=== PATIENT | male | born 1960 | race Two or more races ===

== ENCOUNTER 2020-06-25 11:19 | Emergency (ER) | payer MEDICAID, SELFPAY ==
--- NOTE | 2020-06-25 | CT_ITS ---
EXAMINATION: CT CHEST WITHOUT CONTRAST CLINICAL INFORMATION: Cough for 2 weeks. COMPARISON: Chest x-ray 02/27/2020. correlation CT abdomen 01/31/2020. TECHNIQUE: Multidetector volumetric CT imaging of the chest was done. Axial MIP volume rendering provided. Sagittal and coronal reformatted images were obtained. This CT examination was performed using dose optimization techniques as appropriate, variously including the following: *Automated exposure control *Adjustment of mA and/or kV according to patient size (this includes techniques or standardized protocols for targeted exams where dose is matched to indication/reason for exam; i.e. extremities or head) *Use of iterative reconstruction technique DLP: 393 mGy-cm FINDINGS: LUNGS: Trachea and central airway are clear. Airspace opacities, including opacities with band-like configuration in the right middle lobe, right lower lobe, and more prominently in the left lower lobe. This could represent atelectasis or infiltrate. MEDIASTINUM: Visualized thyroid gland appears unremarkable. No adenopathy is seen in the mediastinum or dimitry. Normal caliber aorta. Normal heart size. No pericardial effusion. PLEURA: There is no pleural effusion. No pleural mass or thickening. AXILLA: No lymphadenopathy. UPPER ABDOMEN: Large lesion in the right lobe of the liver, better evaluated on the recent CT scan of 01/31/2020. Mild intrahepatic biliary duct dilatation. Abnormal pancreatic findings, better evaluated on the recent CT abdomen 01/31/2020. OSSEOUS STRUCTURES: No acute or suspicious osseous abnormality. Degenerative changes in the thoracic spine. IMPRESSION: 1. Opacities in the right middle lobe, bilateral lower lobes, left greater than right, could represent atelectasis or infiltrates. 2. Findings in the upper abdomen, has been better evaluated on the prior contrast-enhanced CT of 02/27/2020. Please refer to that CT report.
[2020-06-25 11:49] VITALS: BP 135/97; PULSE 95; RESP 18; TEMP 37.1; O2SAT 94; BMI 31.8
--- NOTE | 2020-06-25 12:00 | ED.SOB ---
HPI - SOB/Dyspnea General Chief Complaint: Dyspnea Stated Complaint: flu like symtoms Time Seen by Provider: 06/25/20 12:00 Source: patient Mode of arrival: ambulatory Limitations: no limitations History of Present Illness MD elicited complaint: shortness of breath Pertinent past history: asthma Onset (ago): week(s) (2) Context: other (worse at night when laying flat) Timing: intermittent Severity: moderate Exacerbating factors: lying flat Relieving factors: nothing Related Data Previous Rx's Medication Instructions Recorded doxycycline hyclate 100 mg PO BID 7 Days #14 cap 06/25/20 prednisone 40 mg PO DAILY #10 tab 06/25/20 Allergies Allergy/AdvReac Type Severity Reaction Status Date / Time barium sulfate Allergy Unknown rash Verified 07/07/16 00:00 ibuprofen [IBUPROFEN] Allergy Unknown HYPERACTIVITY, Unverified 06/06/20 14:39 GI upset Review of Systems Review of Systems: Constitutional : No Fever, No Chills ENT/Mouth : No sore throat, No Rhinorrhea, No Swallowing Difficulty Eyes: No Eye Pain, No Swelling, No Redness Cardiovascular : No Chest Pain, positive SOB, pos Orthopnea, no Edema Respiratory : No Cough, No Sputum, No Wheezing, positive dyspnea Gastrointestinal : No Nausea, No Vomiting, No Diarrhea, No abdominal Pain, No Hematochezia, No Melena Genitourinary : No Dysuria, No Urinary Frequency, No Hematuria Musculoskeletal : No joint pain, No Myalgias Skin : No Skin Lesions, No rash Neuro : No Weakness, No Numbness, No Dizziness, No Headache Psych : No Anxiety/Panic, No Depression Heme/Lymph: No Bruising, No Lymphadenopathy Endocrine : No Polyuria, No Polydipsia All other systems reviewed and are negative [facility] Past Medical History Medical History Asthma Bipolar disorder Lipoma Surgical History S/P excision of lipoma Family History Family History (Updated 06/25/20 @ 09:46 by RACHEL Paulson) Father Myocardial infarction Mother NIDDY (non-insulin dependent diabetes mellitus in young) CAD (coronary artery disease) HTN (hypertension), benign No family history of colorectal cancer Social History Social History Alcohol intake: never Smoking Status: Former smoker Tobacco Type: Cigarette Smoked in Last 30 Days: No Use of substances other than those prescribed or required for medical reasons: No Advance Directives: No Advance Directives Information Provided: Yes Physical Exam Vital Signs and I&O and Narrative: Vital Signs and I&O: Vital Signs Temp 98.7 F 06/25/20 11:49 Pulse 85 06/25/20 12:54 Resp 14 06/25/20 12:54 BP 141/88 H 06/25/20 12:54 Pulse Ox 93 06/25/20 12:54 Intake & Output 06/24/20 06/25/20 06/25/20 18:59 06:59 18:59 Weight 92.079 kg Body Mass Index 31.8 Appearance: Alert. Oriented X3. No acute distress. Eyes: Pupils equal, round and reactive to light. ENT: Pharynx normal. Neck: Normal inspection. Neck supple. CVS: Normal heart rate and rhythm. Pulses normal. Respiratory: No respiratory distress. Breath sounds normal. Abdomen: Soft and nontender. Skin: Skin warm and dry. Normal skin color. Normal skin turgor. Extremities: No lower extremity edema. No lower extremity edema. Neuro: Oriented X 3. No motor deficit. No sensory deficit. Course Course Course Narrative: ddimer below upper limits of normal - needs to leave, no hypoxia will start on steroids and medications for bronchitis anticipate DC home if he cannot wait for full results Reevaluation(s) Reevaluation #1: + CT chest for likely pneumonia, diffuse called at home and warmed about possible appearance of COVID. also notified him that persistent liver lesion still present - will follow up with PCP MDM - SOB/Dyspnea MDM Narrative Medical decision making narrative: patient with dyspnea for 2 weeks, just had negative COVID test at this time will obtain EKG, ddimer , possible CT chest for pneumonia, does not need neb at this time, dispo per results and findings Differential Diagnosis Differential diagnosis: Likely pneumonia, asthma with exacerbation and pulmonary embolism Lab Data Result diagrams: 06/25/20 13:06 06/25/20 13:06 Labs: Lab Results 06/25/20 06/25/20 06/25/20 Range/Units 13:06 13:06 13:06 WBC 6.4 (4.8-10.8) X10*3/uL RBC 4.54 L (4.60-5.80) X10*6/uL Hgb 12.6 L (14.0-18.0) g/dl Hct 39.3 L (42-52) % MCV 86.6 (80-98) fL MCH 27.8 (27.0-33.0) pg MCHC 32.1 (31.0-36.0) g/dl RDW 14.1 (11.0-16.0) % Plt Count 186 (160-400) X10*3/uL MPV 9.8 (9.4-12.4) fL Immature Gran % (Auto) 0.5 H (0.0-0.4) % Neut % (Auto) 48.0 (45-73) % Lymph % (Auto) 35.7 (20-40) % Floyd % (Auto) 11.1 H (2-11) % Eos % (Auto) 3.9 (0-4) % Baso % (Auto) 0.8 (0-2) % Neut # (Auto) 3.1 (2.0-8.3) X10*3/uL Lymph # (Auto) 2.3 (1.2-4.9) X10*3/uL Floyd # (Auto) 0.7 (0.1-1.2) X10*3/uL Eos # (Auto) 0.3 (0.0-0.4) X10*3/uL Baso # (Auto) 0.1 (0.0-0.2) X10*3/uL Abs Immat Gran (auto) 0.03 (0.00-0.03) X10*3/uL Absolute Nucleated RBC 0.000 (0.0-0.012) X10*3/uL Nucleated RBC % (auto) 0.0 (0.0-0.2) /100WBC D-Dimer 246 NG/ML Sodium 139 (135-145) mmol/L Potassium 4.0 (3.3-5.1) mmol/l Chloride 104 (96-108) mmol/L Carbon Dioxide 28 (22-29) mmol/L Anion Gap 11 L (12-20) BUN 16 (9-16) mg/dL Creatinine 0.84 (0.5-1.4) mg/dL Estim Creat Clear Calc 104.9 Estimated GFR > 60 Random Glucose 127 H (60-115) mg/dL Calcium 8.7 (8.4-10.2) mg/dL Magnesium 1.7 (1.6-2.6) mg/dL Total Bilirubin 0.3 (0.0-1.0) mg/dL Direct Bilirubin < 0.2 (0.0-0.5) mg/dL AST 22 (5-37) U/L ALT 21 (0-40) U/L Alkaline Phosphatase 59 (39-117) U/L Troponin I High Sens (<3.5-35.0) ng/L B-Natriuretic Peptide (<100) pg/mL Total Protein 7.1 (6.5-8.0) g/dL Albumin 3.9 (3.5-5.0) g/dL Lipase 23 (8-78) U/L 06/25/20 Range/Units 13:06 WBC (4.8-10.8) X10*3/uL RBC (4.60-5.80) X10*6/uL Hgb (14.0-18.0) g/dl Hct (42-52) % MCV (80-98) fL MCH (27.0-33.0) pg MCHC (31.0-36.0) g/dl RDW (11.0-16.0) % Plt Count (160-400) X10*3/uL MPV (9.4-12.4) fL Immature Gran % (Auto) (0.0-0.4) % Neut % (Auto) (45-73) % Lymph % (Auto) (20-40) % Floyd % (Auto) (2-11) % Eos % (Auto) (0-4) % Baso % (Auto) (0-2) % Neut # (Auto) (2.0-8.3) X10*3/uL Lymph # (Auto) (1.2-4.9) X10*3/uL Floyd # (Auto) (0.1-1.2) X10*3/uL Eos # (Auto) (0.0-0.4) X10*3/uL Baso # (Auto) (0.0-0.2) X10*3/uL Abs Immat Gran (auto) (0.00-0.03) X10*3/uL Absolute Nucleated RBC (0.0-0.012) X10*3/uL Nucleated RBC % (auto) (0.0-0.2) /100WBC D-Dimer NG/ML Sodium (135-145) mmol/L Potassium (3.3-5.1) mmol/l Chloride (96-108) mmol/L Carbon Dioxide (22-29) mmol/L Anion Gap (12-20) BUN (9-16) mg/dL Creatinine (0.5-1.4) mg/dL Estim Creat Clear Calc Estimated GFR Random Glucose (60-115) mg/dL Calcium (8.4-10.2) mg/dL Magnesium (1.6-2.6) mg/dL Total Bilirubin (0.0-1.0) mg/dL Direct Bilirubin (0.0-0.5) mg/dL AST (5-37) U/L ALT (0-40) U/L Alkaline Phosphatase (39-117) U/L Troponin I High Sens < 3.5 (<3.5-35.0) ng/L B-Natriuretic Peptide 17 (<100) pg/mL Total Protein (6.5-8.0) g/dL Albumin (3.5-5.0) g/dL Lipase (8-78) U/L ECG Data ECG interpretation date: 06/25/20 ECG interpretation time: 12:58 Interpretation: Rate: 86 Rhythm: normal sinus [place]: normal Normal P waves. Normal ELVIN. Normal QRS complex. ST T wave : normal qTC: normal prior studies: unchanged, no acute ischemia The study has been interpreted contemporaneously by me. . Discharge Plan Discharge Clinical Impression: Acute dyspnea, Bronchitis Patient Disposition: Home, Self-Care Instructions: Acute Bronchitis (ED), Dyspnea (ED) Additional Instructions: the final read from radiology is not back yet we will call you with anything concerning Prescriptions: New prednisone 20 mg tablet 40 mg PO DAILY Qty: 10 RF: 0 doxycycline hyclate 100 mg capsule 100 mg PO BID 7 Days Qty: 14 RF: 0 Referrals: Geovanni Armendariz MD [Primary Care Provider] - 2 days (if not better) Stand Alone Forms: Work/School Release Interventions: ED Discharge Assessment Last Done: 06/25/20 15:14 Discharge Date/Time: 06/25/20 15:16
--- NOTE | 2020-06-25 12:03 | ECG_ITS ---
Test Reason : DIFF BREATHING Blood Pressure : / mmHG Vent. Rate : 086 BPM Atrial Rate : 086 BPM P-R Int : 128 ms QRS Dur : 084 ms QT Int : 372 ms P-R-T Axes : 032 041 009 degrees QTc Int : 445 ms Normal sinus rhythm Normal ECG When compared with ECG of 19-JUL-2015 07:32, Premature ventricular complexes are no longer Present Referred By: Sigrid Veliz Electronically Signed By:TAISHA BOGGS
[2020-06-25 12:54] VITALS: BP 141/88; PULSE 85; RESP 14; O2SAT 93
[2020-06-25 13:15] LABS: MANUAL DIFF FLAG NO
[2020-06-25 13:16] LABS: Basophils Absolute Auto 0.1 X10*3/uL (0.0-0.2); Basophils Percent Auto 0.8 % (0-2); Eosinophils Absolute Auto 0.3 X10*3/uL (0.0-0.4); Eosinophils Percent Auto 3.9 % (0-4); Hematocrit 39.3 % (42-52); Hemoglobin 12.6 g/dl (14.0-18.0); Imm Gran Abs Auto 0.03 X10*3/uL (0.00-0.03); Imm Gran Pct Auto 0.5 % (0.0-0.4); Lymphocytes Absolute Auto 2.3 X10*3/uL (1.2-4.9); Lymphocytes Percent Auto 35.7 % (20-40); Mean Corpuscular HGB Conc 32.1 g/dl (31.0-36.0); Mean Corpuscular Hemoglobin 27.8 pg (27.0-33.0); Mean Corpuscular Volume 86.6 fL (80-98); Mean Platelet Volume 9.8 fL (9.4-12.4); Monocytes Absolute Auto 0.7 X10*3/uL (0.1-1.2); Monocytes Percent Auto 11.1 % (2-11); Neutrophils Absolute Auto 3.1 X10*3/uL (2.0-8.3); Platelet Count 186 X10*3/uL (160-400); Red Blood Count 4.54 X10*6/uL (4.60-5.80); Red Cell Distribution Width 14.1 % (11.0-16.0); White Blood Count 6.4 X10*3/uL (4.8-10.8)
[2020-06-25 13:27] LABS: D Dimer 246 NG/ML
[2020-06-25 13:40] LABS: Alanine Aminotransferase 21 U/L (0-40); Albumin Level 3.9 g/dL (3.5-5.0); Alkaline Phosphatase 59 U/L (39-117); Anion Gap 11 (12-20); Aspartate Amino Transferase 22 U/L (5-37); Bilirubin Direct < 0.2 mg/dL (0.0-0.5); Bilirubin Total 0.3 mg/dL (0.0-1.0); Blood Urea Nitrogen 16 mg/dL (9-16); Calcium 8.7 mg/dL (8.4-10.2); Carbon Dioxide 28 mmol/L (22-29); Chloride 104 mmol/L (96-108); Creatinine Clr Calc Pharmacy 104.9; Estimated Glomerular Filt Rate > 60; Glucose Random 127 mg/dL (60-115); Lipase 23 U/L (8-78); Magnesium 1.7 mg/dL (1.6-2.6); Sodium 139 mmol/L (135-145); Total Protein 7.1 g/dL (6.5-8.0)
[2020-06-25 13:46] LABS: B Type Natriuretic Peptide 17 pg/mL (<100); Troponin-I High Sensitivity < 3.5 ng/L (<3.5-35.0)
== END 2020-06-25 15:16 | disposition home or self-care (01) ==
PROVIDERS: Emergency Provider Emergency Medicine; PCP Family Medicine
DX: J42 Unspecified chronic bronchitis (principal); R06.00 Dyspnea, unspecified; Z87.891 Personal history of nicotine dependence
CPT/HCPCS: 36415; 71250; 80048; 80076; 83690; 83735; 83880; 84484; 85025; 85379; 93005; 93010; 99284

== ENCOUNTER → 2020-06-26 09:54 | Outpatient (BNVA) | payer MEDICAID, SELFPAY | PROVIDERS: PCP Family Medicine; Referring Provider Family Medicine; Visit Provider Nurse Practitioner | DX: K74.60 Unspecified cirrhosis of liver (principal); B18.2 Chronic viral hepatitis C; R79.89 Other specified abnormal findings of blood chemistry; K21.9 Gastro-esophageal reflux disease without esophagitis | CPT/HCPCS: 99213 ==

== ENCOUNTER 2020-06-27 13:57 | Outpatient (REF) | payer MEDICAID, SELFPAY | END 2020-06-27 13:58 | disposition home or self-care (01) | LOC: HO.LAB 13:57 | PROVIDERS: PCP Family Medicine; Visit Provider Internal Medicine | DX: Z20.828 Contact with and (suspected) exposure to other viral communicable diseases (principal) | CPT/HCPCS: 87635 ==

== ENCOUNTER 2020-08-06 12:34 | Day surgery (SDC) | payer MEDICAID, SELFPAY ==
[2020-08-06 12:46] VITALS: BP 152/104; PULSE 72; RESP 18; TEMP 36.4; O2SAT 96; BMI 30.7
[2020-08-06 12:53] VITALS: BP 150/97; PULSE 62; RESP 18
--- NOTE | 2020-08-06 14:25 | P.HPSUR_ITS ---
Pre-Procedural Eval Section B Chief Complaint: cirrhosis Relevant Family History (Specify if Yes): No Relevant Social History: Other (specify) (ex drug user and ex smoker) Present Medications: see Short Stay Collaborative assessment Medical History: Significant History (HEp c, cirrhosis, bipolar d/o ) History of Previous Operations: No relevant previous surgery Allergies: Allergies Allergy/AdvReac Type Severity Reaction Status Date / Time barium sulfate Allergy Unknown rash Verified 07/07/16 00:00 ibuprofen [IBUPROFEN] Allergy Unknown HYPERACTIVITY, Unverified 06/26/20 10:03 GI upset, rash Review of Systems Sugical H&P ROS: Negative: Constitution, Cardiovascular, Respiratory, Neurological, Psychiatric, Hem-Onc, Allergic/Immunologic, Gastrointestinal, Genitourinary, Musculoskeletal, Integumentary, Endocrine and Eyes/Ears/Nose/Throat Exam Surgical H&P Exam: Normal: HEENT, Normal: Heart, Normal: Lungs, Normal: Extremi ties, Normal: Abdomen, Normal: Skin and Normal: Neurological Plan Diagnosis/Plan: Unchanged Patient has been examined and remains a candidate for the planned procedure
--- NOTE | 2020-08-06 14:27 | PM.OP ---
Brief Operative Note Date of Service: 08/06/20 Pre-op diagnosis: cirrhosis, variceal screening Post-op diagnosis: same Procedure: see op note Surgeon: Kiana Ulloa MD Anesthesia: MAC Estimated blood loss (mL): 0 Condition: stable Disposition: PACU
--- NOTE | 2020-08-06 14:40 | P.CONAN_ITS ---
[facility] Past Medical History Medical History Asthma Bipolar disorder Lipoma Family History Family History Father Myocardial infarction Mother NIDDY (non-insulin dependent diabetes mellitus in young) CAD (coronary artery disease) HTN (hypertension), benign No family history of colorectal cancer Surgical History Surgical History S/P excision of lipoma Social History Social History (Updated 06/26/20 @ 10:12 by Diane Chairez RN) Alcohol intake: never Smoking Status: Former smoker Tobacco Type: Cigarette Cigarettes Per Day: 5 Years Smoked: 26 Use of substances other than those prescribed or required for medical reasons: No Substance Use Type: Crack/Cocaine, Former Substance User and Heroin Advance Directives: No Advance Directives Information Provided: No Meds Allergies Allergy/AdvReac Type Severity Reaction Status Date / Time barium sulfate Allergy Unknown rash Verified 07/07/16 00:00 ibuprofen [IBUPROFEN] Allergy Unknown HYPERACTIVITY, Unverified 06/26/20 10:03 GI upset, rash Home Medications Medication Instructions Recorded Confirmed Type buprenorphine 8 mg-naloxone 2 mg 1 film BUCCAL DAILY 06/26/20 06/26/20 History sublingual film omeprazole 20 mg capsule,delayed 20 mg PO DAILY 06/26/20 06/26/20 History release quetiapine 400 mg tablet 400 mg PO BEDTIME tab 06/26/20 06/26/20 History risperidone 2 mg tablet 2 mg PO BID 06/26/20 06/26/20 History sertraline 100 mg tablet 100 mg PO DAILY 06/26/20 06/26/20 History trazodone 100 mg tablet 100 mg PO BEDTIME 06/26/20 06/26/20 History Exam Exam Date and Time: August 06, 2020 1440 Height,Weight and Vital Signs: Height 5 ft 7 in Weight 88.904 kg Last Vital Signs Temp 97.5 F 08/06/20 12:46 Pulse 62 08/06/20 12:53 Resp 18 08/06/20 12:53 BP 150/97 H 08/06/20 12:53 Pulse Ox 96 08/06/20 12:46 Airway Mallampati Class: III TM Dist: >3cm Neck ROM: Full Partial: Upper Loose/Missing/Broken Teeth: Yes (Several missing) Heart: RRR Assessment and Plan Assessment Anesthesia Assessment: Anesthesia Plan Discussed Final Anesthetic Review NPO: Yes ASA Class: III Anesthetic Plan Anesthetic Plan: MAC: Disposition: Standard PACU
--- NOTE | 2020-08-06 14:47 | W.PM.OPN ---
Operative Note Operative Note Date of Service: 08/06/20 Narrative: Procedure Description: EGD FLEXIBLE TRANSORAL UPPER GASTROINTESTINAL ENDOSCOPY UPPER ENDOSCOPY Consent: Indications for the procedure and potential complications of bleeding, perforation, reaction to medications and missed diagnosis were discussed with the patient and informed consent was obtained. Instrument: Olympus GIF H 190 J mid size upper endoscope Monitoring: Vital signs and clinical assessment, continuous EKG monitoring, Pulse oximetry, Carbon Dioxide monitoring and blood pressure monitoring were done throughout the procedure. Procedure: The patient was placed in the left lateral decubitis position and pre-procedure medications were administered and a bite block was placed. The endoscope was inserted into the mouth and advanced under direct vision to the third part of duodenum. A careful inspection was made as the upper endoscope was withdrawn including a retroflexed examination of the proximal stomach; Findings and interventions are described below. Findings: Larynx:normal Esophagus: GE junction at 40 cm, diaphragm hiatus at 40 cm, suspected short segment of barretts, bx taken, more obvious with nbi. No varices seen Stomach: Patchy gastric erythema. Biopsies were obtained. Grade 2 flap valve on retroflexed examination of the cardia. 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
[2020-08-06 14:53] VITALS: BP 130/97; PULSE 56; RESP 16; TEMP 36.5; O2SAT 94
[2020-08-06 15:05] VITALS: BP 155/96; PULSE 62; RESP 16; TEMP 36.5; O2SAT 95
--- NOTE | 2020-08-07 09:40 | HO.POSTANES ---
Post Anesthesia Evaluation Post Anesthesia Evaluation Anesthesia: Monitored Mental Status: Awake Pain Control: Satisfactory Nausea/Vomiting: None Hydration: Adequate Anesthesia-Related Issues: No Anes. Related Issues
--- NOTE | 2020-08-07 09:41 | HO.POSTANES ---
Post Anesthesia Evaluation Post Anesthesia Evaluation Vital Signs: Patient was done on 08/06 under MAC. Computer was having issues so dischargte done on paper and being transferred now to computer. Anesthesia: Monitored Mental Status: Awake Pain Control: Satisfactory Nausea/Vomiting: None Hydration: Adequate Anesthesia-Related Issues: No Anes. Related Issues
== END 2020-08-06 15:30 | disposition home or self-care (01) ==
PROVIDERS: PCP Family Medicine; Visit Provider Internal Medicine Gastroenterology
PROC: 0DJ08ZZ Inspection of Upper Intestinal Tract, Via Natural or Artificial Opening Endoscopic (ICD-10-PCS; CPT 43235; principal; 2020-08-06 14:20)
DX: K74.60 Unspecified cirrhosis of liver (principal); K29.50 Unspecified chronic gastritis without bleeding; K44.9 Diaphragmatic hernia without obstruction or gangrene; J45.909 Unspecified asthma, uncomplicated; F17.210 Nicotine dependence, cigarettes, uncomplicated; Z88.8 Allergy status to other drugs, medicaments and biological substances
CPT/HCPCS: 43239; 88305; 88342

== ENCOUNTER 2020-08-15 12:31 | Emergency (ER) | payer MEDICAID, SELFPAY ==
[2020-08-15 12:38] VITALS: BP 138/89; PULSE 78; RESP 18; TEMP 36.9; O2SAT 98; BMI 25.9
--- NOTE | 2020-08-15 12:42 | ED.URI ---
HPI - URI/Sore Throat General Chief Complaint: Upper Respiratory Symptoms Stated Complaint: flu like symptoms Time Seen by Provider: 08/15/20 12:36 Source: patient Mode of arrival: ambulatory Limitations: no limitations History of Present Illness HPI Narrative: 59 y/o male with multiple co-morbidiites including asthma, hepatitis C cirrhosis, hx polysubstance abuse on suboxone maintainance therapy, bipolar disorder, depression/anxiety, & GERD presents with complaints of sinus pressure, cough and sore throat for the last 4 days. He states he had similar symptoms in June - was treated with antibiotics and nasal spray with improvement in 24 hours time. He has been taking over the counter cold/flu medications and taking his PRN albuterol inhaler. He reports mild SOB with exertion but denies chest pain, difficulty breathing, dizziness, fever, chills, N/V/ abd pain. No known exposure to COVID-19. Did not get his flu vaccine this year. MD elicited complaint: cough, sore throat, nasal congestion and sinus pain Pertinent past history: asthma Treatments prior to arrival: none Related Data Home Medications Medication Instructions Recorded Confirmed buprenorphine 8 mg-naloxone 2 mg 1 film BUCCAL DAILY 06/26/20 06/26/20 sublingual film omeprazole 20 mg capsule,delayed 20 mg PO DAILY 06/26/20 06/26/20 release quetiapine 400 mg tablet 400 mg PO BEDTIME tab 06/26/20 06/26/20 risperidone 2 mg tablet 2 mg PO BID 06/26/20 06/26/20 sertraline 100 mg tablet 100 mg PO DAILY 06/26/20 06/26/20 trazodone 100 mg tablet 100 mg PO BEDTIME 06/26/20 06/26/20 Previous Rx's Medication Instructions Recorded doxycycline hyclate 100 mg PO BID 7 Days #14 cap 06/25/20 prednisone 40 mg PO DAILY #10 tab 06/25/20 amoxicillin-pot clavulanate 1 tab PO BID #14 tab 08/15/20 [Augmentin] prednisone 40 mg PO DAILY #10 tab 08/15/20 triamcinolone acetonide [Nasacort] 2 spray INTRANASAL DAILY #16.9 ml 08/15/20 Allergies Allergy/AdvReac Type Severity Reaction Status Date / Time barium sulfate Allergy Unknown rash Verified 07/07/16 00:00 ibuprofen [IBUPROFEN] Allergy Unknown HYPERACTIVITY, Unverified 10/07/20 10:03 GI upset, rash Review of Systems Review of Systems: Constitutional: No Fever, No Chills ENT/Mouth: + sore throat, + Rhinorrhea, No Swallowing Difficulty Eyes: No Eye Pain, No Swelling, No Redness Cardiovascular: No Chest Pain, + SOB, No Orthopnea, No Edema Respiratory: + Cough (mild, dry), No Sputum, + Wheezing, No dyspnea Gastrointestinal: No Nausea, No Vomiting, No Diarrhea, No abdominal Pain Musculoskeletal: No joint pain, + Myalgias Skin: No Skin Lesions, No rash Neuro: No Weakness, No Dizziness, + Headache Heme/Lymph: No Bruising, No Lymphadenopathy PMFSH Past Medical History Attestation statement: The following information was validated with the patient. Medical History Asthma Bipolar disorder Lipoma Surgical History S/P excision of lipoma Family History Family History Father Myocardial infarction Mother NIDDY (non-insulin dependent diabetes mellitus in young) CAD (coronary artery disease) HTN (hypertension), benign No family history of colorectal cancer Social History Social History (Updated 06/26/20 @ 10:12 by Diane Chairez RN) Alcohol intake: never Smoking Status: Former smoker Tobacco Type: Cigarette Cigarettes Per Day: 5 Years Smoked: 26 Substance Use Type: Crack/Cocaine, Former Substance User and Heroin Advance Directives: No Advance Directives Information Provided: No Physical Exam Vital Signs: Vital Signs: Last Vital Signs Temp 98.4 F 08/15/20 12:38 Pulse 78 08/15/20 12:38 Resp 18 08/15/20 12:38 BP 138/89 08/15/20 12:38 Pulse Ox 98 08/15/20 12:38 Body Mass Index 25.9 Appearance: Alert. Oriented X3. No acute distress. ENT: Pharyngel erythema without tonsillar swelling or exudate. White nasal discharge with erythematous turbinates bilaterally. Neck: Normal inspection. Neck supple. CVS: Normal heart rate and rhythm. Pulses normal. Respiratory: No respiratory distress. Mild expiratory wheezes throughout lower right lung benjamin. No rhonchi. Abdomen: Soft and nontender. +BS x4 Skin: Skin warm and dry. Normal skin color. Normal skin turgor. No rashes. Neuro: Oriented X 3. Non-focal Course Course Course Narrative: 59 y/o male with multiple comorbidities presenting with sore throat, cough and sinus pressure. He is afebrile with SpO2 98% on arrival. He is non-toxic appearing. He has mild wheezing in right lung but denies SOB at this time. Will hold off on full lab workup. Will get COVID/Flu/RSV panel as well as CXR and rapid Strep given his symptoms. Reevaluation(s) Reevaluation #1: CXR only shows mild basilar atelectasis, no evidence of pneumonia. Strep test is negative. Reevaluation #2: Viral panel still pending, patient asking to be discharged and called with the results. Will treat empirically for possible sinusitis and give short course of prednisone for wheezing. Patient counseled and all questions were answered. MDM - URI/Sore Throat MDM Narrative Medical decision making narrative: COVID-19, pneumonia Differential Diagnosis Differential diagnosis: Likely upper respiratory infection, croup, otitis media, sinusitis, viral infection, bronchitis, influenza and pharyngitis Discharge Plan Discharge Clinical Impression: Upper respiratory infection Qualifiers: URI type: unspecified URI Qualified Code(s): J06.9 - Acute upper respiratory infection, unspecified Patient Disposition: Home, Self-Care Instructions: Upper Respiratory Infection (ED), Wheezing (ED) Additional Instructions: You were tested for COVID-19, Influenza and RSV today. I will call you this afternoon with the results. Your chest x-ray did not show any evidence of pneumonia. Your Strep throat test was negative. I am treating you for possible sinus infection with antibiotics as well as with prednisone for the wheezing in your lungs. Continue to take over the counter cold/flu medications as needed for your symptoms. Stay hydrated. Rest. If you develop shortness of breath, difficultly breathing, chest pain or any other symptom concerning to you, come back to the ER for further evaluation. Prescriptions: New prednisone 20 mg tablet 40 mg PO DAILY Qty: 10 RF: 0 amoxicillin-pot clavulanate [Augmentin] 875-125 mg tablet 1 tab PO BID Qty: 14 RF: 0 triamcinolone acetonide [Nasacort] 55 mcg aerosol,spray 2 spray intranasal DAILY Qty: 16.9 RF: 0 No Action prednisone 20 mg tablet 40 mg PO DAILY Qty: 10 RF: 0 doxycycline hyclate 100 mg capsule 100 mg PO BID 7 Days Qty: 14 RF: 0 sertraline 100 mg tablet 100 mg PO DAILY RF: 0 omeprazole 20 mg capsule,delayed release(DR/EC) 20 mg PO DAILY RF: 0 quetiapine 400 mg tablet 400 mg PO BEDTIME RF: 0 trazodone 100 mg tablet 100 mg PO BEDTIME RF: 0 risperidone 2 mg tablet 2 mg PO BID RF: 0 buprenorphine-naloxone [Suboxone] 8-2 mg film 1 film buccal DAILY RF: 0
--- NOTE | 2020-08-15 12:43 | XR_ITS ---
EXAMINATION: XR CHEST CLINICAL INFORMATION: Cough COMPARISON: 02/27/2020 TECHNIQUE: Frontal view of the chest was obtained. FINDINGS: Lungs are adequately expanded. Again noted are linear opacities of atelectasis in each lung base. No acute pulmonary findings. No evidence of consolidation, edema or pleural effusion. Cardiac silhouette is normal in size. The hilar contours are normal. The visualized bones, and upper abdomen, are unremarkable. XR/XR chest 1V IMPRESSION: * No evidence of pneumonia. * There are linear opacities of atelectasis in each lung base.
[2020-08-15 14:19] LABS: Influenza A PCR NEGATIVE (Negative); Influenza B PCR NEGATIVE (Negative); Resp Syncy Virus RNA Qual PCR NEGATIVE (Negative); SARS COV2 PCR INHOUSE NEGATIVE (Negative)
== END 2020-08-15 14:24 | disposition home or self-care (01) ==
PROVIDERS: Physician Assistant; Emergency Provider Emergency Medicine Emergency Medical Services; PCP Family Medicine
DX: J06.9 Acute upper respiratory infection, unspecified (principal); R05 Cough; J45.909 Unspecified asthma, uncomplicated; Z79.899 Other long term (current) drug therapy; F17.210 Nicotine dependence, cigarettes, uncomplicated; Z71.6 Tobacco abuse counseling; Z20.828 Contact with and (suspected) exposure to other viral communicable diseases
CPT/HCPCS: 0241U; 71045; 87071; 87880; 99283

== ENCOUNTER 2020-09-11 06:54 | Emergency (ER) | payer MEDICAID, SELFPAY ==
[2020-09-11 07:28] VITALS: BP 125/82; PULSE 73; RESP 22; TEMP 36.9; O2SAT 94; BMI 32.4
--- NOTE | 2020-09-11 07:43 | XR_ITS ---
EXAMINATION: XR CHEST CLINICAL INFORMATION: Dyspnea COMPARISON: Chest 08/15/2020 TECHNIQUE: Frontal view of the chest was obtained. FINDINGS: The lungs are well-expanded with bilateral lower lobe platelike atelectasis. The upper lungs are clear. The heart size and pulmonary vascularity is normal. There is mild spondylosis dorsal spine. No lytic process. XR/XR chest 1V IMPRESSION: Bibasilar platelike atelectasis. No acute process seen in chest.
--- NOTE | 2020-09-11 07:55 | ED_ITS ---
HPI - Asthma General Chief Complaint: Asthma Stated Complaint: Sob Time Seen by Provider: 09/11/20 07:43 Source: patient Mode of arrival: ambulatory Limitations: no limitations History of Present Illness MD complaint: wheezing Onset (ago): day(s) (3) Severity: moderate Context: recent URI Associated symptoms: productive cough Asthma History: childhood onset and adult onset Treatments Prior to Arrival: inhaled bronchodilator Related Data Current Asthma Therapy: inhaled bronchodilator Home Medications Medication Instructions Recorded Confirmed buprenorphine 8 mg-naloxone 2 mg 1 film BUCCAL DAILY 06/26/20 06/26/20 sublingual film omeprazole 20 mg capsule,delayed 20 mg PO DAILY 06/26/20 06/26/20 release quetiapine 400 mg tablet 400 mg PO BEDTIME tab 06/26/20 06/26/20 risperidone 2 mg tablet 2 mg PO BID 06/26/20 06/26/20 sertraline 100 mg tablet 100 mg PO DAILY 06/26/20 06/26/20 trazodone 100 mg tablet 100 mg PO BEDTIME 06/26/20 06/26/20 Previous Rx's Medication Instructions Recorded doxycycline hyclate 100 mg PO BID 7 Days #14 cap 06/25/20 prednisone 40 mg PO DAILY #10 tab 06/25/20 amoxicillin-pot clavulanate 1 tab PO BID #14 tab 08/15/20 [Augmentin] prednisone 40 mg PO DAILY #10 tab 08/15/20 triamcinolone acetonide [Nasacort] 2 spray INTRANASAL DAILY #16.9 ml 08/15/20 amoxicillin-pot clavulanate 1 tab PO BID #14 tab 09/11/20 [Augmentin] prednisone 40 mg PO DAILY 5 Days #10 tab 09/11/20 Allergies Allergy/AdvReac Type Severity Reaction Status Date / Time barium sulfate Allergy Unknown rash Verified 07/07/16 00:00 ibuprofen [IBUPROFEN] Allergy Unknown HYPERACTIVITY, Unverified 06/26/20 10:03 GI upset, rash Review of Systems Review of Systems: Constitutional : No Fever, No Chills ENT/Mouth : No Hoarseness, No sore throat, No Rhinorrhea Eyes: No Redness, No Discharge, No Vision Changes Cardiovascular : No Chest Pain, positive SOB, positive Dyspnea on Exertion, No Edema Respiratory : positive Cough, No Sputum, positive Wheezing, Gastrointestinal : No Nausea, No Vomiting, No Diarrhea, No abdominal Pain Genitourinary : No Dysuria, No Hematuria Musculoskeletal : No joint pain, No Myalgias Skin : No rash Neuro : No Weakness, No Numbness, No Headache Psych : No anxiety, depression Heme/Lymph: No Bruising, No Bleeding Endocrine : No Polyuria, No Polydipsia All other systems reviewed and are negative [facility] Past Medical History Attestation statement: The following information was validated with the patient. Medical History Asthma Bipolar disorder Lipoma Surgical History S/P excision of lipoma Family History Family History Father Myocardial infarction Mother NIDDY (non-insulin dependent diabetes mellitus in young) CAD (coronary artery disease) HTN (hypertension), benign No family history of colorectal cancer Social History Social History Alcohol intake: never Smoking Status: Former smoker Tobacco Type: Cigarette Cigarettes Per Day: 5 Years Smoked: 26 Substance Use Type: Crack/Cocaine, Former Substance User and Heroin Advance Directives: No Advance Directives Information Provided: Yes Physical Exam Vital Signs: Vital Signs: Last Vital Signs Temp 98.4 F 09/11/20 10:00 Pulse 74 09/11/20 10:00 Resp 16 09/11/20 10:00 BP 130/72 09/11/20 10:00 Pulse Ox 96 09/11/20 10:00 Body Mass Index 32.4 Appearance: Alert. Oriented X3. No acute distress. Eyes: Pupils equal, round and reactive to light. ENT: Pharynx normal. Neck: Normal inspection. Neck supple. CVS: Normal heart rate and rhythm. Pulses normal. Respiratory: No respiratory distress. end exp wheezes noted Abdomen: Soft and non-tender. Skin: Skin warm and dry. Normal skin color. Normal skin turgor. Extremities: No lower extremity edema. No calf ttp Neuro: Oriented X 3. No motor deficit. No sensory deficit. Course Course Course Narrative: no hypoxia, stable for DC, feels better MDM - Asthma MDM Narrative Medical decision making narrative: 59 yo male with hx of asthma here with 3 days of URI / productive cough and wheezing, using nebs at home, at this time will need labs, CXR, COVID swab, INH as well as IV steroids, dispo per results and findings. Lab Data Result diagrams: 09/11/20 08:46 09/11/20 09:40 Labs: Lab Results 09/11/20 09/11/20 09/11/20 Range/Units 08:46 08:46 08:46 WBC 7.5 (4.8-10.8) X10*3/uL RBC 4.36 L (4.60-5.80) X10*6/uL Hgb 12.4 L (14.0-18.0) g/dl Hct 37.4 L (42-52) % MCV 85.8 (80-98) fL MCH 28.4 (27.0-33.0) pg MCHC 33.2 (31.0-36.0) g/dl RDW 13.3 (11.0-16.0) % Plt Count 235 D (160-400) X10*3/uL MPV 10.2 (9.4-12.4) fL Immature Gran % (Auto) 0.4 (0.0-0.4) % Neut % (Auto) 50.9 (45-73) % Lymph % (Auto) 32.1 (20-40) % [place] % (Auto) 11.3 H (2-11) % Eos % (Auto) 4.8 H (0-4) % Baso % (Auto) 0.5 (0-2) % Lymph # (Auto) 2.4 (1.2-4.9) X10*3/uL [place] # (Auto) 0.9 (0.1-1.2) X10*3/uL Eos # (Auto) 0.4 (0.0-0.4) X10*3/uL Baso # (Auto) 0.0 (0.0-0.2) X10*3/uL Abs Immat Gran (auto) 0.03 (0.00-0.03) X10*3/uL Absolute Neuts (auto) 3.8 (2.0-8.3) X10*3/uL Absolute Nucleated RBC 0.000 (0.0-0.012) X10*3/uL Nucleated RBC % (auto) 0.0 (0.0-0.2) /100WBC Hold Blue Top SEE NOTE Sodium Cancelled Potassium Cancelled Chloride Cancelled Carbon Dioxide Cancelled Anion Gap Cancelled BUN Cancelled Creatinine Cancelled Estim Creat Clear Calc Cancelled Estimated GFR Cancelled Random Glucose Cancelled Calcium Cancelled Total Bilirubin Cancelled Direct Bilirubin Cancelled AST Cancelled ALT Cancelled Alkaline Phosphatase Cancelled Total Protein Cancelled Albumin Cancelled Coronavirus (PCR) (Negative) Influenza Type A (PCR) (Negative) Influenza Type B (PCR) (Negative) RSV RNA Qual (PCR) (Negative) 09/11/20 09/11/20 Range/Units 08:46 09:40 WBC (4.8-10.8) X10*3/uL RBC (4.60-5.80) X10*6/uL Hgb (14.0-18.0) g/dl Hct (42-52) % MCV (80-98) fL MCH (27.0-33.0) pg MCHC (31.0-36.0) g/dl RDW (11.0-16.0) % Plt Count (160-400) X10*3/uL MPV (9.4-12.4) fL Immature Gran % (Auto) (0.0-0.4) % Neut % (Auto) (45-73) % Lymph % (Auto) (20-40) % [place] % (Auto) (2-11) % Eos % (Auto) (0-4) % Baso % (Auto) (0-2) % Lymph # (Auto) (1.2-4.9) X10*3/uL [place] # (Auto) (0.1-1.2) X10*3/uL Eos # (Auto) (0.0-0.4) X10*3/uL Baso # (Auto) (0.0-0.2) X10*3/uL Abs Immat Gran (auto) (0.00-0.03) X10*3/uL Absolute Neuts (auto) (2.0-8.3) X10*3/uL Absolute Nucleated RBC (0.0-0.012) X10*3/uL Nucleated RBC % (auto) (0.0-0.2) /100WBC Hold Blue Top Sodium 137 Potassium 4.0 Chloride 104 Carbon Dioxide 25 Anion Gap 12 BUN 11 Creatinine 0.76 Estim Creat Clear Calc 117.1 Estimated GFR > 60 Random Glucose 158 H Calcium 8.7 Total Bilirubin 0.2 Direct Bilirubin < 0.2 AST 44 H D ALT 42 H Alkaline Phosphatase 62 Total Protein 6.8 Albumin 3.8 Coronavirus (PCR) NEGATIVE (Negative) Influenza Type A (PCR) NEGATIVE (Negative) Influenza Type B (PCR) NEGATIVE (Negative) RSV RNA Qual (PCR) NEGATIVE (Negative) Discharge Plan Discharge Clinical Impression: Asthma Qualifiers: Asthma severity: moderate Asthma persistence: persistent Asthma complication type: with acute exacerbation Qualified Code(s): J45.41 - Moderate persistent asthma with (acute) exacerbation Sinusitis Qualifiers: Sinusitis location: maxillary Chronicity: acute Recurrence: non-recurrent Qualified Code(s): J01.00 - Acute maxillary sinusitis, unspecified Patient Disposition: Home, Self-Care Instructions: Asthma (ED), Sinusitis (ED) Additional Instructions: return to ED for any worsening symptoms or concerns Prescriptions: New prednisone 20 mg tablet 40 mg PO DAILY 5 Days Qty: 10 RF: 0 amoxicillin-pot clavulanate [Augmentin] 875-125 mg tablet 1 tab PO BID Qty: 14 RF: 0 No Action prednisone 20 mg tablet 40 mg PO DAILY Qty: 10 RF: 0 doxycycline hyclate 100 mg capsule 100 mg PO BID 7 Days Qty: 14 RF: 0 prednisone 20 mg tablet 40 mg PO DAILY Qty: 10 RF: 0 amoxicillin-pot clavulanate [Augmentin] 875-125 mg tablet 1 tab PO BID Qty: 14 RF: 0 triamcinolone acetonide [Nasacort] 55 mcg aerosol,spray 2 spray intranasal DAILY Qty: 16.9 RF: 0 sertraline 100 mg tablet 100 mg PO DAILY RF: 0 omeprazole 20 mg capsule,delayed release(DR/EC) 20 mg PO DAILY RF: 0 quetiapine 400 mg tablet 400 mg PO BEDTIME RF: 0 trazodone 100 mg tablet 100 mg PO BEDTIME RF: 0 risperidone 2 mg tablet 2 mg PO BID RF: 0 buprenorphine-naloxone [Suboxone] 8-2 mg film 1 film buccal DAILY RF: 0 Referrals: Marcello / RUBENS,MD Geovanni [Primary Care Provider] - 2 days (if not better) Stand Alone Forms: Work/School Release
[2020-09-11] MEDS: Albuterol Sulfate 90 MCG 8 GM INHALER 4 PUFF INHALE (08:01)
[2020-09-11 08:31] VITALS: BP 124/66; PULSE 76; RESP 19; O2SAT 93
--- NOTE | 2020-09-11 08:47 | PC.NURSE ---
difficult iv start and lab draw due to venous scar tissue, iv established and labs sent
[2020-09-11] MEDS: methylPREDNISolone Sod Succ/PF 125 MG/2 ML VIAL 60 MG IVPUSH (08:51)
[2020-09-11 08:54] LABS: MANUAL DIFF FLAG NO
[2020-09-11 08:56] LABS: Basophils Percent Auto 0.5 % (0-2); Eosinophils Absolute Auto 0.4 X10*3/uL (0.0-0.4); Eosinophils Percent Auto 4.8 % (0-4); Hematocrit 37.4 % (42-52); Hemoglobin 12.4 g/dl (14.0-18.0); Imm Gran Abs Auto 0.03 X10*3/uL (0.00-0.03); Imm Gran Pct Auto 0.4 % (0.0-0.4); Lymphocytes Absolute Auto 2.4 X10*3/uL (1.2-4.9); Lymphocytes Percent Auto 32.1 % (20-40); Mean Corpuscular HGB Conc 33.2 g/dl (31.0-36.0); Mean Corpuscular Hemoglobin 28.4 pg (27.0-33.0); Mean Corpuscular Volume 85.8 fL (80-98); Mean Platelet Volume 10.2 fL (9.4-12.4); Monocytes Absolute Auto 0.9 X10*3/uL (0.1-1.2); Monocytes Percent Auto 11.3 % (2-11); Neutrophils Absolute Auto 3.8 X10*3/uL (2.0-8.3); Neutrophils Percent Auto 50.9 % (45-73); Platelet Count 235 X10*3/uL (160-400); Red Blood Count 4.36 X10*6/uL (4.60-5.80); Red Cell Distribution Width 13.3 % (11.0-16.0); White Blood Count 7.5 X10*3/uL (4.8-10.8)
[2020-09-11 09:32] LABS: Influenza A PCR NEGATIVE (Negative); Influenza B PCR NEGATIVE (Negative); Resp Syncy Virus RNA Qual PCR NEGATIVE (Negative); SARS COV2 PCR INHOUSE NEGATIVE (Negative)
[2020-09-11 10:00] VITALS: BP 130/72; PULSE 74; RESP 16; TEMP 36.9; O2SAT 96
[2020-09-11 10:12] LABS: Alanine Aminotransferase 42 U/L (0-40); Albumin Level 3.8 g/dL (3.5-5.0); Alkaline Phosphatase 62 U/L (39-117); Aspartate Amino Transferase 44 U/L (5-37); Bilirubin Direct < 0.2 mg/dL (0.0-0.5); Bilirubin Total 0.2 mg/dL (0.0-1.0); Blood Urea Nitrogen 11 mg/dL (9-16); Calcium 8.7 mg/dL (8.4-10.2); Creatinine Clr Calc Pharmacy 117.1; Estimated Glomerular Filt Rate > 60; Glucose Random 158 mg/dL (60-115); Total Protein 6.8 g/dL (6.5-8.0)
[2020-09-11 10:44] LABS: Anion Gap 12 (12-20); Carbon Dioxide 25 mmol/L (22-29); Chloride 104 mmol/L (96-108); Sodium 137 mmol/L (135-145)
== END 2020-09-11 11:03 | disposition home or self-care (01) ==
PROVIDERS: Emergency Provider Emergency Medicine; PCP Family Medicine
DX: J45.41 Moderate persistent asthma with (acute) exacerbation (principal); J01.00 Acute maxillary sinusitis, unspecified; Z20.828 Contact with and (suspected) exposure to other viral communicable diseases; F17.210 Nicotine dependence, cigarettes, uncomplicated; Z79.899 Other long term (current) drug therapy
CPT/HCPCS: 0241U; 36415; 71045; 80048; 80076; 85025; 99284; J2930

== ENCOUNTER 2020-09-16 12:32 | Emergency (ER) | payer MEDICAID, SELFPAY ==
[2020-09-16 14:21] VITALS: BP 136/89; PULSE 74; RESP 18; TEMP 36.8; O2SAT 93; BMI 32.8
--- NOTE | 2020-09-16 15:01 | PC.NURSE ---
patient a&ox3, speaking in full sentences, breathing equil and non labored, pt o2 sat 93% on room air, pt wishes to leave without being seen and will return later if needed
== END 2020-09-16 17:02 | disposition left against medical advice (07) ==
PROVIDERS: Emergency Provider Emergency Medicine Emergency Medical Services; PCP Family Medicine
DX: R05 Cough (principal); R06.02 Shortness of breath; J02.9 Acute pharyngitis, unspecified
CPT/HCPCS: 99282

== ENCOUNTER 2020-10-05 15:28 | Emergency (ER) | payer MEDICAID, SELFPAY ==
[2020-10-05 15:33] VITALS: PULSE 74; RESP 22; TEMP 36.4; O2SAT 92; BMI 35.0
--- NOTE | 2020-10-05 15:39 | ECG_ITS ---
Test Reason : SHORTNESS OF BREATH Blood Pressure : / mmHG Vent. Rate : 075 BPM Atrial Rate : 075 BPM P-R Int : 136 ms QRS Dur : 084 ms QT Int : 392 ms P-R-T Axes : 040 044 013 degrees QTc Int : 437 ms Normal sinus rhythm Normal ECG When compared with ECG of 25-JUN-2020 12:52, No significant change was found Referred By: Arsalan Darby Electronically Signed By:SANTA CARLOS MD
--- NOTE | 2020-10-05 15:39 | XR_ITS ---
EXAMINATION: XR CHEST CLINICAL INFORMATION: Shortness of breath COMPARISON: Previous chest x-ray most recent 09/11/2020 TECHNIQUE: Frontal view of the chest was obtained. FINDINGS: The cardiac and mediastinal contours are stable. There is subsegmental atelectasis seen at the lung bases. This is similar to previous exams. The lungs are otherwise clear. There is no pleural effusion or pneumothorax. There are degenerative changes of the spine. XR/XR chest 1V IMPRESSION: Bibasilar subsegmental atelectasis similar to previous exams.
[2020-10-05] MEDS: Albuterol Sulfate 90 MCG 8 GM INHALER 4 PUFF INHALE (15:47)
[2020-10-05 15:51] VITALS: O2SAT 95
--- NOTE | 2020-10-05 15:58 | ED_ITS ---
HPI - Asthma General Chief Complaint: Upper Respiratory Symptoms Stated Complaint: sob Time Seen by Provider: 10/05/20 15:34 Source: patient Mode of arrival: ambulatory Limitations: no limitations History of Present Illness HPI Narrative: This is a 59-year-old male male with multiple co-morbidiites including asthma, hepatitis C cirrhosis, hx polysubstance abuse on suboxone maintainance therapy, bipolar disorder, depression/anxiety, & GERD presents ambulatory via triage with complaint of cough and shortness of breath as he has had for past 3 months states he will get occasional asthma flares and has been to this emergency room several times for asthma exacerbation and feels similar. This time states he has productive cough with greenish sputum. He denies fever. States he has tested negative several times in the past for COVID-19. MD complaint: asthma attack , shortness of breath and wheezing Onset (ago): day(s) Context: recent URI Asthma History: adult onset Related Data Current Asthma Therapy: inhaled bronchodilator Home Medications Medication Instructions Recorded Confirmed buprenorphine 8 mg-naloxone 2 mg 1 film BUCCAL DAILY 06/26/20 06/26/20 sublingual film omeprazole 20 mg capsule,delayed 20 mg PO DAILY 06/26/20 06/26/20 release quetiapine 400 mg tablet 400 mg PO BEDTIME tab 06/26/20 06/26/20 risperidone 2 mg tablet 2 mg PO BID 06/26/20 06/26/20 sertraline 100 mg tablet 100 mg PO DAILY 06/26/20 06/26/20 trazodone 100 mg tablet 100 mg PO BEDTIME 06/26/20 06/26/20 Previous Rx's Medication Instructions Recorded doxycycline hyclate 100 mg PO BID 7 Days #14 cap 06/25/20 prednisone 40 mg PO DAILY #10 tab 06/25/20 amoxicillin-pot clavulanate 1 tab PO BID #14 tab 08/15/20 [Augmentin] prednisone 40 mg PO DAILY #10 tab 08/15/20 triamcinolone acetonide [Nasacort] 2 spray INTRANASAL DAILY #16.9 ml 08/15/20 amoxicillin-pot clavulanate 1 tab PO BID #14 tab 09/11/20 [Augmentin] prednisone 40 mg PO DAILY 5 Days #10 tab 09/11/20 Allergies Allergy/AdvReac Type Severity Reaction Status Date / Time barium sulfate Allergy Unknown rash Verified 07/07/16 00:00 ibuprofen [IBUPROFEN] Allergy Unknown HYPERACTIVITY, Unverified 06/26/20 10:03 GI upset, rash Review of Systems Review of Systems: Constitutional: No Weight loss, No Fever, No Chills, No Night Sweats, No Fatigue, No Malaise ENT/Mouth: No Hearing loss, No Ear Pain, No Nasal Congestion, No Sinus Pain, No Hoarseness, No sore throat, No Rhinorrhea, No Swallowing Difficulty Eyes: No Eye Pain, No Swelling, No Redness, No Foreign Body, No Di scharge, No Vision Changes Cardiovascular: + Chest wall Pain c cough + SOB, No Dyspnea on Exertion, No Orthopnea, No Edema, No Palpitations Respiratory: + Cough, + Sputum, No Wheezing, No Smoke Exposure, No Dyspnea Gastrointestinal: No Nausea, No Vomiting, No Diarrhea, No Constipation, No abdominal Pain, No Hematochezia, No Melena Genitourinary: no irregular bleeding, No Dysuria, No Urinary Frequency, No Hematuria, No Urinary Incontinence, No Urgency, No Flank Pain Musculoskeletal: No joint pain, No Myalgias, No Joint Swelling Skin: No Skin Lesions, No rash Neuro: No Weakness, No Numbness, No Paresthesias, No Loss of Consciousness, No Dizziness, No Headache Psych: No Social Issues Heme/Lymph: No Bruising, No Bleeding,No Lymphadenopathy Endocrine: No Polyuria, No Polydipsia, No Temperature Intolerance Yes all other systems are reviewed and are negative [facility] Past Medical History Medical History Asthma Bipolar disorder Depression Hepatitis-C Lipoma Surgical History S/P excision of lipoma Family History Family History Father Myocardial infarction Mother NIDDY (non-insulin dependent diabetes mellitus in young) CAD (coronary artery disease) HTN (hypertension), benign No family history of colorectal cancer Social History Social History Alcohol intake: never Smoking Status: Former smoker Tobacco Type: Cigarette Cigarettes Per Day: 5 Years Smoked: 26 Substance Use Type: Crack/Cocaine, Former Substance User and Heroin Substance Use Type Other:: past heroin user Advance Directives: No Advance Directives Information Provided: No Physical Exam Vital Signs: Vital Signs: Last Vital Signs Temp 97.5 F 10/05/20 16:00 Pulse 77 10/05/20 16:00 Resp 18 10/05/20 16:00 BP 146/76 H 10/05/20 16:00 Pulse Ox 92 10/05/20 16:11 Body Mass Index 35.0 Reviewed Const: Other: Obese fits of dry bronchial cough during exam Orientation/consciousness: patient oriented x3 HENMT: Head: Yes normal to inspection Ears: hearing grossly normal bilaterally Eyes: General: appearance normal, both eyes and all related structures Visual Chacon: normal visual chacon by confrontation Neck: Neck: Yes normal visual inspection, No positive Brudzinski's sign, No positive Kernig's sign and No tender Thyroid: Thyroid normal Chest: Chest palpation & inspection: normal inspection of the chest Resp: Effort & Inspection: normal respiratory effort Auscultation: wheezes expiratory wheezes and upper bilaterally Cardio: Jugular venous distension: no JVD Rate: regular rate Rhythm: regular rhythm Heart sounds: S1 normal heart sound present and S2 normal heart sound present GI: Inspection: Yes normal to inspection Palpation (GI): Soft to palpation Percussion: Yes normal to percussion Auscultation: normal bowel sounds : General: Yes no CVA tenderness Back/Spine/Pelvis: Back: no CVA tenderness Skin: General skin exam: no rashes or lesions noted Neuro: General: patient oriented x3 Extrem: General: Yes normal to inspection Course Course Course Narrative: In review 59-year-old male with above history including history of asthma presenting with cough and shortness of breath ongoing for past 3 months with his history of asthma he gets frequent asthma flares has been here for several time for this actually once each month over the last 4 months. Upon arrival does have a dry bronchial cough with forced extra wheezing in the upper lobes and pulse ox is 92% on room air. He is not tachycardic does report some mild shortness of breath when he ambulates. Given the comorbidities labs including COVID certification labs, chest x-ray EKG ordered will treat with nebs, steroids and magnesium IV. Differential diagnosis include but not limited to asthma exacerbation, URI, COVID-19, pulmonary embolism less likely, ACS less likely. Reevaluation(s) Reevaluation #1: 1700 D-dimer negative Troponin negative EKG nondiagnostic Chest x-ray without acute findings He was given oral prednisone, albuterol neb unable to do a draft secondary to the COVID-19 and given IV magnesium. At this point he is waiting for his flu, RSV, COVID swab and re-evaluation with exertional pulse ox test and disposition. Case signed out to night team pending disposition. MDM - Asthma Lab Data Result diagrams: 10/05/20 15:54 10/05/20 15:54 Labs: Lab Results 10/05/20 10/05/20 10/05/20 Range/Units 15:54 15:54 15:54 WBC 6.2 (4.8-10.8) X10*3/uL RBC 4.52 L (4.60-5.80) X10*6/uL Hgb 12.8 L (14.0-18.0) g/dl Hct 39.4 L (42-52) % MCV 87.2 (80-98) fL MCH 28.3 (27.0-33.0) pg MCHC 32.5 (31.0-36.0) g/dl RDW 13.2 (11.0-16.0) % Plt Count 252 (160-400) X10*3/uL MPV 9.7 (9.4-12.4) fL Immature Gran % (Auto) 0.5 H (0.0-0.4) % Neut % (Auto) 37.7 L (45-73) % Lymph % (Auto) 43.8 H (20-40) % [place] % (Auto) 11.9 H (2-11) % Eos % (Auto) 5.8 H (0-4) % Baso % (Auto) 0.3 (0-2) % Lymph # (Auto) 2.7 (1.2-4.9) X10*3/uL [place] # (Auto) 0.7 (0.1-1.2) X10*3/uL Eos # (Auto) 0.4 (0.0-0.4) X10*3/uL Baso # (Auto) 0.0 (0.0-0.2) X10*3/uL Abs Immat Gran (auto) 0.03 (0.00-0.03) X10*3/uL Absolute Neuts (auto) 2.3 (2.0-8.3) X10*3/uL Absolute Nucleated RBC 0.000 (0.0-0.012) X10*3/uL Nucleated RBC % (auto) 0.0 (0.0-0.2) /100WBC PT 12.1 (10.8-13.0) SEC INR 1.0 (0.9-1.1) APTT 32.3 (24.1-38.0) SEC D-Dimer 210 NG/ML Sodium 140 (135-145) mmol/L Potassium 4.1 (3.3-5.1) mmol/l Chloride 104 (96-108) mmol/L Carbon Dioxide 26 (22-29) mmol/L Anion Gap 14 (12-20) BUN 14 (9-16) mg/dL Creatinine 0.80 (0.5-1.4) mg/dL Estim Creat Clear Calc 115.7 Estimated GFR > 60 Random Glucose 120 H (60-115) mg/dL Lactic Acid (0.5-2.0) mmol/L Calcium 8.9 (8.4-10.2) mg/dL Ferritin 97 (20-250) ng/mL Total Bilirubin < 0.2 (0.0-1.0) mg/dL AST 56 H (5-37) U/L ALT 50 H (0-40) U/L Alkaline Phosphatase 64 (39-117) U/L Lactate Dehydrogenase 233 (118-273) U/L Troponin I High Sens (<3.5-35.0) ng/L C-Reactive Protein 0.22 (< or = 0.50) mg/dL Total Protein 7.1 (6.5-8.0) g/dL Albumin 3.9 (3.5-5.0) g/dL Procalcitonin ng/mL 10/05/20 10/05/20 10/05/20 Range/Units 15:54 15:54 15:54 WBC (4.8-10.8) X10*3/uL RBC (4.60-5.80) X10*6/uL Hgb (14.0-18.0) g/dl Hct (42-52) % MCV (80-98) fL MCH (27.0-33.0) pg MCHC (31.0-36.0) g/dl RDW (11.0-16.0) % Plt Count (160-400) X10*3/uL MPV (9.4-12.4) fL Immature Gran % (Auto) (0.0-0.4) % Neut % (Auto) (45-73) % Lymph % (Auto) (20-40) % [place] % (Auto) (2-11) % Eos % (Auto) (0-4) % Baso % (Auto) (0-2) % Lymph # (Auto) (1.2-4.9) X10*3/uL [place] # (Auto) (0.1-1.2) X10*3/uL Eos # (Auto) (0.0-0.4) X10*3/uL Baso # (Auto) (0.0-0.2) X10*3/uL Abs Immat Gran (auto) (0.00-0.03) X10*3/uL Absolute Neuts (auto) (2.0-8.3) X10*3/uL Absolute Nucleated RBC (0.0-0.012) X10*3/uL Nucleated RBC % (auto) (0.0-0.2) /100WBC PT (10.8-13.0) SEC INR (0.9-1.1) APTT (24.1-38.0) SEC D-Dimer NG/ML Sodium (135-145) mmol/L Potassium (3.3-5.1) mmol/l Chloride (96-108) mmol/L Carbon Dioxide (22-29) mmol/L Anion Gap (12-20) BUN (9-16) mg/dL Creatinine (0.5-1.4) mg/dL Estim Creat Clear Calc Estimated GFR Random Glucose (60-115) mg/dL Lactic Acid 1.8 (0.5-2.0) mmol/L Calcium (8.4-10.2) mg/dL Ferritin (20-250) ng/mL Total Bilirubin (0.0-1.0) mg/dL AST (5-37) U/L ALT (0-40) U/L Alkaline Phosphatase (39-117) U/L Lactate Dehydrogenase (118-273) U/L Troponin I High Sens < 3.5 (<3.5-35.0) ng/L C-Reactive Protein (< or = 0.50) mg/dL Total Protein (6.5-8.0) g/dL Albumin (3.5-5.0) g/dL Procalcitonin 0.07 ng/mL Discharge Plan Discharge Clinical Impression: Asthma Prescriptions: No Action prednisone 20 mg tablet 40 mg PO DAILY Qty: 10 RF: 0 doxycycline hyclate 100 mg capsule 100 mg PO BID 7 Days Qty: 14 RF: 0 prednisone 20 mg tablet 40 mg PO DAILY Qty: 10 RF: 0 amoxicillin-pot clavulanate [Augmentin] 875-125 mg tablet 1 tab PO BID Qty: 14 RF: 0 triamcinolone acetonide [Nasacort] 55 mcg aerosol,spray 2 spray intranasal DAILY Qty: 16.9 RF: 0 prednisone 20 mg tablet 40 mg PO DAILY 5 Days Qty: 10 RF: 0 amoxicillin-pot clavulanate [Augmentin] 875-125 mg tablet 1 tab PO BID Qty: 14 RF: 0 sertraline 100 mg tablet 100 mg PO DAILY RF: 0 omeprazole 20 mg capsule,delayed release(DR/EC) 20 mg PO DAILY RF: 0 quetiapine 400 mg tablet 400 mg PO BEDTIME RF: 0 trazodone 100 mg tablet 100 mg PO BEDTIME RF: 0 risperidone 2 mg tablet 2 mg PO BID RF: 0 buprenorphine-naloxone [Suboxone] 8-2 mg film 1 film buccal DAILY RF: 0
[2020-10-05 16:00] VITALS: BP 146/76; PULSE 77; RESP 18; TEMP 36.4; O2SAT 95
[2020-10-05 16:02] LABS: MANUAL DIFF FLAG NO
[2020-10-05] MEDS: predniSONE 20 MG TABLET 60 MG PO (16:02)
[2020-10-05] MEDS: Magnesium Sulfate/H2O 2 GM/50 ML PIGGYBACK IV (16:03)
[2020-10-05] MEDS: 0.9 % Sodium Chloride 500 ML IV (16:04)
[2020-10-05 16:09] LABS: Basophils Percent Auto 0.3 % (0-2); Eosinophils Absolute Auto 0.4 X10*3/uL (0.0-0.4); Eosinophils Percent Auto 5.8 % (0-4); Hematocrit 39.4 % (42-52); Hemoglobin 12.8 g/dl (14.0-18.0); Imm Gran Abs Auto 0.03 X10*3/uL (0.00-0.03); Imm Gran Pct Auto 0.5 % (0.0-0.4); Lymphocytes Absolute Auto 2.7 X10*3/uL (1.2-4.9); Lymphocytes Percent Auto 43.8 % (20-40); Mean Corpuscular HGB Conc 32.5 g/dl (31.0-36.0); Mean Corpuscular Hemoglobin 28.3 pg (27.0-33.0); Mean Corpuscular Volume 87.2 fL (80-98); Mean Platelet Volume 9.7 fL (9.4-12.4); Monocytes Absolute Auto 0.7 X10*3/uL (0.1-1.2); Monocytes Percent Auto 11.9 % (2-11); Neutrophils Absolute Auto 2.3 X10*3/uL (2.0-8.3); Neutrophils Percent Auto 37.7 % (45-73); Platelet Count 252 X10*3/uL (160-400); Red Blood Count 4.52 X10*6/uL (4.60-5.80); Red Cell Distribution Width 13.2 % (11.0-16.0); White Blood Count 6.2 X10*3/uL (4.8-10.8)
[2020-10-05 16:11] VITALS: O2SAT 92
--- NOTE | 2020-10-05 16:12 | PC.NURSE ---
pt alert and oriented, skin pwd, respirations even and unlabored, ls wheezing through out all benjamin, pt states last three months feeling sob and congested had multiple negative covid test in the past
[2020-10-05 16:22] LABS: Lactic Acid 1.8 mmol/L (0.5-2.0)
[2020-10-05 16:26] LABS: Prothrombin Time 12.1 SEC (10.8-13.0)
[2020-10-05 16:29] LABS: D Dimer 210 NG/ML; Partial Thromboplastin Time 32.3 SEC (24.1-38.0)
[2020-10-05 16:33] LABS: Troponin-I High Sensitivity < 3.5 ng/L (<3.5-35.0)
[2020-10-05 16:34] LABS: Alanine Aminotransferase 50 U/L (0-40); Albumin Level 3.9 g/dL (3.5-5.0); Alkaline Phosphatase 64 U/L (39-117); Anion Gap 14 (12-20); Aspartate Amino Transferase 56 U/L (5-37); Bilirubin Total < 0.2 mg/dL (0.0-1.0); Blood Urea Nitrogen 14 mg/dL (9-16); C Reactive Protein 0.22 mg/dL (< or = 0.50); Calcium 8.9 mg/dL (8.4-10.2); Carbon Dioxide 26 mmol/L (22-29); Chloride 104 mmol/L (96-108); Creatinine Clr Calc Pharmacy 115.7; Estimated Glomerular Filt Rate > 60; Glucose Random 120 mg/dL (60-115); Lactate Dehydrogenase 233 U/L (118-273); Potassium 4.1 mmol/l (3.3-5.1); Sodium 140 mmol/L (135-145); Total Protein 7.1 g/dL (6.5-8.0)
[2020-10-05 16:46] LABS: Procalcitonin 0.07 ng/mL
[2020-10-05 16:51] LABS: Ferritin 97 ng/mL (20-250)
--- NOTE | 2020-10-05 17:04 | PC.NURSE ---
pt reports feeling better after the medications, still some wheezing through out all lung benjamin
[2020-10-05 17:15] VITALS: RESP 20; O2SAT 95
[2020-10-05 17:23] LABS: Influenza A PCR NEGATIVE (Negative); Influenza B PCR NEGATIVE (Negative); Resp Syncy Virus RNA Qual PCR NEGATIVE (Negative); SARS COV2 PCR INHOUSE NEGATIVE (Negative)
--- NOTE | 2020-10-05 17:33 | PC.NURSE ---
ambulation trial per yousuf senior executive compensation analyst, pt sating at 95-96% on room air
== END 2020-10-05 18:48 | disposition home or self-care (01) ==
PROVIDERS: Nurse Practitioner Primary Care; Emergency Provider Emergency Medicine; PCP Family Medicine
DX: J45.909 Unspecified asthma, uncomplicated (principal); R05 Cough; R06.02 Shortness of breath; Z20.822 Contact with and (suspected) exposure to COVID-19; Z79.899 Other long term (current) drug therapy; Z87.891 Personal history of nicotine dependence
CPT/HCPCS: 0241U; 36415; 71045; 80053; 82728; 83605; 83615; 84145; 84484; 85025; 85379; 85610; 85730; 86140; 87040; 93005; 94640; 96361; 96365; 99284; J3475

== ENCOUNTER → 2020-10-17 15:05 | Outpatient (BNVA) | payer MEDICAID, SELFPAY | PROVIDERS: PCP Family Medicine; Visit Provider Nurse Practitioner ==

== ENCOUNTER 2020-11-08 12:44 | Outpatient (REF) | payer MEDICAID, SELFPAY ==
--- NOTE | ~2020-11-08 | XR_ITS ---
EXAMINATION: XR CHEST CLINICAL INFORMATION: COPD. Covid exposure. COMPARISON: None TECHNIQUE: 2 views of the chest were obtained. FINDINGS: The cardiac and mediastinal contours are stable. The lung volumes are low. There is bibasilar subsegmental atelectasis or small infiltrates there is no pleural effusion or pneumothorax. There are degenerative changes of the spine. XR/XR chest 2V IMPRESSION: Low lung volumes and bibasilar atelectasis or small infiltrates.
== END 2020-11-08 12:45 | disposition home or self-care (01) ==
LOC: HO.XRAY 12:44
PROVIDERS: Visit Provider Nurse Practitioner Family
DX: J44.1 Chronic obstructive pulmonary disease with (acute) exacerbation (principal)
CPT/HCPCS: 71046

== ENCOUNTER 2020-12-12 13:40 | Outpatient (REF) | payer MEDICAID, SELFPAY ==
[2020-12-12 15:27] LABS: MANUAL DIFF FLAG NO
[2020-12-12 15:30] LABS: Basophils Absolute Auto 0.1 X10*3/uL (0.0-0.2); Basophils Percent Auto 1.2 % (0-2); Eosinophils Absolute Auto 0.5 X10*3/uL (0.0-0.4); Eosinophils Percent Auto 7.7 % (0-4); Hematocrit 41.7 % (42-52); Hemoglobin 13.3 g/dl (14.0-18.0); Imm Gran Abs Auto 0.04 X10*3/uL (0.00-0.03); Imm Gran Pct Auto 0.6 % (0.0-0.4); Lymphocytes Absolute Auto 2.3 X10*3/uL (1.2-4.9); Lymphocytes Percent Auto 34.9 % (20-40); Mean Corpuscular HGB Conc 31.9 g/dl (31.0-36.0); Mean Corpuscular Hemoglobin 27.8 pg (27.0-33.0); Mean Corpuscular Volume 87.2 fL (80-98); Mean Platelet Volume 10.2 fL (9.4-12.4); Monocytes Absolute Auto 0.8 X10*3/uL (0.1-1.2); Monocytes Percent Auto 12.1 % (2-11); Neutrophils Absolute Auto 2.9 X10*3/uL (2.0-8.3); Neutrophils Percent Auto 43.5 % (45-73); Platelet Count 199 X10*3/uL (160-400); Red Blood Count 4.78 X10*6/uL (4.60-5.80); Red Cell Distribution Width 13.2 % (11.0-16.0); White Blood Count 6.7 X10*3/uL (4.8-10.8)
[2020-12-12 16:29] LABS: Erythrocyte Sedimentation Rate 14 MM/HR (0-15)
[2020-12-13 04:49] LABS: SARS COV2 IgG Negative (Negative)
[2020-12-14 00:12] LABS: Immunoglobulin G Subclass 1 944 mg/dL (382-929); Immunoglobulin G Subclass 2 324 mg/dL (241-700); Immunoglobulin G Subclass 3 39 mg/dL (22-178); Immunoglobulin G Subclass 4 14.2 mg/dL (4-86); Immunoglobulin G Total 1393 mg/dL (600-1640)
[2020-12-15 04:42] LABS: IgA 196 mg/dL (47-310); IgG 1543 mg/dL (600-1640); IgM 263 mg/dL (50-300)
== END 2020-12-12 13:41 | disposition home or self-care (01) ==
LOC: HO.LAB 13:40
PROVIDERS: PCP Family Medicine; Visit Provider Hospitalist
DX: J45.51 Severe persistent asthma with (acute) exacerbation (principal); J44.9 Chronic obstructive pulmonary disease, unspecified; J40 Bronchitis, not specified as acute or chronic; B19.20 Unspecified viral hepatitis C without hepatic coma; F14.10 Cocaine abuse, uncomplicated; F11.10 Opioid abuse, uncomplicated; Z88.6 Allergy status to analgesic agent; Z20.822 Contact with and (suspected) exposure to COVID-19; Z91.041 Radiographic dye allergy status; Z79.899 Other long term (current) drug therapy
CPT/HCPCS: 36415; 82784; 82785; 85025; 85652; 86003; 86769; 87070; 87077; 87186; 87205; 99202

== ENCOUNTER 2020-12-19 08:06 | Outpatient (REF) | payer MEDICAID, SELFPAY ==
--- NOTE | ~2020-12-19 | US_ITS ---
EXAMINATION: US COMPLETE ABDOMEN WITH LIVER ELASTOGRAPHY CLINICAL INFORMATION: Chronic bilateral hepatitis C COMPARISON: None. TECHNIQUE: Real-time imaging of the abdominal viscera. Noninvasive ultrasound liver fibrosis assessment is performed using Miladys ElastPQ point quantification shear wave elastography (pSWE) with a C5-2 MHz transducer. Multiple elastography samples are obtained. FINDINGS: PANCREAS: The pancreatic duct is dilated measuring 0.5 cm. The pancreas otherwise is homogeneous in echotexture without enlargement. There is hypoechoic area adjacent to the pancreatic head question lymph node. It measures 2.6 x 1.7 x 1.6 cm. ABDOMINAL AORTA: The proximal, middle, and distal aortic segments are normal in caliber. INFERIOR VENA CAVA: Visualized portions are normal. LIVER: The liver demonstrates normal size, contour and heterogeneous echogenicity. There is a focal area of fatty sparing near the CBD measuring 4.5 x 4.7 x 4.3 cm. Mild intrahepatic biliary duct dilatation. The right lobe measures 19.0 cm in length. The left lobe measures 14.4 cm in length. Portal flow is hepatopedal. Shear wave liver elastography median stiffness is 1.84 m/s (reference: normal median stiffness is 1.3 m/s or less). IQR/median stiffness to assess sampling precision is 0.19 (reference: good quality data set is IQR/median stiffness of 0.15 or less). GALLBLADDER: Normal. The gallbladder is physiologically distended without evidence of stones, sludge, polyps, wall thickening or pericholecystic fluid. COMMON BILE DUCT: CBD is mildly prominent measuring 1.0 cm in diameter. RIGHT KIDNEY: Normal. No hydronephrosis. No renal calculi or focal parenchymal lesions. The kidney measures 11.5 cm in maximum dimension. LEFT KIDNEY: Normal. No hydronephrosis. No renal calculi or focal parenchymal lesions. The kidney measures 11.1 cm in maximum dimension. SPLEEN: Normal. The spleen measures 7.9 cm in maximum dimension. FREE FLUID: None. US/US abdomen comp w elastography IMPRESSION: 1. Diffuse heterogenous liver with area of focal fatty sparing right hepatic lobe measuring 4.7 cm. No additional lesions seen. Mild intrahepatic ductal dilatation. 2. Mild pancreatic ductal dilatation measuring 0.5 cm. Unknown etiology. There is a small lymph node suspected in the head of the pancreas. 3. Liver elastography: Median stiffness of 1.8 m/s. Findings are suggestive of cACLD. REFERENCE: Society of Radiologists in Ultrasound Liver Stiffness Thresholds (2020): LIVER STIFFNESS THRESHOLDS: *Liver Stiffness equal or less than 1.3 m/s: High probability of being normal. *Liver Stiffness less than 1.7 m/s: In the absence of other known clinical signs, rules out compensated advanced chronic liver disease. *Liver Stiffness 1.7-2.1 m/s: Suggestive of compensated advanced chronic liver disease but need further test for confirmation. *Liver Stiffness over 2.1 m/s: Rules in compensated advanced chronic liver disease. *Liver Stiffness over 2.4 m/s: Suggestive of clinically significant portal hypertension. QUALITY OF DATA SET: *IQR/Median value equal or less than 0.15 implies a quality data set. *IQR/Median value over 0.15 implies a poor quality data set. SIGNIFICANT CHANGE FROM PRIOR EXAM: Significant change if liver stiffness measurement is 10% or greater from prior exam. OTHER CONSIDERATIONS: The stage of liver fibrosis may be overestimated in the setting of acute hepatitis, liver inflammation, elevated liver function tests, hepatic vascular congestion, obstructive cholestasis, non-fasting state, and infiltrative diseases such as amyloidosis and lymphoma. In some patients with NAFLD, the liver stiffness thresholds for compensated advanced chronic liver disease may be lower. In causes other than viral hepatitis and NAFLD, liver stiffness thresholds are not well established.
== END 2020-12-19 08:07 | disposition home or self-care (01) ==
LOC: HO.US 08:06
PROVIDERS: Visit Provider Family Medicine
DX: B18.2 Chronic viral hepatitis C (principal)
CPT/HCPCS: 76705; 76981

== ENCOUNTER 2020-12-23 10:45 | Outpatient (REF) | payer MEDICAID, SELFPAY | END 2020-12-23 10:46 | disposition home or self-care (01) | LOC: HO.LAB 10:45 | PROVIDERS: Visit Provider Hospitalist | DX: Z91.09 Other allergy status, other than to drugs and biological substances (principal) | CPT/HCPCS: 36415; 86003 ==

== ENCOUNTER → 2021-01-02 13:02 | Outpatient (BNVA) | payer MEDICAID, SELFPAY | PROVIDERS: PCP Nurse Practitioner Family; Visit Provider Hospitalist | DX: J40 Bronchitis, not specified as acute or chronic (principal); J44.9 Chronic obstructive pulmonary disease, unspecified; J45.51 Severe persistent asthma with (acute) exacerbation; K21.9 Gastro-esophageal reflux disease without esophagitis | CPT/HCPCS: 99212 ==

== ENCOUNTER 2021-01-15 10:24 | Day surgery (SDC) | payer MEDICAID, SELFPAY ==
[2021-01-15] VITALS (9 sets, daily range): BP systolic 108–131; BP diastolic 68–91; PULSE 67–76; RESP 16–18; TEMP 36.1–36.4; O2SAT 91–100; BMI 34.4
--- NOTE | 2021-01-15 11:42 | HO.ANESPROP2 ---
HPI - Anesthesia Eval Consult details Narrative: 60 yo male patient here for fiberoptic bronchoscopy PMFSH Active Problems Active Problems: All Active Problems (Updated 01/05/21 @ 21:05 by Gilbert Wynn MD) Bronchitis (Acute) Asthma-COPD overlap syndrome (Acute) Elevated LFTs (Acute) Insomnia (Acute) Depression with anxiety (Acute) Allergic rhinitis (Acute) Asthma (Acute) GERD (gastroesophageal reflux disease) (Acute) Polysubstance abuse (Acute) Chronic hepatitis C (Acute) Bipolar disorder (Acute) Hepatic hemangioma (Acute) Encounter for monitoring Suboxone maintenance therapy (Acute) Cirrhosis (Acute) Multiple lipomas (Acute) Past Medical History Medical History (Updated 01/15/21 @ 12:00 by Becky Chavez) Asthma Asthma-COPD overlap syndrome Bipolar disorder Bronchitis Cough Depression Hepatitis-C Lipoma Shortness of breath Family History Family History Father Myocardial infarction Mother NIDDY (non-insulin dependent diabetes mellitus in young) CAD (coronary artery disease) HTN (hypertension), benign No family history of colorectal cancer Family history of problems with anesthesia: No Surgical History Surgical History S/P excision of lipoma History of Problems with Anesthesia: No Social History Social History (Updated 10/17/20 @ 15:07 by PATY Benavides) Household Members: Spouse Alcohol intake: current Alcohol intake frequency: does not drink Smoking Status: Former smoker Tobacco Type: Cigarette Cigarettes Per Day: 5 Years Smoked: 26 Use of substances other than those prescribed or required for medical reasons: No Substance Use Type: Crack/Cocaine, Former Substance User and Heroin Advance Directives: No Advance Directives Information Provided: Yes Meds Allergies Allergy/AdvReac Type Severity Reaction Status Date / Time barium sulfate Allergy Severe rash Verified 01/15/21 10:57 ibuprofen [IBUPROFEN] Allergy Severe HYPERACTIVITY, Verified 01/15/21 10:57 GI upset, rash prednisone Allergy Swelling Verified 01/15/21 10:57 Home Medications Medication Instructions Recorded Confirmed Last Taken Type buprenorphine 8 mg-naloxone 2 mg 1 film BUCCAL DAILY 06/26/20 01/03/21 Unknown History sublingual film quetiapine 400 mg tablet 400 mg PO BEDTIME tab 06/26/20 01/03/21 Unknown History risperidone 2 mg tablet 2 mg PO BID 06/26/20 01/03/21 01/15/21 06:30 History sertraline 100 mg tablet 100 mg PO DAILY 06/26/20 01/03/21 01/15/21 06:30 History trazodone 100 mg tablet 100 mg PO BEDTIME 06/26/20 01/03/21 Unknown History Exam Exam Date and Time: January 15, 2021 1142 Height,Weight and Vital Signs: Height 5 ft 7 in Weight 99.79 kg Last Vital Signs Temp 97.6 F 01/15/21 10:58 Pulse 74 01/15/21 10:58 Resp 18 01/15/21 10:58 BP 128/80 01/15/21 10:58 Pulse Ox 94 01/15/21 10:58 Airway Mallampati Class: II TM Dist: >3cm Neck ROM: Full Partial: Upper Heart: RRR Lungs: Expiratory wheezes bilaterally Assessment and Plan Assessment Anesthesia Assessment: Anesthesia Plan Discussed and Chart Reviewed Final Anesthetic Review NPO: Yes ASA Class: III Final Preanesthetic Review: No Changes in Pt Med Stat, Meds/Allgs Chart Reviewed, Consent Obtained/Reviewed and Anes Risks/Benef Reviewed Patient Risk: Intermediate Procedure Risk: Low Assessment/Block/Sedation in SS: Assess/Block/Sedation-SS Anesthetic Plan Anesthetic Plan: GA Disposition: Standard PACU
--- NOTE | 2021-01-15 11:57 | MHC.SHP ---
Pre-Procedural Eval Section B Chief Complaint: bronchitis Allergies: Allergies Allergy/AdvReac Type Severity Reaction Status Date / Time barium sulfate Allergy Severe rash Verified 01/15/21 10:57 ibuprofen [IBUPROFEN] Allergy Severe HYPERACTIVITY, Verified 01/15/21 10:57 GI upset, rash prednisone Allergy Swelling Verified 01/15/21 10:57 Plan I have reviewed the history and physical and performed a pertinent physical examination on my patient. No changes have occurred unless specified.
[2021-01-15] MEDS: Lactated Ringers 1,000 ML 50 ML IV (12:00)
[2021-01-15] MEDS: Albuterol Sulfate (0.083%) 2.5 MG/3 ML VIAL.NEB INHALE (12:04)
--- NOTE | 2021-01-15 13:09 | PM.OP ---
Brief Operative Note Date of Service: 01/15/21 Pre-op diagnosis: bronchitis Post-op diagnosis: other (TBM, bronchitis) Procedure: Bronchoscopy with brushings, washings and therapeutic suctiong Surgeon: Gilbert Wynn MD Anesthesia: GLMA Estimated blood loss (mL): 0 Condition: stable Disposition: same day
--- NOTE | 2021-01-16 13:40 | OP_ITS ---
SURGEON: Gilbert Wynn MD PREOPERATIVE DIAGNOSIS: POSTOPERATIVE DIAGNOSIS: PROCEDURE PERFORMED: Bronchoscopy with washings and brushings and therapeutic suctioning. ESTIMATED BLOOD LOSS: COMPLICATIONS: ANESTHESIA: LMA. ASSISTANTS: None. SPECIMENS: PREOPERATIVE DIAGNOSES: Bronchitis and cough. POSTOPERATIVE DIAGNOSES: Bronchitis and tracheobronchomalacia. DESCRIPTION OF PROCEDURE: After the patient was adequately sedated, the flexible digital bronchoscope was inserted over the LMA to the level of the vocal cords. The vocal cords did move symmetrically to the midline without any lesions or masses. After instilling additional lidocaine, the bronchoscope was navigated to the level of the trachea. There appeared to be some splaying of the trachea suggesting some degree of tracheomalacia. The patient was under sedation, so he could not follow commands such as forced exhalation and cough, there appeared to be some degree of malacia even without dynamic changes extrinsic compression. additional lidocaine. After that, the bronchoscope was navigated to the entire tracheobronchial tree that was examined to the subsegmental level. No evidence of any endobronchial lesions or masses. The patient did have evidence of chronic inflammatory changes throughout with also some bronchomalacia, very dynamic. In addition to that, there appeared to be a variant airway in the left upper lobe area takeoff, would have to correlate with his CAT scan. Did not appear to be abnormal, but it was very dynamic in nature causing complete collapse during the exhalation component. The patient did have moderate degree of purulent secretions throughout the airways. The bronchoscope was navigated to the left lower lobe, where micro brush was introduced and sent for microbiology. Next, using saline, bronchial washings were collected and therapeutic suctioning airways provided. The patient tolerated the procedure well. Vital signs were stable throughout the procedure. No endobronchial lesions or masses noted. No foreign bodies. The bronchoscope was then removed. The total endoscopic time approximately 10 minutes. The patient tolerated the procedure well. Vital signs were stable. INTERPRETATION: 1. Micro brush from the left lower lobe. 2. Bilateral lung washings. 3. Therapeutic suctioning. MD WOJCIECH Mitchell/ARSENIO / [id number]
== END 2021-01-15 14:30 | disposition home or self-care (01) ==
PROVIDERS: PCP Family Medicine; Visit Provider Hospitalist
PROC: 0BJ08ZZ Inspection of Tracheobronchial Tree, Via Natural or Artificial Opening Endoscopic (ICD-10-PCS; CPT 31622; principal; 2021-01-15 12:00)
DX: J40 Bronchitis, not specified as acute or chronic (principal); J39.8 Other specified diseases of upper respiratory tract; J98.09 Other diseases of bronchus, not elsewhere classified; R09.3 Abnormal sputum; J44.9 Chronic obstructive pulmonary disease, unspecified; J45.51 Severe persistent asthma with (acute) exacerbation; B19.20 Unspecified viral hepatitis C without hepatic coma; K21.9 Gastro-esophageal reflux disease without esophagitis; Z87.891 Personal history of nicotine dependence; Z79.899 Other long term (current) drug therapy
CPT/HCPCS: 31623; 31645; 87071; 87102; 87116; 87205; 88112; 88305; 94640; J0171; J3010

== ENCOUNTER 2021-01-24 06:21 | Outpatient (REF) | payer MEDICAID, SELFPAY ==
[2021-01-24 07:04] LABS: MANUAL DIFF FLAG NO
[2021-01-24 07:11] LABS: Basophils Percent Auto 0.5 % (0-2); Eosinophils Absolute Auto 0.3 X10*3/uL (0.0-0.4); Eosinophils Percent Auto 5.1 % (0-4); Hematocrit 39.9 % (42-52); Hemoglobin 12.5 g/dl (14.0-18.0); Imm Gran Abs Auto 0.02 X10*3/uL (0.00-0.03); Imm Gran Pct Auto 0.3 % (0.0-0.4); Lymphocytes Absolute Auto 2.9 X10*3/uL (1.2-4.9); Lymphocytes Percent Auto 47.9 % (20-40); Mean Corpuscular HGB Conc 31.3 g/dl (31.0-36.0); Mean Corpuscular Hemoglobin 27.8 pg (27.0-33.0); Mean Corpuscular Volume 88.7 fL (80-98); Mean Platelet Volume 9.5 fL (9.4-12.4); Monocytes Absolute Auto 0.7 X10*3/uL (0.1-1.2); Monocytes Percent Auto 11.9 % (2-11); Neutrophils Absolute Auto 2.1 X10*3/uL (2.0-8.3); Neutrophils Percent Auto 34.3 % (45-73); Platelet Count 217 X10*3/uL (160-400); Red Cell Distribution Width 13.8 % (11.0-16.0); White Blood Count 6.1 X10*3/uL (4.8-10.8)
[2021-01-24 07:32] LABS: Alanine Aminotransferase 29 U/L (0-40); Albumin Level 3.8 g/dL (3.5-5.0); Aspartate Amino Transferase 29 U/L (5-37); Bilirubin Total 0.4 mg/dL (0.0-1.0); Estimated Glomerular Filt Rate > 60
[2021-01-24 07:48] LABS: HIV AB/AG Nonreactive (Nonreactive); HIV Num 1 0.13 S/CO (0.00-0.99)
[2021-01-24 07:50] LABS: Syphilis Screen Nonreactive (Nonreactive)
[2021-01-24 07:54] LABS: HBS Num1 42.91 mIU/mL (0-7.99); HBsAGNum1 0.31 S/CO (0.00-0.99); Hepatitis B Surface Antigen Negative (Negative); ~Hepatitis B Surface Antibody REACTIVE (Nonreactive)
[2021-01-24 09:54] LABS: CT PCR NOT DETECTED (Not Detect.); NG PCR NOT DETECTED (Not Detect.)
[2021-01-25 15:12] LABS: HCV RNA PCR Qn 11300000 IU/mL (NOT DETECTED); HCV RNA PCR Qn 7.05 Log IU/mL (NOT DETECTED)
[2021-01-26 21:46] LABS: TS Negative Control Passed; TS Panel A 0; TS Panel B 0; TS Positive Control Passed; TSpotTB Negative (SeeBelow)
[2021-01-28 16:12] LABS: Hepatitis B Viral DNA Qn - cp <1.00 NOT DETECTED Log IU/mL (NOT DETECTED); Hepatitis B Viral DNA Qn-IU/mL <10 NOT DETECTED IU/mL (NOT DETECTED)
[2021-01-31 17:11] LABS: HCV Genotype LiPA 1a
[2021-02-05 17:47] LABS: FIB-ALT 27 U/L (9-46); FIB-Alpha-2-Macroglobulin 335 mg/dL (106-279); FIB-Apolipoprotein A1 165 mg/dL (94-176); FIB-GGT 140 U/L (3-85); FIB-Haptoglobin 145 mg/dL (43-212); FIB-Total Bilirubin 0.2 mg/dL (0.2-1.2); Liver Fibrosis Score 0.42; Liver Fibrosis Stage F1-F2; Nec Inflam Act Grade A0; Nec Inflam Act Score 0.15
== END 2021-01-24 06:22 | disposition home or self-care (01) ==
LOC: HO.LAB 06:21
PROVIDERS: Visit Provider Internal Medicine Infectious Disease
DX: B19.20 Unspecified viral hepatitis C without hepatic coma (principal)
CPT/HCPCS: 81596; 82040; 82247; 82565; 84450; 84460; 85025; 86481; 86706; 86780; 87340; 87389; 87491; 87517; 87522; 87591; 87902

== ENCOUNTER 2021-02-12 08:09 | Outpatient (REF) | payer MEDICAID, SELFPAY | END 2021-02-12 08:10 | disposition home or self-care (01) | LOC: HO.US 08:09 | PROVIDERS: Visit Provider Family Medicine | DX: Z13.89 Encounter for screening for other disorder (principal) ==

== ENCOUNTER → 2021-03-10 14:34 | Outpatient (BNVA) | payer MEDICAID, SELFPAY | PROVIDERS: PCP Nurse Practitioner Family; Referring Provider Nurse Practitioner Family; Visit Provider Nurse Practitioner ==

== ENCOUNTER → 2021-03-11 08:58 | Outpatient (BNVA) | payer MEDICAID, SELFPAY | PROVIDERS: PCP Nurse Practitioner Family; Referring Provider Nurse Practitioner Family; Visit Provider Surgery | DX: D17.9 Benign lipomatous neoplasm, unspecified (principal) | CPT/HCPCS: 99202 ==

== ENCOUNTER 2021-03-13 06:58 | Outpatient (REF) | payer MEDICAID, SELFPAY ==
--- NOTE | ~2021-03-13 | XR_ITS ---
EXAMINATION: XR CHEST CLINICAL INFORMATION: COPD COMPARISON: Previous chest x-ray most recent October 2020 TECHNIQUE: 2 views of the chest were obtained. FINDINGS: The cardiac and mediastinal contours are stable. There is subsegmental atelectasis at the lung bases. The lungs are otherwise clear. There is no pleural effusion or pneumothorax. There are degenerative changes of the spine. XR/XR chest 2V IMPRESSION: Subsegmental atelectasis at the lung bases.
== END 2021-03-13 06:59 | disposition home or self-care (01) ==
LOC: HO.XRAY 06:58
PROVIDERS: PCP Nurse Practitioner Family; Visit Provider Nurse Practitioner Family
DX: J44.9 Chronic obstructive pulmonary disease, unspecified (principal); J40 Bronchitis, not specified as acute or chronic; K21.9 Gastro-esophageal reflux disease without esophagitis; J44.1 Chronic obstructive pulmonary disease with (acute) exacerbation
CPT/HCPCS: 71046; 96372; 99212; J2930

== ENCOUNTER → 2021-03-21 13:17 | Outpatient (BNVA) | payer MEDICAID, SELFPAY | PROVIDERS: PCP Nurse Practitioner Family; Visit Provider Hospitalist | DX: J40 Bronchitis, not specified as acute or chronic (principal); J44.9 Chronic obstructive pulmonary disease, unspecified; R94.2 Abnormal results of pulmonary function studies; A49.01 Methicillin susceptible Staphylococcus aureus infection, unspecified site | CPT/HCPCS: 99212 ==

== ENCOUNTER 2021-04-14 06:52 | Outpatient (REF) | payer MEDICAID, SELFPAY ==
[2021-04-14 07:36] LABS: MANUAL DIFF FLAG NO
[2021-04-14 07:40] LABS: Basophils Absolute Auto 0.1 X10*3/uL (0.0-0.2); Basophils Percent Auto 0.7 % (0-2); Eosinophils Absolute Auto 0.3 X10*3/uL (0.0-0.4); Eosinophils Percent Auto 3.2 % (0-4); Hematocrit 42.1 % (42-52); Hemoglobin 13.3 g/dl (14.0-18.0); Imm Gran Abs Auto 0.09 X10*3/uL (0.00-0.03); Imm Gran Pct Auto 1.1 % (0.0-0.4); Lymphocytes Percent Auto 47.3 % (20-40); Mean Corpuscular HGB Conc 31.6 g/dl (31.0-36.0); Mean Corpuscular Hemoglobin 27.8 pg (27.0-33.0); Mean Corpuscular Volume 87.9 fL (80-98); Mean Platelet Volume 9.5 fL (9.4-12.4); Monocytes Absolute Auto 0.7 X10*3/uL (0.1-1.2); Monocytes Percent Auto 8.5 % (2-11); Neutrophils Absolute Auto 3.4 X10*3/uL (2.0-8.3); Neutrophils Percent Auto 39.2 % (45-73); Platelet Count 225 X10*3/uL (160-400); Red Blood Count 4.79 X10*6/uL (4.60-5.80); Red Cell Distribution Width 13.2 % (11.0-16.0); White Blood Count 8.5 X10*3/uL (4.8-10.8)
[2021-04-14 08:03] LABS: Prothrombin Time 11.9 SEC (9.9-13.0)
[2021-04-14 08:06] LABS: Partial Thromboplastin Time 32.8 SEC (24.1-38.0)
[2021-04-14 08:11] LABS: Alanine Aminotransferase 10 U/L (0-40); Aspartate Amino Transferase 12 U/L (5-37); Bilirubin Total < 0.2 mg/dL (0.0-1.0); Estimated Glomerular Filt Rate > 60
[2021-04-17 11:26] LABS: HCV Log PCR 1.68 Log IU/mL (NOT DETECTED); HepC Viral Load 48 IU/mL (NOT DETECTED)
== END 2021-04-14 06:53 | disposition home or self-care (01) ==
LOC: HO.LAB 06:52
PROVIDERS: PCP Nurse Practitioner Family; Visit Provider Internal Medicine Infectious Disease
DX: B19.20 Unspecified viral hepatitis C without hepatic coma (principal)
CPT/HCPCS: 36415; 82040; 82247; 82565; 84450; 84460; 85025; 85610; 85730; 87522

== ENCOUNTER 2021-04-23 14:23 | Outpatient (REF) | payer MEDICAID, SELFPAY ==
[2021-04-23 15:23] LABS: MANUAL DIFF FLAG NO
[2021-04-23 15:38] LABS: Basophils Absolute Auto 0.1 X10*3/uL (0.0-0.2); Basophils Percent Auto 0.7 % (0-2); Eosinophils Absolute Auto 0.2 X10*3/uL (0.0-0.4); Eosinophils Percent Auto 3.4 % (0-4); Hematocrit 38.1 % (42-52); Hemoglobin 12.1 g/dl (14.0-18.0); Imm Gran Abs Auto 0.04 X10*3/uL (0.00-0.03); Imm Gran Pct Auto 0.6 % (0.0-0.4); Lymphocytes Absolute Auto 2.9 X10*3/uL (1.2-4.9); Lymphocytes Percent Auto 40.2 % (20-40); Mean Corpuscular HGB Conc 31.8 g/dl (31.0-36.0); Mean Corpuscular Hemoglobin 27.8 pg (27.0-33.0); Mean Corpuscular Volume 87.6 fL (80-98); Mean Platelet Volume 10.4 fL (9.4-12.4); Monocytes Percent Auto 14.2 % (2-11); Neutrophils Absolute Auto 2.9 X10*3/uL (2.0-8.3); Neutrophils Percent Auto 40.9 % (45-73); Platelet Count 165 X10*3/uL (160-400); Red Blood Count 4.35 X10*6/uL (4.60-5.80); Red Cell Distribution Width 12.9 % (11.0-16.0); White Blood Count 7.1 X10*3/uL (4.8-10.8)
[2021-04-23 15:41] LABS: Prothrombin Time 11.7 SEC (9.9-13.0)
[2021-04-23 15:48] LABS: Alanine Aminotransferase 13 U/L (0-40); Albumin Level 3.8 g/dL (3.5-5.0); Alkaline Phosphatase 48 U/L (39-117); Aspartate Amino Transferase 17 U/L (5-37); Bilirubin Total 0.2 mg/dL (0.0-1.0); Blood Urea Nitrogen 10 mg/dL (9-16); Estimated Glomerular Filt Rate > 60
== END 2021-04-23 14:24 | disposition home or self-care (01) ==
LOC: HO.LAB 14:23
PROVIDERS: PCP Nurse Practitioner Family; Visit Provider Internal Medicine Infectious Disease
DX: B19.20 Unspecified viral hepatitis C without hepatic coma (principal)
CPT/HCPCS: 36415; 82040; 82247; 82565; 84075; 84450; 84460; 84520; 85025; 85610

== ENCOUNTER 2021-05-14 06:44 | Day surgery (SDC) | payer MEDICAID, SELFPAY ==
[2021-05-07 12:07] VITALS: BMI 35.6
--- NOTE | 2021-05-13 10:25 | HO.ANESPROP2 ---
Documented by User: Marcelina Omer NP 05/13/21 10:35 HPI - Anesthesia Eval Consult details Narrative: 60yo M for Excision of 8 Abdominal Wall Lipomas s/p bronchoscopy with GA 12/2020 Per 03/2021 pulmo visit - pt doing well after long course of abx and prednisone T/C with pt 05/13/21 - breathing is much better . No SOB/Cough. No longer on prednisone h/o polysub abuse, no longer on suboxone - stated last used drugs 3 weeks ago and then stated 3 months PMFSH Active Problems Active Problems: All Active Problems (Updated 03/24/21 @ 22:29 by Gilbert Wynn MD) Elevated LFTs (Acute) Insomnia (Acute) Depression with anxiety (Acute) Allergic rhinitis (Acute) Asthma (Acute) GERD (gastroesophageal reflux disease) (Acute) Polysubstance abuse (Acute) Chronic hepatitis C (Acute) Bipolar disorder (Acute) Hepatic hemangioma (Acute) Encounter for monitoring Suboxone maintenance therapy (Acute) Cirrhosis (Acute) Multiple lipomas (Acute) Abnormal PFTs (pulmonary function tests) (Acute) Staph aureus infection (Acute) COPD exacerbation (Acute) Shortness of breath (Acute) Cough (Acute) Bronchitis (Acute) Asthma-COPD overlap syndrome (Acute) Past Medical History Medical History (Updated 03/24/21 @ 22:29 by Gilbert Wynn MD) Asthma Asthma-COPD overlap syndrome Bipolar disorder Bronchitis COPD exacerbation Cough Depression Hepatitis-C Lipoma Shortness of breath Staph aureus infection Family History Family History Father Myocardial infarction Mother NIDDY (non-insulin dependent diabetes mellitus in young) CAD (coronary artery disease) HTN (hypertension), benign No family history of colorectal cancer Family history of problems with anesthesia: No Surgical History Surgical History (Updated 05/07/21 @ 12:11 by Precious Murray RN) History of bronchoscopy History of esophagogastroduodenoscopy (EGD) S/P excision of lipoma History of Problems with Anesthesia: No Social History Social History (Updated 05/07/21 @ 12:06 by Precious Murray RN) Household Members: Spouse Patient Tobacco Use Status: Former Tobacco user Quit Date: 2015 Tobacco use type: Cigarette Years Smoked: 26 Substance Use Type: Crack/Cocaine, Former Substance User and Heroin Are you DNR?: No Advance Directives: No Advance Directives Information Provided: No Advance Directives on File: No Meds Allergies Allergy/AdvReac Type Severity Reaction Status Date / Time barium sulfate Allergy Severe rash Verified 03/24/21 22:25 ibuprofen [IBUPROFEN] Allergy Severe HYPERACTIVITY, Verified 05/07/21 11:41 GI upset, rash Home Medications Medication Instructions Recorded Confirmed Last Taken Type quetiapine 400 mg tablet 400 mg PO BEDTIME tab 06/26/20 05/07/21 Unknown History risperidone 2 mg tablet 2 mg PO BID 06/26/20 05/07/21 01/15/21 06:30 History sertraline 100 mg tablet 100 mg PO DAILY 06/26/20 05/07/21 01/15/21 06:30 History trazodone 100 mg tablet 100 mg PO BEDTIME 06/26/20 05/07/21 Unknown History sofosbuvir 400 mg-velpatasvir 100 1 tab PO DAILY 05/07/21 05/07/21 Unknown History mg tablet Exam Exam Date and Time: May 13, 2021 1025 Height,Weight and Vital Signs: Height 5 ft 7 in Weight 103.419 kg Pertinent Lab Results Pertinent Lab Results: Laboratory Tests 10/05/20 04/23/21 04/23/21 15:54 14:35 14:35 WBC 7.1 Hgb 12.1 L Hct 38.1 L Plt Count 165 D Sodium 140 Potassium 4.1 Chloride 104 BUN 10 Creatinine 0.91 Narrative Narrative: EKG 09/2020 Vent. Rate : 075 BPM ? ? Atrial Rate : 075 BPM ?? P-R Int : 136 ms? QRS Dur : 084 ms ? ? QT Int : 392 ms ? ? ? P-R-T Axes : 040 044 013 degrees ?? QTc Int : 437 ms ? Normal sinus rhythm Normal ECG When compared with ECG of 25-JUN-2020 12:52, No significant change was found Assessment and Plan Assessment Anesthesia Assessment: Chart Reviewed Final Anesthetic Review Family History of Problems with Anesthesia: No History of Problems with Anesthesia: No Documented by User: Frantz Garcia MD 05/14/21 08:44 HPI - Anesthesia Eval Consult details Narrative: 60yo M for Excision of 8 Abdominal Wall Lipomas s/p bronchoscopy with GA 12/2020 Per 03/2021 pulmo visit - pt doing well after long course of abx and prednisone T/C with pt 05/13/21 - breathing is much better . No SOB/Cough. No longer on prednisone h/o polysub abuse, no longer on suboxone - stated last used drugs 3 weeks ago and then stated 3 months Today, 05/14, pt said he last used heroin last nite. [facility] Past Medical History Medical History (Updated 03/24/21 @ 22:29 by Gilbert Wynn MD) Asthma Asthma-COPD overlap syndrome Bipolar disorder Bronchitis COPD exacerbation Cough Depression Hepatitis-C Lipoma Shortness of breath Staph aureus infection Family History Family History Father Myocardial infarction Mother NIDDY (non-insulin dependent diabetes mellitus in young) CAD (coronary artery disease) HTN (hypertension), benign No family history of colorectal cancer Surgical History Surgical History (Updated 05/07/21 @ 12:11 by Precious Murray RN) History of bronchoscopy History of esophagogastroduodenoscopy (EGD) S/P excision of lipoma Social History Social History (Updated 05/07/21 @ 12:06 by Precious Murray RN) Household Members: Spouse Patient Tobacco Use Status: Former Tobacco user Quit Date: 2015 Tobacco use type: Cigarette Years Smoked: 26 Substance Use Type: Crack/Cocaine, Former Substance User and Heroin Are you DNR?: No Advance Directives: No Advance Directives Information Provided: No Advance Directives on File: No Meds Allergies Allergy/AdvReac Type Severity Reaction Status Date / Time barium sulfate Allergy Severe rash Verified 03/24/21 22:25 ibuprofen [IBUPROFEN] Allergy Severe HYPERACTIVITY, Verified 05/07/21 11:41 GI upset, rash Home Medications Medication Instructions Recorded Confirmed Last Taken Type quetiapine 400 mg tablet 400 mg PO BEDTIME tab 06/26/20 05/07/21 Unknown History risperidone 2 mg tablet 2 mg PO BID 06/26/20 05/07/21 01/15/21 06:30 History sertraline 100 mg tablet 100 mg PO DAILY 06/26/20 05/07/21 01/15/21 06:30 History trazodone 100 mg tablet 100 mg PO BEDTIME 06/26/20 05/07/21 Unknown History sofosbuvir 400 mg-velpatasvir 100 1 tab PO DAILY 05/07/21 05/07/21 Unknown History mg tablet Exam Airway Mallampati Class: I TM Dist: >3cm Neck ROM: Full Loose/Missing/Broken Teeth: Yes Heart: ok Lungs: ok Other: All labs checked, including LFTs. OK Assessment and Plan Assessment Anesthesia Assessment: Anesthesia Plan Discussed and Chart Reviewed Final Anesthetic Review NPO: Yes ASA Class: III Final Preanesthetic Review: No Changes in Pt Med Stat, Meds/Allgs Chart Reviewed, Consent Obtained/Reviewed and Anes Risks/Benef Reviewed Patient Risk: Intermediate Procedure Risk: Low Anesthetic Plan Anesthetic Plan: GA and Agree w/ Assess. and Plan Disposition: Standard PACU
[2021-05-14] VITALS (7 sets, daily range): BP systolic 136–145; BP diastolic 82–92; PULSE 62–69; RESP 18; TEMP 36.1; O2SAT 89–99
[2021-05-14] MEDS: Lactated Ringers 1,000 ML 100 ML IVCONT (07:39)
--- NOTE | 2021-05-14 08:32 | MHC.SHP ---
Pre-Procedural Eval Section A Date of Service: 05/14/21 The patient is an INPATIENT: No Changes since office visit: Yes Patient answered all questions; No Cold of Flu in the past 2 weeks, No New Medical Problems and No Changes in Medication The History & Physical has been completed within 30 days and I have reviewed it.: Yes Section B Chief Complaint: benign lipomatous neoplasm Allergies: Allergies Allergy/AdvReac Type Severity Reaction Status Date / Time barium sulfate Allergy Severe rash Verified 03/24/21 22:25 ibuprofen [IBUPROFEN] Allergy Severe HYPERACTIVITY, Verified 05/07/21 11:41 GI upset, rash Plan Diagnosis/Plan: Unchanged I have reviewed the history and physical and performed a pertinent physical examination on my patient. No changes have occurred unless specified.
--- NOTE | 2021-05-14 09:32 | P.OP_ITS ---
Operative Note Operative Note Date of Service: 05/14/21 Narrative: Preoperative diagnosis:Multiple abdominal wall lipomas Postoperative diagnosis:same Procedure:Excision of multiple abdominal wall lipomas (8) Surgeon: Vincent Ocasio MD Corrugated Box Machine Operator: Brittney Carrillo PA-C Anesthesia:Local plus MAC Indications for procedure:60 year old male patient with complaints of multiple abdominal wall lipomas which are causing pain therefore the patient requests excision. Operative findings:Multiple (8) lipomas of the anterior bilateral abdominal wall each 1.5 cm in diameter Specimen:Multiple (8) abdominal wall lipomas Estimated blood loss:5 mls Complications:none Procedure details: Patient was brought to the OR and placed in a supine position. After administering light sedation the patient's abdomen was prepped with ChloraPrep and draped in a sterile fashion. Local anesthesia consisting of 1% lidocaine mixed with 0.25% Sensorcaine with epinephrine was then infiltrated over each of the premarked lipomas (8) located in the anterior abdominal wall bilaterally. Beginning from superior to inferior incision was made with a 15 blade and carried down through subcutaneous tissue. Blunt dissection was used to dissect the lipoma using a hemostat. Dissection was continued down around the posterior for surface of the lipoma using Metzenbaum scissors. Pressure was held to maintain hemostasis. Attention was then directed to the remaining 7 lipomas located throughout the abdominal wall which were also incised with scalpel and bluntly dissected using hemostat. All the specimens were sent together labeled as multiple lipomas abdominal wall. After assuring adequate hemostasis at each of the incisions the skin was closed using interrupted 4-0 Polysorb suture in a subcuticular fashion. Steri-Strips 2 x 2 gauze and Tegaderm were then applied to each incision. The patient tolerated the procedure well. Sponge, instrument, and needle counts reported as correct. The patient was transferred to PACU in stable condition.
[2021-05-14] MEDS: Acetaminophen 325 MG TABLET 650 MG PO (09:58)
[2021-05-14] MEDS: oxyCODONE HCl Immed Release 5 MG TABLET 10 MG PO (09:59)
[2021-05-14] MEDS: Ketorolac Tromethamine 15 MG/ML VIAL IVPUSH (09:59)
== END 2021-05-14 10:45 | disposition home or self-care (01) ==
PROVIDERS: PCP Nurse Practitioner Family; Visit Provider Surgery
PROC: (CPT 22902; principal; 2021-05-14 08:40)
DX: D17.5 Benign lipomatous neoplasm of intra-abdominal organs (principal); J44.9 Chronic obstructive pulmonary disease, unspecified; B19.20 Unspecified viral hepatitis C without hepatic coma; Z79.899 Other long term (current) drug therapy; F11.90 Opioid use, unspecified, uncomplicated; Z86.19 Personal history of other infectious and parasitic diseases; Z88.8 Allergy status to other drugs, medicaments and biological substances; Z87.891 Personal history of nicotine dependence
CPT/HCPCS: 22902 ×8; 88304; J0690; J1885; J2250; J3010

== ENCOUNTER → 2021-05-15 10:03 | Outpatient (BNVA) | payer MEDICAID, SELFPAY | PROVIDERS: PCP Nurse Practitioner Family; Visit Provider Hospitalist | DX: J40 Bronchitis, not specified as acute or chronic (principal); R94.2 Abnormal results of pulmonary function studies; J44.9 Chronic obstructive pulmonary disease, unspecified; A49.01 Methicillin susceptible Staphylococcus aureus infection, unspecified site; Z87.891 Personal history of nicotine dependence; Z79.899 Other long term (current) drug therapy | CPT/HCPCS: 99212 ==

== ENCOUNTER → 2021-05-23 08:52 | Outpatient (BNVA) | payer MEDICAID, SELFPAY | PROVIDERS: PCP Nurse Practitioner Family; Visit Provider Surgery | DX: Z48.817 Encounter for surgical aftercare following surgery on the skin and subcutaneous tissue (principal); Z87.2 Personal history of diseases of the skin and subcutaneous tissue | CPT/HCPCS: 99212 ==

== ENCOUNTER → 2021-06-13 09:49 | Outpatient (REF) | payer MEDICAID, SELFPAY ==
--- NOTE | 2021-06-13 | ECG_ITS ---
Test Reason : med check Blood Pressure : / mmHG Vent. Rate : 092 BPM Atrial Rate : 092 BPM P-R Int : 102 ms QRS Dur : 086 ms QT Int : 394 ms P-R-T Axes : 052 053 018 degrees QTc Int : 487 ms Sinus rhythm with short UT with occasional Premature ventricular complexes Prolonged QT Abnormal ECG When compared with ECG of 05-OCT-2020 16:14, Premature ventricular complexes are now Present Referred By: Treva Emerson Electronically Signed By:TAISHA BOGGS
== END ==
LOC: HO.CARD 09:49
PROVIDERS: PCP Nurse Practitioner Family; Visit Provider Family Medicine
DX: I45.81 Long QT syndrome (principal)
CPT/HCPCS: 93005

== ENCOUNTER → 2021-06-16 13:36 | Outpatient (BNVA) | payer MEDICAID, SELFPAY | PROVIDERS: PCP Nurse Practitioner Family; Referring Provider Nurse Practitioner Family; Visit Provider Nurse Practitioner ==

== ENCOUNTER → 2021-07-11 12:48 | Outpatient (BNVA) | payer MEDICAID, SELFPAY | PROVIDERS: PCP Nurse Practitioner Family; Visit Provider Physician Assistant Medical | DX: Z87.891 Personal history of nicotine dependence (principal) ==

== ENCOUNTER 2021-07-11 13:18 | Outpatient (REF) | payer MEDICAID, SELFPAY ==
--- NOTE | ~2021-07-11 | CT_ITS ---
EXAMINATION: CT CHEST SCREENING CLINICAL INFORMATION: Smoking history. 30 to PACS. History. Patient quit smoking 6 years ago. COMPARISON: Previous chest x-rays most recent February [address] June 2020 TECHNIQUE: Multidetector volumetric CT imaging of the chest is performed without contrast using low dose technique. Additional 2D coronal and sagittal reformatted images and axial 3D maximum intensity projection (MIP) images are generated on the CT workstation. This CT examination was performed using dose optimization techniques as appropriate, variously including the following: *Automated exposure control *Adjustment of mA and/or kV according to patient size (this includes techniques or standardized protocols for targeted exams where dose is matched to indication/reason for exam; i.e. extremities or head) *Use of iterative reconstruction technique DLP: 69 mGy-cm FINDINGS: LUNGS: There is subsegmental atelectasis at the lung bases. The lungs are otherwise clear. No endobronchial or endotracheal lesion is seen. MEDIASTINUM: The mediastinum is normal. PLEURA: There is no pleural effusion. No pleural mass or thickening. AXILLA: No lymphadenopathy. UPPER ABDOMEN: There is a 5 x 5.6 cm low-attenuation lesion in the posterior segment of the right lobe of the liver axial image 54 series 3. This is similar to previous exams and was found to represent benign hemangioma when compared with previous abdominal MRI June 2017. There is mild diverticulosis of the colon. OSSEOUS STRUCTURES: There are mild degenerative changes of the spine. CT/CT lung screening IMPRESSION: Bibasilar subsegmental atelectasis. No pulmonary nodule seen. ASSESSMENT: Lung-RADS category 2: Benign RECOMMENDATION: Annual low-dose chest CT follow-up recommended.
== END 2021-07-11 13:19 | disposition home or self-care (01) ==
LOC: HO.CT 13:18
PROVIDERS: Visit Provider Surgery
DX: Z12.2 Encounter for screening for malignant neoplasm of respiratory organs (principal); Z87.891 Personal history of nicotine dependence
CPT/HCPCS: 71271; G0296

== ENCOUNTER 2021-09-04 06:33 | Day surgery (SDC) | payer MEDICAID, SELFPAY ==
[2021-08-28 15:15] VITALS: BMI 35.6
--- NOTE | 2021-09-03 10:25 | HO.ANESPROP2 ---
Documented by User: Marcelina Omer NP 09/03/21 10:31 HPI - Anesthesia Eval Consult details Narrative: 60yo M for?Colonoscopy s/p lipoma excision 04/2021 with MAC (propofol/ketamine) [facility] Active Problems Active Problems: All Active Problems (Updated 08/28/21 @ 15:07 by Miya Ascencio, [id number]) Elevated LFTs (Acute) Insomnia (Acute) Depression with anxiety (Acute) Allergic rhinitis (Acute) Asthma (Acute) GERD (gastroesophageal reflux disease) (Acute) Polysubstance abuse (Acute) Bipolar disorder (Acute) Hepatic hemangioma (Acute) Encounter for monitoring Suboxone maintenance therapy (Acute) Cirrhosis (Acute) COPD exacerbation (Acute) Abnormal PFTs (pulmonary function tests) (Acute) Angiolipoma (Acute) Loud snoring (Acute) Chronic hepatitis C (Acute) Asthma-COPD overlap syndrome (Acute) Shortness of breath (Acute) Cough (Acute) Bronchitis (Acute) Personal history of nicotine dependence (Acute) Staph aureus infection (Acute) Past Medical History Medical History (Updated 08/28/21 @ 15:07 by Miya Ascencio RN) Asthma Asthma-COPD overlap syndrome Bipolar disorder Bronchitis Chronic hepatitis C Cough COVID-19 vaccine series completed Depression Multiple lipomas Personal history of nicotine dependence Shortness of breath Staph aureus infection Family History Family History Father Myocardial infarction Mother NIDDY (non-insulin dependent diabetes mellitus in young) CAD (coronary artery disease) HTN (hypertension), benign No family history of colorectal cancer Family history of problems with anesthesia: No Surgical History Surgical History (Updated 06/26/21 @ 09:46 by Ela Irizarry PA-C) History of bronchoscopy History of esophagogastroduodenoscopy (EGD) S/P excision of lipoma History of Problems with Anesthesia: No Social History Social History (Updated 07/11/21 @ 13:20 by Ela Irizarry PA-C) Household Members: Spouse Patient Tobacco Use Status: Former Tobacco user Quit Date: 2014 Tobacco use type: Cigarette Years Smoked: 26 Substance Use Type: Crack/Cocaine, Former Substance User and Heroin Substance Use Type Other:: taking methadone Have you been hit, kicked, punched, or otherwise hurt by someone within the past year? If so, by whom?: No Are you DNR?: No Advance Directives: No (states is girlfriend but no official HCP) Advance Directives Information Provided: Yes (informational brochure mailed) Advance Directives on File: No Recently lost weight without trying: No Eating poorly because of decreased appetite: No Nutrition Risks: No Nutritional Risk Meds Allergies Allergy/AdvReac Type Severity Reaction Status Date / Time barium sulfate Allergy Severe rash Verified 06/16/21 13:38 ibuprofen [IBUPROFEN] Allergy Severe HYPERACTIVITY, Verified 06/16/21 13:38 GI upset, rash Home Medications Medication Instructions Recorded Confirmed Last Taken Type quetiapine 400 mg tablet 400 mg PO BEDTIME tab 06/26/20 08/28/21 Unknown History risperidone 2 mg tablet 2 mg PO BID 06/26/20 08/28/21 01/15/21 06:30 History sertraline 100 mg tablet 100 mg PO DAILY 06/26/20 08/28/21 01/15/21 06:30 History trazodone 100 mg tablet 100 mg PO BEDTIME 06/26/20 08/28/21 Unknown History sofosbuvir 400 mg-velpatasvir 100 1 tab PO DAILY 05/07/21 08/28/21 Unknown History mg tablet methadone 5 mg/5 mL oral solution 35 mg PO QAM 08/28/21 08/28/21 09/04/21 History Exam Exam Date and Time: September 03, 2021 1025 Height,Weight and Vital Signs: Height 5 ft 7 in Weight 103.419 kg Narrative Narrative: EKG 05/2021 Vent. Rate : 092 BPM ? ? Atrial Rate : 092 BPM ?? P-R Int : 102 ms? QRS Dur : 086 ms ? ? QT Int : 394 ms ? ? ? P-R-T Axes : 052 053 018 degrees ?? QTc Int : 487 ms ? Sinus rhythm with short NC with occasional Premature ventricular complexes Prolonged QT Abnormal ECG When compared with ECG of 05-OCT-2020 16:14, Premature ventricular complexes are now Present Assessment and Plan Assessment Anesthesia Assessment: Chart Reviewed Final Anesthetic Review Family History of Problems with Anesthesia: No History of Problems with Anesthesia: No Documented by User: Richard Hussein 09/04/21 07:41 [facility] Past Medical History Medical History (Updated 08/28/21 @ 15:07 by Miya Ascencio RN) Asthma Asthma-COPD overlap syndrome Bipolar disorder Bronchitis Chronic hepatitis C Cough COVID-19 vaccine series completed Depression Multiple lipomas Personal history of nicotine dependence Shortness of breath Staph aureus infection Family History Family History Father Myocardial infarction Mother NIDDY (non-insulin dependent diabetes mellitus in young) CAD (coronary artery disease) HTN (hypertension), benign No family history of colorectal cancer Surgical History Surgical History (Updated 06/26/21 @ 09:46 by Ela Irizarry PA-C) History of bronchoscopy History of esophagogastroduodenoscopy (EGD) S/P excision of lipoma Social History Social History (Updated 07/11/21 @ 13:20 by Ela Irizarry PA-C) Household Members: Spouse Patient Tobacco Use Status: Former Tobacco user Quit Date: 2014 Tobacco use type: Cigarette Years Smoked: 26 Substance Use Type: Crack/Cocaine, Former Substance User and Heroin Substance Use Type Other:: taking methadone Have you been hit, kicked, punched, or otherwise hurt by someone within the past year? If so, by whom?: No Are you DNR?: No Advance Directives: No (states is girlfriend but no official HCP) Advance Directives Information Provided: Yes (informational brochure mailed) Advance Directives on File: No Recently lost weight without trying: No Eating poorly because of decreased appetite: No Nutrition Risks: No Nutritional Risk Meds Allergies Allergy/AdvReac Type Severity Reaction Status Date / Time barium sulfate Allergy Severe rash Verified 06/16/21 13:38 ibuprofen [IBUPROFEN] Allergy Severe HYPERACTIVITY, Verified 06/16/21 13:38 GI upset, rash Home Medications Medication Instructions Recorded Confirmed Last Taken Type quetiapine 400 mg tablet 400 mg PO BEDTIME tab 06/26/20 08/28/21 Unknown History risperidone 2 mg tablet 2 mg PO BID 06/26/20 08/28/21 01/15/21 06:30 History sertraline 100 mg tablet 100 mg PO DAILY 06/26/20 08/28/21 01/15/21 06:30 History trazodone 100 mg tablet 100 mg PO BEDTIME 06/26/20 08/28/21 Unknown History sofosbuvir 400 mg-velpatasvir 100 1 tab PO DAILY 05/07/21 08/28/21 Unknown History mg tablet methadone 5 mg/5 mL oral solution 35 mg PO QAM 08/28/21 08/28/21 09/04/21 History Exam Airway Mallampati Class: II Neck ROM: Full Partial: Upper Loose/Missing/Broken Teeth: Yes Assessment and Plan Final Anesthetic Review NPO: Yes ASA Class: III Patient Risk: Intermediate Procedure Risk: Intermediate Anesthetic Plan Anesthetic Plan: MAC: Disposition: Standard PACU
[2021-09-04 07:01] VITALS: BP 153/83; PULSE 75; RESP 18; TEMP 36.4; O2SAT 93
[2021-09-04] MEDS: Albuterol Sulfate (0.083%) 2.5 MG/3 ML VIAL.NEB INHALE (07:18)
[2021-09-04 07:19] VITALS: PULSE 80; RESP 18; O2SAT 95
[2021-09-04] MEDS: Lactated Ringers 1,000 ML 100 ML IVCONT (07:21)
--- NOTE | 2021-09-04 08:34 | MHC.SHP ---
Pre-Procedural Eval Section A Date of Service: 09/04/21 Section B Chief Complaint: Screening,Gerd Relevant Family History (Specify if Yes): No Relevant Social History: Tobacco Use Present Medications: see Short Stay Collaborative assessment Medical History: Significant History (Asthma Asthma-COPD overlap syndrome Bipolar disorder Bronchitis Chronic hepatitis C Cough COVID-19 vaccine series completed Depression Multiple lipomas Personal history of nicotine dependence Shortness of breath Staph aureus infection) History of Previous Operations: Relevant previous surgery/procedure and date(s) (EGD) Allergies: Allergies Allergy/AdvReac Type Severity Reaction Status Date / Time barium sulfate Allergy Severe rash Verified 06/16/21 13:38 ibuprofen [IBUPROFEN] Allergy Severe HYPERACTIVITY, Verified 06/16/21 13:38 GI upset, rash Review of Systems Sugical H&P ROS: Negative: Constitution, Cardiovascular, Respiratory, Neurological, Psychiatric, Hem-Onc, Allergic/Immunologic, Gastrointestinal, Genitourinary, Musculoskeletal, Integumentary, Endocrine and Eyes/Ears/Nose/Throat Exam Surgical H&P Exam: Normal: HEENT, Normal: Heart, Normal: Lungs, Normal: Extremities, Normal: Abdomen, Normal: Skin and Normal: Neurological Plan Diagnosis/Plan: Unchanged I have reviewed the history and physical and performed a pertinent physical examination on my patient. No changes have occurred unless specified.
--- NOTE | 2021-09-04 08:35 | P.BOP_ITS ---
Brief Operative Note Date of Service: 09/04/21 Pre-op diagnosis: screening Post-op diagnosis: same Procedure: see op note Surgeon: Kiana Ulloa MD Anesthesia: MAC Was an [employer] used for this Procedure?: No Estimated blood loss (mL): 0 Condition: stable Disposition: PACU
--- NOTE | 2021-09-04 08:35 | W.PM.OPN ---
Operative Note Operative Note Date of Service: 09/04/21 Narrative: Operative Information Procedure Description: Colonoscopy COLONOSCOPY Instrument: Olympus variable stiffness pediatric scope 190L Colonoscopy Monitoring: Vital signs and clinical assessment, continuous EKG monitoring, Pulse oximetry, Carbon Dioxide monitoring and blood pressure monitoring were done throughout the procedure. Colon withdrawal time was [] minutes. Procedure: The patient was placed in the left lateral decubitis position and pre-procedure medications were administered. After a digital rectal examination of the ano-rectum, the video colonoscope was inserted into the rectum and advanced through the colon to the cecum/TI. The colonoscope was slowly withdrawn in a retrograde panoramic fashion and the colon mucosa was carefully examined including a retroflexed view of the rectum. Findings and interventions are described below. Procedure Difficulty:moderate due to poor prep and looping Findings: Terminal Ileum-not intubated Cecum:normal Ascending Colon: normal Transverse Colon -normal Descending Colon:normal Sigmoid Colon: moderate severe diverticulosis Rectum: Retroflexion with medium sized internal hemorrhoids, grade I Anorectum - normal Colon preparation: [place] Bowel Preparation Scale Right colon; 2 Transverse colon: 1 Left colon; 1 (0 = Unprepared colon segment with mucosa not seen due to solid stool that cannot be cleared. 1 = Portion of mucosa of the colon segment seen, but other areas of the colon segment not well seen due to staining, residual stool and/or opaque liquid. 2 = Minor amount of residual staining, small fragments of stool and/or opaque liquid, but mucosa of colon segment seen well. 3 = Entire mucosa of colon segment seen well with no residual staining, small fragments of stool or opaque liquid) Impression and Post Procedure Diagnosis: internal hemorrhoids diverticular disease Plan: High fiber diet leaflet Avoid straining at stool, epsom salts and sitz bath, anusol supps or cream Repeat Colonoscopy in 6-12 months or earlier if clinically indicated, next time use adult scope and consider 2 d prep with clears Above findings were reviewed with the patient and relevant handouts were provided if indicated.
[2021-09-04 09:38] VITALS: BP 135/71; PULSE 87; RESP 16; TEMP 37.6; O2SAT 95
[2021-09-04 09:53] VITALS: BP 149/80; PULSE 79; RESP 16; TEMP 36.3; O2SAT 93
== END 2021-09-04 10:15 | disposition home or self-care (01) ==
PROVIDERS: PCP Nurse Practitioner Family; Visit Provider Internal Medicine Gastroenterology
PROC: 0DJD8ZZ Inspection of Lower Intestinal Tract, Via Natural or Artificial Opening Endoscopic (ICD-10-PCS; CPT 45378; principal; 2021-09-04 08:50)
DX: Z12.11 Encounter for screening for malignant neoplasm of colon (principal); K21.9 Gastro-esophageal reflux disease without esophagitis; K57.30 Diverticulosis of large intestine without perforation or abscess without bleeding; K64.0 First degree hemorrhoids; F11.20 Opioid dependence, uncomplicated; B18.2 Chronic viral hepatitis C; K74.60 Unspecified cirrhosis of liver; J44.1 Chronic obstructive pulmonary disease with (acute) exacerbation; F32.9 Major depressive disorder, single episode, unspecified; Z79.899 Other long term (current) drug therapy; Z88.8 Allergy status to other drugs, medicaments and biological substances; Z87.891 Personal history of nicotine dependence
CPT/HCPCS: 45378

== ENCOUNTER → 2021-10-02 13:59 | Outpatient (BNVA) | payer MEDICAID, SELFPAY | PROVIDERS: PCP Nurse Practitioner Family; Visit Provider Hospitalist | DX: R94.2 Abnormal results of pulmonary function studies (principal); J40 Bronchitis, not specified as acute or chronic; J44.9 Chronic obstructive pulmonary disease, unspecified; A49.01 Methicillin susceptible Staphylococcus aureus infection, unspecified site | CPT/HCPCS: 99212 ==

== ENCOUNTER → 2021-12-11 08:46 | Outpatient (BNVA) | payer MEDICAID, SELFPAY | PROVIDERS: PCP Nurse Practitioner Family; Visit Provider Hospitalist | DX: J44.1 Chronic obstructive pulmonary disease with (acute) exacerbation (principal); J40 Bronchitis, not specified as acute or chronic; A49.01 Methicillin susceptible Staphylococcus aureus infection, unspecified site | CPT/HCPCS: 99212 ==

== ENCOUNTER 2022-02-24 09:50 | Outpatient (REF) | payer MEDICAID, SELFPAY ==
[2022-02-24 11:04] LABS: MANUAL DIFF FLAG NO
[2022-02-24 11:46] LABS: Basophils Absolute Auto 0.1 X10*3/uL (0.0-0.2); Basophils Percent Auto 0.8 % (0-2); Eosinophils Absolute Auto 0.5 X10*3/uL (0.0-0.4); Eosinophils Percent Auto 6.1 % (0-4); Hematocrit 38.2 % (42.0-52.0); Hemoglobin 12.2 g/dl (14.0-18.0); Imm Gran Abs Auto 0.03 X10*3/uL (0.00-0.03); Imm Gran Pct Auto 0.4 % (0.0-0.4); Lymphocytes Absolute Auto 3.6 X10*3/uL (1.2-4.9); Lymphocytes Percent Auto 45.9 % (20-40); Mean Corpuscular HGB Conc 31.9 g/dl (31.0-36.0); Mean Corpuscular Hemoglobin 27.2 pg (27.0-33.0); Mean Corpuscular Volume 85.3 fL (80.0-98.0); Mean Platelet Volume 10.3 fL (9.4-12.4); Monocytes Absolute Auto 0.8 X10*3/uL (0.1-1.2); Monocytes Percent Auto 10.4 % (2-11); Neutrophils Absolute Auto 2.9 x10*3/uL (2.0-8.3); Neutrophils Percent Auto 36.4 % (45-73); Platelet Count 218 X10*3/uL (160-400); Red Blood Count 4.48 X10*6/uL (4.60-5.80); Red Cell Distribution Width 14.3 % (11.0-16.0); White Blood Count 7.9 X10*3/uL (4.8-10.8)
[2022-02-24 12:33] LABS: Erythrocyte Sedimentation Rate 21 MM/HR (0-15)
== END 2022-02-24 09:51 | disposition home or self-care (01) ==
LOC: HO.LAB 09:50
PROVIDERS: PCP Nurse Practitioner Family; Visit Provider Hospitalist
DX: J40 Bronchitis, not specified as acute or chronic (principal); J45.51 Severe persistent asthma with (acute) exacerbation; A49.01 Methicillin susceptible Staphylococcus aureus infection, unspecified site
CPT/HCPCS: 36415; 82785; 85025; 85652; 86003; 87070; 87205; 94640; 99212

== ENCOUNTER 2022-03-11 13:26 | Outpatient (REF) | payer MEDICAID, SELFPAY ==
[2022-03-11 13:54] LABS: MANUAL DIFF FLAG NO
[2022-03-11 14:16] LABS: Basophils Percent Auto 0.2 % (0-2); Hematocrit 40.1 % (42.0-52.0); Hemoglobin 12.7 g/dl (14.0-18.0); Imm Gran Abs Auto 0.12 X10*3/uL (0.00-0.03); Imm Gran Pct Auto 0.7 % (0.0-0.4); Lymphocytes Absolute Auto 1.4 X10*3/uL (1.2-4.9); Lymphocytes Percent Auto 7.8 % (20-40); Mean Corpuscular HGB Conc 31.7 g/dl (31.0-36.0); Mean Corpuscular Volume 85.1 fL (80.0-98.0); Mean Platelet Volume 9.6 fL (9.4-12.4); Monocytes Absolute Auto 0.5 X10*3/uL (0.1-1.2); Monocytes Percent Auto 2.6 % (2-11); Neutrophils Absolute Auto 16.3 x10*3/uL (2.0-8.3); Neutrophils Percent Auto 88.7 % (45-73); Platelet Count 218 X10*3/uL (160-400); Red Blood Count 4.71 X10*6/uL (4.60-5.80); Red Cell Distribution Width 14.8 % (11.0-16.0); White Blood Count 18.4 X10*3/uL (4.8-10.8)
[2022-03-11 14:24] LABS: INTERNATIONAL NORM RATIO 1.1 (0.9-1.1); Prothrombin Time 12.1 SEC (9.9-13.0)
[2022-03-11 14:43] LABS: Alanine Aminotransferase 13 U/L (0-40); Albumin Level 4.3 g/dL (3.5-5.0); Aspartate Amino Transferase 12 U/L (5-37); Bilirubin Total 0.4 mg/dL (0.0-1.0); Estimated Glomerular Filt Rate > 60
[2022-03-11 15:33] LABS: Syphilis Screen Nonreactive (Nonreactive)
[2022-03-11 16:08] LABS: CT PCR NOT DETECTED (Not Detect.); NG PCR NOT DETECTED (Not Detect.)
[2022-03-12 05:29] LABS: HBsAGNum1 0.53 S/CO (0.00-0.99); HIV AB/AG Nonreactive (Nonreactive); Hepatitis B Surface Antigen Negative (Negative)
[2022-03-14 13:07] LABS: HCV RNA PCR Qn <1.18 NOT DETECTED Log IU/mL (NOT DETECTED); HCV RNA PCR Qn <15 NOT DETECTED IU/mL (NOT DETECTED)
[2022-03-16 23:16] LABS: FIB-ALT 11 U/L (9-46); FIB-Alpha-2-Macroglobulin 273 mg/dL (106-279); FIB-Apolipoprotein A1 184 mg/dL (94-176); FIB-GGT 35 U/L (3-85); FIB-Haptoglobin 203 mg/dL (43-212); FIB-Total Bilirubin 0.4 mg/dL (0.2-1.2); Liver Fibrosis Score 0.23; Liver Fibrosis Stage F0-F1; Nec Inflam Act Grade A0; Nec Inflam Act Score 0.03
== END 2022-03-11 13:27 | disposition home or self-care (01) ==
LOC: HO.LAB 13:26
PROVIDERS: Visit Provider Internal Medicine Infectious Disease
DX: Z11.4 Encounter for screening for human immunodeficiency virus [HIV] (principal); Z11.3 Encounter for screening for infections with a predominantly sexual mode of transmission; B18.2 Chronic viral hepatitis C
CPT/HCPCS: 81596; 82040; 82247; 82565; 84450; 84460; 85025; 85610; 86780; 87340; 87389; 87491; 87522; 87591; 87902

== ENCOUNTER → 2022-03-12 19:36 | Outpatient (REF) | payer MEDICAID, SELFPAY | LOC: HO.SL 19:36 | PROVIDERS: Visit Provider Nurse Practitioner Family | DX: R06.83 Snoring (principal); R06.81 Apnea, not elsewhere classified | CPT/HCPCS: 95810 ==

== ENCOUNTER → 2022-03-20 09:46 | Outpatient (BNVA) | payer MEDICAID, SELFPAY | PROVIDERS: PCP Nurse Practitioner Family; Visit Provider Hospitalist | DX: J45.51 Severe persistent asthma with (acute) exacerbation (principal); J44.9 Chronic obstructive pulmonary disease, unspecified; A49.01 Methicillin susceptible Staphylococcus aureus infection, unspecified site; Z79.52 Long term (current) use of systemic steroids; Z79.899 Other long term (current) drug therapy | CPT/HCPCS: 99212 ==

== ENCOUNTER → 2022-06-05 08:22 | Outpatient (REF) | payer MEDICAID, SELFPAY ==
--- NOTE | 2022-06-05 08:28 | ECG_ITS ---
Test Reason : methadone, qt check Blood Pressure : / mmHG Vent. Rate : 063 BPM Atrial Rate : 063 BPM P-R Int : 134 ms QRS Dur : 090 ms QT Int : 428 ms P-R-T Axes : 042 066 041 degrees QTc Int : 437 ms Normal sinus rhythm Normal ECG When compared with ECG of 13-JUN-2021 09:59, Premature ventricular complexes are no longer Present ME interval has increased QT has shortened Referred By: Kanika Oshea Electronically Signed By:TAISHA BOGGS
== END ==
LOC: HO.CARD 08:22
PROVIDERS: PCP Nurse Practitioner Family; Visit Provider Family Medicine
DX: R94.31 Abnormal electrocardiogram [ECG] [EKG] (principal); Z79.891 Long term (current) use of opiate analgesic
CPT/HCPCS: 93005

== ENCOUNTER → 2022-06-26 09:01 | Outpatient (BNVA) | payer MEDICAID, SELFPAY | PROVIDERS: PCP Nurse Practitioner Family; Visit Provider Hospitalist | DX: J45.51 Severe persistent asthma with (acute) exacerbation (principal); J44.9 Chronic obstructive pulmonary disease, unspecified; A49.01 Methicillin susceptible Staphylococcus aureus infection, unspecified site | CPT/HCPCS: 99212 ==

== ENCOUNTER 2022-07-01 13:17 | Outpatient (REF) | payer MEDICAID, SELFPAY ==
[2022-07-01 13:45] LABS: MANUAL DIFF FLAG NO
[2022-07-01 14:51] LABS: Basophils Absolute Auto 0.1 X10*3/uL (0.0-0.2); Basophils Percent Auto 0.5 % (0-2); Eosinophils Absolute Auto 0.1 X10*3/uL (0.0-0.4); Eosinophils Percent Auto 0.7 % (0-4); Hematocrit 38.3 % (42.0-52.0); Hemoglobin 12.2 g/dl (14.0-18.0); Imm Gran Abs Auto 0.15 X10*3/uL (0.00-0.03); Imm Gran Pct Auto 1.4 % (0.0-0.4); Lymphocytes Absolute Auto 2.5 X10*3/uL (1.2-4.9); Lymphocytes Percent Auto 22.3 % (20-40); Mean Corpuscular HGB Conc 31.9 g/dl (31.0-36.0); Mean Corpuscular Hemoglobin 27.3 pg (27.0-33.0); Mean Corpuscular Volume 85.7 fL (80.0-98.0); Mean Platelet Volume 9.7 fL (9.4-12.4); Monocytes Absolute Auto 0.7 X10*3/uL (0.1-1.2); Monocytes Percent Auto 6.6 % (2-11); Neutrophils Absolute Auto 7.5 x10*3/uL (2.0-8.3); Neutrophils Percent Auto 68.5 % (45-73); Platelet Count 214 X10*3/uL (160-400); Red Blood Count 4.47 X10*6/uL (4.60-5.80); Red Cell Distribution Width 15.5 % (11.0-16.0)
[2022-07-01 14:56] LABS: Prothrombin Time 11.8 SEC (10.0-13.1)
[2022-07-01 15:25] LABS: Alanine Aminotransferase 12 U/L (0-40); Albumin Level 4.3 g/dL (3.5-5.0); Alkaline Phosphatase 55 U/L (39-117); Aspartate Amino Transferase 16 U/L (5-37); Bilirubin Total 0.2 mg/dL (0.0-1.0); Estimated Glomerular Filt Rate > 60
[2022-07-01 15:37] LABS: Syphilis Screen Nonreactive (Nonreactive)
[2022-07-01 18:39] LABS: CT PCR NOT DETECTED (Not Detect.); NG PCR NOT DETECTED (Not Detect.)
[2022-07-02 11:00] LABS: HBsAGNum1 0.23 S/CO (0.00-0.99); HIV AB/AG Nonreactive (Nonreactive); HIV Num 1 0.12 S/CO (0.00-0.99); Hepatitis B Surface Antigen Negative (Negative)
[2022-07-03 18:26] LABS: HCV RNA PCR Qn <1.18 NOT DETECTED Log IU/mL (NOT DETECTED); HCV RNA PCR Qn <15 NOT DETECTED IU/mL (NOT DETECTED)
[2022-07-07 00:51] LABS: FIB-ALT 11 U/L (9-46); FIB-Alpha-2-Macroglobulin 284 mg/dL (106-279); FIB-Apolipoprotein A1 187 mg/dL (94-176); FIB-GGT 42 U/L (3-85); FIB-Haptoglobin 228 mg/dL (43-212); FIB-Total Bilirubin 0.3 mg/dL (0.2-1.2); Liver Fibrosis Stage F0; Nec Inflam Act Grade A0; Nec Inflam Act Score 0.03
[2022-07-08 05:22] LABS: Lipoprotein A 47 nmol/L (<75)
== END 2022-07-01 13:18 | disposition home or self-care (01) ==
LOC: HO.LAB 13:17
PROVIDERS: PCP Nurse Practitioner Family; Visit Provider Internal Medicine Infectious Disease
DX: Z11.3 Encounter for screening for infections with a predominantly sexual mode of transmission (principal); Z11.4 Encounter for screening for human immunodeficiency virus [HIV]; R17 Unspecified jaundice; B19.20 Unspecified viral hepatitis C without hepatic coma
CPT/HCPCS: 81596; 82040; 82247; 82565; 83695; 84075; 84450; 84460; 85025; 85610; 86780; 87340; 87389; 87491; 87522; 87591; 87902

== ENCOUNTER 2022-07-14 08:06 | Outpatient (REF) | payer MEDICAID, SELFPAY ==
--- NOTE | ~2022-07-14 | US_ITS ---
EXAMINATION: US ABDOMEN COMPLETE CLINICAL INFORMATION: Chronic hepatitis. HCV screening. COMPARISON: Previous exam most recent ultrasound December [address] January 2020 and MRI of the abdomen June 2017 TECHNIQUE: Real-time imaging of the abdominal viscera. FINDINGS: PANCREAS: The main pancreatic duct is dilated measuring 0.4 cm. This is similar to previous exams. The pancreas is otherwise unremarkable. ABDOMINAL AORTA: The proximal, mid, and distal segments are normal in caliber. INFERIOR VENA CAVA: Visualized portions are normal. LIVER: Liver echotexture is increased and heterogeneous. The liver is slightly enlarged, right lobe measuring 19 cm in length. There is a 3.9 x 3.7 x 4.5 cm hypoechoic lesion in the right lobe of the liver. This is similar to previous exams and found to represent a hemangioma on prior CT and MRI. No other focal liver lesion. There is mild left-sided intrahepatic biliary duct dilatation. This is similar to previous ultrasound December 2020. GALLBLADDER: Normal. The gallbladder is physiologically distended without evidence of stones, sludge, polyps, wall thickening or pericholecystic fluid. COMMON BILE DUCT: Dilated dilated measuring 1.1 cm in diameter similar to most recent ultrasound December 2020. RIGHT KIDNEY: Normal. No hydronephrosis. No renal calculi or focal parenchymal lesions. The kidney measures 12.7 cm in maximum dimension. LEFT KIDNEY: Normal. No hydronephrosis. No renal calculi or focal parenchymal lesions. The kidney measures 12.0 cm in maximum dimension. SPLEEN: Normal. The spleen measures 8.2 cm in maximum dimension. FREE FLUID: None. US/US abdomen complete IMPRESSION: Slightly enlarged echogenic liver. Stable 3.9 x 3.7 x 4.5 cm hypoechoic lesion in the right lobe of the liver found represent a hemangioma on prior imaging. Mild left-sided intrahepatic and common bile duct dilatation similar to December 2020 exam. Mild dilatation of the main pancreatic duct in the head of the pancreas similar to previous exams.
== END 2022-07-14 08:07 | disposition home or self-care (01) ==
LOC: HO.US 08:06
PROVIDERS: Visit Provider Internal Medicine Infectious Disease
DX: B18.2 Chronic viral hepatitis C (principal)
CPT/HCPCS: 76700

== ENCOUNTER 2022-09-07 09:27 | Outpatient (REF) | payer MEDICAID, SELFPAY ==
--- NOTE | 2022-09-07 09:34 | ECG_ITS ---
Test Reason : QTC CHECK Blood Pressure : / mmHG Vent. Rate : 078 BPM Atrial Rate : 078 BPM P-R Int : 102 ms QRS Dur : 088 ms QT Int : 398 ms P-R-T Axes : 045 068 045 degrees QTc Int : 453 ms Sinus rhythm with sinus arrhythmia with short DC Otherwise normal ECG When compared with ECG of 05-JUN-2022 08:24, No significant change was found Referred By: Makayla Gilbert Electronically Signed By:Juan Alberto Rosado
[2022-09-07 09:55] LABS: MANUAL DIFF FLAG NO
[2022-09-07 10:29] LABS: Basophils Absolute Auto 0.1 X10*3/uL (0.0-0.2); Basophils Percent Auto 0.6 % (0-2); Eosinophils Absolute Auto 0.1 X10*3/uL (0.0-0.4); Hematocrit 41.7 % (42.0-52.0); Hemoglobin 13.1 g/dl (14.0-18.0); Imm Gran Abs Auto 0.11 X10*3/uL (0.00-0.03); Lymphocytes Absolute Auto 2.6 X10*3/uL (1.2-4.9); Lymphocytes Percent Auto 23.3 % (20-40); Mean Corpuscular HGB Conc 31.4 g/dl (31.0-36.0); Mean Corpuscular Hemoglobin 26.7 pg (27.0-33.0); Mean Corpuscular Volume 85.1 fL (80.0-98.0); Mean Platelet Volume 9.8 fL (9.4-12.4); Monocytes Absolute Auto 0.7 X10*3/uL (0.1-1.2); Monocytes Percent Auto 6.5 % (2-11); Neutrophils Absolute Auto 7.5 x10*3/uL (2.0-8.3); Neutrophils Percent Auto 67.6 % (45-73); Platelet Count 266 X10*3/uL (160-400); Red Cell Distribution Width 14.6 % (11.0-16.0); White Blood Count 11.1 X10*3/uL (4.8-10.8)
[2022-09-07 10:37] LABS: Estimated Average Glucose 134 mg/dL; Hemoglobin A1c % 6.3 %
[2022-09-07 11:18] LABS: Alanine Aminotransferase 15 U/L (0-40); Albumin Level 4.1 g/dL (3.5-5.0); Alkaline Phosphatase 62 U/L (39-117); Anion Gap 13 (12-20); Aspartate Amino Transferase 14 U/L (5-37); Bilirubin Total 0.3 mg/dL (0.0-1.0); Blood Urea Nitrogen 16 mg/dL (9-16); Calcium 9.4 mg/dL (8.4-10.2); Carbon Dioxide 28 mmol/L (22-29); Chloride 101 mmol/L (96-108); Cholesterol 148 mg/dL; Estimated Glomerular Filt Rate > 60; Glucose Random 98 mg/dL (60-115); HDL Cholesterol 50 mg/dL; LDL Cholesterol Calculated 80 mg/dl; Sodium 138 mmol/L (135-145); Thyroid Stimulating Hormone 1.24 uIU/mL (0.32-4.0); Total Protein 7.3 g/dL (6.5-8.0); Triglycerides 94 mg/dL
[2022-09-09 16:38] LABS: Prolactin 11.8 ng/mL (2.0-18.0)
== END 2022-09-07 09:28 | disposition home or self-care (01) ==
LOC: HO.LAB 09:27
PROVIDERS: PCP Nurse Practitioner Primary Care; Visit Provider Psychiatry & Neurology Psychiatry
DX: F33.0 Major depressive disorder, recurrent, mild (principal); F11.21 Opioid dependence, in remission
CPT/HCPCS: 36415; 80053; 80061; 83036; 84146; 84443; 85025; 93005

== ENCOUNTER → 2022-10-08 09:44 | Outpatient (BNVA) | payer MEDICAID, SELFPAY | PROVIDERS: PCP Nurse Practitioner Primary Care; Visit Provider Surgery | DX: K43.9 Ventral hernia without obstruction or gangrene (principal); R10.13 Epigastric pain | CPT/HCPCS: 99212 ==

== ENCOUNTER 2022-10-16 08:10 | Outpatient (REF) | payer MEDICAID, SELFPAY ==
--- NOTE | ~2022-10-16 | CT_ITS ---
EXAMINATION: CT CHEST SCREENING CLINICAL INFORMATION: Nicotine dependence. COMPARISON: None. TECHNIQUE: Multidetector volumetric CT imaging of the chest is performed without contrast using low dose technique. Additional 2D coronal and sagittal reformatted images and axial 3D maximum intensity projection (MIP) images are generated on the CT workstation. This CT examination was performed using dose optimization techniques as appropriate, variously including the following: *Automated exposure control *Adjustment of mA and/or kV according to patient size (this includes techniques or standardized protocols for targeted exams where dose is matched to indication/reason for exam; i.e. extremities or head) *Use of iterative reconstruction technique DLP: 70 mGy-cm FINDINGS: LUNGS: The lungs are well-expanded and clear of acute pneumonic process. There is focal atelectatic changes in the lingula, bilateral lower lobes and lingula. There is mild thickening of left minor fissure. No pulmonary nodule, mass or consolidation seen. No ground glass density seen either. MEDIASTINUM: The thyroid lobes are symmetrical and normal. Central trachea and the bronchi are widely patent. Heart size and the great vessels are normal caliber. No pericardial effusion seen. No abnormal size mediastinal or hilar lymph nodes. CORONARY ARTERY CALCIFICATION: None visualized on this study. PLEURA: There is no pleural effusion, thickening or calcification. AXILLA: No lymphadenopathy. UPPER ABDOMEN: Visualized liver, spleen, pancreas and bilateral adrenal glands are unremarkable. OSSEOUS STRUCTURES: No aggressive lytic or sclerotic process seen. There is mild ventral spondylosis mid to lower dorsal spine. CT/CT lung screening IMPRESSION: Focal atelectatic changes in the lingula bilateral lower lobes and lingula. No prior nodule seen. ASSESSMENT: Lung-RADS category 1: Negative. RECOMMENDATION: Low-dose annual CT chest.
== END 2022-10-16 08:11 | disposition home or self-care (01) ==
LOC: HO.CT 08:10
PROVIDERS: PCP Nurse Practitioner Primary Care; Visit Provider Physician Assistant Medical
DX: Z87.891 Personal history of nicotine dependence (principal)
CPT/HCPCS: 71271

== ENCOUNTER 2022-10-22 09:09 | Outpatient (REF) | payer MEDICAID, SELFPAY ==
--- NOTE | ~2022-10-22 | CT_ITS ---
EXAMINATION: CT ABDOMEN AND PELVIS WITHOUT CONTRAST CLINICAL INFORMATION: Ventral hernia COMPARISON: CT abdomen 01/31/2020 TECHNIQUE: Multidetector volumetric imaging was performed from the superior aspect of the liver through the pubic symphysis. Sagittal and coronal reformatted images were obtained on the technologist's workstation. This CT examination was performed using dose optimization techniques as appropriate, variously including the following: *Automated exposure control *Adjustment of mA and/or kV according to patient size (this includes techniques or standardized protocols for targeted exams where dose is matched to indication/reason for exam; i.e. extremities or head) *Use of iterative reconstruction technique DLP: 632 mGy-cm FINDINGS: LUNG BASES: The visualized lung bases are unremarkable. LIVER, GALLBLADDER, AND BILIARY TREE: Lobulated low density mass in the medial aspect of segment 6 of the liver has decreased in size. Prior MRI showed this to be consistent with a hemangioma. No other discrete liver mass is seen on noncontrast imaging. No biliary ductal dilatation. The gallbladder is contracted. PANCREAS: No discrete pancreatic mass. No ductal dilatation. SPLEEN: Nonenlarged. No mass. ADRENAL GLANDS: Unremarkable. KIDNEYS AND URETERS: The kidneys are normal in size, shape, and attenuation. No hydronephrosis, hydroureter, or calculi seen. No perinephric stranding. BLADDER: Decompressed GASTROINTESTINAL TRACT: Small bowel is normal in caliber. There is diverticulosis of the colon. No evidence of diverticulitis. ABDOMINAL WALL: No ventral hernia demonstrated. LYMPH NODES: No adenopathy. VASCULAR: No aortic aneurysm. Retroaortic left renal vein. PELVIC VISCERA: The prostate and seminal vesicles are unremarkable. OSSEOUS STRUCTURES: Degenerative changes in the spine. CT/CT abdomen pelvis wo IV con IMPRESSION: No ventral hernia demonstrated. Fleischner guidelines were followed.
== END 2022-10-22 09:10 | disposition home or self-care (01) ==
LOC: HO.CT 09:09
PROVIDERS: Visit Provider Surgery
DX: K43.9 Ventral hernia without obstruction or gangrene (principal)
CPT/HCPCS: 74176

== ENCOUNTER → 2023-02-23 08:57 | Outpatient (BNVA) | payer MEDICAID, SELFPAY | PROVIDERS: PCP Nurse Practitioner Primary Care; Visit Provider Hospitalist | DX: J45.51 Severe persistent asthma with (acute) exacerbation (principal); J44.9 Chronic obstructive pulmonary disease, unspecified; A49.01 Methicillin susceptible Staphylococcus aureus infection, unspecified site | CPT/HCPCS: 99212 ==

== ENCOUNTER → 2023-03-16 14:37 | Outpatient (BNVA) | payer MEDICAID, SELFPAY | PROVIDERS: PCP Nurse Practitioner Primary Care; Visit Provider Hospitalist | DX: J45.50 Severe persistent asthma, uncomplicated (principal); J44.9 Chronic obstructive pulmonary disease, unspecified; G47.34 Idiopathic sleep related nonobstructive alveolar hypoventilation; G47.33 Obstructive sleep apnea (adult) (pediatric) | CPT/HCPCS: 99212 ==

== ENCOUNTER → 2023-04-01 20:30 | Outpatient (REF) | payer MEDICAID, SELFPAY | LOC: HO.SL 20:30 | PROVIDERS: PCP Nurse Practitioner Primary Care; Visit Provider Hospitalist | DX: G47.33 Obstructive sleep apnea (adult) (pediatric) (principal); G47.34 Idiopathic sleep related nonobstructive alveolar hypoventilation | CPT/HCPCS: 95810 ==

== ENCOUNTER → 2023-04-01 21:54 | Outpatient (BNV) | payer MEDICAID, SELFPAY | PROVIDERS: PCP Nurse Practitioner Primary Care; Visit Provider Psychiatry & Neurology Neurology | DX: G47.33 Obstructive sleep apnea (adult) (pediatric) (principal); G47.31 Primary central sleep apnea; J44.9 Chronic obstructive pulmonary disease, unspecified; G47.34 Idiopathic sleep related nonobstructive alveolar hypoventilation | CPT/HCPCS: 95810 ==

== ENCOUNTER → 2023-04-07 11:33 | Outpatient (BNVA) | payer MEDICAID, SELFPAY | PROVIDERS: PCP Nurse Practitioner Primary Care; Visit Provider Hospitalist ==

== ENCOUNTER → 2023-04-07 11:41 | Outpatient (AMB) | payer MEDICAID, SELFPAY ==
--- NOTE | 2023-04-07 11:34 | MHC.OFFVIS ---
Intake Vital Signs 04/07/23 11:34 Height 5 ft 7 in Intake Visit Reasons: Obstructive sleep apnea Intake Note: pt on phone to discuss sleep study results Allergies barium sulfate Allergy (Severe, Verified 04/07/23 11:35) rash ibuprofen [IBUPROFEN] Allergy (Severe, Verified 04/07/23 11:35) HYPERACTIVITY, GI upset, rash HPI HPI Comments History of Present Illness Details The patient is a 62-year-old gentleman with a known history her titers C and also history of asthma. Unfortunately, back in June he started having worsening cough and shortness of breath. Also getting significant episodes of bronchitis. He had multiple evaluations in the ER. Noted to have significant wheezing and rhonchi at the time. He was treated with prednisone unfortunately, had an allergic reaction most likely to inactive ingredient causing his him to swell. Therefore he has avoided it. In the meantime he has had partial response to nebulized therapy that he uses on a regular basis. Although, only gets in brief relief after the nebulizer treatments. He has also been noticing coughing significant phlegm which is been grayish in color. We did review his CT scans that he has had back in June and also his chest x-rays demonstrating significant bronchitis looking airways and also atelectasis primarily to the right middle lobe. No evidence of any airway obstruction. In the office we were able to perform a treatment with even albuterol and hypertonic saline and he was able to expectorated sputum sample that was sent to the laboratory. Initially appears to be concerning for infectious lower respiratory infection and Pseudomonas and or other enteric bacteria are in the differential. 02/23/2023 the patient is here for a pulmonary follow-up visit. The patient is doing well from a respiratory status. He has been off prednisone which is reassuring. He has been using his respiratory therapy as prescribed. He still has some wheezing on examination but significantly less. He will likely have wheezing all the time. The patient is having issues with that hernia. He may need a hernia repair. I explained to him that with his history of Staph aureus he should get antimicrobial nasal ointment prior to surgery to avoid the risk of contamination. The patient also has been having issues with hypoxia at nighttime. He was supposed to have an overnight oximetry but he has not has it as of yet. Will go ahead and reorder the overnight oximetry at this time. 03/16/2023 the patient is here for a pulmonary follow-up visit. The patient is doing well otherwise. His wheezing seems to be much better he is using his inhalers as prescribed and his chest congestion is significantly improved. He is really happy that he is feeling better overall from a respiratory status. Although he still having issues with the oxygen. He did undergo an overnight oximetry when he spent almost 3 hours below 88%. His lowest saturations with down the low 70s. Therefore we did start him on oxygen. Although it is very loud and because the room to be warm and he just can not tolerated. He likely has some degree of sleep apnea. He does have an elevated [place] score of 11 or 24. The patient does have cardiovascular risk factors. And now with nocturnal hypoxia. Will request an in-lab study to further assess his obstructive sleep apnea to see if he can be placed on PAP therapy instead of oxygen because he cannot tolerate the oxygen at this time. 04/07/2023 The patient has a tele health visit. Having significant daytime drowsiness. Has an elevated EPWORTH score of 13/24. He did have nocturnal oxygen briefly, but returned it becuase it was too loud. He did undergo an in lab sleep study and noted to have moderate sleep apnea with significant hypoxia. Otherwise, from his asthma standpoint, he is doing well as long as he takes his medicines as prescribe. We will go ahead and order an urgent APAP. Once he is established on the APAP when can request and overnight oximetry. [facility] Medical History (Updated 03/16/23 @ 23:04 by Gilbert Wynn MD) Asthma Asthma-COPD overlap syndrome Bipolar disorder Bronchitis Bronchitis Chronic hepatitis C Cough COVID-19 vaccine series completed Depression Multiple lipomas Nocturnal hypoxia SOPHIA (obstructive sleep apnea) Personal history of nicotine dependence Shortness of breath Staph aureus infection Surgical History History of bronchoscopy History of esophagogastroduodenoscopy (EGD) S/P excision of lipoma Family History Father Myocardial infarction Mother NIDDY (non-insulin dependent diabetes mellitus in young) CAD (coronary artery disease) HTN (hypertension), benign No family history of colorectal cancer Social History Household Members: Spouse Patient Tobacco Use Status: Former Tobacco user Quit Date: 2014 Tobacco use type: Cigarette Years Smoked: 26 Substance Use Type: Crack/Cocaine, Former Substance User and Heroin Review of Systems Const Reports daytime sleepiness, Denies night sweats and Reports snoring ENT Denies change in voice, Denies lip swelling, Denies mouth pain, Reports nasal congestion, Reports nasal discharge and Denies tongue swelling Card Denies chest pain and Reports dyspnea on exertion Resp Denies change in phlegm color, Denies chest congestion, Reports cough, Reports dyspnea on exertion, Reports snoring and Denies wheezing GI Denies abdominal pain Musc Denies no additional complaints Neuro Denies Neuro-related abnormal movements Psych Denies no additional complaints Mingo/Lymph Denies easy bleeding and Denies lymphadenopathy Aller/Immun Denies lip swelling, Denies tongue swelling and Denies wheezing Physical Exam Const General: alert Orientation/consciousness: patient oriented x3 Resp Effort & Inspection: able to speak in complete sentences Neuro General: patient oriented x3 Assessment & Plan Assessment & Plan (1) Asthma: Code(s): J45.909 - Unspecified asthma, uncomplicated Qualifiers: Asthma severity: severe Asthma persistence: persistent Asthma complication type: uncomplicated Qualified Code(s): J45.50 - Severe persistent asthma, uncomplicated (2) Asthma-COPD overlap syndrome: Code(s): J44.9 - Chronic obstructive pulmonary disease, unspecified (3) Staph aureus infection: Comment: resolved Code(s): A49.01 - Methicillin susceptible Staphylococcus aureus infection, unspecified site (4) Nocturnal hypoxia: Code(s): G47.34 - Idiopathic sleep related nonobstructive alveolar hypoventilation (5) SOPHIA (obstructive sleep apnea): Code(s): G47.33 - Obstructive sleep apnea (adult) (pediatric) Plan start APAP as soon as possible will need an overnight oximetry in the near future antihistamine therapy as needed continue singular at night CPT with nebs and acapella valve continue hypertonic saline to use after the albuterol Mucinex as needed Continue Symbicort SEMAJ as needed LDCT 06/2023 F/U 4 months Telehealth Telehealth Location of provider rendering services: practice address Location of patient: address on file Patient Identification confirmed using: Name, : Yes Telehealth method: voice only Patient verbally consented to treatment: Yes Patient verbally consented to billing insurance company: Yes Patient informed of any privacy concerns related to visit: Yes Coding Level of Care Code Tele Est Pt Level 4 (64917) Diagnoses Asthma J45.50 Asthma severity: severe Asthma persistence: persistent Asthma complication type: uncomplicated Asthma-COPD overlap syndrome J44.9 Staph aureus infection A49.01 Nocturnal hypoxia G47.34 SOPHIA (obstructive sleep apnea) G47.33 Time Spent (min) 15
== END | disposition home or self-care (01) ==
LOC: HO.HPS 11:33
PROVIDERS: PCP Nurse Practitioner Primary Care; Visit Provider Hospitalist
DX: G47.33 Obstructive sleep apnea (adult) (pediatric) (principal); G47.34 Idiopathic sleep related nonobstructive alveolar hypoventilation; J45.50 Severe persistent asthma, uncomplicated; A49.01 Methicillin susceptible Staphylococcus aureus infection, unspecified site
CPT/HCPCS: 99214

== ENCOUNTER 2023-05-19 09:02 | Outpatient (AMB) | payer MEDICAID, SELFPAY ==
[2023-05-19 09:21] VITALS: PULSE 71; O2SAT 91; BMI 36.6
--- NOTE | 2023-05-19 09:21 | MHC.OFFVIS ---
Intake Vital Signs 05/19/23 09:21 Height 5 ft 7 in Weight 233 lb 11.04 oz BMI 36.6 Pulse 71 Pulse Source Pulse Oximeter Pulse Oximetry (%) 91 L Oxygen Delivery Method Room Air Intake Visit Reasons: Sleep Study Results Tender Labor Required: No Allergies barium sulfate Allergy (Severe, Verified 05/19/23 09:22) rash ibuprofen [IBUPROFEN] Allergy (Severe, Verified 05/19/23 09:22) HYPERACTIVITY, GI upset, rash HPI HPI Comments History of Present Illness Details The patient is a 62-year-old gentleman with a known history her titers C and also history of asthma. Unfortunately, back in June he started having worsening cough and shortness of breath. Also getting significant episodes of bronchitis. He had multiple evaluations in the ER. Noted to have significant wheezing and rhonchi at the time. He was treated with prednisone unfortunately, had an allergic reaction most likely to inactive ingredient causing his him to swell. Therefore he has avoided it. In the meantime he has had partial response to nebulized therapy that he uses on a regular basis. Although, only gets in brief relief after the nebulizer treatments. He has also been noticing coughing significant phlegm which is been grayish in color. We did review his CT scans that he has had back in June and also his chest x-rays demonstrating significant bronchitis looking airways and also atelectasis primarily to the right middle lobe. No evidence of any airway obstruction. In the office we were able to perform a treatment with even albuterol and hypertonic saline and he was able to expectorated sputum sample that was sent to the laboratory. Initially appears to be concerning for infectious lower respiratory infection and Pseudomonas and or other enteric bacteria are in the differential. 02/23/2023 the patient is here for a pulmonary follow-up visit. The patient is doing well from a respiratory status. He has been off prednisone which is reassuring. He has been using his respiratory therapy as prescribed. He still has some wheezing on examination but significantly less. He will likely have wheezing all the time. The patient is having issues with that hernia. He may need a hernia repair. I explained to him that with his history of Staph aureus he should get antimicrobial nasal ointment prior to surgery to avoid the risk of contamination. The patient also has been having issues with hypoxia at nighttime. He was supposed to have an overnight oximetry but he has not has it as of yet. Will go ahead and reorder the overnight oximetry at this time. 03/16/2023 the patient is here for a pulmonary follow-up visit. The patient is doing well otherwise. His wheezing seems to be much better he is using his inhalers as prescribed and his chest congestion is significantly improved. He is really happy that he is feeling better overall from a respiratory status. Although he still having issues with the oxygen. He did undergo an overnight oximetry when he spent almost 3 hours below 88%. His lowest saturations with down the low 70s. Therefore we did start him on oxygen. Although it is very loud and because the room to be warm and he just can not tolerated. He likely has some degree of sleep apnea. He does have an elevated [place] score of 11 or 24. The patient does have cardiovascular risk factors. And now with nocturnal hypoxia. Will request an in-lab study to further assess his obstructive sleep apnea to see if he can be placed on PAP therapy instead of oxygen because he cannot tolerate the oxygen at this time. 04/07/2023 The patient has a tele health visit. Having significant daytime drowsiness. Has an elevated EPWORTH score of 13/24. He did have nocturnal oxygen briefly, but returned it becuase it was too loud. He did undergo an in lab sleep study and noted to have moderate sleep apnea with significant hypoxia. Otherwise, from his asthma standpoint, he is doing well as long as he takes his medicines as prescribe. We will go ahead and order an urgent APAP. Once he is established on the APAP when can request and overnight oximetry. 05/19/2023 the patient is here for a pulmonary follow-up visit. The patient has not gotten a CPAP just yet. She continues to have significant daytime drowsiness. With an [place] score of 13/24. He takes naps on a regular basis. He is trying to exercise more though and he is trying to lose weight which is improving his overall health status. He can wait to start using CPAP. The patient did have significant hypoxia however. Will have to do an overnight oximetry once he is situated with CPAP in to see if she needs supplemental oxygen with it or another in-lab sleep titration study. The patient has been using all his respiratory therapy. His breathing has been much better. It is not limiting his exercise capacity which is reassuring. The patient will return in 3-4 months with his CPAP machine in order for us to download it and adjusted accordingly. [facility] Medical History (Updated 03/16/23 @ 23:04 by Gilbert Wynn MD) Asthma Asthma-COPD overlap syndrome Bipolar disorder Bronchitis Bronchitis Chronic hepatitis C Cough COVID-19 vaccine series completed Depression Multiple lipomas Nocturnal hypoxia SOPHIA (obstructive sleep apnea) Personal history of nicotine dependence Shortness of breath Staph aureus infection Surgical History History of bronchoscopy History of esophagogastroduodenoscopy (EGD) S/P excision of lipoma Family History Father Myocardial infarction Mother NIDDY (non-insulin dependent diabetes mellitus in young) CAD (coronary artery disease) HTN (hypertension), benign No family history of colorectal cancer Social History Household Members: Spouse Patient Tobacco Use Status: Former Tobacco user Quit Date: 2014 Tobacco use type: Cigarette Years Smoked: 26 Substance Use Type: Crack/Cocaine, Former Substance User and Heroin Review of Systems Const Reports daytime sleepiness, Denies night sweats and Reports snoring ENT Denies change in voice, Denies lip swelling, Denies mouth pain, Reports nasal congestion, Reports nasal discharge and Denies tongue swelling Card Denies chest pain and Reports dyspnea on exertion Resp Denies change in phlegm color, Denies chest congestion, Reports cough, Reports dyspnea on exertion, Reports snoring and Denies wheezing GI Denies abdominal pain Musc Denies no additional complaints Neuro Denies Neuro-related abnormal movements Psych Denies no additional complaints Mingo/Lymph Denies easy bleeding and Denies lymphadenopathy Aller/Immun Denies lip swelling, Denies tongue swelling and Denies wheezing Physical Exam Vital Signs: Last Vital Signs Pulse 71 05/19/23 09:21 Pulse Ox 91 L 05/19/23 09:21 Oxygen Delivery Method Room Air 05/19/23 09:21 BMI result Body Mass Index 36.6 Const General: alert Neck Neck: Yes normal visual inspection, Yes full ROM and Yes no lymphadenopathy Chest Chest palpation & inspection: normal inspection of the chest Resp Auscultation: no crackles, no rales, no rhonchi and diminished lung sounds Cardio Rate: regular rate Rhythm: regular rhythm Heart sounds: S1 normal heart sound present and S2 normal heart sound present GI Palpation (GI): Soft to palpation and nontender Auscultation: normal bowel sounds Skin General skin exam: rashes and/or lesions noted Assessment & Plan Assessment & Plan (1) Asthma: Code(s): J45.909 - Unspecified asthma, uncomplicated Qualifiers: Asthma complication type: uncomplicated Asthma persistence: persistent Asthma severity: severe Qualified Code(s): J45.50 - Severe persistent asthma, uncomplicated (2) Asthma-COPD overlap syndrome: Code(s): J44.9 - Chronic obstructive pulmonary disease, unspecified (3) Staph aureus infection: Comment: resolved Code(s): A49.01 - Methicillin susceptible Staphylococcus aureus infection, unspecified site (4) Nocturnal hypoxia: Code(s): G47.34 - Idiopathic sleep related nonobstructive alveolar hypoventilation (5) SOPHIA (obstructive sleep apnea): Code(s): G47.33 - Obstructive sleep apnea (adult) (pediatric) Plan start APAP as soon as possible will need an overnight oximetry in the near future antihistamine therapy as needed continue singular at night CPT with nebs and acapella valve continue hypertonic saline to use after the albuterol Continue Symbicort SEMAJ as needed start Gabapentin, will taper off the Trazodone LDCT 06/2023 F/U 4 months Medications: New gabapentin 300 mg PO BEDTIME 30 caps 6RF Coding Level of Care Code Est Pt Level 4 (00227) Diagnoses Asthma J45.50 Asthma complication type: uncomplicated Asthma persistence: persistent Asthma severity: severe Asthma-COPD overlap syndrome J44.9 Staph aureus infection A49.01 Nocturnal hypoxia G47.34 SOPHIA (obstructive sleep apnea) G47.33 Time Spent (min) 17
== END 2023-05-19 09:45 | disposition home or self-care (01) ==
PROVIDERS: PCP Nurse Practitioner Primary Care; Visit Provider Hospitalist
DX: J45.50 Severe persistent asthma, uncomplicated (principal); J44.9 Chronic obstructive pulmonary disease, unspecified; A49.01 Methicillin susceptible Staphylococcus aureus infection, unspecified site; G47.34 Idiopathic sleep related nonobstructive alveolar hypoventilation; G47.33 Obstructive sleep apnea (adult) (pediatric)
CPT/HCPCS: 99214

== ENCOUNTER → 2023-05-19 09:02 | Outpatient (BNVA) | payer MEDICAID, SELFPAY | PROVIDERS: PCP Nurse Practitioner Primary Care; Visit Provider Hospitalist | DX: J45.50 Severe persistent asthma, uncomplicated (principal); J44.9 Chronic obstructive pulmonary disease, unspecified; G47.34 Idiopathic sleep related nonobstructive alveolar hypoventilation; G47.33 Obstructive sleep apnea (adult) (pediatric); Z86.19 Personal history of other infectious and parasitic diseases | CPT/HCPCS: 99212 ==

== ENCOUNTER 2023-07-16 14:24 | Outpatient (AMB) | payer MEDICAID, SELFPAY ==
[2023-07-16 14:33] VITALS: BP 120/62; PULSE 81; O2SAT 88; BMI 37.0
--- NOTE | 2023-07-16 14:33 | MHC.OFFVIS ---
Intake Vital Signs 07/16/23 14:33 Height 5 ft 7 in Weight 236 lb BMI 37.0 BP 120/62 Blood Pressure Location Lt brachial Position Sitting Pulse 81 Pulse Source Pulse Oximeter Pulse Oximetry (%) 88 L Oxygen Delivery Method Room Air Intake Visit Reasons: Asthma Intake Note: pt is here for follow up and states he is doing well with c-pap, sleeps about 6 hours with no interruption. pt is asking for refills on Prednisone, gabapentin, azithromycin, and nasal spray. Ge[employer] Laboratory Chief Required: No Allergies barium sulfate Allergy (Severe, Verified 07/16/23 14:38) rash ibuprofen [IBUPROFEN] Allergy (Severe, Verified 07/16/23 14:38) HYPERACTIVITY, GI upset, rash HPI HPI Comments History of Present Illness Details The patient is a 62-year-old gentleman with a known history her titers C and also history of asthma. Unfortunately, back in June he started having worsening cough and shortness of breath. Also getting significant episodes of bronchitis. He had multiple evaluations in the ER. Noted to have significant wheezing and rhonchi at the time. He was treated with prednisone unfortunately, had an allergic reaction most likely to inactive ingredient causing his him to swell. Therefore he has avoided it. In the meantime he has had partial response to nebulized therapy that he uses on a regular basis. Although, only gets in brief relief after the nebulizer treatments. He has also been noticing coughing significant phlegm which is been grayish in color. We did review his CT scans that he has had back in June and also his chest x-rays demonstrating significant bronchitis looking airways and also atelectasis primarily to the right middle lobe. No evidence of any airway obstruction. In the office we were able to perform a treatment with even albuterol and hypertonic saline and he was able to expectorated sputum sample that was sent to the laboratory. Initially appears to be concerning for infectious lower respiratory infection and Pseudomonas and or other enteric bacteria are in the differential. 02/23/2023 the patient is here for a pulmonary follow-up visit. The patient is doing well from a respiratory status. He has been off prednisone which is reassuring. He has been using his respiratory therapy as prescribed. He still has some wheezing on examination but significantly less. He will likely have wheezing all the time. The patient is having issues with that hernia. He may need a hernia repair. I explained to him that with his history of Staph aureus he should get antimicrobial nasal ointment prior to surgery to avoid the risk of contamination. The patient also has been having issues with hypoxia at nighttime. He was supposed to have an overnight oximetry but he has not has it as of yet. Will go ahead and reorder the overnight oximetry at this time. 03/16/2023 the patient is here for a pulmonary follow-up visit. The patient is doing well otherwise. His wheezing seems to be much better he is using his inhalers as prescribed and his chest congestion is significantly improved. He is really happy that he is feeling better overall from a respiratory status. Although he still having issues with the oxygen. He did undergo an overnight oximetry when he spent almost 3 hours below 88%. His lowest saturations with down the low 70s. Therefore we did start him on oxygen. Although it is very loud and because the room to be warm and he just can not tolerated. He likely has some degree of sleep apnea. He does have an elevated Anthony score of 11 or 24. The patient does have cardiovascular risk factors. And now with nocturnal hypoxia. Will request an in-lab study to further assess his obstructive sleep apnea to see if he can be placed on PAP therapy instead of oxygen because he cannot tolerate the oxygen at this time. 04/07/2023 The patient has a tele health visit. Having significant daytime drowsiness. Has an elevated EPWORTH score of 13/24. He did have nocturnal oxygen briefly, but returned it becuase it was too loud. He did undergo an in lab sleep study and noted to have moderate sleep apnea with significant hypoxia. Otherwise, from his asthma standpoint, he is doing well as long as he takes his medicines as prescribe. We will go ahead and order an urgent APAP. Once he is established on the APAP when can request and overnight oximetry. 05/19/2023 the patient is here for a pulmonary follow-up visit. The patient has not gotten a CPAP just yet. She continues to have significant daytime drowsiness. With an Anthony score of 13/24. He takes naps on a regular basis. He is trying to exercise more though and he is trying to lose weight which is improving his overall health status. He can wait to start using CPAP. The patient did have significant hypoxia however. Will have to do an overnight oximetry once he is situated with CPAP in to see if she needs supplemental oxygen with it or another in-lab sleep titration study. The patient has been using all his respiratory therapy. His breathing has been much better. It is not limiting his exercise capacity which is reassuring. The patient will return in 3-4 months with his CPAP machine in order for us to download it and adjusted accordingly. 07/16/2023 the patient is here for a pulmonary follow-up visit. Overall the patient has been doing very well. He did finally get his CPAP. The CPAP therapy has been affecting beneficial. He does use it more than 4 hours a night. He is trying to get used to it a little bit more. The patient has been waking up more rested and has have more energy. He is already exercising and is on trying to lose weight which is reassuring. Respiratory status is stable. He continues uses medication as prescribed. He has not had any need for prednisone since we last spoke. His chest congestion also has been stable. Will continue with current respiratory therapy. Will request a download from his CPAP to make sure that is working appropriately for him and then we will follow-up in the springtime. If the patient has any difficulties or issues prior to that he will call the office for an earlier assessment. [facility] Medical History (Updated 03/16/23 @ 23:04 by Gilbert Wynn MD) Nocturnal hypoxia SOPHIA (obstructive sleep apnea) Bronchitis COVID-19 vaccine series completed Personal history of nicotine dependence Staph aureus infection Shortness of breath Cough Bronchitis Asthma-COPD overlap syndrome Depression Bipolar disorder Asthma Multiple lipomas Chronic hepatitis C Surgical History History of esophagogastroduodenoscopy (EGD) History of bronchoscopy S/P excision of lipoma Family History Father Myocardial infarction Mother NIDDY (non-insulin dependent diabetes mellitus in young) CAD (coronary artery disease) HTN (hypertension), benign No family history of colorectal cancer Social History Household Members: Spouse Patient Tobacco Use Status: Former Tobacco user Quit Date: 2014 Tobacco use type: Cigarette Years Smoked: 26 Substance Use Type: Crack/Cocaine, Former Substance User and Heroin Review of Systems Const Reports daytime sleepiness, Denies night sweats and Denies snoring ENT Denies change in voice, Denies lip swelling, Denies mouth pain, Reports nasal congestion, Reports nasal discharge and Denies tongue swelling Card Denies chest pain and Reports dyspnea on exertion Resp Denies change in phlegm color, Denies chest congestion, Reports cough, Reports dyspnea on exertion, Denies snoring and Denies wheezing GI Denies abdominal pain Musc Denies no additional complaints Neuro Denies Neuro-related abnormal movements Psych Denies no additional complaints Mingo/Lymph Denies easy bleeding and Denies lymphadenopathy Aller/Immun Denies lip swelling, Denies tongue swelling and Denies wheezing Physical Exam Vital Signs: Last Vital Signs Pulse 81 07/16/23 14:33 BP 120/62 07/16/23 14:33 Pulse Ox 88 L 07/16/23 14:33 Oxygen Delivery Method Room Air 07/16/23 14:33 BMI result Body Mass Index 37.0 Const General: alert Neck Neck: Yes normal visual inspection, Yes full ROM and Yes no lymphadenopathy Chest Chest palpation & inspection: normal inspection of the chest Resp Auscultation: no crackles, no rales, no rhonchi and diminished lung sounds Cardio Rate: regular rate Rhythm: regular rhythm Heart sounds: S1 normal heart sound present and S2 normal heart sound present GI Palpation (GI): Soft to palpation and nontender Auscultation: normal bowel sounds Skin General skin exam: rashes and/or lesions noted Assessment & Plan Assessment & Plan (1) Asthma: Code(s): J45.909 - Unspecified asthma, uncomplicated Qualifiers: Asthma complication type: uncomplicated Asthma persistence: persistent Asthma severity: severe Qualified Code(s): J45.50 - Severe persistent asthma, uncomplicated (2) Asthma-COPD overlap syndrome: Code(s): J44.9 - Chronic obstructive pulmonary disease, unspecified (3) Staph aureus infection: Comment: resolved Code(s): A49.01 - Methicillin susceptible Staphylococcus aureus infection, unspecified site (4) Nocturnal hypoxia: Code(s): G47.34 - Idiopathic sleep related nonobstructive alveolar hypoventilation (5) SOHPIA (obstructive sleep apnea): Code(s): G47.33 - Obstructive sleep apnea (adult) (pediatric) Plan APAP nasal mask antihistamine therapy as needed continue singular at night CPT with nebs and acapella valve continue hypertonic saline to use after the albuterol Continue Symbicort SEMAJ as needed continue Gabapentin, continue Trazodone as needed for sleep LDCT 06/2023 F/U 6-8 months Coding Level of Care Code Est Pt Level 4 (66345) Diagnoses Severe persistent asthma without complication J45.50 Asthma complication type: uncomplicated Asthma persistence: persistent Asthma severity: severe Asthma-COPD overlap syndrome J44.9 Staph aureus infection A49.01 Nocturnal hypoxia G47.34 SOPHIA (obstructive sleep apnea) G47.33 Time Spent (min) 16
== END 2023-07-16 15:02 | disposition home or self-care (01) ==
PROVIDERS: PCP Nurse Practitioner Primary Care; Visit Provider Hospitalist
DX: J45.50 Severe persistent asthma, uncomplicated (principal); J44.9 Chronic obstructive pulmonary disease, unspecified; A49.01 Methicillin susceptible Staphylococcus aureus infection, unspecified site; G47.34 Idiopathic sleep related nonobstructive alveolar hypoventilation; G47.33 Obstructive sleep apnea (adult) (pediatric)
CPT/HCPCS: 99214

== ENCOUNTER → 2023-07-16 14:24 | Outpatient (BNVA) | payer MEDICAID, SELFPAY | PROVIDERS: PCP Nurse Practitioner Primary Care; Visit Provider Hospitalist | DX: J45.50 Severe persistent asthma, uncomplicated (principal); J44.9 Chronic obstructive pulmonary disease, unspecified; A49.01 Methicillin susceptible Staphylococcus aureus infection, unspecified site; G47.34 Idiopathic sleep related nonobstructive alveolar hypoventilation; G47.33 Obstructive sleep apnea (adult) (pediatric) | CPT/HCPCS: 99212 ==

== ENCOUNTER 2023-07-26 15:08 | Outpatient (REF) | payer MEDICAID, SELFPAY ==
--- NOTE | ~2023-07-26 | XR_ITS ---
EXAMINATION: XR CHEST CLINICAL INFORMATION: Bilateral leg edema. Increase shortness of breath. COMPARISON: Previous chest x-ray most recent February [address] September 2026 TECHNIQUE: 2 views of the chest were obtained. FINDINGS: The cardiac silhouette does not appear enlarged. Hilar and mediastinal contours are unremarkable. There is bibasilar subsegmental atelectasis. The lungs are otherwise clear. No pleural effusion or pneumothorax. Bony structures are unremarkable. XR/XR chest 2V IMPRESSION: Bibasilar subsegmental atelectasis.
== END 2023-07-26 15:09 | disposition home or self-care (01) ==
LOC: HO.HHCX 15:08
PROVIDERS: Visit Provider Emergency Medicine
DX: R60.0 Localized edema (principal); R06.02 Shortness of breath
CPT/HCPCS: 71046

== ENCOUNTER 2023-07-27 11:33 | Outpatient (REF) | payer MEDICAID, SELFPAY ==
[2023-07-27 11:53] LABS: MANUAL DIFF FLAG NO
[2023-07-27 12:12] LABS: Basophils Absolute Auto 0.1 X10*3/uL (0.0-0.2); Basophils Percent Auto 0.7 % (0-2); Eosinophils Absolute Auto 0.3 X10*3/uL (0.0-0.4); Eosinophils Percent Auto 3.7 % (0-4); Hematocrit 37.4 % (42.0-52.0); Hemoglobin 11.9 g/dl (14.0-18.0); Imm Gran Abs Auto 0.03 X10*3/uL (0.00-0.03); Imm Gran Pct Auto 0.4 % (0.0-0.4); Lymphocytes Absolute Auto 3.2 X10*3/uL (1.2-4.9); Lymphocytes Percent Auto 43.3 % (20-40); Mean Corpuscular HGB Conc 31.8 g/dl (31.0-36.0); Mean Corpuscular Hemoglobin 27.1 pg (27.0-33.0); Mean Corpuscular Volume 85.2 fL (80.0-98.0); Mean Platelet Volume 10.1 fL (9.4-12.4); Monocytes Absolute Auto 0.8 X10*3/uL (0.1-1.2); Neutrophils Percent Auto 40.9 % (45-73); Platelet Count 223 X10*3/uL (160-400); Red Blood Count 4.39 X10*6/uL (4.60-5.80); Red Cell Distribution Width 14.9 % (11.0-16.0); White Blood Count 7.4 X10*3/uL (4.8-10.8)
[2023-07-27 12:36] LABS: Appearance Urine Clear; Color Urine Yellow; Glucose Urine UA Negative (Negative); Leukocyte Esterase Urine Negative (Negative); Nitrite Urine Negative (Negative); PH 6.5 (5.0-9.0); Specific Gravity - Urine 1.015 (1.005-1.025); Urine Blood Negative (Negative); Urine Ketones Negative (Negative); Urine Protein Negative (Neg-Trace)
[2023-07-27 12:38] LABS: B Type Natriuretic Peptide 85 pg/mL (<100)
[2023-07-27 12:42] LABS: Bacteria Urine None Seen (None Seen); Hyaline Casts Urine 0-2 /LPF (0-2); RBC Urine 0-2 /HPF (0-2); Squamous Epithelial Cell Urine 0-2 /HPF (0-2); WBC Urine 0-5 /HPF (0-5)
[2023-07-27 13:05] LABS: Amylase 31 U/L (28-100)
[2023-07-27 13:10] LABS: Alanine Aminotransferase 10 U/L (0-40); Albumin Level 3.9 g/dL (3.5-5.0); Alkaline Phosphatase 52 U/L (39-117); Anion Gap 10 (12-20); Aspartate Amino Transferase 13 U/L (5-37); Bilirubin Total 0.2 mg/dL (0.0-1.0); Blood Urea Nitrogen 11 mg/dL (9-16); Carbon Dioxide 31 mmol/L (22-29); Chloride 105 mmol/L (96-108); Estimated Glomerular Filt Rate > 60; Glucose Random 130 mg/dL (60-115); Lipase 8 U/L (8-78); Potassium 3.5 mmol/L (3.3-5.1); Sodium 142 mmol/L (135-145); Total Protein 7.3 g/dL (6.5-8.0)
[2023-07-27 13:28] LABS: TSH reflex Free T4 1.25 uIU/mL (0.32-4.0)
== END 2023-07-27 11:34 | disposition home or self-care (01) ==
LOC: HO.LAB 11:33
PROVIDERS: PCP Nurse Practitioner Primary Care; Visit Provider Emergency Medicine
DX: R60.0 Localized edema (principal)
CPT/HCPCS: 36415; 80053; 81001; 82150; 83690; 83880; 84443; 85025

== ENCOUNTER 2023-07-27 12:02 | Emergency (ER) | payer MEDICAID, SELFPAY ==
[2023-07-27 12:39] VITALS: BP 140/71; PULSE 67; RESP 16; TEMP 35.9; O2SAT 95; BMI 37.6
--- NOTE | 2023-07-27 12:47 | ECG_ITS ---
Test Reason : SOB Blood Pressure : / mmHG Vent. Rate : 062 BPM Atrial Rate : 062 BPM P-R Int : 150 ms QRS Dur : 086 ms QT Int : 424 ms P-R-T Axes : 034 029 015 degrees QTc Int : 430 ms Normal sinus rhythm Normal ECG No significant changes seen Referred By: Saima Reddy Electronically Signed By:AKHIL PEREZ MD
--- NOTE | 2023-07-27 12:47 | ED_ITS ---
HPI - General Adult General Chief complaint: General Medical Stated complaint: Bilateral leg swelling/SOB Source: patient Mode of arrival: ambulatory Limitations: no limitations History of Present Illness HPI narrative: Patient is a 62 year old assigned male at with a history of asthma and polysubstance abuse presenting to the emergency department today with increased swelling in bilateral lower extremities and shortness of breath. Patient states that over the last few days he feels as though his lower legs are swelling more and he is having a harder time breathing. Patient denies any dizziness, lightheadedness, abdominal pain, nausea, vomiting, fever, chills, blurry vision, double vision, loss of vision, chest pain, back pain, night sweats, pain with urination, increased urinary frequency, increased urinary urgency, blood in his urine or stool, syncope or a near syncopal episode, recent trauma or falls, bowel incontinence, bladder incontinence, bowel retention, bladder retention, or any other complaints at this time. Onset (ago): day(s) Relieving factors: none Exacerbating factors: none Associated symptoms: shortness of breath Treatments prior to arrival: none Related Data Home Medications Medication Instructions Recorded Confirmed quetiapine 400 mg tablet 400 mg PO BEDTIME 06/26/20 10/08/22 risperidone 2 mg tablet 2 mg PO BID 06/26/20 10/08/22 sertraline 100 mg tablet 100 mg PO DAILY 06/26/20 10/08/22 trazodone 100 mg tablet 100 mg PO BEDTIME 06/26/20 10/08/22 nebulizers 02/23/23 methadone 5 mg/5 mL oral solution 65 mg PO QAM 07/16/23 Previous Rx's Medication Instructions Recorded triamcinolone acetonide 55 mcg 2 spray intranasal DAILY #16.9 mL 08/15/20 nasal spray aerosol (Nasacort) sodium chloride 3 % for 4 ml inhalation BID 30 days #240 mL 05/15/21 nebulization omeprazole 20 mg capsule,delayed 20 mg PO BID 30 days #60 caps 06/16/21 release albuterol sulfate 2.5 mg/3 mL 2.5 mg (3 mL) inhalation Q4H PRN 10/02/21 (0.083 %) solution for nebulization shortness of breath or wheezing 30 days #360 mL albuterol sulfate 90 mcg/actuation 2 puff inhalation QID PRN asthma 10/02/21 aerosol inhaler (Ventolin HFA) #18 grams cetirizine 10 mg tablet 10 mg PO QAM #30 tabs 11/30/22 montelukast 10 mg tablet 10 mg PO BEDTIME #30 tabs 11/30/22 budesonide-formoterol HFA 160 2 puff PO BID #10.2 grams 04/28/23 mcg-4.5 mcg/actuation aerosol inhaler (Symbicort) gabapentin 300 mg capsule 300 mg PO BEDTIME #30 caps 07/20/23 azithromycin 250 mg tablet 250 mg PO 3XW #12 tabs 07/21/23 prednisone 10 mg tablet 10 mg PO DAILY 30 days #30 tabs 07/21/23 mupirocin 2 % topical ointment 1 appl topical BID 5 days #15 grams 07/22/23 Allergies Allergy/AdvReac Type Severity Reaction Status Date / Time barium sulfate Allergy Severe rash Verified 07/16/23 14:38 ibuprofen [IBUPROFEN] Allergy Severe HYPERACTIVITY, Verified 07/16/23 14:38 GI upset, rash Review of Systems Constitutional: Constitutional: Reports no additional constitutional complaints, Denies chills, Denies fever(s) and Denies night sweats Eyes: Eyes: Reports no additional eye complaints, Denies blurry vision, Denies change in vision, Denies diplopia, Denies eye discharge, Denies loss of vision and Denies eye pain ENT: Denies dizziness Cardiovascular: Cardiovascular: Reports no additional cardiovascular complaints, Denies chest pain, Denies lightheadedness, Denies Loss of Consciousness and Reports dyspnea Comments: lower leg swelling Respiratory: Respiratory: Reports no additional respiratory complaints and Reports dyspnea Gastrointestinal: Gastrointestinal: Reports no additional gastrointestinal complaints, Denies abdominal pain, Denies melena, Denies hematochezia, Denies change in bowel habits and Denies change in stool character Genitourinary: Genitourinary: Reports no additional male genitourinary complaints, Denies hematuria, Denies oliguria, Denies difficulty urinating, Denies dysuria, Denies urinary frequency, Denies urinary hesitancy, Denies urinary incontinence and Denies urinary urgency Musculoskeletal: Musculoskeletal: Reports no additional musculoskeletal complaints, Denies numbness and Denies tingling Neurologic: Denies dizziness, Denies loss of vision, Denies numbness and Denies tingling Psychiatric: Psychiatric: Reports no additional psychiatric complaints Endocrine: Endocrine: Reports no additional endocrine complaints Hematologic/Lymphatic: Hematologic/Lymphatic: Reports no additional hematologic/lymphatic complaints Allergic/Immunologic: Allergic/Immunologic: Reports no additional allergic/immunologic complaints [facility] Past Medical History Attestation statement: The following information was validated with the patient. Source: old records reviewed and nursing notes reviewed Medical History Epigastric abdominal pain Ventral hernia Loud snoring Abnormal PFTs (pulmonary function tests) COPD exacerbation Encounter for monitoring Suboxone maintenance therapy Elevated LFTs Nocturnal hypoxia SOPHIA (obstructive sleep apnea) Bronchitis COVID-19 vaccine series completed Personal history of nicotine dependence Staph aureus infection Shortness of breath Cough Bronchitis Asthma-COPD overlap syndrome Depression Bipolar disorder Asthma Multiple lipomas Chronic hepatitis C Surgical History History of esophagogastroduodenoscopy (EGD) History of bronchoscopy S/P excision of lipoma Family History Family History Father Myocardial infarction Mother NIDDY (non-insulin dependent diabetes mellitus in young) CAD (coronary artery disease) HTN (hypertension), benign No family history of colorectal cancer Social History Social History Household Members: Spouse Patient Tobacco Use Status: Former Tobacco user Quit Date: 2014 Tobacco use type: Cigarette Years Smoked: 26 Substance Use Type: Crack/Cocaine, Former Substance User and Heroin Advance Directives: No Advance Directives Information Provided: Yes Physical Exam ED Vital Signs: BMI result Body Mass Index 37.6 Const General: cooperative, no acute distress, alert and awake Nutritional Appearance: well nourished Orientation/consciousness: patient oriented x3 Limitations: no limitations HENMT Head: Yes normal to inspection and Yes atraumatic Ears: hearing grossly normal bilaterally and external ears normal General nose exam: Normal external nose present, no nasal discharge noted and no epistaxis Face and sinus: Yes normal facial exam, No abrasion and No laceration Mouth: Normal oral and palatal mucosa present, no drooling and no muffled voice Eyes General: appearance normal, both eyes and all related structures Periorbital: periorbital findings normal Eyelids: Yes eyelids normal Conjunctivae: conjunctivae normal Pupils: Equal, round and reactive pupils present EOM: EOMs intact bilaterally Neck Neck: Yes normal visual inspection, Yes full ROM and Yes no lymphadenopathy Chest Chest palpation & inspection: normal inspection of the chest Resp Effort & Inspection: normal respiratory effort and able to speak in complete sentences GI Inspection: Yes normal to inspection Neuro General: patient oriented x3 and moves all extremities Cranial nerves: Yes Equal, round and reactive pupils present Cognition (Neuro): normal cognition Motor exam (neuro): 5/5 motor strength present throughout Sensory Exam: Normal double simultaneous stimulation for sensation Coordination: [id number] test normal Extrem General: Yes normal to inspection, Yes full ROM and Yes capillary refill normal Psych Appearance: grossly normal Mental Status: mental status grossly normal Affect: normal affect Attitude: cooperative Thought process: Normal thought process present Thought content: Normal thought content present Insight: Good insight present (Psych) Course Course Course Narrative: RME performed by Saima Reddy PA-C. Patient is a 62 year old assigned male at presenting to the emergency department with increased bilateral lower leg swelling and shortness of breath. Labs and swabs ordered. Patient placed back in the waiting room pending room availability and results. Medical Decision Making Medical Decision Making [facility] Narrative: Patient is a 62 year old assigned male at with a history of asthma and polysubstance abuse presenting to the emergency department today with increased lower leg swelling and shortness of breath. Patient's limited physical exam performed in triage was unremarkable. Patient's blood work was unremarkable. Patient's urine showed no acute process. Patient's EKG was unremarkable. Patient's chest x-ray from 07/26/2023 showed no acute process. Patient left the department without completing treatment. Patient left the department before myself or any of the other emergency department clinicians reviewed physical exam findings, test results, need or lack there of for further testing, treatment options, or any treatment plan. Differential Diagnosis Differential Diagnoses: The differential diagnosis associated with the presentation includes COPD exacerbation CHF Shortness of breath Admission/Observation Consideration of admission/observation: Escalation of care including admission/observation considered Patient would have been admitted to the hospital had his work up had any findings where hospital admission was appropriate and his clinical presentation warranted hospital admission. Lab Data [facility] Lab Attestation statement: I reviewed the patient's lab results. My interpretation of these studies and their corresponding values is that they are grossly normal. Labs: Lab Results 07/27/23 Range/Units 13:19 PT 12.1 (11.1-13.3) SEC INR 1.0 (0.9-1.1) APTT 29.7 (26.0-36.4) SEC Magnesium 1.9 (1.6-2.6) mg/dL Troponin I High Sens < 2.7 (<3.5-35.0) ng/L B-Natriuretic Peptide 89 (<100) pg/mL Influenza Type A (PCR) NEGATIVE (Negative) Influenza Type B (PCR) NEGATIVE (Negative) RSV RNA Qual (PCR) NEGATIVE (Negative) SARS-CoV-2 RNA (RT-PCR) NEGATIVE (Negative) Independent Interpretation I performed an independent interpretation of an: EKG and Plain X-Ray Interpretation: My interpretation is in agreement with the radiologist's impression of this imaging study. - EXAMINATION: XR CHEST CLINICAL INFORMATION: Bilateral leg edema. Increase shortness of breath. COMPARISON: Previous chest x-ray most recent February [address] September 2026 TECHNIQUE: 2 views of the chest were obtained. FINDINGS: The cardiac silhouette does not appear enlarged. Hilar and mediastinal contours are unremarkable. There is bibasilar subsegmental atelectasis. The lungs are otherwise clear. No pleural effusion or pneumothorax. Bony structures are unremarkable. XR/XR chest 2V IMPRESSION: Bibasilar subsegmental atelectasis. Dictated By: Gwen Sin MD Signed By: Electronically signed by Gwen Sin MD 07/26/23 1551 Vent. Rate: 062 BPM Atrial Rate: 062 BPM P-R Int: 150 ms QRS Dur: 086 ms QT Int: 424 ms P-R-T Axes: 034 029 015 degrees QTc Int: 430 ms Normal sinus rhythm Normal ECG No significant changes seen Electronically Signed By:AKHIL PEREZ MD Dictated By: Emanuel Perez MD Signed By: Electronically signed by Emanuel Perez MD DD/ [id number] Radiology Impression Discussion of test interpretation with radiology: I have reviewed the radiologist's reading. Discharge Plan Discharge Clinical Impression: Breath shortness, Edema of extremity Patient Disposition: Left W/O Completing Treatment Prescriptions: No Action montelukast 10 mg tablet 10 mg PO BEDTIME Qty: 30 11RF cetirizine 10 mg tablet 10 mg PO QAM Qty: 30 11RF budesonide-formoterol [Symbicort] 160-4.5 mcg/actuation HFA aerosol inhaler 2 puff PO BID Qty: 10.2 11RF gabapentin 300 mg capsule 300 mg PO BEDTIME Qty: 30 6RF azithromycin 250 mg tablet 250 mg PO 3XW Qty: 12 6RF prednisone 10 mg tablet 10 mg PO DAILY 30 Days Qty: 30 0RF mupirocin 2 % ointment 1 appl topical BID 5 Days Qty: 15 1RF triamcinolone acetonide [Nasacort] 55 mcg aerosol,spray 2 spray intranasal DAILY Qty: 16.9 0RF Rx Instructions: administer into each nostril methadone 5 mg/5 mL solution 65 mg PO QAM sodium chloride 3 % solution for nebulization 4 ml inhalation BID 30 Days Qty: 240 11RF omeprazole 20 mg capsule,delayed release(DR/EC) 20 mg PO BID 30 Days Qty: 60 3RF sertraline 100 mg tablet 100 mg PO DAILY quetiapine 400 mg tablet 400 mg PO BEDTIME trazodone 100 mg tablet 100 mg PO BEDTIME risperidone 2 mg tablet 2 mg PO BID Patient Comments: Half tablet in morning, One tablet at bedtime albuterol sulfate [Ventolin HFA] 90 mcg/actuation HFA aerosol inhaler 2 puff inhalation QID PRN (Reason: asthma) Qty: 18 11RF albuterol sulfate 2.5 mg /3 mL (0.083 %) solution for nebulization 2.5 mg inhalation Q4H PRN (Reason: shortness of breath or wheezing) 30 Days Qty: 360 11RF (DME) nebulizers Misc See Rx Instructions .ROUTE Rx Instructions: As directed Discharge Date/Time: 07/27/23 19:23
[2023-07-27 13:40] LABS: Prothrombin Time 12.1 SEC (11.1-13.3)
[2023-07-27 13:43] LABS: Partial Thromboplastin Time 29.7 SEC (26.0-36.4)
[2023-07-27 13:46] LABS: Magnesium 1.9 mg/dL (1.6-2.6)
[2023-07-27 13:51] LABS: B Type Natriuretic Peptide 89 pg/mL (<100); Troponin-I High Sensitivity < 2.7 ng/L (<3.5-35.0)
[2023-07-27 14:13] LABS: Influenza A PCR NEGATIVE (Negative); Influenza B PCR NEGATIVE (Negative); Resp Syncy Virus RNA Qual PCR NEGATIVE (Negative); SARS COV2 PCR INHOUSE NEGATIVE (Negative)
== END 2023-07-27 19:23 | disposition left against medical advice (07) ==
PROVIDERS: Physician Assistant Medical; Emergency Provider Emergency Medicine; PCP Nurse Practitioner Primary Care
DX: R06.02 Shortness of breath (principal); R60.0 Localized edema; Z20.822 Contact with and (suspected) exposure to COVID-19; Z20.828 Contact with and (suspected) exposure to other viral communicable diseases; B18.2 Chronic viral hepatitis C; F11.20 Opioid dependence, uncomplicated; Z87.891 Personal history of nicotine dependence; Z79.899 Other long term (current) drug therapy
CPT/HCPCS: 0241U; 36415; 83735; 83880; 84484; 85610; 85730; 93005; 99283

== ENCOUNTER 2023-08-30 09:18 | Outpatient (AMB) | payer MEDICAID, SELFPAY ==
--- NOTE | 2023-08-30 09:23 | A.OFFVIS_ITS ---
Intake Vital Signs 08/30/23 09:25 Height 5 ft 7 in Weight 239 lb 3.225 oz BMI 37.5 Pulse 80 Pulse Source Pulse Oximeter Pulse Oximetry (%) 93 Oxygen Delivery Method Room Air Intake Visit Reasons: Asthma follow-up Film Loader Required: No Allergies barium sulfate Allergy (Severe, Verified 08/30/23 09:26) rash ibuprofen [IBUPROFEN] Allergy (Severe, Verified 08/30/23 09:26) HYPERACTIVITY, GI upset, rash HPI HPI Comments History of Present Illness Details The patient is a 62-year-old gentleman with a known history her titers C and also history of asthma. Unfortunately, back in June he started having worsening cough and shortness of breath. Also getting significant episodes of bronchitis. He had multiple evaluations in the ER. Noted to have significant wheezing and rhonchi at the time. He was treated with prednisone unfortunately, had an allergic reaction most likely to inactive ingredient causing his him to swell. Therefore he has avoided it. In the meantime he has had partial response to nebulized therapy that he uses on a regular basis. Although, only gets in brief relief after the nebulizer treatments. He has also been noticing coughing significant phlegm which is been grayish in color. We did review his CT scans that he has had back in June and also his chest x-rays demonstrating significant bronchitis looking airways and also atelectasis primarily to the right middle lobe. No evidence of any airway obstruction. In the office we were able to perform a treatment with even albuterol and hypertonic saline and he was able to expectorated sputum sample that was sent to the laboratory. Initially appears to be concerning for infectious lower respiratory infection and Pseudomonas and or other enteric bacteria are in the differential. 02/23/2023 the patient is here for a pulmo nary follow-up visit. The patient is doing well from a respiratory status. He has been off prednisone which is reassuring. He has been using his respiratory therapy as prescribed. He still has some wheezing on examination but significantly less. He will likely have wheezing all the time. The patient is having issues with that hernia. He may need a hernia repair. I explained to him that with his history of Staph aureus he should get antimicrobial nasal ointment prior to surgery to avoid the risk of contamination. The patient also has been having issues with hypoxia at nighttime. He was supposed to have an overnight oximetry but he has not has it as of yet. Will go ahead and reorder the overnight oximetry at this time. 03/16/2023 the patient is here for a pulm onary follow-up visit. The patient is doing well otherwise. His wheezing seems to be much better he is using his inhalers as prescribed and his chest congestion is significantly improved. He is really happy that he is feeling better overall from a respiratory status. Although he still having issues with the oxygen. He did undergo an overnight oximetry when he spent almost 3 hours below 88%. His lowest saturations with down the low 70s. Therefore we did start him on oxygen. Although it is very loud and because the room to be warm and he just can not tolerated. He likely has some degree of sleep apnea. He does have an elevated Ramona score of 11 or 24. The patient does have cardiovascular risk factors. And now with nocturnal hypoxia. Will request an in-lab study to further assess his obstructive sleep apnea to see if he can be placed on PAP therapy instead of oxygen because he cannot tolerate the oxygen at this time. 04/07/2023 The patient has a tele health visit. Having significant daytime drowsiness. Has an elevated EPWORTH score of 13/24. He did have nocturnal oxygen briefly, but returned it becuase it was too loud. He did undergo an in lab sleep study and noted to have moderate sleep apnea with significant hypoxia. Otherwise, from his asthma standpoint, he is doing well as long as he takes his medicines as prescribe. We will go ahead and order an urgent APAP. Once he is established on the APAP when can request and overnight oximetry. 05/19/2023 the patient is here for a pulm onary follow-up visit. The patient has not gotten a CPAP just yet. She continues to have significant daytime drowsiness. With an Ramona score of 13/24. He takes naps on a regular basis. He is trying to exercise more though and he is trying to lose weight which is improving his overall health status. He can wait to start using CPAP. The patient did have significant hypoxia however. Will have to do an overnight oximetry once he is situated with CPAP in to see if she needs supplemental oxygen with it or another in-lab sleep titration study. The patient has been using all his respiratory therapy. His breathing has been much better. It is not limiting his exercise capacity which is reassuring. The patient will return in 3-4 months with his CPAP machine in order for us to download it and adjusted accordingly. 07/16/2023 the patient is here for a pul [place] follow-up visit. Overall the patient has been doing very well. He did finally get his CPAP. The CPAP therapy has been affecting beneficial. He does use it more than 4 hours a night. He is trying to get used to it a little bit more. The patient has been waking up more rested and has have more energy. He is already exercising and is on trying to lose weight which is reassuring. Respiratory status is stable. He continues uses medication as prescribed. He has not had any need for prednisone since we last spoke. His chest congestion also has been stable. Will continue with current respiratory therapy. Will request a download from his CPAP to make sure that is working appropriately for him and then we will follow-up in the springtime. If the patient has any difficulties or issues prior to that he will call the office for an earlier assessment. 08/30/2023 the patient is here for a pul elvin follow-up visit. He is doing better overall. He has been tolerating the CPAP. He has been trying to use more than 4 hours a night. He did have to have his pressures adjusted through the [facility]. He is doing better with the lower pressures. The patient still complains of daytime drowsiness. Will request a download from his CPAP to make sure that is adequate pressure settings. In addition will go ahead and start him on a small dose of Provigil for persistent daytime drowsiness even after adequate CPAP therapy. He continues with her respiratory therapy. The asthma symptoms have been under control. No evidence of any chronic bronchitis which is very reassuring. Will follow-up in 3-4 months. [facility] Medical History Epigastric abdominal pain Ventral hernia Loud snoring Abnormal PFTs (pulmonary function tests) COPD exacerbation Encounter for monitoring Suboxone maintenance therapy Elevated LFTs Nocturnal hypoxia SOPHIA (obstructive sleep apnea) Bronchitis COVID-19 vaccine series completed Personal history of nicotine dependence Staph aureus infection Shortness of breath Cough Bronchitis Asthma-COPD overlap syndrome Depression Bipolar disorder Asthma Multiple lipomas Chronic hepatitis C Surgical History History of esophagogastroduodenoscopy (EGD) History of bronchoscopy S/P excision of lipoma Family History Father Myocardial infarction Mother NIDDY (non-insulin dependent diabetes mellitus in young) CAD (coronary artery disease) HTN (hypertension), benign No family history of colorectal cancer Social History Household Members: Spouse Patient Tobacco Use Status: Former Tobacco user Quit Date: 2014 Tobacco use type: Cigarette Years Smoked: 26 Substance Use Type: Crack/Cocaine, Former Substance User and Heroin Review of Systems Const Reports daytime sleepiness, Denies night sweats and Denies snoring ENT Denies change in voice, Denies lip swelling, Denies mouth pain, Reports nasal congestion, Reports nasal discharge and Denies tongue swelling Card Denies chest pain and Reports dyspnea on exertion Resp Denies change in phlegm color, Denies chest congestion, Reports cough, Reports dyspnea on exertion, Denies snoring and Denies wheezing GI Denies abdominal pain Musc Denies no additional complaints Neuro Denies Neuro-related abnormal movements Psych Denies no additional complaints Mingo/Lymph Denies easy bleeding and Denies lymphadenopathy Aller/Immun Denies lip swelling, Denies tongue swelling and Denies wheezing Physical Exam Vital Signs: Last Vital Signs Pulse 80 08/30/23 09:25 Pulse Ox 93 08/30/23 09:25 Oxygen Delivery Method Room Air 08/30/23 09:25 BMI result Body Mass Index 37.5 Const General: alert Neck Neck: Yes normal visual inspection, Yes full ROM and Yes no lymphadenopathy Chest Chest palpation & inspection: normal inspection of the chest Resp Auscultation: no crackles, no rales, no rhonchi and diminished lung sounds Cardio Rate: regular rate Rhythm: regular rhythm Heart sounds: S1 normal heart sound present and S2 normal heart sound present GI Palpation (GI): Soft to palpation and nontender Auscultation: normal bowel sounds Skin General skin exam: rashes and/or lesions noted Assessment & Plan Assessment & Plan (1) Asthma: Code(s): J45.909 - Unspecified asthma, uncomplicated Qualifiers: Asthma complication type: uncomplicated Asthma persistence: persistent Asthma severity: severe Qualified Code(s): J45.50 - Severe persistent asthma, uncomplicated (2) Asthma-COPD overlap syndrome: Code(s): J44.9 - Chronic obstructive pulmonary disease, unspecified (3) Staph aureus infection: Comment: resolved Code(s): A49.01 - Methicillin susceptible Staphylococcus aureus infection, unspecified site (4) Nocturnal hypoxia: Code(s): G47.34 - Idiopathic sleep related nonobstructive alveolar hypoventilation (5) SOPHIA (obstructive sleep apnea): Code(s): G47.33 - Obstructive sleep apnea (adult) (pediatric) Plan APAP nasal mask, needs chin strap antihistamine therapy as needed continue singular at night CPT with nebs and acapella valve continue hypertonic saline to use after the albuterol Continue Symbicort SEMAJ as needed continue Gabapentin, stopped Trazodone Trial Provigil 100mg F/U 3-4 months Medications: New modafinil (Provigil) 100 mg PO QAM 30 days 30 tabs 3RF Coding Level of Care Code Est Pt Level 4 (13441) Diagnoses Severe persistent asthma without complication J45.50 Asthma complication type: uncomplicated Asthma persistence: persistent Asthma severity: severe Asthma-COPD overlap syndrome J44.9 Staph aureus infection A49.01 Nocturnal hypoxia G47.34 SOPHIA (obstructive sleep apnea) G47.33 Time Spent (min) 17
[2023-08-30 09:25] VITALS: PULSE 80; O2SAT 93; BMI 37.5
== END 2023-08-30 09:38 | disposition home or self-care (01) ==
PROVIDERS: PCP Nurse Practitioner Primary Care; Visit Provider Hospitalist
DX: J45.50 Severe persistent asthma, uncomplicated (principal); J44.9 Chronic obstructive pulmonary disease, unspecified; A49.01 Methicillin susceptible Staphylococcus aureus infection, unspecified site; G47.34 Idiopathic sleep related nonobstructive alveolar hypoventilation; G47.33 Obstructive sleep apnea (adult) (pediatric)
CPT/HCPCS: 99214

== ENCOUNTER → 2023-08-30 09:18 | Outpatient (BNVA) | payer MEDICAID, SELFPAY | PROVIDERS: PCP Nurse Practitioner Primary Care; Visit Provider Hospitalist | DX: J45.50 Severe persistent asthma, uncomplicated (principal); J44.9 Chronic obstructive pulmonary disease, unspecified; G47.33 Obstructive sleep apnea (adult) (pediatric); G47.34 Idiopathic sleep related nonobstructive alveolar hypoventilation; A49.01 Methicillin susceptible Staphylococcus aureus infection, unspecified site | CPT/HCPCS: 99212 ==

== ENCOUNTER 2023-12-06 09:21 | Outpatient (AMB) | payer MEDICAID, SELFPAY ==
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
[2023-12-06 09:30] VITALS: BP 126/70; PULSE 73; O2SAT 86; BMI 36.3
== END 2023-12-06 10:04 | disposition home or self-care (01) ==
PROVIDERS: PCP Nurse Practitioner Primary Care; Visit Provider Hospitalist
DX: J45.50 Severe persistent asthma, uncomplicated (principal); A49.01 Methicillin susceptible Staphylococcus aureus infection, unspecified site; G47.34 Idiopathic sleep related nonobstructive alveolar hypoventilation; G47.33 Obstructive sleep apnea (adult) (pediatric); R07.89 Other chest pain; M54.2 Cervicalgia; R09.02 Hypoxemia
CPT/HCPCS: 99214

== ENCOUNTER → 2023-12-06 09:21 | Outpatient (BNVA) | payer MEDICAID, SELFPAY | PROVIDERS: PCP Nurse Practitioner Primary Care; Visit Provider Hospitalist ==

== ENCOUNTER 2023-12-06 09:56 | Emergency (ER) | payer OTHER, MEDICAID, SELFPAY ==
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
--- NOTE | ~2023-12-06 | XR_ITS ---
EXAMINATION: XR CHEST CLINICAL INFORMATION: Chest pain COMPARISON: Chest radiograph 07/26/[address] chest 10/16/2022 TECHNIQUE: Frontal view of the chest was obtained. FINDINGS: The heart and pulmonary vessels appear normal. There is no evidence of CHF. Again noted is chronic bibasilar atelectasis/scarring. No acute consolidations, lung masses or pleural effusions are seen. XR/XR chest 1V IMPRESSION: No acute intrathoracic disease. Chronic bibasilar atelectasis/scarring.
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
[2023-12-06 10:14] VITALS: BP 125/71; PULSE 77; RESP 18; TEMP 36; O2SAT 92; BMI 36.3
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
--- NOTE | 2023-12-06 13:35 | ECG_ITS ---
Test Reason : CHEST PAIN Blood Pressure : / mmHG Vent. Rate : 070 BPM Atrial Rate : 070 BPM P-R Int : 138 ms QRS Dur : 084 ms QT Int : 426 ms P-R-T Axes : 040 038 017 degrees QTc Int : 460 ms Normal sinus rhythm Normal ECG When compared with ECG of 27-JUL-2023 13:08, No significant change was found Referred By: Maria Del Carmen Crews Electronically Signed By:CARLOS ROCA
[2023-12-06 13:40] LABS: MANUAL DIFF FLAG NO
[2023-12-06 13:48] LABS: Basophils Absolute Auto 0.1 X10*3/uL (0.0-0.2); Basophils Percent Auto 0.7 % (0-2); Eosinophils Absolute Auto 0.1 X10*3/uL (0.0-0.4); Hematocrit 42.1 % (42.0-52.0); Hemoglobin 13.1 g/dl (14.0-18.0); Imm Gran Abs Auto 0.05 X10*3/uL (0.00-0.03); Imm Gran Pct Auto 0.5 % (0.0-0.4); Lymphocytes Absolute Auto 1.9 X10*3/uL (1.2-4.9); Lymphocytes Percent Auto 20.5 % (20-40); Mean Corpuscular HGB Conc 31.1 g/dl (31.0-36.0); Mean Corpuscular Volume 86.6 fL (80.0-98.0); Mean Platelet Volume 9.7 fL (9.4-12.4); Monocytes Absolute Auto 0.5 X10*3/uL (0.1-1.2); Monocytes Percent Auto 5.3 % (2-11); Neutrophils Absolute Auto 6.6 x10*3/uL (2.0-8.3); Platelet Count 243 X10*3/uL (160-400); Red Blood Count 4.86 X10*6/uL (4.60-5.80); Red Cell Distribution Width 14.5 % (11.0-16.0); White Blood Count 9.2 X10*3/uL (4.8-10.8)
[2023-12-06 13:51] LABS: Prothrombin Time 12.2 SEC (11.1-13.3)
[2023-12-06 14:08] LABS: Alanine Aminotransferase 13 U/L (0-40); Alkaline Phosphatase 49 U/L (39-117); Anion Gap 14 (12-20); Aspartate Amino Transferase 23 U/L (5-37); Bilirubin Total 0.2 mg/dL (0.0-1.0); Blood Urea Nitrogen 12 mg/dL (9-16); Calcium 9.5 mg/dL (8.4-10.2); Carbon Dioxide 28 mmol/L (22-29); Chloride 102 mmol/L (96-108); Estimated Glomerular Filt Rate > 60; Glucose Random 118 mg/dL (60-115); Potassium 4.7 mmol/L (3.3-5.1); Sodium 139 mmol/L (135-145); Total Protein 8.1 g/dL (6.5-8.0)
[2023-12-06] MEDS: Acetaminophen 325 MG TABLET 975 MG PO (14:25)
[2023-12-06] MEDS: iohexoL 350 MG/ML 100 ML INFUS..BTL IV (14:44)
[2023-12-06 15:47] VITALS: BP 119/79; PULSE 74; RESP 16; TEMP 36.9; O2SAT 97
[2023-12-06 15:55] LABS: Troponin-I High Sensitivity < 2.7 ng/L (<3.5-35.0)
[2023-12-06 16:35] VITALS: BP 119/79; PULSE 74; RESP 16; TEMP 36.9; O2SAT 97
== END 2023-12-06 16:36 | disposition home or self-care (01) ==
PROVIDERS: Physician Assistant; Emergency Provider Emergency Medicine; PCP Nurse Practitioner Primary Care
DX: S06.0X1A Concussion with loss of consciousness of 30 minutes or less, initial encounter (principal); S13.4XXA Sprain of ligaments of cervical spine, initial encounter; R07.89 Other chest pain; M54.50 Low back pain, unspecified; I10 Essential (primary) hypertension; J45.50 Severe persistent asthma, uncomplicated; J44.9 Chronic obstructive pulmonary disease, unspecified; G47.34 Idiopathic sleep related nonobstructive alveolar hypoventilation; R09.02 Hypoxemia; G47.33 Obstructive sleep apnea (adult) (pediatric); Z99.89 Dependence on other enabling machines and devices; V89.2XXA Person injured in unspecified motor-vehicle accident, traffic, initial encounter; Y93.9 Activity, unspecified; Y92.410 Unspecified street and highway as the place of occurrence of the external cause; Y99.9 Unspecified external cause status
CPT/HCPCS: 36415; 70450; 71045; 71260; 72125; 74177; 80053; 83735; 84484; 85025; 85610; 93005; 99212; 99284; Q9967

== ENCOUNTER → 2023-12-06 13:35 | Outpatient (BNV) | payer MEDICAID, SELFPAY | PROVIDERS: Emergency Provider Emergency Medicine; PCP Nurse Practitioner Primary Care; Visit Provider Internal Medicine | DX: R07.9 Chest pain, unspecified (principal) | CPT/HCPCS: 93010 ==

== ENCOUNTER 2024-03-03 14:13 | Outpatient (AMB) | payer MEDICAID, SELFPAY ==
[2024-03-03 14:21] VITALS: PULSE 78; O2SAT 92; BMI 36.3
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
== END 2024-03-03 14:39 | disposition home or self-care (01) ==
PROVIDERS: PCP Nurse Practitioner Primary Care; Referring Provider Nurse Practitioner Primary Care; Visit Provider Hospitalist
DX: J45.50 Severe persistent asthma, uncomplicated (principal); J44.9 Chronic obstructive pulmonary disease, unspecified; A49.01 Methicillin susceptible Staphylococcus aureus infection, unspecified site; G47.34 Idiopathic sleep related nonobstructive alveolar hypoventilation; G47.33 Obstructive sleep apnea (adult) (pediatric)
CPT/HCPCS: 99214

== ENCOUNTER → 2024-03-03 14:13 | Outpatient (BNVA) | payer OTHER, MEDICAID, SELFPAY | PROVIDERS: PCP Nurse Practitioner Primary Care; Visit Provider Hospitalist | DX: J45.50 Severe persistent asthma, uncomplicated (principal); J44.9 Chronic obstructive pulmonary disease, unspecified; G47.34 Idiopathic sleep related nonobstructive alveolar hypoventilation; G47.33 Obstructive sleep apnea (adult) (pediatric); Z79.899 Other long term (current) drug therapy; Z86.19 Personal history of other infectious and parasitic diseases | CPT/HCPCS: 99212 ==

== ENCOUNTER 2024-03-10 13:59 | Outpatient (REF) | payer MEDICAID, SELFPAY ==
--- NOTE | ~2024-03-10 | CT_ITS ---
EXAMINATION: CT LUNG SCREENING CLINICAL INFORMATION: Personal history of nicotine dependence. The patient has a 60 pack-year history of smoking, having quit 8 years ago. COMPARISON: CT chest 12/06/2023. MRI abdomen 07/01/2017. TECHNIQUE: Multidetector volumetric CT imaging of the chest is performed on a Siemens SOMATOM Definition scanner without contrast using low dose technique. Additional 2D coronal and sagittal reformatted images and axial 3D maximum intensity projection (MIP) images are generated on the CT workstation. This CT examination was performed using dose optimization techniques as appropriate, variously including the following: *Automated exposure control *Adjustment of mA and/or kV according to patient size (this includes techniques or standardized protocols for targeted exams where dose is matched to indication/reason for exam; i.e. extremities or head) *Use of iterative reconstruction technique TOTAL EXAM DLP: 63 mGy-cm. CTDIvol: 2.04 mGy. FINDINGS: PULMONARY NODULES: No suspicious pulmonary nodules. A single tiny 2 mm left lower lobe subpleural nodule (5:252). LUNGS: Lungs bilaterally symmetrically expanded. Multifocal areas of atelectasis are seen in both lower lobes, best appreciated on sagittal imaging, similar to prior. No effusion or pneumothorax. Central airways patent. MEDIASTINUM: No mediastinal, hilar or axillary adenopathy or free fluid collection. CORONARY ARTERY CALCIFICATION: None visualized on this study. THYROID GLAND: Unremarkable to the extent seen. CARDIOVASCULAR STRUCTURES: Aortic and heart size normal. No pericardial effusion. CHEST WALL/AXILLA: Unremarkable. UPPER ABDOMEN: A 3.2 cm hypodensity is seen partially imaged in the right lobe of the liver, has been shown on prior imaging studies to represent a hemangioma. Included portions of the solid organs in the upper abdomen otherwise unremarkable on noncontrast imaging. OSSEOUS STRUCTURES: No suspicious focal findings. CT/CT lung screening IMPRESSION: 1. No evidence of pulmonary malignancy. 2. Incidental note made of hepatic hemangioma and other findings described above. 3. Lung-RADS Category S Negative. There are no clinically significant, or potentially clinically significant, findings not related to the lungs requiring urgent additional evaluation. ASSESSMENT: 1. Lung-RADS Category 2: Benign appearance or behavior of nodules. N/A RECOMMENDATION: Continued routine annual low-dose CT lung screening in 1 year is recommended. An order for CT CHEST LOW DOSE CANCER SCREENING ([id number]) can be placed.
== END 2024-03-10 14:00 | disposition home or self-care (01) ==
LOC: HO.CT 13:59
PROVIDERS: PCP Nurse Practitioner Primary Care; Visit Provider Nurse Practitioner Family
DX: Z12.2 Encounter for screening for malignant neoplasm of respiratory organs (principal); Z87.891 Personal history of nicotine dependence
CPT/HCPCS: 71271

== ENCOUNTER 2024-03-16 15:00 | Outpatient (REF) | payer MEDICAID, SELFPAY ==
--- NOTE | ~2024-03-16 | US_ITS ---
EXAMINATION: US VENOUS ULTRASOUND WITH DOPPLER LOWER EXTREMITY, RIGHT CLINICAL INFORMATION: Right lower extremity pain COMPARISON: None available. TECHNIQUE: Ultrasound of the deep veins is performed from the hip to the calf with compression sonography and color and pulse Doppler assessment. Spectral analysis with color-flow imaging is performed. FINDINGS: There is normal venous compression and respiratory variation and augmented flow. The visualized common femoral vein, superficial femoral vein, profunda femoral vein, popliteal vein, and the trifurcation region shows no evidence of deep venous thrombosis. There is no significant popliteal fossa cyst. Contralateral left common femoral vein appears normal If the patient's symptoms persist, followup ultrasound in 5 days 7 days might be of value to exclude proximal propagation from a non-visualized calf vein. US/US venous duplex LE RT IMPRESSION: No DVT demonstrated in the right lower extremity.
== END 2024-03-16 15:01 | disposition home or self-care (01) ==
LOC: HO.US 15:00
PROVIDERS: PCP Nurse Practitioner Primary Care; Visit Provider Internal Medicine
DX: M79.661 Pain in right lower leg (principal); R60.0 Localized edema
CPT/HCPCS: 93971

== ENCOUNTER 2024-05-02 13:00 | Outpatient (AMB) | payer MEDICAID, SELFPAY ==
--- NOTE | 2024-05-02 13:09 | A.OFFVIS_ITS ---
Vital Signs 3 05/02/24 13:11 Height 5 ft 7 in Weight 101 lb BMI 15.8 BP 120/80 Blood Pressure Location Lt brachial Position Sitting Pulse 62 Intake Visit Reasons: possible cysts/lipomas on torso/arm Intake Note: Patient is seen in office for evaluation of a possible cyst of the torso. 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: No Accompanied by: Self / Same As Patient Allergies barium sulfate Allergy (Severe, Verified 05/02/24 13:11) rash ibuprofen [IBUPROFEN] Allergy (Severe, Verified 05/02/24 13:11) HYPERACTIVITY, GI upset, rash Medication List - Last Reconciled 05/02/24 by Vincent Ocasio MD acetaminophen (Tylenol) 325 mg PO Q4H PRN albuterol sulfate 2.5 mg (3 mL) inhalation Q4H PRN 30 days albuterol sulfate 90 mcg/actuation (Ventolin HFA) 2 puffs inhalation QID PRN azithromycin 250 mg PO 3XW budesonide-formoterol 160-4.5 mcg/actuation (Symbicort) 2 puffs PO BID cetirizine 10 mg PO QAM CPAP (CPAP Machine/Device) As directed cyclobenzaprine 10 mg PO BEDTIME PRN gabapentin 300 mg PO BEDTIME methadone 65 mg PO QAM modafinil (Provigil) 100 mg PO QAM 30 days montelukast 10 mg PO BEDTIME mupirocin 2% 1 appl topical BID 5 days nebulizers As directed omeprazole 20 mg PO BID 30 days prednisone 10 mg PO DAILY quetiapine 400 mg PO BEDTIME risperidone 2 mg PO BID sertraline 100 mg PO DAILY sodium chloride 3% 4 mL inhalation BID 30 days trazodone 100 mg PO BEDTIME triamcinolone acetonide (Nasacort) 2 sprays intranasal DAILY HPI Comments Details: 63-year-old male patient returning to the office for reevaluation of a lump in the upper abdomen. He reports the lump increases in size with standing and lifting but then reduces when in the supine position. He reports discomfort associated with this lump. He also notes a lump in the midline when getting out of bed which is quite large. He is concerned about a hernia developing in this location. He denies nausea, vomiting, fever or chills. He has a prior history of lipomas throughout the abdominal wall. He was previously evaluated for the same finding 1 year ago. [facility] Medical History Epigastric abdominal pain Ventral hernia Loud snoring Abnormal PFTs (pulmonary function tests) COPD exacerbation Encounter for monitoring Suboxone maintenance therapy Elevated LFTs Nocturnal hypoxia SOPHIA (obstructive sleep apnea) Bronchitis COVID-19 vaccine series completed Personal history of nicotine dependence Staph aureus infection Shortness of breath Cough Bronchitis Asthma-COPD overlap syndrome Depression Bipolar disorder Asthma Multiple lipomas Chronic hepatitis C Surgical History History of esophagogastroduodenoscopy (EGD) History of bronchoscopy S/P excision of lipoma Family History Father Myocardial infarction Mother NIDDY (non-insulin dependent diabetes mellitus in young) CAD (coronary artery disease) HTN (hypertension), benign No family history of colorectal cancer Social History Household Members: Spouse Patient Tobacco Use Status: Former Tobacco user Tobacco use type: Cigarette Years Smoked: 26 Substance Use Type: Crack/Cocaine, Former Substance User and Heroin Review of Systems Const All systems reviewed & are unremarkable except as noted in HPI and below Physical Exam Vital Signs: Last Vital Signs Pulse 62 05/02/24 13:11 BP 120/80 05/02/24 13:11 BMI result Body Mass Index 15.8 Const General: no acute distress and well developed Nutritional Appearance: well nourished Orientation/consciousness: patient oriented x3 Limitations: no limitations Resp Effort & Inspection: normal respiratory effort, no audible wheezes, no cough and no respiratory distress GI Other: Soft, large pannus, multiple small incisions in the anterior abdominal wall consistent with prior lipoma excisions. Several small palpable lipomas throughout the upper abdominal wall bilaterally. No changes noted with Valsalva maneuvers. Patient was placed in a supine position made to perform a sit-up. A large diastasis recti was identified with no definite hernia appreciated. Abdomen image: 2 1. Area of swelling when doing sit-up the mid abdomen consistent with diastasis recti. No hernia noted within this location. Skin Other: Warm, dry, no rash Neuro General: patient oriented x3 Extrem General: Yes no clubbing, cyanosis or edema Assessment & Plan Assessment & Plan (1) Diastasis recti: Code(s): M62.08 - Separation of muscle (nontraumatic), other site Category: Medical Plan 63-year-old male patient returning for re-evaluation of his abdominal wall. Again noted is a diastasis recti with no abdominal wall hernias. No surgical intervention is recommended for this and no hernias are identified. He should follow up as needed. Coding Level of Care Code Est Pt Level 3 (94495) Diagnoses Diastasis recti M62.08
[2024-05-02 13:11] VITALS: BP 120/80; PULSE 62; BMI 15.8
== END 2024-05-02 13:22 | disposition home or self-care (01) ==
PROVIDERS: PCP Nurse Practitioner Primary Care; Referring Provider Nurse Practitioner Primary Care; Visit Provider Surgery
DX: M62.08 Separation of muscle (nontraumatic), other site (principal)
CPT/HCPCS: 99213

== ENCOUNTER → 2024-05-02 13:00 | Outpatient (BNVA) | payer MEDICAID, SELFPAY | PROVIDERS: PCP Nurse Practitioner Primary Care; Visit Provider Surgery | DX: M62.08 Separation of muscle (nontraumatic), other site (principal) | CPT/HCPCS: 99212 ==

== ENCOUNTER 2024-05-07 13:51 | Emergency (ER) | payer MEDICAID, SELFPAY ==
--- NOTE | ~2024-05-07 | CT_ITS ---
EXAMINATION: CT ANGIOGRAM OF THE CHEST WITH AND WITHOUT CONTRAST (CT PULMONARY ANGIOGRAM FOR PE) CLINICAL INFORMATION: Shortness of breath. Hypoxia. COMPARISON: CT scan of the chest dated 03/10/2024, 12/06/2023 and older exams. TECHNIQUE: Prior to contrast administration, noncontrast localization images were obtained. Subsequently, multidetector volumetric imaging was performed from the thoracic inlet to below the diaphragms following the administration of 65 mL Omnipaque 350 intravenous contrast. No contrast reaction reported Sagittal, coronal, and MIP oblique sagittal reformatted images were obtained on the CT workstation, uploaded to PACS, and reviewed. This CT examination was performed using dose optimization techniques as appropriate, variously including the following: *Automated exposure control *Adjustment of mA and/or kV according to patient size (this includes techniques or standardized protocols for targeted exams where dose is matched to indication/reason for exam; i.e. extremities or head) *Use of iterative reconstruction technique Total exam dose-length product 350 mGy-cm FINDINGS: QUALITY OF STUDY/CONTRAST BOLUS: Satisfactory. PULMONARY ARTERIES: There are several small segmental and subsegmental pulmonary emboli seen in the right lower lobe. Nonocclusive thrombi are also seen in the distal right upper lobe pulmonary artery and proximal segmental branches. No significant left-sided pulmonary emboli seen. THORACIC AORTA: No aneurysm or dissection. LUNG: There is volume loss and multifocal patchy opacities in both lower lobes and right middle lobe, presumably representing atelectasis. Clinical correlation requested to exclude superimposed infection. PLEURA: No pleural effusion or pneumothorax. MEDIASTINUM: Normal heart size. No pericardial effusion. No hilar or mediastinal lymphadenopathy. No evidence of septal bowing or right heart strain. CORONARY ARTERY CALCIFICATION: None visualized on this study. CHEST WALL/AXILLA: No axillary or internal mammary lymphadenopathy. OSSEOUS STRUCTURES: No acute or suspicious osseous abnormality. UPPER ABDOMEN: Unremarkable. Slight reflux of contrast into the intrahepatic IVC noted, likely related to force of contrast injection. No reflux of contrast into the hepatic veins to suggest elevated right heart pressures. CT/CT angio chest PE protocol IMPRESSION: * Several small segmental and subsegmental pulmonary emboli are seen in the right lower lobe. Nonocclusive thrombi are also seen in the distal right upper lobe pulmonary artery and proximal segmental branches. * Volume loss and multifocal patchy opacities in both lower lobes and right middle lobe, presumably representing atelectasis. Clinical correlation requested to exclude superimposed infection. VTE: positive. This critical result was discussed with CARMELA Warren 05/07/2024, 5:36 PM and it was ascertained that the content and urgency of this report was understood at the time of direct communication.
--- NOTE | 2024-05-07 13:56 | ED_ITS ---
HPI - URI/Sore Throat General Stated Complaint: ? sinus infection Related Data Home Medications ?Medication ?Instructions ?Recorded ?Confirmed quetiapine 400 mg tablet 400 mg PO BEDTIME 06/26/20 05/02/24 risperidone 2 mg tablet 2 mg PO BID 06/26/20 05/02/24 sertraline 100 mg tablet 100 mg PO DAILY 06/26/20 05/02/24 trazodone 100 mg tablet 100 mg PO BEDTIME 06/26/20 05/02/24 nebulizers 02/23/23 05/02/24 methadone 5 mg/5 mL oral solution 65 mg PO QAM 07/16/23 05/02/24 CPAP (CPAP Machine/Device) 08/30/23 05/02/24 Previous Rx's ?Medication ?Instructions ?Recorded triamcinolone acetonide 55 mcg 2 spray intranasal DAILY #16.9 mL 08/15/20 nasal spray aerosol (Nasacort) sodium chloride 3 % for 4 ml inhalation BID 30 days #240 mL 05/15/21 nebulization omeprazole 20 mg capsule,delayed 20 mg PO BID 30 days #60 caps 06/16/21 release albuterol sulfate 2.5 mg/3 mL 2.5 mg (3 mL) inhalation Q4H PRN 10/02/21 (0.083 %) solution for nebulization shortness of breath or wheezing 30 days #360 mL albuterol sulfate 90 mcg/actuation 2 puff inhalation QID PRN asthma 10/02/21 aerosol inhaler (Ventolin HFA) #18 grams budesonide-formoterol HFA 160 2 puff PO BID #10.2 grams 04/28/23 mcg-4.5 mcg/actuation aerosol inhaler (Symbicort) mupirocin 2 % topical ointment 1 appl topical BID 5 days #15 grams 07/22/23 cetirizine 10 mg tablet 10 mg PO QAM #30 tabs 11/22/23 acetaminophen 325 mg capsule 325 mg PO Q4H PRN pain #30 caps 12/06/23 (Tylenol) cyclobenzaprine 10 mg tablet 10 mg PO BEDTIME PRN muscle spasm 12/06/23 #7 tabs gabapentin 300 mg capsule 300 mg PO BEDTIME #30 caps 01/13/24 modafinil 100 mg tablet (Provigil) 100 mg PO QAM 30 days #30 tabs 01/13/24 montelukast 10 mg tablet 10 mg PO BEDTIME #90 tabs 01/13/24 azithromycin 250 mg tablet 250 mg PO 3XW #12 tabs 01/25/24 prednisone 10 mg tablet 10 mg PO DAILY #30 tabs 04/05/24 Allergies Allergy/AdvReac Type Severity Reaction Status Date / Time barium sulfate Allergy Severe rash Verified 05/07/24 14:04 ibuprofen [IBUPROFEN] Allergy Severe HYPERACTIVITY, Verified 05/07/24 14:04 GI upset, rash PMFSH Past Medical History Medical History Epigastric abdominal pain Ventral hernia Loud snoring Abnormal PFTs (pulmonary function tests) COPD exacerbation Encounter for monitoring Suboxone maintenance therapy Elevated LFTs Nocturnal hypoxia SOPHIA (obstructive sleep apnea) Bronchitis COVID-19 vaccine series completed Personal history of nicotine dependence Staph aureus infection Shortness of breath Cough Bronchitis Asthma-COPD overlap syndrome Depression Bipolar disorder Asthma Multiple lipomas Chronic hepatitis C Surgical History History of esophagogastroduodenoscopy (EGD) History of bronchoscopy S/P excision of lipoma Family History Family History Father Myocardial infarction Mother NIDDY (non-insulin dependent diabetes mellitus in young) CAD (coronary artery disease) HTN (hypertension), benign No family history of colorectal cancer Social History Social History Household Members: Spouse Patient Tobacco Use Status: Former Tobacco user Tobacco use type: Cigarette Years Smoked: 26 Substance Use Type: Crack/Cocaine, Former Substance User and Heroin Discharge Plan Discharge Prescriptions: No Action budesonide-formoterol [Symbicort] 160-4.5 mcg/actuation HFA aerosol inhaler 2 puff PO BID Qty: 10.2 11RF mupirocin 2 % ointment 1 appl topical BID 5 Days Qty: 15 1RF cetirizine 10 mg tablet 10 mg PO QAM Qty: 30 11RF montelukast 10 mg tablet 10 mg PO BEDTIME Qty: 90 3RF modafinil [Provigil] 100 mg tablet 100 mg PO QAM 30 Days Qty: 30 3RF gabapentin 300 mg capsule 300 mg PO BEDTIME Qty: 30 6RF azithromycin 250 mg tablet 250 mg PO 3XW Qty: 12 6RF prednisone 10 mg tablet 10 mg PO DAILY Qty: 30 3RF triamcinolone acetonide [Nasacort] 55 mcg aerosol,spray 2 spray intranasal DAILY Qty: 16.9 0RF Rx Instructions: administer into each nostril methadone 5 mg/5 mL solution 65 mg PO QAM cyclobenzaprine 10 mg tablet 10 mg PO BEDTIME PRN (Reason: muscle spasm) Qty: 7 0RF acetaminophen [Tylenol] 325 mg capsule 325 mg PO Q4H PRN (Reason: pain) Qty: 30 0RF sodium chloride 3 % solution for nebulization 4 ml inhalation BID 30 Days Qty: 240 11RF omeprazole 20 mg capsule,delayed release(DR/EC) 20 mg PO BID 30 Days Qty: 60 3RF sertraline 100 mg tablet 100 mg PO DAILY quetiapine 400 mg tablet 400 mg PO BEDTIME trazodone 100 mg tablet 100 mg PO BEDTIME risperidone 2 mg tablet 2 mg PO BID Patient Comments: Half tablet in morning, One tablet at bedtime albuterol sulfate [Ventolin HFA] 90 mcg/actuation HFA aerosol inhaler 2 puff inhalation QID PRN (Reason: asthma) Qty: 18 11RF albuterol sulfate 2.5 mg /3 mL (0.083 %) solution for nebulization 2.5 mg inhalation Q4H PRN (Reason: shortness of breath or wheezing) 30 Days Q ty: 360 11RF (DME) nebulizers Misc See Rx Instructions .Route Rx Instructions: As directed (DME) CPAP Machine/Device Device See Rx Instructions .Route Rx Instructions: As directed Print Language: Greenlandic
[2024-05-07 14:03] VITALS: BP 107/70; PULSE 65; RESP 16; TEMP 35.8; O2SAT 87; BMI 35.2
--- NOTE | 2024-05-07 14:09 | ED_ITS ---
HPI - URI/Sore Throat General Chief Complaint: Upper Respiratory Symptoms Stated Complaint: ? sinus infection Time Seen by Provider: 05/07/24 14:06 Related Data Home Medications ?Medication ?Instructions ?Recorded ?Confirmed quetiapine 400 mg tablet 400 mg PO BEDTIME 06/26/20 05/02/24 risperidone 2 mg tablet 2 mg PO BID 06/26/20 05/02/24 sertraline 100 mg tablet 100 mg PO DAILY 06/26/20 05/02/24 trazodone 100 mg tablet 100 mg PO BEDTIME 06/26/20 05/02/24 nebulizers 02/23/23 05/02/24 methadone 5 mg/5 mL oral solution 65 mg PO QAM 07/16/23 05/02/24 CPAP (CPAP Machine/Device) 08/30/23 05/02/24 Previous Rx's ?Medication ?Instructions ?Recorded triamcinolone acetonide 55 mcg 2 spray intranasal DAILY #16.9 mL 08/15/20 nasal spray aerosol (Nasacort) sodium chloride 3 % for 4 ml inhalation BID 30 days #240 mL 05/15/21 nebulization omeprazole 20 mg capsule,delayed 20 mg PO BID 30 days #60 caps 06/16/21 release albuterol sulfate 2.5 mg/3 mL 2.5 mg (3 mL) inhalation Q4H PRN 10/02/21 (0.083 %) solution for nebulization shortness of breath or wheezing 30 days #360 mL albuterol sulfate 90 mcg/actuation 2 puff inhalation QID PRN asthma 10/02/21 aerosol inhaler (Ventolin HFA) #18 grams budesonide-formoterol HFA 160 2 puff PO BID #10.2 grams 04/28/23 mcg-4.5 mcg/actuation aerosol inhaler (Symbicort) mupirocin 2 % topical ointment 1 appl topical BID 5 days #15 grams 07/22/23 cetirizine 10 mg tablet 10 mg PO QAM #30 tabs 11/22/23 acetaminophen 325 mg capsule 325 mg PO Q4H PRN pain #30 caps 12/06/23 (Tylenol) cyclobenzaprine 10 mg tablet 10 mg PO BEDTIME PRN muscle spasm 12/06/23 #7 tabs gabapentin 300 mg capsule 300 mg PO BEDTIME #30 caps 01/13/24 modafinil 100 mg tablet (Provigil) 100 mg PO QAM 30 days #30 tabs 01/13/24 montelukast 10 mg tablet 10 mg PO BEDTIME #90 tabs 01/13/24 azithromycin 250 mg tablet 250 mg PO 3XW #12 tabs 01/25/24 prednisone 10 mg tablet 10 mg PO DAILY #30 tabs 04/05/24 Allergies Allergy/AdvReac Type Severity Reaction Status Date / Time barium sulfate Allergy Severe rash Verified 05/07/24 14:04 ibuprofen [IBUPROFEN] Allergy Severe HYPERACTIVITY, Verified 05/07/24 14:04 GI upset, rash PMFSH Past Medical History Medical History Epigastric abdominal pain Ventral hernia Loud snoring Abnormal PFTs (pulmonary function tests) COPD exacerbation Encounter for monitoring Suboxone maintenance therapy Elevated LFTs Nocturnal hypoxia SOPHIA (obstructive sleep apnea) Bronchitis COVID-19 vaccine series completed Personal history of nicotine dependence Staph aureus infection Shortness of breath Cough Bronchitis Asthma-COPD overlap syndrome Depression Bipolar disorder Asthma Multiple lipomas Chronic hepatitis C Surgical History History of esophagogastroduodenoscopy (EGD) History of bronchoscopy S/P excision of lipoma Family History Family History Father Myocardial infarction Mother NIDDY (non-insulin dependent diabetes mellitus in young) CAD (coronary artery disease) HTN (hypertension), benign No family history of colorectal cancer Social History Social History Household Members: Spouse Patient Tobacco Use Status: Former Tobacco user Tobacco use type: Cigarette Years Smoked: 26 Substance Use Type: Crack/Cocaine, Former Substance User and Heroin Advance Directives: No Advance Directives Information Provided: Yes Physical Exam 2 Vital Signs: Vital Signs: Last Vital Signs Temp 96.4 F L 05/07/24 14:03 Pulse 65 05/07/24 14:03 Resp 16 05/07/24 14:03 BP 107/70 05/07/24 14:03 Pulse Ox 87 L 05/07/24 14:03 O2 Del Method Room Air 08/18/24 14:03 BMI result Body Mass Index 35.2 Course Course Course Narrative: This is a Rapid Medical Exam performed in triage by Abby Carey PA-C. Full HPI, ROS and PE to be performed by primary ED provider. 63-year-old male with a past medical history SOPHIA, asthma/COPD, GERD, cirrhosis, hepatitis-C, presenting to the ED c/o rhinorrhea, congestion, sinus pain, sore throat x3 wks. Denies chest pain, shortness of breath, travel, sick contacts PE: Talking complete sentences, lungs CTA, appreciable congestion/rhinorrhea, right TM blocked by cerumen. Hypoxia noted Plan: EKG, labs, CXR, viral testing, rapid strep Medical Decision Making Lab Data 05/07/24 14:32 05/07/24 14:32 Labs: Lab Results 05/07/24 05/07/24 Range/Units 14:32 14:33 WBC 8.1 (4.8-10.8) X10*3/uL RBC 4.49 L (4.60-5.80) X10*6/uL Hgb 12.1 L (14.0-18.0) g/dl Hct 37.8 L (42.0-52.0) % MCV 84.2 (80.0-98.0) fL MCH 26.9 L (27.0-33.0) pg MCHC 32.0 (31.0-36.0) g/dl RDW 15.2 (11.0-16.0) % Plt Count 224 (160-400) X10*3/uL MPV 9.5 (9.4-12.4) fL Immature Gran % (Auto) 0.4 (0.0-0.4) % Neut % (Auto) 45.9 (45-73) % Lymph % (Auto) 38.3 (20-40) % [place] % (Auto) 9.5 (2-11) % Eos % (Auto) 5.0 H (0-4) % Baso % (Auto) 0.9 (0-2) % Lymph # (Auto) 3.1 (1.2-4.9) X10*3/uL [place] # (Auto) 0.8 (0.1-1.2) X10*3/uL Eos # (Auto) 0.4 (0.0-0.4) X10*3/uL Baso # (Auto) 0.1 (0.0-0.2) X10*3/uL Abs Immat Gran (auto) 0.03 (0.00-0.03) X10*3/uL Absolute Neuts (auto) 3.7 (2.0-8.3) x10*3/uL Absolute Nucleated RBC 0.000 (0.0-0.012) X10*3/uL Nucleated RBC % (auto) 0.0 (0.0-0.2) /100WBC PT 12.8 (11.1-13.3) SEC INR 1.1 (0.9-1.1) Troponin I High Sens < 2.7 (<3.5-35.0) ng/L B-Natriuretic Peptide 71 (<100) pg/mL S. pyogenes GrpA BIRDIE Negative (Negative) Discharge Plan Discharge Clinical Impression: Upper respiratory infection, Bronchitis, Hypoxia Patient Disposition: Still a Patient Prescriptions: No Action budesonide-formoterol [Symbicort] 160-4.5 mcg/actuation HFA aerosol inhaler 2 puff PO BID Qty: 10.2 11RF mupirocin 2 % ointment 1 appl topical BID 5 Days Qty: 15 1RF cetirizine 10 mg tablet 10 mg PO QAM Qty: 30 11RF montelukast 10 mg tablet 10 mg PO BEDTIME Qty: 90 3RF modafinil [Provigil] 100 mg tablet 100 mg PO QAM 30 Days Qty: 30 3RF gabapentin 300 mg capsule 300 mg PO BEDTIME Qty: 30 6RF azithromycin 250 mg tablet 250 mg PO 3XW Qty: 12 6RF prednisone 10 mg tablet 10 mg PO DAILY Qty: 30 3RF triamcinolone acetonide [Nasacort] 55 mcg aerosol,spray 2 spray intranasal DAILY Qty: 16.9 0RF Rx Instructions: administer into each nostril methadone 5 mg/5 mL solution 65 mg PO QAM cyclobenzaprine 10 mg tablet 10 mg PO BEDTIME PRN (Reason: muscle spasm) Qty: 7 0RF acetaminophen [Tylenol] 325 mg capsule 325 mg PO Q4H PRN (Reason: pain) Qty: 30 0RF sodium chloride 3 % solution for nebulization 4 ml inhalation BID 30 Days Qty: 240 11RF omeprazole 20 mg capsule,delayed release(DR/EC) 20 mg PO BID 30 Days Qty: 60 3RF sertraline 100 mg tablet 100 mg PO DAILY quetiapine 400 mg tablet 400 mg PO BEDTIME trazodone 100 mg tablet 100 mg PO BEDTIME risperidone 2 mg tablet 2 mg PO BID Patient Comments: Half tablet in morning, One tablet at bedtime albuterol sulfate [Ventolin HFA] 90 mcg/actuation HFA aerosol inhaler 2 puff inhalation QID PRN (Reason: asthma) Qty: 18 11RF albuterol sulfate 2.5 mg /3 mL (0.083 %) solution for nebulization 2.5 mg inhalation Q4H PRN (Reason: shortness of breath or wheezing) 30 Days Qty: 360 11RF (DME) nebulizers Misc See Rx Instructions .Route Rx Instructions: As directed (DME) CPAP Machine/Device Device See Rx Instructions .Route Rx Instructions: As directed Print Language: Latvian
--- NOTE | 2024-05-07 14:09 | ECG_ITS ---
Test Reason : HYPOXIA Blood Pressure : / mmHG Vent. Rate : 057 BPM Atrial Rate : 057 BPM P-R Int : 144 ms QRS Dur : 088 ms QT Int : 442 ms P-R-T Axes : 044 024 005 degrees QTc Int : 430 ms Sinus bradycardia Otherwise normal ECG When compared with ECG of 06-DEC-2023 14:00, Heart rate has decreased Referred By: Abby Carey Electronically Signed By:TAISHA BOGGS
--- NOTE | 2024-05-07 14:37 | PC.NURSE ---
patient arrives through external triage complaining of nasal congestion and sore throat for the last few days, patient noted to have oxygen saturation of 87% on room air in triage, placed on 2L improved saturations to 94%. patient not complaining of shortness of breath or chest pain, denies any medical history states he does have asthma but denies any difficulty breathing. respiratory at bedside, per respiratory lung sounds are clear, patient did not want breathing treatment at this time. 20g PIV placed in left hand blood work drawn and sent to lab, patient swabbed, specimen also sent. patient currently speaking in clear and complete sentences. no complaints of chest pain or shortness of breath. only complaint is nasal congestion. denies fevers, states his girlfriend is being seen in [facility] for the same sx
[2024-05-07 14:38] LABS: MANUAL DIFF FLAG NO
[2024-05-07 14:40] LABS: Basophils Absolute Auto 0.1 X10*3/uL (0.0-0.2); Basophils Percent Auto 0.9 % (0-2); Eosinophils Absolute Auto 0.4 X10*3/uL (0.0-0.4); Hematocrit 37.8 % (42.0-52.0); Hemoglobin 12.1 g/dl (14.0-18.0); Imm Gran Abs Auto 0.03 X10*3/uL (0.00-0.03); Imm Gran Pct Auto 0.4 % (0.0-0.4); Lymphocytes Absolute Auto 3.1 X10*3/uL (1.2-4.9); Lymphocytes Percent Auto 38.3 % (20-40); Mean Corpuscular Hemoglobin 26.9 pg (27.0-33.0); Mean Corpuscular Volume 84.2 fL (80.0-98.0); Mean Platelet Volume 9.5 fL (9.4-12.4); Monocytes Absolute Auto 0.8 X10*3/uL (0.1-1.2); Monocytes Percent Auto 9.5 % (2-11); Neutrophils Absolute Auto 3.7 x10*3/uL (2.0-8.3); Neutrophils Percent Auto 45.9 % (45-73); Platelet Count 224 X10*3/uL (160-400); Red Blood Count 4.49 X10*6/uL (4.60-5.80); Red Cell Distribution Width 15.2 % (11.0-16.0); White Blood Count 8.1 X10*3/uL (4.8-10.8)
[2024-05-07 14:45] LABS: INTERNATIONAL NORM RATIO 1.1 (0.9-1.1); Prothrombin Time 12.8 SEC (11.1-13.3)
[2024-05-07 14:48] LABS: IDNOW Serial# 08D9AD1C; Strep A Nucleic Acid Negative (Negative)
--- NOTE | 2024-05-07 14:49 | ED_ITS ---
HPI - URI/Sore Throat General Chief Complaint: Upper Respiratory Symptoms Stated Complaint: ? sinus infection Time Seen by Provider: 05/07/24 14:06 Source: patient Mode of arrival: ambulatory Limitations: no limitations History of Present Illness ED Provider: Mars JAY Narrative: 63 year old male history of asthma, HTN, insomnia, sophia on cpap, hepC, bipolar, asthma, copd presents w/ shortness of breath, cogestion, sore throat, chills, dry cough, sinus congestion X 3 weeks worsening. Denies sick contacts. Denies cp, sob, nausea, vomiting, abd pain, headache, vision changes, dizziness, weakness. Related Data Home Medications ?Medication ?Instructions ?Recorded ?Confirmed quetiapine 400 mg tablet 400 mg PO BEDTIME 06/26/20 05/02/24 risperidone 2 mg tablet 2 mg PO BID 06/26/20 05/02/24 sertraline 100 mg tablet 100 mg PO DAILY 06/26/20 05/02/24 trazodone 100 mg tablet 100 mg PO BEDTIME 06/26/20 05/02/24 nebulizers 02/23/23 05/02/24 methadone 5 mg/5 mL oral solution 65 mg PO QAM 07/16/23 05/02/24 CPAP (CPAP Machine/Device) 08/30/23 05/02/24 Previous Rx's ?Medication ?Instructions ?Recorded triamcinolone acetonide 55 mcg 2 spray intranasal DAILY #16.9 mL 08/15/20 nasal spray aerosol (Nasacort) sodium chloride 3 % for 4 ml inhalation BID 30 days #240 mL 05/15/21 nebulization omeprazole 20 mg capsule,delayed 20 mg PO BID 30 days #60 caps 06/16/21 release albuterol sulfate 2.5 mg/3 mL 2.5 mg (3 mL) inhalation Q4H PRN 10/02/21 (0.083 %) solution for nebulization shortness of breath or wheezing 30 days #360 mL albuterol sulfate 90 mcg/actuation 2 puff inhalation QID PRN asthma 10/02/21 aerosol inhaler (Ventolin HFA) #18 grams budesonide-formoterol HFA 160 2 puff PO BID #10.2 grams 04/28/23 mcg-4.5 mcg/actuation aerosol inhaler (Symbicort) mupirocin 2 % topical ointment 1 appl topical BID 5 days #15 grams 07/22/23 cetirizine 10 mg tablet 10 mg PO QAM #30 tabs 11/22/23 acetaminophen 325 mg capsule 325 mg PO Q4H PRN pain #30 caps 12/06/23 (Tylenol) cyclobenzaprine 10 mg tablet 10 mg PO BEDTIME PRN muscle spasm 12/06/23 #7 tabs gabapentin 300 mg capsule 300 mg PO BEDTIME #30 caps 01/13/24 modafinil 100 mg tablet (Provigil) 100 mg PO QAM 30 days #30 tabs 01/13/24 montelukast 10 mg tablet 10 mg PO BEDTIME #90 tabs 01/13/24 azithromycin 250 mg tablet 250 mg PO 3XW #12 tabs 01/25/24 prednisone 10 mg tablet 10 mg PO DAILY #30 tabs 04/05/24 apixaban 5 mg (74 tabs) tablets in 5 mg PO BID #74 ea 05/07/24 a dose pack ([email or web address] DVT-PE Treat 30D Start) Allergies Allergy/AdvReac Type Severity Reaction Status Date / Time barium sulfate Allergy Severe rash Verified 05/07/24 14:04 ibuprofen [IBUPROFEN] Allergy Severe HYPERACTIVITY, Verified 05/07/24 14:04 GI upset, rash Review of Systems 2 Review of Systems: Yes all other systems are reviewed and are negative PMFSH Past Medical History Attestation statement: The following information was validated with the patient. Source: old records reviewed and nursing notes reviewed Medical History Epigastric abdominal pain Ventral hernia Loud snoring Abnormal PFTs (pulmonary function tests) COPD exacerbation Encounter for monitoring Suboxone maintenance therapy Elevated LFTs Nocturnal hypoxia SOPHIA (obstructive sleep apnea) Bronchitis COVID-19 vaccine series completed Personal history of nicotine dependence Staph aureus infection Shortness of breath Cough Bronchitis Asthma-COPD overlap syndrome Depression Bipolar disorder Asthma Multiple lipomas Chronic hepatitis C Surgical History History of esophagogastroduodenoscopy (EGD) History of bronchoscopy S/P excision of lipoma Family History Family History Father Myocardial infarction Mother NIDDY (non-insulin dependent diabetes mellitus in young) CAD (coronary artery disease) HTN (hypertension), benign No family history of colorectal cancer Social History Social History Household Members: Spouse Patient Tobacco Use Status: Former Tobacco user Tobacco use type: Cigarette Years Smoked: 26 Smoked in Last 30 Days: No Use of substances other than those prescribed or required for medical reasons: No Substance Use Type: Crack/Cocaine, Former Substance User and Heroin Advance Directives: No Advance Directives Information Provided: Yes Physical Exam 2 Vital Signs: Vital Signs: Last Vital Signs Temp 97.8 F 05/07/24 17:58 Pulse 63 05/07/24 17:58 Resp 18 05/07/24 17:58 BP 118/79 05/07/24 17:58 Pulse Ox 89 L 05/07/24 19:01 O2 Del Method Room Air 05/07/24 19:00 O2 Flow Rate 2 05/07/24 17:58 BMI result Body Mass Index 35.2 hypothermia, hypotension, hypoxia Appearance: Alert.? Oriented X3.? No acute distress.? Head: Normocephalic, atraumatic, no step-offs or deformities Eyes: Pupils equal, round and reactive to light.? Neck: Normal inspection.? Neck supple.? CVS: Normal heart rate and rhythm.? Pulses normal.? Respiratory: No respiratory distress.? Breath sounds diminished b/l with diffuse wheezing .? Abdomen: Soft and nontender.? Skin: Skin warm and dry.? Normal skin color.? Normal skin turgor.? Extremities: No lower extremity edema.? No calf ttp. 5/5 strength to bilateral upper and lower extremities Back: No midline tenderness, no C-spine tenderness, full range of motion, no CVA tenderness bilaterally Neuro: Oriented X 3.? No motor deficit.? No sensory deficit. CN 2-12 intact Course Course Course Narrative: May 07, 2024 4:00 p.m. receive sign-out with the patient resting comfortably at this time. CTA pending 5:40 p.m. received call from reading radiologist. Multiple right-sided segmental pulmonary emboli noted. No evidence of heart strain. CT results were reviewed with the patient. Patient is agreeable to remain in the hospital for further evaluation and management. 5:45 p.m. message to Michelle Wynn, from the hospitalist team. 6:[address] Baig from the hospitalist team and I have had an extensive conversation with the patient regarding his condition as he is now refusing to stay in the hospital. We have had extensive discussion with the patient regarding his condition that it could potentially worsen, making his shortness of breath and other symptoms much worse, and could rule out in . Patient who appears to be of sound mind acknowledges and understands this and states that he would like to sign out against medical advice. Patient states that his girlfriend is ?an addict? and needs to be with her overnight. Currently has been checking in with her on the telephone. He does not have any family or friends that are able to assist. Patient is followed by Dr. Wynn from Pulmonary. I have placed a referral to his office for the patient to be seen tomorrow morning. In addition, the patient confirms that he will follow-up by telephone call 1st thing tomorrow morning to Dr. Wynn office. Patient also confirms that if he is advised to return to the emergency department or to be seen in the office, he is able to do so. In addition, Dr. Baig will be on service tomorrow and will admit the patient if he returns to the emergency department. The patient is agreeable to a dose of Lovenox at 1 milligram/kilogram now, as a safer dosing regimen to hold the patient through tomorrow. If the patient returns, he may receive additional Lovenox or be started on Eliquis. I have also discussed with the patient that I have provided and Eliquis prescription as well as a prescription card if needed as a backup in an effort if any unforeseen circumstances occur with the patient is not able to return to the emergency department. In addition I have discussed with the patient about concerns for bleeding while on this medication. Patient wonders to again expresses understanding of all discharge instructions and acknowledges the risks associated with signing out against medical advice. AMA form signed. Prior to discharge I would like the patient to ambulate on room air for baseline saturation. Patient was able to ambulate on room air with an oxygen saturation of 89%. He was not tachycardic or tachypneic. Discussed with Dr. Rodriguez who agrees with plan. No further questions at this time. Reevaluation(s) Reevaluation #1: CBC unremarkable. Chemistry pending. CTA, EKG, UA pending Time: 14:55 Reevaluation #2: Dimer + --> CTA pending EKG non ischemic, trop negative. UA pending Sign out to Delvin Simons Time: 15:56 Medications Administered Discontinued Medications Generic Name Dose Route Start Last Admin Trade Name Anujq PRN Reason Stop Dose Admin Enoxaparin Sodium 100 mg 05/07/24 18:22 05/07/24 18:59 Enoxaparin Sodium 100 Mg/Ml Syringe 1 mg/kg (100 mg) 05/07/24 18:23 100 mg SUBCUT Administration ONCE ONE Ceftriaxone Sodium 1 gm/ 50 mls @ 100 mls/hr 05/07/24 14:47 05/07/24 15:44 Sodium Chloride IV 05/07/24 15:16 Infused ONCE ONE Infusion Azithromycin 500 mg/ Sodium 250 mls @ 125 mls/hr 05/07/24 14:47 05/07/24 17:43 Chloride IV 05/07/24 16:46 Infused ONCE ONE Infusion Sodium Chloride 3,060 mls @ 3,060 mls/hr 05/07/24 14:51 05/07/24 17:43 Ns 30 ml/kg infuse over 1 hr (3060 ml) 05/07/24 15:50 Infused IV Infusion .Q1H STA Iohexol 100 ml 05/07/24 16:14 05/07/24 16:14 Iohexol 350 Mg/Ml 100 Ml Infus..Btl IV 05/07/24 16:15 65 ml ONCE ONE Administration Methylprednisolone Sodium Succinate 125 mg 05/07/24 14:47 05/07/24 15:35 Methylprednisolone Sod Succ 125 Mg/2 Ml Vial IVPUSH 05/07/24 14:48 125 mg ONCE ONE Administration Medical Decision Making Medical Decision Making MDM Narrative: 63 year old male presents w/ URI sx X 3 weeks worsening PE - Breath sounds diminished b/l with diffuse wheezing .? Hx and pe concerning for bronchitis vs pna vs chronic lung disease. Less likely acs, pe, ards. Will rule out metabolic derangments Plan- labs, imaging, viral test Differential Diagnosis Differential Diagnoses: The differential diagnosis associated with the presentation includes Hx and pe concerning for bronchitis vs pna vs chronic lung disease. Less likely acs, pe, ards. Will rule out metabolic derangments Admission/Observation Consideration of admission/observation: Escalation of care including admission/observation considered possible Lab Data MDM Lab Attestation statement: I reviewed the patient's lab results. 05/07/24 14:32 05/07/24 14:32 Labs: Lab Results 05/07/24 05/07/24 05/07/24 Range/Units 14:32 14:33 14:47 WBC 8.1 (4.8-10.8) X10*3/uL RBC 4.49 L (4.60-5.80) X10*6/uL Hgb 12.1 L (14.0-18.0) g/dl Hct 37.8 L (42.0-52.0) % MCV 84.2 (80.0-98.0) fL MCH 26.9 L (27.0-33.0) pg MCHC 32.0 (31.0-36.0) g/dl RDW 15.2 (11.0-16.0) % Plt Count 224 (160-400) X10*3/uL MPV 9.5 (9.4-12.4) fL Immature Gran % (Auto) 0.4 (0.0-0.4) % Neut % (Auto) 45.9 (45-73) % Lymph % (Auto) 38.3 (20-40) % [place] % (Auto) 9.5 (2-11) % Eos % (Auto) 5.0 H (0-4) % Baso % (Auto) 0.9 (0-2) % Lymph # (Auto) 3.1 (1.2-4.9) X10*3/uL [place] # (Auto) 0.8 (0.1-1.2) X10*3/uL Eos # (Auto) 0.4 (0.0-0.4) X10*3/uL Baso # (Auto) 0.1 (0.0-0.2) X10*3/uL Abs Immat Gran (auto) 0.03 (0.00-0.03) X10*3/uL Absolute Neuts (auto) 3.7 (2.0-8.3) x10*3/uL Absolute Nucleated RBC 0.000 (0.0-0.012) X10*3/uL Nucleated RBC % (auto) 0.0 (0.0-0.2) /100WBC PT 12.8 (11.1-13.3) SEC INR 1.1 (0.9-1.1) D-Dimer High Sensitivty 503 NG/ML Sodium 140 (135-145) mmol/L Potassium 3.6 D (3.3-5.1) mmol/L Chloride 105 (96-108) mmol/L Carbon Dioxide 23 (22-29) mmol/L Anion Gap 16 (12-20) BUN 15 (9-16) mg/dL Creatinine 0.85 (0.5-1.4) mg/dL Estim Creat Clear Calc 103.8 Estimated GFR > 60 Random Glucose 144 H (60-115) mg/dL Lactic Acid 0.8 (0.5-2.0) mmol/L Calcium 9.2 (8.4-10.2) mg/dL Magnesium 2.0 (1.6-2.6) mg/dL Total Bilirubin 0.2 (0.0-1.0) mg/dL Direct Bilirubin < 0.2 (0.0-0.5) mg/dL AST 13 (5-37) U/L ALT 8 (0-40) U/L Alkaline Phosphatase 47 (39-117) U/L Troponin I High Sens < 2.7 (<3.5-35.0) ng/L B-Natriuretic Peptide 71 (<100) pg/mL Total Protein 7.1 (6.5-8.0) g/dL Albumin 3.8 (3.5-5.0) g/dL Urine Color Urine Appearance Urine pH (5.0-9.0) Ur Specific [place] (1.005-1.025) Urine Protein (Neg-Trace) mg/dL Urine Glucose (UA) (Negative) mg/dL Urine Ketones (Negative) mg/dL Urine Blood (Negative) Urine Nitrite (Negative) Ur Leukocyte Esterase (Negative) Influenza Type A (PCR) NEGATIVE (Negative) Influenza Type B (PCR) NEGATIVE (Negative) RSV RNA Qual (PCR) NEGATIVE (Negative) SARS-CoV-2 RNA (RT-PCR) NEGATIVE (Negative) S. pyogenes GrpA BIRDIE Negative (Negative) 05/07/24 Range/Units 16:52 WBC (4.8-10.8) X10*3/uL RBC (4.60-5.80) X10*6/uL Hgb (14.0-18.0) g/dl Hct (42.0-52.0) % MCV (80.0-98.0) fL MCH (27.0-33.0) pg MCHC (31.0-36.0) g/dl RDW (11.0-16.0) % Plt Count (160-400) X10*3/uL MPV (9.4-12.4) fL Immature Gran % (Auto) (0.0-0.4) % Neut % (Auto) (45-73) % Lymph % (Auto) (20-40) % [place] % (Auto) (2-11) % Eos % (Auto) (0-4) % Baso % (Auto) (0-2) % Lymph # (Auto) (1.2-4.9) X10*3/uL [place] # (Auto) (0.1-1.2) X10*3/uL Eos # (Auto) (0.0-0.4) X10*3/uL Baso # (Auto) (0.0-0.2) X10*3/uL Abs Immat Gran (auto) (0.00-0.03) X10*3/uL Absolute Neuts (auto) (2.0-8.3) x10*3/uL Absolute Nucleated RBC (0.0-0.012) X10*3/uL Nucleated RBC % (auto) (0.0-0.2) /100WBC PT (11.1-13.3) SEC INR (0.9-1.1) D-Dimer High Sensitivty NG/ML Sodium (135-145) mmol/L Potassium (3.3-5.1) mmol/L Chloride (96-108) mmol/L Carbon Dioxide (22-29) mmol/L Anion Gap (12-20) BUN (9-16) mg/dL Creatinine (0.5-1.4) mg/dL Estim Creat Clear Calc Estimated GFR Random Glucose (60-115) mg/dL Lactic Acid (0.5-2.0) mmol/L Calcium (8.4-10.2) mg/dL Magnesium (1.6-2.6) mg/dL Total Bilirubin (0.0-1.0) mg/dL Direct Bilirubin (0.0-0.5) mg/dL AST (5-37) U/L ALT (0-40) U/L Alkaline Phosphatase (39-117) U/L Troponin I High Sens (<3.5-35.0) ng/L B-Natriuretic Peptide (<100) pg/mL Total Protein (6.5-8.0) g/dL Albumin (3.5-5.0) g/dL Urine Color Yellow Urine Appearance Clear Urine pH 5.5 (5.0-9.0) Ur Specific [place] 1.020 (1.005-1.025) Urine Protein Negative (Neg-Trace) mg/dL Urine Glucose (UA) Negative (Negative) mg/dL Urine Ketones Negative (Negative) mg/dL Urine Blood Negative (Negative) Urine Nitrite Negative (Negative) Ur Leukocyte Esterase Negative (Negative) Influenza Type A (PCR) (Negative) Influenza Type B (PCR) (Negative) RSV RNA Qual (PCR) (Negative) SARS-CoV-2 RNA (RT-PCR) (Negative) S. pyogenes GrpA BIRDIE (Negative) Independent Interpretation I performed an independent interpretation of an: EKG (Vent. Rate : 057 BPM Atrial Rate : 057 BPM P-R Int : 144 ms QRS Dur : 088 ms QT Int : 442 ms P-R-T Axes : 044 024 005 degrees QTc Int : 430 ms Sinus bradycardia Otherwise normal ECG When compared with ECG of 06-DEC-2023 14:00, No significant change was found ) and CT Scan Radiology Impression Discussion of test interpretation with radiology: I have reviewed the radiologist's reading. Radiologist Impression: [address] [address] [address] Scan Report Signed Patient: Josue Pritchard MR#: [id number] : 1960 Acct:[id number] Age/Sex: 63 / M ADM Date: 05/07/24 Loc: .ED Attending Dr: Ordering Physician: Maria Del Carmen Crews Date of Service: 05/07/24 Procedure(s): CT angio chest PE protocol Accession Number(s): [id number] cc: Maria Del Carmen Crews; MARIA ESTHER DE LEON NP~ EXAMINATION: CT ANGIOGRAM OF THE CHEST WITH AND WITHOUT CONTRAST (CT PULMONARY ANGIOGRAM FOR PE) CLINICAL INFORMATION: Shortness of breath. Hypoxia. COMPARISON: CT scan of the chest dated 03/10/2024, 12/06/2023 and older exams. TECHNIQUE: Prior to contrast administration, noncontrast localization images were obtained. Subsequently, multidetector volumetric imaging was performed from the thoracic inlet to below the diaphragms following the administration of 65 mL Omnipaque 350 intravenous contrast. No contrast reaction reported Sagittal, coronal, and MIP oblique sagittal reformatted images were obtained on the CT workstation, uploaded to PACS, and reviewed. This CT examination was performed using dose optimization techniques as appropriate, variously including the following: *Automated exposure control *Adjustment of mA and/or kV according to patient size (this includes techniques or standardized protocols for targeted exams where dose is matched to indication/reason for exam; i.e. extremities or head) *Use of iterative reconstruction technique Total exam dose-length product 350 mGy-cm FINDINGS: QUALITY OF STUDY/CONTRAST BOLUS: Satisfactory. PULMONARY ARTERIES: There are several small segmental and subsegmental pulmonary emboli seen in the right lower lobe. Nonocclusive thrombi are also seen in the distal right upper lobe pulmonary artery and proximal segmental branches. No significant left-sided pulmonary emboli seen. THORACIC AORTA: No aneurysm or dissection. LUNG: There is volume loss and multifocal patchy opacities in both lower lobes and right middle lobe, presumably representing atelectasis. Clinical correlation requested to exclude superimposed infection. PLEURA: No pleural effusion or pneumothorax. MEDIASTINUM: Normal heart size. No pericardial effusion. No hilar or mediastinal lymphadenopathy. No evidence of septal bowing or right heart strain. CORONARY ARTERY CALCIFICATION: None visualized on this study. CHEST WALL/AXILLA: No axillary or internal mammary lymphadenopathy. OSSEOUS STRUCTURES: No acute or suspicious osseous abnormality. UPPER ABDOMEN: Unremarkable. Slight reflux of contrast into the intrahepatic IVC noted, likely related to force of contrast injection. No reflux of contrast into the hepatic veins to suggest elevated right heart pressures. CT/CT angio chest PE protocol IMPRESSION: * Several small segmental and subsegmental pulmonary emboli are seen in the right lower lobe. Nonocclusive thrombi are also seen in the distal right upper lobe pulmonary artery and proximal segmental branches. * Volume loss and multifocal patchy opacities in both lower lobes and right middle lobe, presumably representing atelectasis. Clinical correlation requested to exclude superimposed infection. VTE: positive. This critical result was discussed with CARMELA Warren 05/07/2024, 5:36 PM and it was ascertained that the content and urgency of this report was understood at the time of direct communication. Dictated By: Malka Crane MD Signed By: <Electronically signed by Malka Crane MD in OV> 05/07/24 8948 DD/ 1625 TD/TT: Robot Technician: LOC External Record Review External record reviewed: Inpatient record, Office record, Outpatient record, Prior outpatient labs, Prior outpatient radiology, Primary care record and Outside ED record Critical Care Time Critical Care Time Critical Care Time: Yes Total Critical Care Time: 35 Attestation: I attest to this time spent taking care of the patient, obtaining history, physical, reviewing labs, imaging, speaking to my attending, speaking to specialist. Discharge Plan Discharge Clinical Impression: Upper respiratory infection, Bronchitis, Hypoxia, Sinusitis, Pulmonary embolism Patient Disposition: Left Against Medical Advice Instructions: Hypoxia (ED), Blood Thinners (ED) Additional Instructions: You have chosen to sign out against medical advice. You may return at any time for any concern. You have multiple pulmonary embolism otherwise known as blood clots in your right lung. This is making your already bad lung disease worse. These can be extremely dangerous if not properly treated and could cause worsening of your symptoms or even . Contact the office of Dr. Wynn, your senior account clerk 1st thing tomorrow morning. You were given a dose of Lovenox, a blood thinning medication today. Return immediately to the emergency department if you have any worsening of symptoms, severe pain, shortness of breath, or any other concern. If you are instructed to return to the emergency department by your senior account clerk or primary care provider, please do so immediately. A prescription for long-term blood thinning medication, Eliquis has been sent to your pharmacy. You have also been provided with a savings card if needed. With any blood thinning medication, your at risk for increased bleeding. Watch for any blood in your eyes, mouth, coughing up blood, vomiting blood, urinating or when moving her bowels, return immediately to the emergency department. If you fall and have any trauma such as hitting her head, return to the emergency department immediately. Follow-up with your primary care provider. Call this week to schedule a follow- up appointment. Return to the emergency department if you have any worsening of symptoms, or any concerns. Get well soon! Prescriptions: [place] DVT-PE Treat 30D Start 5 mg (74 tabs) tablets,dose pack 5 mg PO BID Qty: 74 0RF Rx Instructions: 10 mg BID x 7 days, then 5 mg BID. No Action budesonide-formoterol [Symbicort] 160-4.5 mcg/actuation HFA aerosol inhaler 2 puff PO BID Qty: 10.2 11RF mupirocin 2 % ointment 1 appl topical BID 5 Days Qty: 15 1RF cetirizine 10 mg tablet 10 mg PO QAM Qty: 30 11RF montelukast 10 mg tablet 10 mg PO BEDTIME Qty: 90 3RF modafinil [Provigil] 100 mg tablet 100 mg PO QAM 30 Days Qty: 30 3RF gabapentin 300 mg capsule 300 mg PO BEDTIME Qty: 30 6RF azithromycin 250 mg tablet 250 mg PO 3XW Qty: 12 6RF prednisone 10 mg tablet 10 mg PO DAILY Qty: 30 3RF triamcinolone acetonide [Nasacort] 55 mcg aerosol,spray 2 spray intranasal DAILY Qty: 16.9 0RF Rx Instructions: administer into each nostril methadone 5 mg/5 mL solution 65 mg PO QAM cyclobenzaprine 10 mg tablet 10 mg PO BEDTIME PRN (Reason: muscle spasm) Qty: 7 0RF acetaminophen [Tylenol] 325 mg capsule 325 mg PO Q4H PRN (Reason: pain) Qty: 30 0RF sodium chloride 3 % solution for nebulization 4 ml inhalation BID 30 Days Qty: 240 11RF omeprazole 20 mg capsule,delayed release(DR/EC) 20 mg PO BID 30 Days Qty: 60 3RF sertraline 100 mg tablet 100 mg PO DAILY quetiapine 400 mg tablet 400 mg PO BEDTIME trazodone 100 mg tablet 100 mg PO BEDTIME risperidone 2 mg tablet 2 mg PO BID Patient Comments: Half tablet in morning, One tablet at bedtime albuterol sulfate [Ventolin HFA] 90 mcg/actuation HFA aerosol inhaler 2 puff inhalation QID PRN (Reason: asthma) Qty: 18 11RF albuterol sulfate 2.5 mg /3 mL (0.083 %) solution for nebulization 2.5 mg inhalation Q4H PRN (Reason: shortness of breath or wheezing) 30 Days Qty: 360 11RF (DME) nebulizers Misc See Rx Instructions .Route Rx Instructions: As directed (DME) CPAP Machine/Device Device See Rx Instructions .Route Rx Instructions: As directed Referrals: Gilbert Wynn MD [Physician] - 1 day (hypoxia, asthma, ne PEs; signed out AMA) Stand Alone Forms: Against Medical Advice Print Language: Malay
[2024-05-07 14:59] LABS: B Type Natriuretic Peptide 71 pg/mL (<100); Troponin-I High Sensitivity < 2.7 ng/L (<3.5-35.0)
[2024-05-07 15:04] LABS: Alanine Aminotransferase 8 U/L (0-40); Albumin Level 3.8 g/dL (3.5-5.0); Alkaline Phosphatase 47 U/L (39-117); Anion Gap 16 (12-20); Aspartate Amino Transferase 13 U/L (5-37); Bilirubin Direct < 0.2 mg/dL (0.0-0.5); Bilirubin Total 0.2 mg/dL (0.0-1.0); Blood Urea Nitrogen 15 mg/dL (9-16); Calcium 9.2 mg/dL (8.4-10.2); Carbon Dioxide 23 mmol/L (22-29); Chloride 105 mmol/L (96-108); Creatinine Clr Calc Pharmacy 103.8; Estimated Glomerular Filt Rate > 60; Glucose Random 144 mg/dL (60-115); Potassium 3.6 mmol/L (3.3-5.1); Sodium 140 mmol/L (135-145); Total Protein 7.1 g/dL (6.5-8.0)
[2024-05-07 15:06] LABS: D Dimer High Sensitivity 503 NG/ML
[2024-05-07 15:17] LABS: Influenza A PCR NEGATIVE (Negative); Influenza B PCR NEGATIVE (Negative); Resp Syncy Virus RNA Qual PCR NEGATIVE (Negative); SARS COV2 PCR INHOUSE NEGATIVE (Negative)
[2024-05-07] MEDS: methylPREDNISolone Sod Succ 125 MG/2 ML VIAL IVPUSH (15:35)
[2024-05-07] MEDS: 0.9 % Sodium Chloride 3,060 ML 3060 ML IV (15:37)
[2024-05-07] MEDS: cefTRIAXone sodium 1 GM in 0.9 % Sodium Chloride 50 ML IV (15:37)
[2024-05-07] MEDS: Azithromycin 500 MG in 0.9 % Sodium Chloride 250 ML 125 MG IV (15:38)
[2024-05-07 15:49] LABS: Lactic Acid 0.8 mmol/L (0.5-2.0)
[2024-05-07] MEDS: iohexoL 350 MG/ML 100 ML INFUS..BTL IV (16:14)
[2024-05-07 16:38] VITALS: O2SAT 92
[2024-05-07 17:09] LABS: Appearance Urine Clear; Color Urine Yellow; Glucose Urine UA Negative (Negative); Leukocyte Esterase Urine Negative (Negative); Nitrite Urine Negative (Negative); PH 5.5 (5.0-9.0); Urine Blood Negative (Negative); Urine Ketones Negative (Negative); Urine Protein Negative (Neg-Trace)
[2024-05-07 17:58] VITALS: BP 118/79; PULSE 63; RESP 18; TEMP 36.6; O2SAT 91
[2024-05-07] MEDS: Enoxaparin Sodium 100 MG/ML SYRINGE SUBCUT (18:59)
[2024-05-07 19:00] VITALS: O2SAT 89
[2024-05-07 19:01] VITALS: O2SAT 89
--- NOTE | 2024-05-07 19:02 | PC.NURSE ---
This RN into room to ambulate patient, patient room air saturation at 89% patient tells this RN that it is always low, and he sees a metalizer for it. patient still adamantly wants to leave despite multiple attempts at educating patient
--- NOTE | 2024-05-07 19:42 | PC.NURSE ---
assumed care pt did not wait for AMA form to sign, IVs were removed prior to leaving . Pt understands risks of leaving AMA
== END 2024-05-07 19:58 | disposition left against medical advice (07) ==
PROVIDERS: Physician Assistant; Emergency Provider Emergency Medicine; PCP Nurse Practitioner Primary Care
DX: J06.9 Acute upper respiratory infection, unspecified (principal); I26.99 Other pulmonary embolism without acute cor pulmonale; J40 Bronchitis, not specified as acute or chronic; R09.02 Hypoxemia; J32.9 Chronic sinusitis, unspecified; R00.1 Bradycardia, unspecified; R06.02 Shortness of breath; R05.9 Cough, unspecified; Z03.818 Encounter for observation for suspected exposure to other biological agents ruled out; Z79.899 Other long term (current) drug therapy; Z87.891 Personal history of nicotine dependence
CPT/HCPCS: 0241U; 36415; 71275; 80048; 80076; 81003; 83605; 83735; 83880; 84484; 85025; 85379; 85610; 87040; 87651; 93005; 99284; 99285; J0456; J0696; J1650; J2919; Q9967

== ENCOUNTER 2024-05-15 13:53 | Outpatient (AMB) | payer MEDICAID, SELFPAY ==
[2024-05-15 13:58] VITALS: PULSE 72; O2SAT 93; BMI 35.0
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
== END 2024-05-15 14:28 | disposition home or self-care (01) ==
PROVIDERS: PCP Nurse Practitioner Primary Care; Visit Provider Hospitalist
DX: I26.99 Other pulmonary embolism without acute cor pulmonale (principal); J45.50 Severe persistent asthma, uncomplicated; A49.01 Methicillin susceptible Staphylococcus aureus infection, unspecified site; G47.33 Obstructive sleep apnea (adult) (pediatric); G47.34 Idiopathic sleep related nonobstructive alveolar hypoventilation
CPT/HCPCS: 99214

== ENCOUNTER → 2024-05-15 13:53 | Outpatient (BNVA) | payer MEDICAID, SELFPAY | PROVIDERS: PCP Nurse Practitioner Primary Care; Visit Provider Hospitalist | DX: J45.50 Severe persistent asthma, uncomplicated (principal); J44.9 Chronic obstructive pulmonary disease, unspecified; G47.33 Obstructive sleep apnea (adult) (pediatric); A49.01 Methicillin susceptible Staphylococcus aureus infection, unspecified site; G47.34 Idiopathic sleep related nonobstructive alveolar hypoventilation; I26.99 Other pulmonary embolism without acute cor pulmonale | CPT/HCPCS: 99212 ==

== ENCOUNTER → 2024-06-26 13:20 | Outpatient (BNV) | payer MEDICAID, SELFPAY | PROVIDERS: PCP Nurse Practitioner Primary Care; Visit Provider Internal Medicine Medical Oncology | DX: I26.99 Other pulmonary embolism without acute cor pulmonale (principal) | CPT/HCPCS: 99204 ==

== ENCOUNTER 2024-06-28 10:46 | Outpatient (AMB) | payer MEDICAID, SELFPAY ==
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
[2024-06-28 11:16] VITALS: BP 124/70; PULSE 76; O2SAT 90; BMI 34.6
== END 2024-06-28 11:30 | disposition home or self-care (01) ==
PROVIDERS: PCP Nurse Practitioner Primary Care; Visit Provider Hospitalist
DX: I26.99 Other pulmonary embolism without acute cor pulmonale (principal); J45.50 Severe persistent asthma, uncomplicated; J44.9 Chronic obstructive pulmonary disease, unspecified; A49.01 Methicillin susceptible Staphylococcus aureus infection, unspecified site; G47.34 Idiopathic sleep related nonobstructive alveolar hypoventilation; G47.33 Obstructive sleep apnea (adult) (pediatric); J01.00 Acute maxillary sinusitis, unspecified
CPT/HCPCS: 99214

== ENCOUNTER → 2024-06-28 10:46 | Outpatient (BNVA) | payer MEDICAID, SELFPAY | PROVIDERS: PCP Nurse Practitioner Primary Care; Visit Provider Hospitalist | DX: J44.9 Chronic obstructive pulmonary disease, unspecified (principal); J45.50 Severe persistent asthma, uncomplicated; J01.00 Acute maxillary sinusitis, unspecified; I26.99 Other pulmonary embolism without acute cor pulmonale; A49.01 Methicillin susceptible Staphylococcus aureus infection, unspecified site; G47.33 Obstructive sleep apnea (adult) (pediatric); Z87.891 Personal history of nicotine dependence | CPT/HCPCS: 99212 ==

== ENCOUNTER → 2024-07-07 09:09 | Outpatient (REF) | payer MEDICAID, SELFPAY ==
--- NOTE | 2024-07-07 09:12 | CA_ITS ---
Transthoracic Echocardiogram Patient (Last, First, Middle): Josue Pritchard Luli Gender: Male Date of : 1960 Age: 63 Procedure Date: 07/07/2024 Procedure Type: Transthoracic Echocardiogram Location: OP Height: 170.18 cm Weight: 99.34 kg BSA: 2.10 m2 Heart Rate: 71 bpm BP: 140 / 82 mmHg Corporate Attorney: Referring MD: Gilbert Wynn MD Symptoms: I26.99 - Other pulmonary embolism without acute cor pulmonale Study Quality: Fair ECG Rhythm: Sinus Conclusions: - The left ventricular systolic function is normal. The calculated ejection fraction is 62% by biplane method. - No obvious valvular pathology seen on this study. - Mild pulmonary hypertension is present. Findings Left Ventricle Normal left ventricular cavity size. There is moderately increased left ventricular wall thickness. The left ventricular systolic function is normal. The calculated ejection fraction is 62% by biplane method. There is no evidence of regional wall motion abnormalities. Diastolic function is normal for age. Right Ventricle Mildly increased right ventricular cavity size. There is normal right ventricular systolic function. Atria Both atria are normal in size. Aortic Valve The aortic valve was not well visualized. There is no aortic valve stenosis. There is no aortic valve regurgitation. Mitral Valve The mitral valve appears normal. There is no mitral valve regurgitation. There is no mitral valve stenosis. Pulmonic Valve The pulmonic valve is likely normal. Tricuspid Valve Normal tricuspid valve structure. There is mild tricuspid valve regurgitation. Mild pulmonary hypertension is present. Great Vessels The asc aorta is normal in size. Venous The inferior vena cava is normal in size and collapses greater than 50% with inspiration. Pericardium/Pleural There is a trivial pericardial effusion. Prior Study Comparison No prior study available for comparison. Recommendations, Care & Conclusions No obvious valvular pathology seen on this study. Measurements 2D Linear Measurements IVSd: 1.30 0.6-0.9/0.6-1.0 cm LVIDd: 5.04 3.9-5.3/4.2-5.9 cm LVIDd Index: 2.40 2.4-3.2/2.2-3.1 cm/m2 LVIDs: 3.36 2.0-3.6 cm LVPWd: 1.28 0.7-1.1 cm LA Diam: 4.00 2.7-3.8/3.0-4.0 cm LAIDs Index: 1.90 1.5-2.3 cm/m2 LV Mass: 327.00 67-162/88-224 g LV Mass Index: 155.72 43-95/49-115 g/m2 LVOT Diam: 2.30 3.0+(-)1.3 cm 2D Systolic Function EF 4C: 58.30 >55% EF 2C: 68.40 >55% EF BiP: 62.30 >55% Mitral Valve MV Pk E: 0.81 MV PK A: 0.89 MV Decel Time: 175.00 E/A: 0.90 E'Lateral: 10.70 E'Medial: 8.59 E/E' Med: 9.40 E/E' Lat: 7.60 PHT: 51.00 MVA PHT: 4.31 Decel Coleman: 4.61 Aortic Valve AoV Pk Nael: 1.48 AoV Mn Nael: 1.02 AoV VTI: 0.30 AoV Pk Grad: 9.00 Aov Mn Grad: 5.00 MARIAH Cont.VTI: 2.77 LVOT LVOT Pk Nael: 0.93 LVOT Mn Nael: 0.61 LVOT VTI: 0.20 LVOT Pk Grad: 3.00 LVOT Mn Grad: 2.00 LVOT Diam: 2.30 LVOT Area: 4.15 Diastolic Function MV Pk E: 0.81 MV Pk A: 0.89 E/A: 0.90 E'Medial: 8.59 E/E' Med: 9.40 E' Laterial: 10.70 E/E' Lat: 7.60 Right Ventricle TAPSE (mm): 30.90 TVS' Nael: 16.00 Tricuspid Valve TR Pk Nael: 2.90 TR Pk Grad: 34.00 RA Press: 3.00 RVSP: 37.00 Great Vessels Aorta Sinus of Valsalva: 3.30 2.0-3.5 cm Ao Asc: 3.40 2.1-3.4 cm Pulmonary Valve PV Pk Nael: 0.87 Peak PV Grad: 3.00 Updated in Other Vendor System with Status of Final Yg Vasquez MD electronically signed on 07/08/2024 11:48:51 AM with status of Final
== END ==
LOC: HO.CARD 09:09
PROVIDERS: PCP Nurse Practitioner Primary Care; Visit Provider Hospitalist
DX: I26.99 Other pulmonary embolism without acute cor pulmonale (principal)
CPT/HCPCS: 93306

== ENCOUNTER → 2024-07-07 09:12 | Outpatient (BNV) | payer MEDICAID, SELFPAY | PROVIDERS: PCP Nurse Practitioner Primary Care; Visit Provider Internal Medicine | DX: I36.1 Nonrheumatic tricuspid (valve) insufficiency (principal); I27.20 Pulmonary hypertension, unspecified; I26.99 Other pulmonary embolism without acute cor pulmonale | CPT/HCPCS: 93306 ==

== ENCOUNTER 2024-09-04 14:12 | Outpatient (AMB) | payer MEDICAID, SELFPAY ==
[2024-09-04 14:31] VITALS: BP 112/64; PULSE 70; O2SAT 90
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
== END 2024-09-04 14:57 | disposition home or self-care (01) ==
PROVIDERS: PCP Nurse Practitioner Primary Care; Visit Provider Hospitalist
DX: J45.51 Severe persistent asthma with (acute) exacerbation (principal); J40 Bronchitis, not specified as acute or chronic; G47.33 Obstructive sleep apnea (adult) (pediatric); F19.20 Other psychoactive substance dependence, uncomplicated; I26.99 Other pulmonary embolism without acute cor pulmonale; J44.9 Chronic obstructive pulmonary disease, unspecified; A49.01 Methicillin susceptible Staphylococcus aureus infection, unspecified site; G47.34 Idiopathic sleep related nonobstructive alveolar hypoventilation; J01.00 Acute maxillary sinusitis, unspecified
CPT/HCPCS: 99214

== ENCOUNTER 2024-09-04 14:12 | Outpatient (REF) | payer MEDICAID, SELFPAY ==
[2024-09-04 15:19] LABS: MANUAL DIFF FLAG NO
[2024-09-04 15:33] LABS: Basophils Absolute Auto 0.1 X10*3/uL (0.0-0.2); Basophils Percent Auto 0.8 % (0-2); Eosinophils Absolute Auto 0.4 X10*3/uL (0.0-0.4); Eosinophils Percent Auto 5.8 % (0-4); Hematocrit 37.8 % (42.0-52.0); Hemoglobin 12.3 g/dl (14.0-18.0); Imm Gran Abs Auto 0.03 X10*3/uL (0.00-0.03); Imm Gran Pct Auto 0.4 % (0.0-0.4); Lymphocytes Absolute Auto 2.5 X10*3/uL (1.2-4.9); Lymphocytes Percent Auto 33.3 % (20-40); Mean Corpuscular HGB Conc 32.5 g/dl (31.0-36.0); Mean Corpuscular Volume 83.1 fL (80.0-98.0); Mean Platelet Volume 9.8 fL (9.4-12.4); Monocytes Absolute Auto 0.9 X10*3/uL (0.1-1.2); Monocytes Percent Auto 12.5 % (2-11); Neutrophils Absolute Auto 3.6 x10*3/uL (2.0-8.3); Neutrophils Percent Auto 47.2 % (45-73); Platelet Count 223 X10*3/uL (160-400); Red Blood Count 4.55 X10*6/uL (4.60-5.80); Red Cell Distribution Width 14.6 % (11.0-16.0); White Blood Count 7.5 X10*3/uL (4.8-10.8)
[2024-09-04 15:54] LABS: Anion Gap 14 (12-20); Blood Urea Nitrogen 13 mg/dL (9-16); Calcium 9.2 mg/dL (8.4-10.2); Carbon Dioxide 27 mmol/L (22-29); Chloride 103 mmol/L (96-108); Estimated Glomerular Filt Rate > 60; Glucose Random 127 mg/dL (60-115); Potassium 3.7 mmol/L (3.3-5.1); Sodium 140 mmol/L (135-145)
[2024-09-04 16:16] LABS: Cortisol Random 1.5 ug/dL
[2024-09-05 19:22] LABS: Immunoglobulin E 17 kU/L (<OR=114)
[2024-09-09 08:29] LABS: IgA 199 mg/dL (70-320); IgG 1331 mg/dL (600-1540); IgM 213 mg/dL (50-300)
== END 2024-09-04 14:13 | disposition home or self-care (01) ==
LOC: HO.LAB 14:12
PROVIDERS: PCP Nurse Practitioner Primary Care; Visit Provider Hospitalist
DX: G47.33 Obstructive sleep apnea (adult) (pediatric) (principal); J40 Bronchitis, not specified as acute or chronic; J45.51 Severe persistent asthma with (acute) exacerbation; F19.20 Other psychoactive substance dependence, uncomplicated; I26.99 Other pulmonary embolism without acute cor pulmonale; J44.9 Chronic obstructive pulmonary disease, unspecified; A49.01 Methicillin susceptible Staphylococcus aureus infection, unspecified site; G47.34 Idiopathic sleep related nonobstructive alveolar hypoventilation; J01.00 Acute maxillary sinusitis, unspecified
CPT/HCPCS: 36415; 80048; 82533; 82784; 82785; 85025; 99212

== ENCOUNTER 2024-11-03 13:51 | Outpatient (AMB) | payer MEDICAID, SELFPAY ==
--- OUTSIDE RECORDS SUMMARY | 2024-11-03 13:54 | XMS_ITS | Encounter Summary ---
Author Organization [employer] Address [address] [place] [address] [address] [place] [address] Care Team Providers Care Body Hanger Name Role Phone Katia Hill Primary Care Provider [phone] Reason for Visit * Reason Comments Med Refill Encounter Details Date Type Department Care Team (Late st Contact Info) Description 11/02/2024 Refill [facility] [address] [place] [address] Katia Hill ANP [address] [place] [address] Benign essential HTN Social History Tobacco Use Types Packs/Day Years Used Date Smoking Tobacco: Former Cigarettes Passive Smoke Exposure: Past Smokeless Tobacco: Former Alcohol Use Standard Drinks/Week Comments Never 0 (1 standard drink = 0.6 oz pur e alcohol) Depression Answer Date Recorded Patient Health Questionnaire-9 Score 12 05/16/2024 Patient Health Questionnaire-9 Score 12 05/16/2024 Last PHQ-9: Questionnaire Data Not on file 0 05/16/2024 Housing Stability Answer Date Recorded What is your housing situati on today? I have housing today, but I am worried about losing housing in the future 05/16/[address] you li ve. Do you have problems with any of the following? No or not working smoke detectors 05/16/2024 Food Insecurity Answer Date Recorded Within the past 12 months, y ou worried that your food would run out before you got money to buy more: Often true 05/16/2024 Within the past 12 months,th e food you bought just didn't last and you didn't have enough money to get more: Often true Transportation Answer Date Recorded In the past 12 months, has l ack of transportation kept you from medical appts, meetings, work or from getting things needed for daily living? Yes, it has kept me from medical appointments or getting medications. 05/16/2024 Utilities Answer Date Recorded In the past 12 months, has t he electric, gas, oil or water company threatened to shut off services in your home? I am not sure 05/16/2024 Depression Answer Date Recorded Patient Health Questionnaire-2 Score 2 05/16/2024 Internet Access Answer Date Recorded Internet Access Q1 Yes 05/22/2024 Internet Access Q2 Not on file 05/22/2024 Sex and Gender Information Value Date Recorded Sex Assigned at Male 07/20/2022 10:14 AM EDT Legal Sex Male 10:14 AM EDT Gender Identity Male 07/20/2022 10:14 AM EDT Sexual Orientation Straight 07/20/2022 10 :14 AM EDT documented as of this encounter Plan of Treatment Not on file documented as of this encounter Goals Goal Patient Goal Type Associated Problems Recent Progress Patient-Stated? Author Hemoglobin A1c < 7 Result Component 6.3(09/07/2022 9:54 AM EST) No Keerthi Garcia, PharmD documented as of this encounter Visit Diagnoses Diagnosis Benign essential HTN documented in this encounter Additional Health Concerns Assessment Noted Time PHQ-9 Depression Total Score: 12 024 12:16 PM EDT documented as of this encounter Care Teams Body Hanger Relationship Specialty Start Date End Date Katia Hill ANP [address] [place] [id number] PCP - General Family Medicine 05/16/22 documented as of this encounter
--- OUTSIDE RECORDS SUMMARY | 2024-11-03 13:54 | XMS_ITS | Encounter Summary ---
Author Organization [employer] Address [address] [place] [address] [address] [place] [address] Care Team Providers Care Sap Pp Consultant Name Role Phone Katia Hill Primary Care Provider [phone] Reason for Visit * Reason Comments Med Refill Encounter Details Date Type Department Care Team ([facility] st Contact Info) Description 10/11/2024 Refill [facility] [address] [place] [address] Katia Hill ANP [address] [place] [address] Gastroesophageal reflux disease without esophagitis; Mixed hyperlipidemia Social History Tobacco Use Types Packs/Day Years [...] as of this encounter Visit Diagnoses Diagnosis Gastroesophageal reflux disease without esophagitis Esophageal reflux Mixed hyperlipidemia documented in this encounter Additional Health Concerns Assessment Noted Time PHQ-9 Depression Total Score: 12 024 12:16 PM EDT documented as of this encounter Care Teams Sap Pp Consultant Relationship Specialty Start Date End Date Katia Hill ANP [address] [place] [id number] PCP - General Family Medicine 05/16/22 documented as of this encounter
--- OUTSIDE RECORDS SUMMARY | 2024-11-03 13:54 | XMS_ITS | Encounter Summary ---
Author Organization [employer] Address [address] [facility] [address] [place] [address] Care Team Providers Care Website/Blog Editor Name Role Phone Katia Hill Primary Care Provider [phone] Reason for Visit * Reason Onset Date Comments Referral 03/05/2023 Encounter Details Date Type Department Care Team ([facility] st Contact Info) Description 03/05/2023 Telephone [facility] MED[facility]INE [address] [place] [address] Katia Hill ANP [address] [place] [address] Referral Social History Tobacco Use Types Packs/Day Years [...] AM EDT documented as of this encounter Miscellaneous Notes * Telephone Encounter - Codi Young RN - 03/09/2023 9:29 AM EDT Pt stated he needs a referral to to surgery or GI ads he has a lump that keeps growing and is slightly painful. Pt stated he cannot work out because of it. Pt verbalized understanding and denied having any further questions or concerns at this time.\ * Telephone Encounter - Nancy Reza - 03/05/2023 3:47 PM EDT Tc from pt requesting a referral for [facility], [address] [place] [address], ([place]), [id number] Please contact at [phone] Maced[place] documented in this encounter Plan of Treatment Not on file documented as of this encounter Goals Goal Patient Goal Type Associated Problems Recent Progress Patient-Stated? Author Hemoglobin A1c < 7 Result Component 6.3(09/07/2022 9:54 AM EST) No Keerthi Garcia, PharmD documented as of this encounter Visit Diagnoses Not on filedocumented in this encounter Care Teams Website/Blog Editor Relationship Specialty Start Date End Date Katia Hill ANP [address] [place] [address] PCP - General Family Medicine 05/16/22 documented as of this encounter
--- OUTSIDE RECORDS SUMMARY | 2024-11-03 13:54 | XMS_ITS | Encounter Summary ---
Author Organization [email or web address] Address [address] [facility] [address] [place] [address] Care Team Providers Care Solid Plasterer Name Role Phone Katia Hill Primary Care Provider [phone] Encounter Details Date Type Department Care Team ([facility] st Contact Info) Description 12/24/2023 Telephone [facility] [address] [place] [address] Katia Hill ANP [address] [place] [address] Social History Tobacco Use Types Packs/Day Years Used Date Smoking Tobacco: Former Cigarettes Passive Smoke Exposure: Past Smokeless Tobacco: Former Alcohol Use Standard Drinks/Week Comments Never 0 (1 standard drink = 0.6 oz pur e alcohol) Housing Stability Answer Date Recorded What is your housing situation today? I have r[place] pride 07/19/[address] you li ve. Do you have problems with any of the following? None of the above 07/19/2023 Food Insecurity Answer Date Recorded Within the past 12 months, y ou worried that your food would run out before you got money to buy more: Never True 07/19/2023 Within the past 12 months,th e food you bought just didn't last and you didn't have enough money to get more: Never True Transportation Answer Date Recorded In the past 12 months, has l ack of transportation kept you from medical appts, meetings, work or from getting things needed for daily living? No 07/19/2023 Utilities Answer Date Recorded In the past 12 months, has t he electric, gas, oil or water company threatened to shut off services in your home? No 07/19/2023 Depression Answer Date Recorded Patient Health Questionnaire-2 Score 0 01/13/2023 Sex and Gender Information Value Date Recorded [...] on filedocumented in this encounter Care Teams Solid Plasterer Relationship Specialty Start Date End Date Katia Hill ANP [address] [place] [id number] PCP - General Family Medicine 05/16/22 documented as of this encounter
--- OUTSIDE RECORDS SUMMARY | 2024-11-03 13:54 | XMS_ITS | Encounter Summary ---
Author Organization [employer] [facility] Address [address] [place] [address] [address] [place] [address] Care Team Providers Care Student Name Role Phone Katia Hill Primary Care Provider [phone] Encounter Details Date Type Department Care Team (Latest Contact Info) Description 10/16/2020 Abstract [facility] CONVERSIONS Dental, Provider, DDS Social History Tobacco Use Types Packs/Day Years Used Date Smoking Tobacco: Never Assessed Sex and Gender Information Value Date Recorded Sex Assigned at Male 07/20/2022 10:14 AM EDT Legal Sex Male 10:14 AM EDT Gender Identity Male 07/20/2022 10:14 AM EDT Sexual Orientation Straight 07/20/2022 10 :14 AM EDT documented as of this encounter Plan of Treatment Not on file documented as of this encounter Visit Diagnoses Not on filedocumented in this encounter Care Teams Student Relationship Specialty Start Date End Date Katia Hill ANP [address] [place] [id number] PCP - General Family Medicine 05/16/22 documented as of this encounter
--- OUTSIDE RECORDS SUMMARY | 2024-11-03 13:54 | XMS_ITS | Encounter Summary ---
Author Organization [employer] [facility] Address [address] [place] [address] [address] [place] [address] Care Team Providers Care Hand Expansion Envelope Maker Name Role Phone Katia Hill Primary Care Provider [phone] Encounter Details Date Type Department Care Team (Latest Contact Info) Description 04/29/2022 Abstract [facility] CONVERSIONS Dental, Provider, DDS Social History Tobacco [...] on filedocumented in this encounter Care Teams Hand Expansion Envelope Maker Relationship Specialty Start Date End Date Katia Hill ANP [address] [place] [id number] PCP - General Family Medicine 05/16/22 documented as of this encounter
--- OUTSIDE RECORDS SUMMARY | 2024-11-03 13:54 | XMS_ITS | Encounter Summary ---
Author Organization [employer] Address [address] [facility] 7t [place] [address] Care Team Providers Care Cable Tool Operator Name Role Phone Katia Hill JAIME Primary Care Provider [phone] Reason for Visit * Reason Comments Med Refill Encounter Details Date Type Department Care Team (Late st Contact Info) Description 03/28/2024 Refill [facility] [address] [place] [address] Maria Teresa Wright MD [address] [place] [address] Pain and swelling of right lower leg Social History Tobacco Use Types Packs/Day Years Used Date Smoking Tobacco: Former Cigarettes Passive Smoke Exposure: Past Smokeless Tobacco: Former Alcohol Use Standard Drinks/Week Comments Never 0 (1 standard drink = 0.6 oz pur e alcohol) Housing Stability Answer Date Recorded What is your housing situation today? I have russ pride 07/19/[address] you [...] as of this encounter Visit Diagnoses Diagnosis Pain and swelling of right lower leg documented in this encounter Care Teams Cable Tool Operator Relationship Specialty Start Date End Date Katia Hill ANP [address] [place] [phone] PCP - General Family Medicine 05/16/22 documented as of this encounter
--- OUTSIDE RECORDS SUMMARY | 2024-11-03 13:54 | XMS_ITS | Clinical Summary ---
Author Organization [employer] Address [address] [place] [address] [address] [place] [address] Care Team Providers Care Cloth Measurer Name Role Phone Katia Hill JAIME Primary Care Provider Allergies Active Allergy Reactions Criticality Noted Date Comments Barium Sulfate 10/30/2020 Other reaction(s): Hives / Skin Rash Ibuprofen 03/08/2018 Medications Symbicort 160-4.5 MCG/ACT inhaler INHALE 2 PUFFS BY MOUTH TWICE DAILY RINSE MOUTH AFTER USING. 10/07/19 23 Active cetirizine (ZyrTEC) 10 MG tablet TAKE 1 TABLET BY MOUTH EVERY MORNING 09/09/20 22 Active doxycycline (Vibramycin) 100 MG capsule take 1 capsule by oral route once daily (chronic, per pulm) Active methadone (Dolophine) 10 MG/ML solution 75 mg daily Act solomon montelukast (Singulair) 10 MG tablet TAKE 1 TABLET BY MOUTH AT BEDTIME 09/09/20 22 Active predniSONE (Deltasone) 10 MG tablet TAKE 1 TABLET BY MOUTH EVERY DAY 10/06/19 23 Active QUEtiapine (SEROquel) 400 MG tablet TAKE 1 TABLET BY MOUTH AT BEDTIME 10/07/19 23 Active risperiDONE (RisperDAL) 2 MG tablet TAKE 1/2 TABLET BY MOUTH EVERY MORNING and TAKE 1 TABLET BY MOUTH AT BEDTIME 10/09/19 23 Active sertraline (Zoloft) 100 MG tablet TAKE 1 TABLET BY MOUTH EVERY MORNING 10/07/19 23 Active sodium chloride 3 % nebulizer solution INHALE 4 ML VIA NEBULIZER TWICE DAILY 01/13/20 22 Active traZODone (Desyrel) 100 MG tablet TAKE 1 TABLET BY MOUTH AT BEDTIME 10/07/19 23 Active albuterol (2.5 MG/3ML) 0.083% nebulizer solution Take by nebulization . INHALE 1 AMPULE EVERY 4 HOURS as NEEDED FOR SHORTNESS OF BREATH OR WHEEZING Active fluticasone (Flonase) 50 MCG/ACT nasal spray Use 1 spray each nostril daily. Shake gently. Before first use, prime pump. After use, clean tip and replace cap. 48 g 01/05/20 24 Active Multiple Vitamin (Multivitamin) tablet TAKE 1 TABLET BY MOUTH EVERY MORNING WITH FOOD 90 tablet 3 05/17/20 24 Active Misc. Devices (Pulse Oximeter) miscIndications:A cute pulmonary embolism without acute cor pulmonale, unspecified pulmonary embolism type (CMS/HCC) 1 each if needed in the morning and at bedtime (SOB). Go to ED if SpO2 remains < 90% 1 each 05/16/20 24 Active apixaban (Eliquis) 5 MG tabletIndications :Pulmonary Embolism,05/07/24 unprovoked PE at [facility] Take 5 mg by mouth 2 times daily. Active docusate sodium (Colace) 100 MG capsule TAKE 1 CAPSULE BY MOUTH AT BEDTIME NEEDED 90 capsule 1 06/27/20 24 Active gabapentin (Neurontin) 300 MG capsule Take 300 mg by mouth at bedtime. 06/23/20 24 Active modafinil (Provigil) 100 MG tablet Take 100 mg by mouth in the morning. 04/19/20 24 Active metFORMIN (Glucophage) 500 MG tabletIndications :Prediabetes TAKE 1 TABLET BY MOUTH EVERY MORNING WITH FOOD 90 tablet 3 09/14/20 24 Active omeprazole (PriLOSEC) [address] capsuleIndication s:Gastroesophagea l reflux disease without esophagitis TAKE 1 CAPSULE BY MOUTH EVERY MORNING BEFORE BREAKFAST 90 capsule 3 10/11/19 25 Active pravastatin (Pravachol) 10 MG tabletIndications :Mixed hyperlipidemia TAKE 1 TABLET BY MOUTH EVERY EVENING 90 tablet 3 10/11/19 25 Active aspirin (Aspirin Low Dose) 81 MG chewable tabletIndications :Mixed hyperlipidemia TAKE 1 TABLET BY MOUTH EVERY EVENING (CHEW) 90 tablet 3 10/11/19 25 Active amLODIPine (Norvasc) 5 MG tabletIndications :Benign essential HTN TAKE 1 TABLET BY MOUTH EVERY MORNING 90 tablet 3 02/13/20 25 Active aspirin (Aspirin Low Dose) 81 MG chewable tabletIndications :Mixed hyperlipidemia TAKE 1 TABLET BY MOUTH EVERY EVENING (chew) 90 tablet 3 10/22/19 24 025 Discontinued omeprazole (PriLOSEC) [address] capsuleIndication s:Gastroesophagea l reflux disease without esophagitis TAKE 1 CAPSULE BY MOUTH EVERY MORNING BEFORE MEALS 90 capsule 3 10/22/19 24 025 Discontinued pravastatin (Pravachol) 10 MG tabletIndications :Mixed hyperlipidemia TAKE 1 TABLET BY MOUTH EVERY EVENING 90 tablet 3 10/22/19 24 025 Discontinued amLODIPine (Norvasc) 5 MG tabletIndications :Benign essential HTN TAKE 1 TABLET BY MOUTH EVERY MORNING 90 tablet 3 11/22/19 24 025 Discontinued Active Problems Problem Noted Date Diagnosed Date Retained tooth root 04/26/2024 Pain and swelling of right lower leg 03/16/2024 Assessment & Plan (03/16/2024 2:38 PM EDT): I will order duplex to r/o DVT, patient will be contacted with results Possible cellulitis? I will treat with bactrim possible entry due to tinea pedis, I will also treat with clotrimazole cream Tinea pedis of both feet 03/16/2024 Abnormal EKG 07/26/2023 Overview (07/26/2023): Images from the original note were not included. Asthma-chronic obstructive p ulmonary disease overlap syndrome 08/28/2022 Assessment & Plan (09/30/2023 2:36 PM EST): Acute exacerbation, no evidence of pneumonia will treat with tapered steroids. Pt repots he is taking prednisone 10mg at baseline. I will ask nurses to call his pulmonology office to make sure first assistant manager is aware pt is still taking steroids. Reviewed risks of stopping steroids abruptly. Discussed ER precautions. He agrees with the plan. Gastroesophageal reflux disease without esophagi tis 08/28/2022 Former heavy tobacco smoker 08/28/2022 Hepatitis B immune 08/28/2022 Dilated cardiomyopathy 12/21/2021 Pulmonary hypertension 12/21/2021 Prolonged QT interval 11/10/2021 Overview (07/26/2023): On methadone, Risperdal and seroquel Evaluated by [facility] Dr. Michel 11/06/2021 QT interval 457ms at that time Repeat EKG routinely to monitor Ventricular premature beats 11/10/2021 Overview (07/26/2023): Holter via [facility], no complex ectopy, premature beats were minimal Hyperlipidemia 05/02/2021 Hepatic fibrosis 11/22/2019 Prediabetes 02/14/2019 Cirrhosis of liver 02/14/2019 Bipolar disorder 05/30/2018 Neoplasm of liver 12/28/2016 Overview (07/26/2023): CT 01/07/17: likely hemangioma MRI 07/05/17: hemangioma CT 01/31/20: hemangioma Pancreatic neoplasm 12/28/2016 Overview (07/26/2023): CT 01/07/17: likely non-worrisome pancreatic lymph node CT 01/31/20: Stable right lobe of liver hepatic lesions consistent with hemangiomas. Stable intrahepatic and common bile duct dilatation with question of pancreatic head fatty involution or lipomatous lesion as described. Since the biliary dilatation appears to be chronic this is likely a benign lesion as described above. Stable peripancreatic adenopathy. Polysubstance abuse 08/19/2016 Severe recurrent major depre ssion without psychotic features 08/19/2016 Encounters Date Type Department Care Team Description 11/02/2024 Refill [facility] MEDICINE [address] [place] [address] Katia Hill ANP Benign essential HTN 10/11/2024 Refill [facility] MEDICINE [address], [place] [phone] Katia Hill ANP Gastroesophageal reflux disease without esophagitis; Mixed hyperlipidemia 09/14/2024 Telephone [facility] MEDICINE [address] [place] [phone] Eunice Linares, PharmD 09/14/2024 Refill [facility] MED & PEDS [address] [place], [place] [phone] Katia Hill ANP Prediabetes 09/04/2024 Orders Only GENERIC EXTERNAL DATA DEPARTMENT Provider, Generic External Data 08/25/2024 Outside Procedure [facility] OPTOMETRY [address] [place] [address] Stacie Hernandez, OD Presbyopia of both eyes (Primary Dx) 08/24/2024 9:45 AM EST Office Visit [facility] OPTOMETRY [address] [place] [place] [address] Stacie Hernandez, OD Regular astigmatism of both eyes (Primary Dx) 08/24/2024 Travel from Last 3 Months Immunizations Name Administration Dates Next Due Moderna Covid-19 Vaccine 12+ 08/23/2021,01/21/20 21,12/23/2020 Pneumococcal Conjugate PCV 20 05/20/2023 Pneumococcal Polysaccharide PPSV23 08/19/2016 TD (adult), 2 Lf tetanus tox oid, preservative free, adsorbed 03/01/2018 Tdap 08/19/2016 Zoster, Recombinant 11/27/2021,07/16/2021 Family History Medical History Relation Name Comments Heart disease Father myocardial infarction Father Diabetes Mother Heart disease Mother Hypertension Mother Relation Name Status Comments Father Mother Social History Tobacco Use Types Packs/Day Years Used Date Smoking Tobacco: Former Cigarettes Passive Smoke Exposure: Past Smokeless Tobacco: Former Tobacco Cessation:Counseling Given: Not Answered Alcohol Use Standard Drinks/Week Comments Never 0 [...] Orientation Straight 07/20/2022 10 :14 AM EDT Last Filed Vital Signs Vital Sign Reading Time Taken Comments Blood Pressure 103/68 06/30/2024 2:26 PM EDT Pulse 80 06/30/2024 2:26 PM EDT Temperature 36.3 ??C (97.4 ??F) 06/30/2024 2:26 PM ED T Respiratory Rate 16 06/30/2024 2:26 PM EDT Oxygen Saturation 89% 06/30/2024 2:26 PM EDT Inhaled Oxygen Concentration - - Weight 101 kg (222 lb 12.8 oz) 06/30/2024 2:26 P M EDT Height 170.2 cm (5' 7 ) 06/30/2024 2:26 PM EDT Body Mass Index 34.9 06/30/2024 2:26 PM EDT Plan of Treatment Health Maintenance Due Date Last Done Comments CT Colonography 1962 FIT DNA/Cologuard 1962 FIT 1962 FOBT 1962 Sigmoidoscopy 1962 Alcohol/Substance Use Screening 1974 Hepatitis A Vaccines (1 of 2 - Risk 2-dose series) 1981 Colonoscopy 09/04/2022 09/04/2021 Colorectal Cancer Screening 09/04/2022 Dental Oral Exam 10/31/2022 04/29/2022, , 08/25/2019, Additional history exists Dental Prophylaxis 10/31/2022 04/29/2022, 0 10/16/2020, 12/26/2015, Additional history exists Hepatitis B Vaccines (1 of 3 - Risk 3-dose series) 2022 RSV Patients and Patients Aged 60 years or older (1 - Risk 60-74 years 1-dose series) 2022 Dental X-Ray: Bitewings 04/30/2023 04/29/20 22, 10/08/2020, 08/25/2019, Additional history exists Diabetes: Hemoglobin A1C 09/07/2023 022, 06/02/2021, 10/30/2020, Additional history exists Dental X-Ray: Full Mouth 10/09/2023 021, 03/02/2018, 12/25/2015 COVID-19 Vaccine ( season) 2024 08/23/2021, 01/20/2021, 12/23/2020 Influenza Vaccine (#1) 2024 Depression Monitoring (PHQ-9) 11/16/2024 05/16/2024, 05/16/2024 Depression Screening 05/16/2025 05/16/2024, 05/16/20 24 SDOH Screening 05/16/2025 05/16/2024 Tobacco Screening 07/17/2025 07/17/2024 Lipid Panel 09/07/2027 09/07/2022, 05/21, 04/28/2021, Additional history exists DTaP/Tdap/Td Vaccines (3 - Td or Tdap) 03/01/2028 03/01/2018, 08/19/2016 Zoster Vaccines Completed 11/27/2021, 07/16/2021 HIV Screening Completed 07/01/2022, 02/19, 06/02/2021, Additional history exists Pneumococcal Vaccine: 50+ Years Completed 05/20/2023, 08/19/2016 HIB Vaccines Aged Out No longer eligi ble based on patient's age to complete this topic HPV Vaccines Aged Out No longer eligi ble based on patient's age to complete this topic IPV Vaccines Aged Out No longer eligi ble based on patient's age to complete this topic Meningococcal Vaccine Aged Out No florentin padmini eligible based on patient's age to complete this topic RSV under 20 months Aged Out No longe r eligible based on patient's age to complete this topic Rotavirus Vaccines Aged Out No longer eligible based on patient's age to complete this topic Goals Goal Patient Goal Type Associated Problems Recent Progress Patient-Stated? Author Hemoglobin A1c < 7 Result Component 6.3(09/07/2022 9:54 AM EST) No MgsKeerthi Franco, Ivelisse Procedures Procedure Name Priority Date/Time Associated Diagnosis Comments IMMUNOGLOBULINS, QUANTITATIVE, IGA, IGG, IGM Routine 09/04/2024 3:16 PM EST IMMUNOGLOBULIN E Routine 09/04/2024 3:16 PM EST CORTISOL RANDOM Routine 09/04/2024 3:16 PM EST BASIC METABOLIC PANEL Routine 09/04/2024 3:16 PM EST CBC WITH AUTO DIFFERENTIAL Routine 09/04/2024 3:16 PM EST HEMOGLOBIN A1C Routine 09/07/2022 9:54 AM EST LIPID PANEL, STANDARD Routine 09/07/2022 9:54 AM EST [facility] HISTORICAL HEPATITIS B SURFACE ANTIGEN* Routine 07/01/2022 1:44 PM EDT PROPHYLAXIS - ADULT Routine 04/29/2022 1 2:00 AM EDT BITEWINGS - 3 RADIOGRAPHIC IMAGES Routine 04/29/2022 12:00 AM EDT PERIODIC ORAL EVALUATION - ESTABLISHED PATIENT Routine 04/29/2022 12:00 AM EDT HM COLONOSCOPY Routine 09/04/2021 INTRAORAL - COMPLETE SERIES OF RADIOGRAPHIC IMAGES Routine 10/08/2020 12:00 AM EST from Last 3 Months or Most Recently Relevant to Health Maintenance Results * Cortisol Random (09/04/2024 3:16 PM EST) Cortisol Random 1.5 ug/dL [facility] Comment:Reference Range*: Be fore 10 am 6.2-19.4 ug/dL After 5 pm 2.3-11.9 ug/dL*Please interpret above results accordingly.This test was performed using the [employer] chemiluminescentmethod. Values obtained from different assay methods cannotbe used interchangeably.Patients receiving fludrocortisone, prednisolone orprednisone may show artificially elevated cortisol valuesdue to cross-reactivity. 09/04/2024 3:16 PM EST 09/04/2024 3:16 PM EST us Generic External Data Provider LAB BLOOD ORDERAB LES Final Result [facility] [address] [place] [address] [phone] * (ABNORMAL) CBC auto differential (09/04/2024 3:16 PM EST) White Blood Count 7.5 4.8 - 10.8 X10*3/uL [facility] Red Blood Count 4.55(L) 4.60 - 5.80 X10*6/uL [facility] Hemoglobin 12.3(L) 14.0 - 18.0 g/dl [facility] Hematocrit 37.8(L) 42.0 - 52.0 % [facility] Mean Corpuscular Volume 83.1 80.0 - 98.0 fL [facility] Mean Corpuscular Hemoglobin 27.0 27.0 - 33.0 pg [facility] Mean Corpuscular HGB Conc 32.5 31.0 - 36.0 g/dl [facility] Red Cell Distribution Width 14.6 11.0 - 16.0 % [facility] Platelet Count 223 160 - 400 X10*3/uL [facility] Mean Platelet Volume 9.8 9.4 - 12.4 fL [facility] Neutrophils Percent Auto 47.2 45 - 73 % [facility] Imm Gran Pct Auto 0.4 0.0 - 0.4 % [facility] Lymphocytes Percent Auto 33.3 20 - 40 % [facility] Monocytes Percent Auto 12.5(H) 2 - 11 % [facility] Eosinophils Percent Auto 5.8(H) 0 - 4 % [facility] Basophils Percent Auto 0.8 0 - 2 % [facility] NRBC Pct Auto 0.0 0.0 - 0.2 /100WBC [facility] Neutrophils Absolute Auto 3.6 2.0 - 8.3 x10*3/uL [facility] Imm Gran Abs Auto 0.03 0.00 - 0.03 X10*3/uL [facility] Lymphocytes Absolute Auto 2.5 1.2 - 4.9 X10*3/uL [facility] Monocytes Absolute Auto 0.9 0.1 - 1.2 X10*3/uL [facility] Eosinophils Absolute Auto 0.4 0.0 - 0.4 X10*3/uL [facility] Basophils Absolute Auto 0.1 0.0 - 0.2 X10*3/uL [facility] NRBC Abs Auto 0.000 0.0 - 0.012 X10*3/uL [facility] 09/04/2024 3:16 PM EST 09/04/2024 3:16 PM EST us Generic External Data Provider LAB BLOOD ORDERAB LES Final Result [facility] [address] [place] [phone] * Immunoglobulins, Quantitative, IgA, IgG, IgM (09/04/2024 3:16 PM EST) IMMUNOGLOBULIN G 1331 600 - 1540 mg/dL [facility] IMMUNOGLOBULIN A 199 70 - 320 mg/dL [facility] Immunoglobulin M 213 50 - 300 mg/dL [facility] Comment:THIS TEST WAS PERFOR MED AT:[facility] [place] [phone] BRADY MD 09/04/2024 3:16 PM EST 09/04/2024 3:16 PM EST Generic External Data Provider LAB BLOOD ORDERAB LES Final Result Performing Organization Address [facility] de Phone Number [facility] [address] [place] [phone] * Immunoglobulin E (09/04/2024 3:16 PM EST) Immunoglobulin E 17 <QG=554 kU/L [facility] Comment:THIS TEST WAS PERFOR MED AT:[facility] [place] [id number] BRADY MD 09/04/2024 3:16 PM EST 09/04/2024 3:16 PM EST Generic External Data Provider LAB BLOOD ORDERAB LES Final Result Performing Organization Address [facility] Number [facility] [address] [place] [phone] * (ABNORMAL) Basic Metabolic Panel (09/04/2024 3:16 PM EST) [facility] Sodium 140 135 - 145 mmol/L [facility] Potassium 3.7 3.3 - 5.1 mmol/L [facility] Chloride 103 96 - 108 mmol/L [facility] Carbon Dioxide 27 22 - 29 mmol/L [facility] Anion Gap 14 12 - 20 [facility] Urea Nitrogen (BUN) 13 9 - 16 mg/dL [facility] Creatinine, Serum 0.84 0.5 - 1.4 mg/dL [facility] Estimated Glomerular Filt Rate >60 [facility] Comment:Chronic Kidney Disea se: Estimated GFR < 60 mL/min/1.35e1Pkkxss Kidney Disease: Estimated GFR < 15 mL/min/1.73m2 Glucose 127(H) 60 - 115 mg/dL [facility] Calcium 9.2 8.4 - 10.2 mg/dL [facility] 09/04/2024 3:16 PM EST 09/04/2024 3:16 PM EST Generic External Data Provider LAB BLOOD ORDERAB LES Final Result Performing Organization Address [facility] Co de Phone Number [facility] [address] [place] [phone] * Hemoglobin A1c (09/07/2022 9:54 AM EST) Hemoglobin A1c 6.3 % [facility] Comment:Hemoglobin A1C Refer ence Range Adults: 4.8 - 6.0 % Non diabetic: < 6.0 % Goal: < 7.0 %Additional Action Suggested: > 8.0 %Note: Hemoglobin A1c results are invalid for patients with abnormal amounts of HbF. Blood transfusions may impact the HbA1c concentration in the patient sample. Estimated Average Glucose 134 mg/dL [facility] Comment:eAG = Estimated ave rage glucose which is %A1C expressed asaverage glucose, using the formula of the [id number]-[id number] Glucose study (ADAG), Diabetes Care, Vol.31,#8,Apr. 2007 09/07/2022 9:54 AM EST 09/07/2022 9:54 AM EST [facility] External Provider LAB BLO OD ORDERABLES Final Result Performing Organization Address [facility] Co or Phone Number [facility] [address] [place] [phone] * Lipid Panel, Standard (09/07/2022 9:54 AM EST) Triglycerides 94 mg/dL [facility] Comment:Desirable Triglyceri de: less than 150 mg/dLBorderline High Triglyceride 150-199 mg/dLHigh Triglyceride: 200-499 mg/dLVery High Triglyceride: greater than or equal to 5OO mg/dL Cholesterol 148 mg/dL [facility] Comment:Desirable Cholestero l: less than 200 mg/dLBorderline High Cholesterol: 200-239 mg/dLHigh Cholesterol: greater than 239 mg/dL LDL Cholesterol Calculated 80 mg/dl [facility] Comment:Desirable LDL: less than 100 mg/dLNear Optimal/Above Optimal LDL: 110- 129 mg/dLBorderline High LDL: 130-159 mg/dLHigh LDL: 160-189 mg/dLVery High LDL: greater than or equal to 190 mg/dL HDL Cholesterol 50 mg/dL [facility] Comment:Desirable HDL: great er than 40 mg/dL Note: This HDL assay may give artificially low results in patients with liver disease. 09/07/2022 9:54 AM EST 09/07/2022 9:54 AM EST [facility] External Provider LAB BLO OD ORDERABLES Final Result Performing Organization Address City/[facility]/ZIP Co de Phone Number [facility] [address] [place] [phone] * HEPATITIS B SURFACE ANTIGEN* (07/01/2022 1:44 PM EDT) Hepatitis B Surface Antigen Negative Negative CONVERT[facility] [employer] HIV AB/AG Nonreactive Nonreactive [facility] Comment: HIV-1 p24 Ag and/or HIV-1/HIV-2 Ab not detected. ?? A test result that is nonreactive does not exclude the possibility of exposure to or infection with HIV-1 and/or HIV-2. Nonreactive results in this assay for individuals with prior exposure to HIV-1 and/or HIV-2 may be due to antigen and antibody levels that are below the limit of detection of this assay. ?? The [employer] HIV Ag/Ab Combo assay result and supplemental assay results should be interpreted in conjunction with the patient's clinical presentation, history and other laboratory results. ??If the results are inconsistent with clinical evidence, additional testing is suggested to confirm the result. 07/01/2022 1:44 PM EDT Judy Meredith HISTORICAL/NON ORDERABLE LABS Final Result [facility] * Hm Colonoscopy (09/04/2021) Colonoscopy Normal Normal Narrative Ange Berman - 09/04/2021 Repeat in 1 year due to stool us Historical Provider HEALTH MAINTENANCE Final Result from Last 3 Months or Most Recently Relevant to Health Maintenance Insurance [place] [facility] MEDICAID STAND ADULT Care Teams Cloth Measurer Relationship Specialty Start Date End Date Katia Hill ANP [address] [place] [address] PCP - General Family Medicine 05/16/22
--- OUTSIDE RECORDS SUMMARY | 2024-11-03 13:54 | XMS_ITS | Encounter Summary ---
Author Organization [employer] Address [address] [place] [address] [address] [place] [address] Care Team Providers Care Sales Representative Consultant Name Role Phone Maria Esther De Leon JAIME Primary Care Provider [phone] Encounter Details Date Type Department Care Team ([facility] st Contact Info) Description 09/30/2022 Orders Only [facility] MEDICINE [address] [place] [address] Becca Clemente LPN Social History Tobacco Use Types Packs/Day Years Used Date Smoking Tobacco: Former Cigarettes Passive Smoke Exposure: Past Smokeless Tobacco: Former Alcohol Use Standard Drinks/Week Comments Never 0 (1 standard drink = 0.6 oz pur e alcohol) Sex and Gender Information Value Date Recorded Sex Assigned at Male 07/20/2022 10:14 AM EDT Legal Sex Male 10:14 AM EDT Gender Identity Male 07/20/2022 10:14 AM EDT Sexual Orientation Straight 07/20/2022 10 :14 AM EDT documented as of this encounter Plan of Treatment Not on file documented as of this encounter Procedures Procedure Name Priority Date/Time Associated Diagnosis Comments CT ABDOMEN PELVIS WO CONTRAST Routine 10/22/2022 10:10 AM EST documented in this encounter Results * CT Abdomen Pelvis w/o Contrast (10/22/2022 10:10 AM EST) Anatomical Region Laterality Modality Body, Pelvis, Abdomen Computed T omography 10/22/2022 10:1 0 AM EST Narrative 10/26/2022 1:01 PM EST ? [facility] ?[address] ?[place] [address] ? CT Scan Report ? Signed ? Patient: Galo,Josue L ?MR#: [id number] ?? 82 ? : 1960 ?Acct:[id number] ? Age/Sex: 61 / M ?ADM Date: 10/22/22 ? Loc: HO.CT ? Attending Dr: Vincent Ocasio MD ? Ordering Physician: Vincent Ocasio MD ?? Date of Service: 10/22/22 ?? Procedure(s): CT abdomen pelvis wo IV con ?? Accession Number(s): [id number] ? cc: Vincent Ocasio MD; MARIA ESTHER DE LEON NP ? EXAMINATION: ?? CT ABDOMEN AND PELVIS WITHOUT CONTRAST ? CLINICAL INFORMATION: ?? Ventral hernia ? COMPARISON: ?? CT abdomen 01/31/2020 ? TECHNIQUE: ?? Multidetector volumetric imaging was performed from the superior aspect ?? of the liver through the pubic symphysis. Sagittal and coronal ?? reformatted images were obtained on the technologist's workstation. ? This CT examination was performed using dose optimization techniques as ?? appropriate, variously including the following: ?? *Automated exposure control ?? *Adjustment of mA and/or kV according to patient size (this includes ?? techniques or standardized protocols for targeted exams where dose is ?? matched to indication/reason for exam; i.e. extremities or head) ?? *Use of iterative reconstruction technique ? DLP: ?? 632 mGy-cm ? FINDINGS: ?? LUNG BASES: The visualized lung bases are unremarkable. ? LIVER, GALLBLADDER, AND BILIARY TREE: Lobulated low density mass in the ?? medial aspect of segment 6 of the liver has decreased in size. Prior ?? MRI showed this to be consistent with a hemangioma. No other discrete ?? liver mass is seen on noncontrast imaging. No biliary ductal ?? dilatation. The gallbladder is contracted. ? PANCREAS: No discrete pancreatic mass. No ductal dilatation. ? SPLEEN: Nonenlarged. No mass. ? ADRENAL GLANDS: Unremarkable. ? KIDNEYS AND URETERS: The kidneys are normal in size, shape, and ?? attenuation. No hydronephrosis, hydroureter, or calculi seen. No ?? perinephric stranding. ? BLADDER: Decompressed ? GASTROINTESTINAL TRACT: Small bowel is normal in caliber. There is ?? diverticulosis of the colon. No evidence of diverticulitis. ? ABDOMINAL WALL: No ventral hernia demonstrated. ? LYMPH NODES: No adenopathy. ? VASCULAR: No aortic aneurysm. Retroaortic left renal vein. ? PELVIC VISCERA: The prostate and seminal vesicles are unremarkable. ? OSSEOUS STRUCTURES: Degenerative changes in the spine. ? CT/CT abdomen pelvis wo IV con ?? IMPRESSION: ?? No ventral hernia demonstrated. ? Fleischner guidelines were followed. ? Dictated By: ?Vasile Jurado MD ? Signed By: ?<Electronically signed by Vasile Jurado MD in OV> ?10/26/228 ? DD/ 1010 ? TD/TT: ? Wire Bound Box Machine Helper: CLEMENT ? Procedure Note Kim Mao - 10/26/[address] [place] [id number] [address] Scan Report Signed Patient: Josue Rosenthal LMR#: [id number] 82 : 1960Acct:[id number] Age/Sex: 61 / MADM Date: 10/22/22 Loc: HO.CT Attending Dr: Vincent Ocasio MD Ordering Physician: Vincent Ocasio MD Date of Service: 10/22/22 Procedure(s): CT abdomen pelvis wo IV con Accession Number(s): [id number] cc: Vincent Ocasio MD; MARIA ESTHER DE LEON NP EXAMINATION: CT ABDOMEN AND PELVIS WITHOUT CONTRAST CLINICAL INFORMATION: Ventral hernia COMPARISON: CT abdomen 01/31/2020 TECHNIQUE: Multidetector volumetric imaging was performed from the superior aspect of the liver through the pubic symphysis. Sagittal and coronal reformatted images were obtained on the technologist's workstation. This CT examination was performed using dose optimization techniques as appropriate, variously including the following: *Automated exposure control *Adjustment of mA and/or kV according to patient size (this includes techniques or standardized protocols for targeted exams where dose is matched to indication/reason for exam; i.e. extremities or head) *Use of iterative reconstruction technique DLP: 632 mGy-cm FINDINGS: LUNG BASES: The visualized lung bases are unremarkable. LIVER, GALLBLADDER, AND BILIARY TREE: Lobulated low density mass in the medial aspect of segment 6 of the liver has decreased in size. Prior MRI showed this to be consistent with a hemangioma. No other discrete liver mass is seen on noncontrast imaging. No biliary ductal dilatation. The gallbladder is contracted. PANCREAS: No discrete pancreatic mass. No ductal dilatation. SPLEEN: Nonenlarged. No mass. ADRENAL GLANDS: Unremarkable. KIDNEYS AND URETERS: The kidneys are normal in size, shape, and attenuation. No hydronephrosis, hydroureter, or calculi seen. No perinephric stranding. BLADDER: Decompressed GASTROINTESTINAL TRACT: Small bowel is normal in caliber. There is diverticulosis of the colon. No evidence of diverticulitis. ABDOMINAL WALL: No ventral hernia demonstrated. LYMPH NODES: No adenopathy. VASCULAR: No aortic aneurysm. Retroaortic left renal vein. PELVIC VISCERA: The prostate and seminal vesicles are unremarkable. OSSEOUS STRUCTURES: Degenerative changes in the spine. CT/CT abdomen pelvis wo IV con IMPRESSION: No ventral hernia demonstrated. Fleischner guidelines were followed. Dictated By: Vasile Jurado MD Signed By: <Electronically signed by Vasile Jurado MD in OV> 10/26/22 1258 DD/ 1010 TD/TT: Wire Bound Box Machine Helper: CLEMENT [facility] External Provider IMG CT PROCEDURES Edited Result - Final documented in this encounter Visit Diagnoses Not on filedocumented in this encounter Care Teams Sales Representative Consultant Relationship Specialty Start Date End Date Maria Esther De Leon ANP [address] [place] [id number] PCP - General Family Medicine 05/16/22 documented as of this encounter
[2024-11-03 14:10] VITALS: BP 116/74; PULSE 85; O2SAT 90; BMI 34.2
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
== END 2024-11-03 15:22 | disposition home or self-care (01) ==
PROVIDERS: PCP Nurse Practitioner Primary Care; Visit Provider Hospitalist
DX: J45.51 Severe persistent asthma with (acute) exacerbation (principal); J40 Bronchitis, not specified as acute or chronic; G47.33 Obstructive sleep apnea (adult) (pediatric); F19.20 Other psychoactive substance dependence, uncomplicated; I26.99 Other pulmonary embolism without acute cor pulmonale; J44.9 Chronic obstructive pulmonary disease, unspecified; A49.01 Methicillin susceptible Staphylococcus aureus infection, unspecified site; G47.34 Idiopathic sleep related nonobstructive alveolar hypoventilation
CPT/HCPCS: 99214

== ENCOUNTER 2024-11-03 13:51 | Outpatient (REF) | payer MEDICAID, SELFPAY ==
--- OUTSIDE RECORDS SUMMARY | 2024-11-03 14:38 | XMS_ITS | Encounter Summary ---
Author Organization [facility] Address [address] [place] [address] [address] [place] [address] Care Team Providers Care Bathhouse Keeper Name Role Phone Katia Hill Primary Care Provider [phone] Encounter Details Date Type Department Care Team (Latest Contact Info) Description 10/16/2020 Abstract [facility] CONVERSIONS Dental, Provider, DDS Social History Tobacco [...] on filedocumented in this encounter Care Teams Bathhouse Keeper Relationship Specialty Start Date End Date Katia Hill ANP [address] [place] [id number] PCP - General Family Medicine 05/16/22 documented as of this encounter
--- OUTSIDE RECORDS SUMMARY | 2024-11-03 14:38 | XMS_ITS | Encounter Summary ---
Author Organization [employer] Address [address] [place] [address] [address] [place] [address] Care Team Providers Care Fabricator Special Items Name Role Phone Katia Hill Primary Care Provider Reason for Visit * Reason Comments Med Refill Encounter Details Date Type Department Care Team (Late st Contact Info) Description 11/02/2024 Refill [facility] MEDICINE [address] [place] [address] Katia Hill ANP [address] [place] [address] Benign essential HTN Social History Tobacco Use [...] documented as of this encounter Care Teams Fabricator Special Items Relationship Specialty Start Date End Date Katia Hill ANP [address] [place] [phone] PCP - General Family Medicine 05/16/22 documented as of this encounter
--- OUTSIDE RECORDS SUMMARY | 2024-11-03 14:38 | XMS_ITS | Encounter Summary ---
Author Organization [employer] Address [address] [place] [address] 7t [place] [address] Care Team Providers Care Suction Drum Drier Operator Name Role Phone Maria Esther De Leon JAIME Primary Care Provider [phone] Encounter Details Date Type Department Care Team ([facility] st Contact Info) Description 09/30/2022 Orders Only [facility] MED[facility]INE [address] [place] [address] Becca Clemente LPN Social History Tobacco Use [...] EST Narrative 10/26/2022 1:01 PM EST ? [facility] ?[address] ?[place] [address] ? CT Scan Report ? Signed ? Patient: Galo,Josue L ?MR#: [id number] ?? 82 ? : 1960 ?Acct:[id number] ? Age/Sex: 61 / M ?ADM Date: 10/22/22 ? Loc: HO.CT ? Attending Dr: Vincent Ocasio MD ? Ordering Physician: Vincent Ocasio MD ?? Date of Service: 10/22/22 ?? Procedure(s): CT abdomen pelvis wo IV con ?? Accession Number(s): [id number] ? cc: Vincent Ocasio MD; MARIA ESTHER [...] ?10/26/228 ? DD/ 1010 ? TD/TT: ? Instrumentation Controls Engineer: CLEMENT ? Procedure Note Kim Mao - 10/26/[address] [place] [address] [address] Scan Report Signed Patient: Josue Rosenthal LMR#: [id number] 82 : 1960Acct:[id number] Age/Sex: 61 / MADM Date: 10/22/22 Loc: HO.CT Attending Dr: Vincent Ocasio MD Ordering Physician: Vincent Ocasio MD Date of Service: 10/22/22 Procedure(s): CT abdomen pelvis wo IV con Accession Number(s): [id number] cc: Vincent Ocasio MD; MARIA ESTHER DE [...] in OV> 10/26/22 1258 DD/ 1010 TD/TT: Instrumentation Controls Engineer: CLEMENT [facility] External Provider IMG CT PROCEDURES Edited Result - Final documented in this encounter Visit Diagnoses Not on filedocumented in this encounter Care Teams Suction Drum Drier Operator Relationship Specialty Start Date End Date Maria Esther De Leon ANP [address] [place] [address] PCP - General Family Medicine 05/16/22 documented as of this encounter
--- OUTSIDE RECORDS SUMMARY | 2024-11-03 14:38 | XMS_ITS | Encounter Summary ---
Author Organization [employer] [facility] Address [address] [place] [address] 7t [place] [address] Care Team Providers Care Senior Clinical Research Associate Name Role Phone Katia Hill Primary Care Provider [phone] Encounter Details Date Type Department Care Team (Latest Contact Info) Description 04/29/2022 Abstract [facility] CONVERSIONS Dental, Provider, DDS Social History [...] on filedocumented in this encounter Care Teams Senior Clinical Research Associate Relationship Specialty Start Date End Date Katia Hill ANP [address] [place] [phone] PCP - General Family Medicine 05/16/22 documented as of this encounter
--- OUTSIDE RECORDS SUMMARY | 2024-11-03 14:38 | XMS_ITS | Encounter Summary ---
Author Organization [employer] Address [address] [place] [address] 7t [place] [address] Care Team Providers Care Business And Financial Counsel Name Role Phone Katia Hill Primary Care Provider [phone] Reason for Visit * Reason Comments Med Refill Encounter Details Date Type Department Care Team ([facility] st Contact Info) Description 10/11/2024 Refill [facility] MED[facility]INE [address] [place] [address] Katia Hill ANP 230 [place] [address] Gastroesophageal reflux disease without esophagitis; Mixed hyperlipidemia [...] documented as of this encounter Care Teams Business And Financial Counsel Relationship Specialty Start Date End Date Katia Hill ANP [address] [place] [address] PCP - General Family Medicine 05/16/22 documented as of this encounter
--- OUTSIDE RECORDS SUMMARY | 2024-11-03 14:38 | XMS_ITS | Clinical Summary ---
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 [...] Type Department Care Team Description 11/02/2024 Refill [facility] MEDICINE [address] [place] [address] Katia Hill ANP Benign essential HTN 10/11/2024 Refill [facility]INE [address] [place], [place] [phone] Katia Hill ANP Gastroesophageal reflux disease without esophagitis; Mixed hyperlipidemia 09/14/2024 Telephone [facility]INE [address] [place] [address] Eunice Linares, PharmD 09/14/2024 Refill [facility] [address] [place], [place] [phone] Katia Hill ANP Prediabetes 09/04/2024 Orders Only GENERIC EXTERNAL DATA DEPARTMENT Provider, Generic External Data 08/25/2024 Outside Procedure [facility] [address] [place] [address] Stacie Hernandez, OD Presbyopia of both eyes (Primary Dx) 08/24/2024 9:45 AM EST Office Visit [facility] [address] [facility] [address] Stacie Hernandez, OD Regular astigmatism of both [...] 3:16 PM EST) Cortisol Random 1.5 ug/dL [facility] Comment:Reference Range*: Be fore 10 am 6.2-19.4 ug/dL After 5 pm 2.3-11.9 ug/dL*Please interpret above results accordingly.This test was performed using the PaintZen chemiluminescentmethod. Values obtained from different assay methods cannotbe used interchangeably.Patients receiving fludrocortisone, prednisolone orprednisone may show artificially elevated cortisol valuesdue to cross-reactivity. 09/04/2024 3:16 PM EST 09/04/2024 3:16 PM EST us Generic External Data Provider LAB BLOOD ORDERAB LES Final Result [facility] [address] [place] [address] [phone] * (ABNORMAL) CBC auto differential (09/04/2024 3:16 PM EST) White Blood Count 7.5 4.8 - 10.8 X10*3/uL [facility] Red Blood Count 4.55(L) 4.60 - 5.80 X10*6/uL [facility] Hemoglobin 12.3(L) 14.0 - 18.0 g/dl [facility] Hematocrit 37.8(L) 42.0 - 52.0 % [facility] Mean Corpuscular Volume 83.1 80.0 - 98.0 fL [facility] Mean Corpuscular Hemoglobin 27.0 27.0 - 33.0 pg [facility] Mean Corpuscular HGB Conc 32.5 31.0 - 36.0 g/dl [facility] Red Cell Distribution Width 14.6 11.0 - 16.0 % [facility] Platelet Count 223 160 - 400 X10*3/uL [facility] Mean Platelet Volume 9.8 9.4 - 12.4 fL [facility] Neutrophils Percent Auto 47.2 45 - 73 % [facility] Imm Gran Pct Auto 0.4 0.0 - 0.4 % [facility] Lymphocytes Percent Auto 33.3 20 - 40 % [facility] Monocytes Percent Auto 12.5(H) 2 - 11 % [facility] Eosinophils Percent Auto 5.8(H) 0 - 4 % [facility] Basophils Percent Auto 0.8 0 - 2 % [facility] NRBC Pct Auto 0.0 0.0 - 0.2 /100WBC [facility] Neutrophils Absolute Auto 3.6 2.0 - 8.3 x10*3/uL [facility] Imm Gran Abs Auto 0.03 0.00 - 0.03 X10*3/uL [facility] Lymphocytes Absolute Auto 2.5 1.2 - 4.9 X10*3/uL [facility] Monocytes Absolute Auto 0.9 0.1 - 1.2 X10*3/uL [facility] Eosinophils Absolute Auto 0.4 0.0 - 0.4 X10*3/uL [facility] Basophils Absolute Auto 0.1 0.0 - 0.2 X10*3/uL [facility] NRBC Abs Auto 0.000 0.0 - 0.012 X10*3/uL [facility] 09/04/2024 3:16 PM EST 09/04/2024 3:16 PM EST us Generic External Data Provider LAB BLOOD ORDERAB LES Final Result [facility] [address] [place] [phone] [phone] * Immunoglobulins, Quantitative, IgA, IgG, IgM (09/04/2024 3:16 PM EST) IMMUNOGLOBULIN G 1331 600 - 1540 mg/dL [facility] IMMUNOGLOBULIN A 199 70 - 320 mg/dL [facility] Immunoglobulin M 213 50 - 300 mg/dL [facility] Comment:THIS TEST WAS PERFOR MED AT:[facility] [place] [id number] BRADY MD 09/04/2024 3:16 PM EST 09/04/2024 3:16 PM EST Generic External Data Provider LAB BLOOD ORDERAB LES Final Result Performing Organization Address [facility] de Phone Number [facility] [address] [place] [phone] * Immunoglobulin E (09/04/2024 3:16 PM EST) Immunoglobulin E 17 <FF=956 kU/L [facility] Comment:THIS TEST WAS PERFOR MED AT:[facility] [place] [id number] BRADY MD 09/04/2024 3:16 PM EST 09/04/2024 3:16 PM EST Generic External Data Provider LAB BLOOD ORDERAB LES Final Result Performing Organization Address [facility] [place] Number [facility] [address] [place] [phone] * (ABNORMAL) Basic Metabolic Panel (09/04/2024 3:16 PM EST) [facility] Sodium 140 135 - 145 mmol/L [facility] Potassium 3.7 3.3 - 5.1 mmol/L [facility] Chloride 103 96 - 108 mmol/L [facility] Carbon Dioxide 27 22 - 29 mmol/L [facility] Anion Gap 14 12 - 20 [facility] Urea Nitrogen (BUN) 13 9 - 16 mg/dL [facility] Creatinine, Serum 0.84 0.5 - 1.4 mg/dL [facility] Estimated Glomerular Filt Rate >60 [facility] Comment:Chronic Kidney Disea se: Estimated GFR < 60 mL/min/1.15x3Ltizcf Kidney Disease: Estimated GFR < 15 mL/min/1.73m2 Glucose 127(H) 60 - 115 mg/dL [facility] Calcium 9.2 8.4 - 10.2 mg/dL [facility] 09/04/2024 3:16 PM EST 09/04/2024 3:16 PM EST Generic External Data Provider LAB BLOOD ORDERAB LES Final Result Performing Organization Address [facility] Co de Phone Number [facility] [address] [place] [phone] * Hemoglobin A1c (09/07/2022 9:54 AM EST) Hemoglobin A1c 6.3 % [facility] Comment:Hemoglobin A1C Refer ence Range Adults: 4.8 - 6.0 % Non diabetic: < 6.0 % Goal: < 7.0 %Additional Action Suggested: > 8.0 %Note: Hemoglobin A1c results are invalid for patients with abnormal amounts of HbF. Blood transfusions may impact the HbA1c concentration in the patient sample. Estimated Average Glucose 134 mg/dL [facility] Comment:eAG = Estimated ave rage glucose which is %A1C expressed asaverage glucose, using the formula of the W4O-HztafznIzolysa Glucose study (ADAG), Diabetes Care, Vol.31,#8,Apr. 2007 09/07/2022 9:54 AM EST 09/07/2022 9:54 AM EST [facility] External Provider LAB BLO OD ORDERABLES Final Result Performing Organization Address [facility] Co wy Phone Number [facility] [address] [place] [phone] * Lipid Panel, Standard (09/07/2022 9:54 AM EST) Triglycerides 94 mg/dL [facility] Comment:Desirable Triglyceri de: less than 150 mg/dLBorderline High Triglyceride 150-199 mg/dLHigh Triglyceride: 200-499 mg/dLVery High Triglyceride: greater than or equal to 5OO mg/dL Cholesterol 148 mg/dL [facility] Comment:Desirable Cholestero l: less than 200 mg/dLBorderline High Cholesterol: 200-239 mg/dLHigh Cholesterol: greater than 239 mg/dL LDL Cholesterol Calculated 80 mg/dl [facility] Comment:Desirable LDL: less than 100 mg/dLNear Optimal/Above Optimal LDL: 110- 129 mg/dLBorderline High LDL: 130-159 mg/dLHigh LDL: 160-189 mg/dLVery High LDL: greater than or equal to 190 mg/dL HDL Cholesterol 50 mg/dL [facility] Comment:Desirable HDL: great er than 40 mg/dL Note: This HDL assay may give artificially low results in patients with liver disease. 09/07/2022 9:54 AM EST 09/07/2022 9:54 AM EST [facility] External Provider LAB BLO OD ORDERABLES Final Result Performing Organization Address City/[facility]/ZIP Co de Phone Number [facility] [address] [place] [phone] * HEPATITIS B SURFACE ANTIGEN* (07/01/2022 1:44 PM EDT) Hepatitis B Surface Antigen Negative Negative CONVERT[facility] [employer] HIV AB/AG Nonreactive Nonreactive [facility] Comment: HIV-1 p24 Ag and/or HIV-1/HIV-2 [...] detection of this assay. ?? The Ricks Milling Planer Operator HIV Ag/Ab Combo assay result and supplemental assay results should be interpreted in conjunction with the patient's clinical presentation, history and other laboratory results. ??If the results are inconsistent with clinical evidence, additional testing is suggested to confirm the result. 07/01/2022 1:44 PM EDT Judy Meredith HISTORICAL/NON ORDERABLE LABS Final Result [facility] * Hm Colonoscopy (09/04/2021) Colonoscopy Normal Normal Narrative Ange Berman - 09/04/2021 Repeat in 1 year due to stool us Historical Provider HEALTH MAINTENANCE Final Result from Last 3 Months or Most Recently Relevant to Health Maintenance Insurance [place] [facility] MEDICAID STAND ADULT Care Teams Sanitation Officer Relationship Specialty Start Date End Date Katia Hill ANP [address] [place] [address] PCP - General Family Medicine 05/16/22
--- OUTSIDE RECORDS SUMMARY | 2024-11-03 14:39 | XMS_ITS | Encounter Summary ---
Author Organization [employer] Address [address] [facility] 7t [place] [address] Care Team Providers Care Cab Starter Name Role Phone Katia Hill Primary Care Provider [phone] Reason for Visit * Reason Onset Date Comments Referral 03/05/2023 Encounter Details Date Type Department Care Team ([facility] st Contact Info) Description 03/05/2023 Telephone [facility]IC[facility] [address] [place] [address] Katia Hill ANP [address] [place] [address] Referral Social History Tobacco Use Types Packs/Day [...] Tc from pt requesting a referral for [facility], [address] [place] [address], ([place]), [phone] Please contact at [phone] Amharic documented in this encounter Plan of Treatment Not on file documented as of this encounter Goals Goal Patient Goal Type Associated Problems Recent Progress Patient-Stated? Author Hemoglobin A1c < 7 Result Component 6.3(09/07/2022 9:54 AM EST) No Keerthi Garcia, PharmD documented as of this encounter Visit Diagnoses Not on filedocumented in this encounter Care Teams Cab Starter Relationship Specialty Start Date End Date Katia Hill ANP [address] [place] [address] PCP - General Family Medicine 05/16/22 documented as of this encounter
--- OUTSIDE RECORDS SUMMARY | 2024-11-03 14:39 | XMS_ITS | Encounter Summary ---
Author Organization [employer] Address [address] [facility] 7t [place] [address] Care Team Providers Care Construction Sales Representative Name Role Phone Katia Hill Primary Care Provider [phone] Encounter Details Date Type Department Care Team ([facility] st Contact Info) Description 12/24/2023 Telephone [facility]ICINE [address] [place] [address] Katia Hill ANP 230 [place] [address] Social History Tobacco Use Types Packs/Day Years [...] on filedocumented in this encounter Care Teams Construction Sales Representative Relationship Specialty Start Date End Date Katia Hill ANP [address] [place] [address] PCP - General Family Medicine 05/16/22 documented as of this encounter
--- OUTSIDE RECORDS SUMMARY | 2024-11-03 14:39 | XMS_ITS | Encounter Summary ---
Author Organization [employer] Address [address] [facility] 7t [place] [address] Care Team Providers Care Insulation Applicator Name Role Phone Katia Hill JAIME Primary Care Provider [phone] Reason for Visit * Reason Comments Med Refill Encounter Details Date Type Department Care Team (Late st Contact Info) Description 03/28/2024 Refill [facility] 230 [place] [address] Maria Teresa Wright MD 230 [place] [address] Pain and swelling of right lower leg [...] leg documented in this encounter Care Teams Insulation Applicator Relationship Specialty Start Date End Date Katia Hill ANP [address] [place] [address] PCP - General Family Medicine 05/16/22 documented as of this encounter
== END 2024-11-03 13:52 | disposition home or self-care (01) ==
LOC: HO.LNP 13:51
PROVIDERS: PCP Nurse Practitioner Primary Care; Visit Provider Hospitalist
DX: G47.33 Obstructive sleep apnea (adult) (pediatric) (principal); J40 Bronchitis, not specified as acute or chronic; R91.1 Solitary pulmonary nodule; J45.51 Severe persistent asthma with (acute) exacerbation; F19.20 Other psychoactive substance dependence, uncomplicated; I26.99 Other pulmonary embolism without acute cor pulmonale; J44.9 Chronic obstructive pulmonary disease, unspecified; A49.01 Methicillin susceptible Staphylococcus aureus infection, unspecified site; G47.34 Idiopathic sleep related nonobstructive alveolar hypoventilation
CPT/HCPCS: 87070; 87077; 87186; 87205; 99212

== ENCOUNTER 2024-11-08 15:16 | Outpatient (REF) | payer MEDICAID, SELFPAY ==
--- NOTE | ~2024-11-08 | XR_ITS ---
CLINICAL HISTORY: J01.00 - Acute maxillary sinusitis, unspecified 5 view sinuses Comparison: None Findings: Bones are intact. Paranasal sinuses and mastoids are clear. No radiopaque foreign body. IMPRESSION: 1. No acute findings This document has been electronically signed by: Monique Scott MD on 11/09/2024 14:59:48
--- OUTSIDE RECORDS SUMMARY | 2024-11-08 15:20 | XMS_ITS | Encounter Summary ---
Author Organization [employer] Address [address] [place] [address] 7t [place] [address] Care Team Providers Care Geoscience Professor Name Role Phone Katia Hill Primary Care Provider [phone] Reason for Visit * Reason Comments Med Refill Encounter Details Date Type Department Care Team (Late st Contact Info) Description 11/02/2024 Refill [facility]INE 230 [place] [address] Katia Hill ANP 230 [place] [address] Benign essential HTN Social History Tobacco Use [...] documented as of this encounter Care Teams Geoscience Professor Relationship Specialty Start Date End Date Katia iHll ANP [address] [place] [address] PCP - General Family Medicine 05/16/22 documented as of this encounter
--- OUTSIDE RECORDS SUMMARY | 2024-11-08 15:20 | XMS_ITS | Encounter Summary ---
Author Organization [employer] Address [address] [facility] 7t [place] [address] Care Team Providers Care House Worker Name Role Phone Katia Hill Primary Care Provider [phone] Encounter Details Date Type Department Care Team (Late st Contact Info) Description 11/03/2024 Orders Only GENERIC EXTERNAL DATA DEPARTMENT Provider, Generic External Data Social History Tobacco Use Types Packs/Day Years [...] 6.3(09/07/2022 9:54 AM EST) No Keerthi Garcia, DiliaD documented as of this encounter Procedures Procedure Name Priority Date/Time Associated Diagnosis Comments GRAM STAIN Routine 11/03/2024 2:35 PM EST documented in this encounter Results * Gram stain (11/03/2024 2:35 PM EST) 11/03/2024 2:35 PM EST 11/03/2024 2:38 PM EST Comment:Sputum Narrative [facility] - 11/06/2024 8:08 AM EST Gram stain results: 3+ polys 2+ epithelial cells 3+ Gram-positive cocci 1+ Gram-positive rods Sputum Culture BAP Sputum Culture 4+ mixed upper-resp matt Klebsiella aerogenes Quant Org ID 3+ Klebsiella aerogenes: Ampicillin 16(R) Klebsiella aerogenes: Cefazolin >=32(R) Klebsiella aerogenes: Cefepime <=0.12(S) Klebsiella aerogenes: Ceftriaxone <=0.25(S) Klebsiella aerogenes: Ciprofloxacin 0.12(S) Klebsiella aerogenes: Gentamicin <=1(S) Klebsiella aerogenes: Trimethoprim/Sulfamethoxazole <=20(S) Specimen Source: Sputum us Generic External Data Provider LAB MICROBIOLOGY - GENERAL ORDERABLES Final Result [facility] [address] [place] [phone] documented in this encounter Visit Diagnoses Not on filedocumented in this encounter Additional Health Concerns Assessment Noted Time PHQ-9 Depression Total Score: 12 024 12:16 PM EDT documented as of this encounter Care Teams House Worker Relationship Specialty Start Date End Date Katia Hill ANP 230 [place] [address] PCP - General Family Medicine 05/16/22 documented as of this encounter
--- OUTSIDE RECORDS SUMMARY | 2024-11-08 15:20 | XMS_ITS | Encounter Summary ---
Author Organization [employer] Address [address] [facility] 7t [place] [address] Care Team Providers Care Head Lineman Name Role Phone Katia Hill Primary Care Provider [phone] Encounter Details Date Type Department Care Team ([facility] st Contact Info) Description 12/24/[address] [facility] MEDICINE 230 [place] [address] Katia Hill ANP 230 [place] [address] Social History Tobacco Use Types Packs/Day Years [...] on filedocumented in this encounter Care Teams Head Lineman Relationship Specialty Start Date End Date Katia Hill ANP [address] [place] [address] PCP - General Family Medicine 05/16/22 documented as of this encounter
--- OUTSIDE RECORDS SUMMARY | 2024-11-08 15:20 | XMS_ITS | Encounter Summary ---
Author Organization [employer] Address [address] [facility] 7t [place] [address] Care Team Providers Care Machine Sand Mixer Name Role Phone Katia Hill Primary Care Provider [phone] Reason for Visit * Reason Onset Date Comments Referral 03/05/2023 Encounter Details Date Type Department Care Team ([facility] st Contact Info) Description 03/05/2023 Telephone [facility] 230 [place] [address] Katia Hill ANP 230 [place] [address] Referral Social History Tobacco Use Types Packs/Day [...] Tc from pt requesting a referral for [facility], [address] [place] [address], ([place]), [address] Please contact at [phone] Estonian documented in this encounter Plan of Treatment Not on file documented as of this encounter Goals Goal Patient Goal Type Associated Problems Recent Progress Patient-Stated? Author Hemoglobin A1c < 7 Result Component 6.3(09/07/2022 9:54 AM EST) No Keerthi Garcia, PharmD documented as of this encounter Visit Diagnoses Not on filedocumented in this encounter Care Teams Machine Sand Mixer Relationship Specialty Start Date End Date Katia Hill ANP 230 [place] [address] PCP - General Family Medicine 05/16/22 documented as of this encounter
--- OUTSIDE RECORDS SUMMARY | 2024-11-08 15:20 | XMS_ITS | Encounter Summary ---
Author Organization [employer] Address [address] [place] [address] 7t [place] [address] Care Team Providers Care Boiler Setter Name Role Phone Katia Hill Primary Care Provider [phone] Reason for Visit * Reason Comments Med Refill Encounter Details Date Type Department Care Team ([facility] st Contact Info) Description 10/11/2024 Refill [facility] MEDICINE 230 [place] [address] Katia Hill ANP [address] [place] [address] Gastroesophageal reflux disease without esophagitis; Mixed hyperlipidemia [...] documented as of this encounter Care Teams Boiler Setter Relationship Specialty Start Date End Date Katia Hill ANP [address] [place] [phone] PCP - General Family Medicine 05/16/22 documented as of this encounter
--- OUTSIDE RECORDS SUMMARY | 2024-11-08 15:20 | XMS_ITS | Clinical Summary ---
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 [...] Encounters Date Type Department Care Team Description 11/03/2024 Orders Only GENERIC EXTERNAL DATA DEPARTMENT Provider, Generic External Data 11/02/2024 Refill [facility] MEDICINE [address] [place], [place] [phone] Katia Hill ANP Benign essential HTN 10/11/2024 Refill [facility] MEDICINE [address] [place], [place] [phone] Katia Hill, JAIME Gastroesophageal reflux disease without esophagitis; Mixed hyperlipidemia 09/14/2024 Telephone [facility] MEDICINE [address] [place], [place] [phone] Eunice Linares, PharmD 09/14/2024 Refill [facility] CHC MED & PEDS [address] [place], [place] [phone] Katia Hill ANP Prediabetes 09/04/2024 Orders Only GENERIC EXTERNAL DATA DEPARTMENT Provider, Generic External Data 08/25/2024 Outside Procedure [facility] OPTOMETRY [address] [place] [address] Stacie Hernandez, OD Presbyopia of both eyes (Primary Dx) 08/24/2024 9:45 AM EST Office Visit [facility] OPTOMETRY [address] [place] [address] Stacie Hernandez, OD Regular astigmatism of both [...] 6.3(09/07/2022 9:54 AM EST) No Keerthi Garcia, Ivelisse Procedures Procedure Name Priority Date/Time Associated Diagnosis Comments GRAM STAIN Routine 11/03/2024 2:35 PM EST IMMUNOGLOBULINS, QUANTITATIVE, IGA, IGG, IGM Routine 09/04/2024 3:16 PM EST IMMUNOGLOBULIN E Routine 09/04/2024 3:16 PM EST CORTISOL RANDOM Routine 09/04/2024 3:16 PM EST BASIC METABOLIC PANEL Routine 09/04/2024 3:16 PM EST CBC WITH AUTO DIFFERENTIAL Routine 09/04/2024 3:16 PM EST HEMOGLOBIN A1C Routine 09/07/2022 9:54 AM EST LIPID PANEL, STANDARD Routine 09/07/2022 9:54 AM EST ZZZ HISTORICAL HEPATITIS B SURFACE ANTIGEN* Routine 07/01/2022 [...] Recently Relevant to Health Maintenance Results * Gram stain (11/03/2024 2:35 PM EST) 11/03/2024 2:35 PM EST 11/03/2024 2:38 PM EST Comment:Sputum Narrative [facility] - 11/06/2024 8:08 AM EST [...] Klebsiella aerogenes: Trimethoprim/Sulfamethoxazole <=20(S) Specimen Source: Sputum Scaled Inference External Data Provider LAB MICROBIOLOGY - GENERAL ORDERABLES Final Result Performing Organization Address [facility] de Phone Number [facility] [address] [place] [phone] * Cortisol Random (09/04/2024 3:16 PM EST) Cortisol Random 1.5 ug/dL [facility] Comment:Reference Range*: Be fore 10 am 6.2-19.4 ug/dL After 5 pm 2.3-11.9 ug/dL*Please interpret above results accordingly.This test was performed using the Qoture chemiluminescentmethod. Values obtained from different assay methods cannotbe used interchangeably.Patients receiving fludrocortisone, prednisolone orprednisone may show artificially elevated cortisol valuesdue to cross-reactivity. 09/04/2024 3:16 PM EST 09/04/2024 3:16 PM EST Scaled Inference External Data Provider LAB BLOOD ORDERAB LES Final Result Performing Organization Address [facility] de Phone Number [facility] [address] [place] [phone] * (ABNORMAL) CBC auto differential (09/04/2024 3:16 PM EST) White Blood Count 7.5 4.8 - 10.8 X10*3/uL [facility] Red Blood Count 4.55(L) 4.60 - 5.80 X10*6/uL [facility] Hemoglobin 12.3(L) 14.0 - 18.0 g/dl [facility] Hematocrit 37.8(L) 42.0 - 52.0 % [facility] Mean Corpuscular Volume 83.1 80.0 - 98.0 fL [facility] Mean Corpuscular Hemoglobin 27.0 27.0 - 33.0 pg [facility] Mean Corpuscular HGB Conc 32.5 31.0 - 36.0 g/dl [facility] Red Cell Distribution Width 14.6 11.0 - 16.0 % [facility] Platelet Count 223 160 - 400 X10*3/uL [facility] Mean Platelet Volume 9.8 9.4 - 12.4 fL [facility] Neutrophils Percent Auto 47.2 45 - 73 % [facility] Imm Gran Pct Auto 0.4 0.0 - 0.4 % [facility] Lymphocytes Percent Auto 33.3 20 - 40 % [facility] Monocytes Percent Auto 12.5(H) 2 - 11 % [facility] Eosinophils Percent Auto 5.8(H) 0 - 4 % [facility] Basophils Percent Auto 0.8 0 - 2 % [facility] NRBC Pct Auto 0.0 0.0 - 0.2 /100WBC [facility] Neutrophils Absolute Auto 3.6 2.0 - 8.3 x10*3/uL [facility] Imm Gran Abs Auto 0.03 0.00 - 0.03 X10*3/uL [facility] Lymphocytes Absolute Auto 2.5 1.2 - 4.9 X10*3/uL [facility] Monocytes Absolute Auto 0.9 0.1 - 1.2 X10*3/uL [facility] Eosinophils Absolute Auto 0.4 0.0 - 0.4 X10*3/uL [facility] Basophils Absolute Auto 0.1 0.0 - 0.2 X10*3/uL [facility] NRBC Abs Auto 0.000 0.0 - 0.012 X10*3/uL [facility] 09/04/2024 3:16 PM EST 09/04/2024 3:16 PM EST us Generic External Data Provider LAB BLOOD ORDERAB LES Final Result Performing Organization Address [facility] de Phone Number [facility] [address] [place] [phone] * Immunoglobulins, Quantitative, IgA, IgG, IgM (09/04/2024 3:16 PM EST) IMMUNOGLOBULIN G 1331 600 - 1540 mg/dL [facility] IMMUNOGLOBULIN A 199 70 - 320 mg/dL [facility] Immunoglobulin M 213 50 - 300 mg/dL [facility] Comment:THIS TEST WAS PERFOR MED AT:[id number] [place] [address]JKVYHEVAN BRADY MD 09/04/2024 3:16 PM EST 09/04/2024 3:16 PM EST us Generic External Data Provider LAB BLOOD ORDERAB LES Final Result Performing Organization Address [facility] de Phone Number [facility] [address] [place] [phone] * Immunoglobulin E (09/04/2024 3:16 PM EST) Immunoglobulin E 17 <TJ=741 kU/L [facility] Comment:THIS TEST WAS PERFOR MED AT:[address] [place] [address]XQQBVKAT BRADY MD 09/04/2024 3:16 PM EST 09/04/2024 3:16 PM EST us Generic External Data Provider LAB BLOOD ORDERAB LES Final Result Performing Organization Address [facility] Co de Phone Number [facility] [address] [place] [phone] * (ABNORMAL) Basic Metabolic Panel (09/04/2024 3:16 PM EST) Sodium 140 135 - 145 mmol/L [facility] Potassium 3.7 3.3 - 5.1 mmol/L [facility] Chloride 103 96 - 108 mmol/L [facility] Carbon Dioxide 27 22 - 29 mmol/L [facility] Anion Gap 14 12 - 20 [facility] Urea Nitrogen (BUN) 13 9 - 16 mg/dL [facility] Creatinine, Serum 0.84 0.5 - 1.4 mg/dL [facility] Estimated Glomerular Filt Rate >60 [facility] Comment:Chronic Kidney Disea se: Estimated GFR < 60 mL/min/1.04u6Ryoedl Kidney Disease: Estimated GFR < 15 mL/min/1.73m2 Glucose 127(H) 60 - 115 mg/dL [facility] Calcium 9.2 8.4 - 10.2 mg/dL [facility] 09/04/2024 3:16 PM EST 09/04/2024 3:16 PM EST Generic External Data Provider LAB BLOOD ORDERAB LES Final Result Performing Organization Address [facility] Co de Phone Number [facility] [address] [place] [phone] * Hemoglobin A1c (09/07/2022 9:54 AM EST) Hemoglobin A1c 6.3 % [facility] Comment:Hemoglobin A1C Refer ence Range Adults: 4.8 - 6.0 % Non diabetic: < 6.0 % Goal: < 7.0 %Additional Action Suggested: > 8.0 %Note: Hemoglobin A1c results are invalid for patients with abnormal amounts of HbF. Blood transfusions may impact the HbA1c concentration in the patient sample. Estimated Average Glucose 134 mg/dL [facility] Comment:eAG = Estimated ave rage glucose which is %A1C expressed asaverage glucose, using the formula of the E3K-MapcoekGhjuxmr Glucose study (ADAG), Diabetes Care, Vol.31,#8,Apr. 2007 09/07/2022 9:54 AM EST 09/07/2022 9:54 AM EST [facility] External Provider LAB BLO OD ORDERABLES Final Result Performing Organization Address [facility] Co de Phone Number [facility] [address] [place] [phone] * Lipid Panel, Standard (09/07/2022 9:54 AM EST) Triglycerides 94 mg/dL [facility] Comment:Desirable Triglyceri de: less than 150 mg/dLBorderline High Triglyceride 150-199 mg/dLHigh Triglyceride: 200-499 mg/dLVery High Triglyceride: greater than or equal to 5OO mg/dL Cholesterol 148 mg/dL [facility] Comment:Desirable Cholestero l: less than 200 mg/dLBorderline High Cholesterol: 200-239 mg/dLHigh Cholesterol: greater than 239 mg/dL LDL Cholesterol Calculated 80 mg/dl [facility] Comment:Desirable LDL: less than 100 mg/dLNear Optimal/Above Optimal LDL: 110- 129 mg/dLBorderline High LDL: 130-159 mg/dLHigh LDL: 160-189 mg/dLVery High LDL: greater than or equal to 190 mg/dL HDL Cholesterol 50 mg/dL [facility] Comment:Desirable HDL: great er than 40 mg/dL Note: This HDL assay may give artificially low results in patients with liver disease. 09/07/2022 9:54 AM EST 09/07/2022 9:54 AM EST [facility] External Provider LAB BLO OD ORDERABLES Final Result Performing Organization Address [facility] Co de Phone Number [facility] [address] [place] [phone] * HEPATITIS B SURFACE ANTIGEN* (07/01/2022 1:44 PM EDT) Hepatitis B Surface Antigen Negative Negative [facility] HIV AB/AG Nonreactive Nonreactive [facility] Comment: HIV-1 p24 Ag and/or HIV-1/HIV-2 [...] detection of this assay. ?? The [employer] Director [employer] HIV Ag/Ab Combo assay result and supplemental assay results should be interpreted in conjunction with the patient's clinical presentation, history and other laboratory results. ??If the results are inconsistent with clinical evidence, additional testing is suggested to confirm the result. 07/01/2022 1:44 PM EDT Judy Meredith HISTORICAL/NON ORDERABLE LABS Final Result [facility] * Hm Colonoscopy (09/04/2021) Pathologist [facility] Colonoscopy Normal Normal Narrative Ange Berman - 09/04/2021 Repeat in 1 year due to stool Historical Provider HEALTH MAINTENANCE Final Result from Last 3 Months or Most Recently Relevant to Health Maintenance [facility] STAND ADULT Care Teams Vp Securities Relationship Specialty Start Date End Date Katia Hill ANP [address] [place] [phone] PCP - General Family Medicine 05/16/22
--- OUTSIDE RECORDS SUMMARY | 2024-11-08 15:20 | XMS_ITS | Encounter Summary ---
Author Organization [email or web address] [facility] Address [address] [place] [address] 7t [place] [address] Care Team Providers Care Community Arts Worker Name Role Phone Katia Hill Primary Care Provider [phone] Encounter Details Date Type Department Care Team (Latest Contact Info) Description 04/29/2022 Abstract [facility] CONVERSIONS Dental, Provider, DDS Social History [...] on filedocumented in this encounter Care Teams Community Arts Worker Relationship Specialty Start Date End Date Katia Hill ANP [address] [place] [phone] PCP - General Family Medicine 05/16/22 documented as of this encounter
--- OUTSIDE RECORDS SUMMARY | 2024-11-08 15:20 | XMS_ITS | Encounter Summary ---
Author Organization [employer] Address [address] [place] [address] 7t [place] [address] Care Team Providers Care Balance And Hairspring Assembler Name Role Phone Maria Esther De Leon JAIME Primary Care Provider [phone] Encounter Details Date Type Department Care Team ([facility] st Contact Info) Description 09/30/2022 Orders Only [facility] MEDICINE [address] [place] [address] Becca Clemente LPN Social History Tobacco Use [...] EST Narrative 10/26/2022 1:01 PM EST ? [facility] ?[address] ?[place] [address] ? CT Scan Report ? Signed ? Patient: Galo,Josue L ?MR#: [id number] ?? 82 ? : 1960 ?Acct:[id number] ? Age/Sex: 61 / M ?ADM Date: 10/22/22 ? Loc: HO.CT ? Attending Dr: Vincent Ocasio MD ? Ordering Physician: Vincent Ocasio MD ?? Date of Service: 10/22/22 ?? Procedure(s): CT abdomen pelvis wo IV con ?? Accession Number(s): [id number] ? cc: Vincent Ocasio MD; MARIA ESTHER [...] ?10/26/228 ? DD/ 1010 ? TD/TT: ? Type Soldering Machine Tender: CLEMENT ? Procedure Note Kim Mao - 10/26/[address] [place] [address] [address] Scan Report Signed Patient: Josue Rosenthal LMR#: [id number] 82 : 1960Acct:[id number] Age/Sex: 61 / MADM Date: 10/22/22 Loc: HO.CT Attending Dr: Vincent Ocasio MD Ordering Physician: Vincent Ocasio MD Date of Service: 10/22/22 Procedure(s): CT abdomen pelvis wo IV con Accession Number(s): [id number] cc: Vincent Ocasio MD; MARIA ESTHER DE [...] in OV> 10/26/22 1258 DD/ 1010 TD/TT: Type Soldering Machine Tender: CLEMENT [facility] External Provider IMG CT PROCEDURES Edited Result - Final documented in this encounter Visit Diagnoses Not on filedocumented in this encounter Care Teams Balance And Hairspring Assembler Relationship Specialty Start Date End Date Maria Esther De Leon ANP [address] [place] [address] PCP - General Family Medicine 05/16/22 documented as of this encounter
--- OUTSIDE RECORDS SUMMARY | 2024-11-08 15:20 | XMS_ITS | Encounter Summary ---
Author Organization [employer] [facility] Address [address] [place] [address] 7t [place] [address] Care Team Providers Care Rn Access Name Role Phone Katia Hill Primary Care Provider [phone] Encounter Details Date Type Department Care Team (Latest Contact Info) Description 10/16/2020 Abstract [facility] CONVERSIONS Dental, Provider, DDS Social History Tobacco [...] on filedocumented in this encounter Care Teams Rn Access Relationship Specialty Start Date End Date Katia Hill ANP [address] [place] [address] PCP - General Family Medicine 05/16/22 documented as of this encounter
--- OUTSIDE RECORDS SUMMARY | 2024-11-08 15:21 | XMS_ITS | Encounter Summary ---
Author Organization [employer] Address [address] [facility] 7t [place] [address] Care Team Providers Care Manager Port Name Role Phone Katia Hill JAIME Primary Care Provider [phone] Reason for Visit * Reason Comments Med Refill Encounter Details Date Type Department Care Team (Late st Contact Info) Description 03/28/2024 Refill [facility] [address] [place] [address] Maria Teresa Wright MD [address] [place] [address] Pain and swelling of right lower leg [...] leg documented in this encounter Care Teams Manager Port Relationship Specialty Start Date End Date Katia Hill ANP [address] [place] [phone] PCP - General Family Medicine 05/16/22 documented as of this encounter
== END 2024-11-08 15:17 | disposition home or self-care (01) ==
LOC: HO.XRAY 15:16
PROVIDERS: PCP Nurse Practitioner Primary Care; Visit Provider Hospitalist
DX: J01.00 Acute maxillary sinusitis, unspecified (principal)
CPT/HCPCS: 70220

== ENCOUNTER → 2024-11-08 15:20 | Outpatient (BNV) | payer MEDICAID, SELFPAY | PROVIDERS: PCP Nurse Practitioner Primary Care; Visit Provider Radiology Diagnostic Radiology | DX: J01.00 Acute maxillary sinusitis, unspecified (principal) | CPT/HCPCS: 70220 ==

== ENCOUNTER 2025-01-30 08:54 | Outpatient (REF) | payer MEDICAID, SELFPAY ==
--- OUTSIDE RECORDS SUMMARY | 2025-01-30 09:19 | XMS_ITS | Encounter Summary ---
Author Organization [employer] Address [address] [place] [address] 7[address] [place] [address] Care Team Providers Care Breast Puller Name Role Phone Katia Hill Primary Care Provider [phone] Encounter Details Date Type Department Care Team (Latest Contact Info) Description 10/16/2020 Abstract [facility] CONVERSIONS Dental, Provider, DDS Social History [...] on filedocumented in this encounter Care Teams Breast Puller Relationship Specialty Start Date End Date Katia Hill ANP [address] [place] [address] PCP - General Family Medicine 05/16/22 documented as of this encounter
--- OUTSIDE RECORDS SUMMARY | 2025-01-30 09:19 | XMS_ITS | Encounter Summary ---
Author Organization [employer] Address [address] [facility] 7t [place] [address] Care Team Providers Care Rangelands Conservation Laborer Name Role Phone Katia Hill JAIME Primary Care Provider [phone] Reason for Visit * Reason Comments Med Refill Encounter Details Date Type Department Care Team (Late st Contact Info) Description 03/28/2024 Refill [facility] [address] [place] [address] Maria Teresa Wright MD [address] [place] [address] Pain and swelling of right lower leg [...] leg documented in this encounter Care Teams Rangelands Conservation Laborer Relationship Specialty Start Date End Date Katia Hill ANP [address] [place] [phone] PCP - General Family Medicine 05/16/22 documented as of this encounter
--- OUTSIDE RECORDS SUMMARY | 2025-01-30 09:19 | XMS_ITS | Encounter Summary ---
Author Organization [employer] Address [address] [place] [address] 7t [place] [address] Care Team Providers Care Coffee Farmer Name Role Phone Maria Esther De Leon JAIME Primary Care Provider [phone] Encounter Details Date Type Department Care Team ([facility] st Contact Info) Description 09/30/2022 Orders Only [facility] MEDICINE [address] [place] [address] Becca Clemente LPN Social History Tobacco Use [...] EST Narrative 10/26/2022 1:01 PM EST ? [facility] ?[address] ?[place] [address] ? CT Scan Report ? Signed ? Patient: Galo,Josue L ?MR#: [id number] ?? 82 ? : 1960 ?Acct:[id number] ? Age/Sex: 61 / M ?ADM Date: 10/22/22 ? Loc: HO.CT ? Attending Dr: Vincent Ocasio MD ? Ordering Physician: Vincent Ocasio MD ?? Date of Service: 10/22/22 ?? Procedure(s): CT abdomen pelvis wo IV con ?? Accession Number(s): [id number] ? cc: Vincent Ocasio MD; MARIA ESTHER [...] signed by Vasile Jurado MD in OV> ?10/26/221257 ? DD/ 1010 ? TD/TT: ? Recreational Assistant: CLEMENT ? Procedure Note Kim Mao - 10/26/[address] [place] [address] [address] Scan Report Signed Patient: Josue Rosenthal LMR#: [id number] 82 : 1960Acct:[id number] Age/Sex: 61 / MADM Date: 10/22/22 Loc: HO.CT Attending Dr: Vincent Ocasio MD Ordering Physician: Vincent Ocasio MD Date of Service: 10/22/22 Procedure(s): CT abdomen pelvis wo IV con Accession Number(s): [id number] cc: Vincent Ocasio MD; MARIA ESTHER DE [...] in OV> 10/26/22 1258 DD/ 1010 TD/TT: Recreational Assistant: CLEMENT [facility] External Provider IMG CT PROCEDURES Edited Result - Final documented in this encounter Visit Diagnoses Not on filedocumented in this encounter Care Teams Coffee Farmer Relationship Specialty Start Date End Date Maria Esther De Leon ANP [address] [place] [phone] PCP - General Family Medicine 05/16/22 documented as of this encounter
--- OUTSIDE RECORDS SUMMARY | 2025-01-30 09:19 | XMS_ITS | Encounter Summary ---
Author Organization [employer] Address [address] [facility] 7t [place] [address] Care Team Providers Care Security Public Safety Officer Name Role Phone Katia Hill Primary Care Provider Encounter Details Date Type Department Care Team ([facility] st Contact Info) Description 12/24/2023 Telephone [facility] MEDICINE [address] [place] [address] Katia Hill ANP [address] [place] [address] Social History Tobacco Use Types Packs/Day Years [...] on filedocumented in this encounter Care Teams Security Public Safety Officer Relationship Specialty Start Date End Date Katia Hill ANP [address] [place] [address] PCP - General Family Medicine 05/16/22 documented as of this encounter
--- OUTSIDE RECORDS SUMMARY | 2025-01-30 09:19 | XMS_ITS | Encounter Summary ---
Author Organization [employer] Address [address] [place] [address] 7t [place] [address] Care Team Providers Care Rock Crushing Machine Operator Name Role Phone Katia Hill Primary Care Provider [phone] Encounter Details Date Type Department Care Team (Latest Contact Info) Description 04/29/2022 Abstract [facility] CONVERSIONS Dental, Provider, DDS Social History Tobacco [...] on filedocumented in this encounter Care Teams Rock Crushing Machine Operator Relationship Specialty Start Date End Date Katia Hill ANP [address] [place] [phone] PCP - General Family Medicine 05/16/22 documented as of this encounter
--- OUTSIDE RECORDS SUMMARY | 2025-01-30 09:19 | XMS_ITS | Clinical Summary ---
Author Organization [employer] Address [address] [place] [address] [address] [place] [address] Care Team Providers Care Top And Trim Worker Name Role Phone Maria Esther De Leon JAIME Primary Care Provider [phone] Allergies Active Allergy Reactions Criticality Noted Date Comments Barium Sulfate 10/30/2020 Other reaction(s): Hives / Skin Rash Ibuprofen 03/08/2018 Medications Symbicort 160-4.5 MCG/ACT inhaler INHALE 2 PUFFS BY MOUTH TWICE DAILY RINSE MOUTH AFTER USING. 10/07/19 23 Active cetirizine (ZyrTEC) 10 MG tablet TAKE 1 TABLET BY MOUTH EVERY MORNING 09/09/20 22 Active methadone (Dolophine) 10 MG/ML solution 75 mg daily Act solomon montelukast (Singulair) 10 MG tablet TAKE 1 TABLET BY MOUTH AT BEDTIME 09/09/20 22 Active predniSONE (Deltasone) 10 MG tablet TAKE 1 TABLET BY MOUTH EVERY DAY 10/06/19 23 Active QUEtiapine (SEROquel) 400 MG tablet TAKE 1 TABLET BY MOUTH AT BEDTIME 10/07/19 23 Active risperiDONE (RisperDAL) 2 MG tablet Take 1 tablet by mouth Once daily. At bedtime 10/09/19 23 Active sertraline (Zoloft) 100 MG [...] MG tabletIndications :Pulmonary Embolism,05/07/24 [place]prov[place] [facility] [place] 5 mg by mouth 2 times daily. Active gabapentin (Neurontin) 300 MG capsule Take [...] BY MOUTH EVERY MORNING 90 tablet 3 11/02/19 25 Active docusate sodium (Colace) 100 MG capsule TAKE 1 CAPSULE BY MOUTH AT BEDTIME NEEDED 90 capsule 1 12/08/19 25 Active doxycycline (Vibramycin) 100 MG capsule take 1 capsule by oral route once daily (chronic, per pulm) 2024 Discontinued(M ed list cleanup (will not trigger notification to Pharmacy)) Active Problems Problem Noted Date Diagnosed Date [...] call his pulmonology office to make sure label rewinder is aware pt is still taking steroids. [...] Encounters Date Type Department Care Team Description 12/07/2024 Refill [facility] MED & PEDS [address] [place] [address] Maria Esther De Leon ANP 12/01/2024 Population Health Risk Score [facility] (C[facility]) Department [address] [facility] [place] [address] [place] [phone] Provider, Population Health Generic 11/03/2024 Orders Only GENERIC EXTERNAL DATA DEPARTMENT Provider, Generic External Data 11/02/2024 Refill [facility] MEDICINE [address] [place] [address] Maria Esther De Leon ANP Benign essential HTN from Last 3 Months Immunizations Name Administration [...] Sign Reading Time Taken Comments Blood Pressure 124/62 01/29/2025 9:25 AM EDT Pulse 80 06/30/2024 2:26 PM EDT [...] 01/20/2021, 12/23/2020 Influenza Vaccine (#1) 2024 Depression Screening 05/16/2025 05/16/2024, 05/16/20 24 SDOH [...] Procedure Name Priority Date/Time Associated Diagnosis Comments XR SINUS 3 VIEWS Routine 11/09/2024 2:59 PM EST GRAM STAIN Routine 11/03/2024 2:35 PM EST HEMOGLOBIN A1C Routine 09/07/2022 9:54 [...] Recently Relevant to Health Maintenance Results * XR Sinus 3 Views (11/09/2024 2:59 PM EST) Anatomical Region Laterality Modality Radiographic María Elena ging 11/09/2024 2:59 PM EST Narrative 11/09/2024 3:01 PM EST ? [facility] ?[address] ?[place] [address] ?XRay Report ? Signed ? Patient: Josue Pritchard ?MR#: ?? [id number] ? : 1960 ?Acct:[id number] ? Age/Sex: 63 / M ?ADM Date: 11/08/24 ? Loc: HO.XRAY ? Attending Dr: Gilbert Wynn MD ? Ordering Physician: Gilbert Wynn MD ?? Date of Service: 11/08/24 ?? Procedure(s): XR sinus min 3V ?? Accession Number(s): [id number] ? cc: Gilbert Wynn MD; MARIA ESTHER DE LEON NP ? CLINICAL HISTORY: J01.00 - Acute maxillary sinusitis, unspecified ? 5 view sinuses ? Comparison: None ? Findings: ?? Bones are intact. ?? Paranasal sinuses and mastoids are clear. ?? No radiopaque foreign body. ? IMPRESSION: ?? 1. No acute findings ? This document has been electronically signed by: Monique Scott MD on ?? 11/09/2024 14:59:48 ? Dictated By: ?Monique Scott MD ? Signed By: ?<Electronically signed by Monique Scott MD in OV> ? 11/09/24 1500 ? DD/ 58 ? TD/TT: 11/09/241458 ? Astronomy Instructor: ? Procedure Note Mayco, Kim - 11/09/[address] [address] JOAQUÍNay Report Signed Patient: Josue Pritchard LMR#: [id number] : 1960Acct:[id number] Age/Sex: 63 / MADM Date: 11/08/24 Loc: HO.XRAY Attending Dr: Gilbert Wynn MD Ordering Physician: Gilbert Wynn MD Date of Service: 11/08/24 Procedure(s): XR sinus min 3V Accession Number(s): [id number] cc: Gilbert Wynn MD; MARIA ESTHER DE LEON NP CLINICAL HISTORY: J01.00 - Acute maxillary sinusitis, unspecified 5 view sinuses Comparison: None Findings: Bones are intact. Paranasal sinuses and mastoids are clear. No radiopaque foreign body. IMPRESSION: 1. No acute findings This document has been electronically signed by: Monique Scott MD on 11/09/2024 14:59:48 Dictated By: Monique Scott MD Signed By: <Electronically signed by Monique Scott MD in OV> 11/09/24 1500 DD/ 58 TD/TT: 11/09/241458 Astronomy Instructor: [facility] External Provider IMG XR PROCEDURES Final Result * Gram stain (11/03/2024 2:35 PM EST) 11/03/2024 2:35 PM EST 11/03/2024 2:38 PM EST Comment:Sputum Narrative [facility] - 11/06/2024 8:08 AM EST Gram [...] Klebsiella aerogenes: Trimethoprim/Sulfamethoxazole <=20(S) Specimen Source: Sputum Generic External Data Provider LAB MICROBIOLOGY - GENERAL ORDERABLES Final Result [facility] [address] [place] [phone] * Hemoglobin A1c (09/07/2022 9:54 AM EST) Hemoglobin A1c 6.3 % [facility] Comment:Hemoglobin A1C Refer ence Range Adults: 4.8 - 6.0 % Non diabetic: < 6.0 % Goal: < 7.0 %Additional Action Suggested: > 8.0 %Note: Hemoglobin A1c results are invalid for patients with abnormal amounts of HbF. Blood transfusions may impact the HbA1c concentration in the patient sample. Estimated Average Glucose 134 mg/dL [facility] Comment:eAG = Estimated ave rage glucose which is %A1C expressed asaverage glucose, using the formula of the A5B-SpmenptWbmsjyl Glucose study (ADAG), Diabetes Care, Vol.31,#8,Apr. 2007 09/07/2022 9:54 AM EST 09/07/2022 9:54 AM EST us [facility] External Provider LAB BLO OD ORDERABLES Final Result Performing Organization Address City/State/[facility] Co de Phone Number [facility] [address] [place] [phone] * Lipid Panel, Standard (09/07/2022 9:54 AM EST) Triglycerides 94 mg/dL [facility] Comment:Desirable Triglyceri de: less than 150 mg/dLBorderline High Triglyceride 150-199 mg/dLHigh Triglyceride: 200-499 mg/dLVery High Triglyceride: greater than or equal to 5OO mg/dL Cholesterol 148 mg/dL [facility] Comment:Desirable Cholestero l: less than 200 mg/dLBorderline High Cholesterol: 200-239 mg/dLHigh Cholesterol: greater than 239 mg/dL LDL Cholesterol Calculated 80 mg/dl [facility] Comment:Desirable LDL: less than 100 mg/dLNear Optimal/Above Optimal LDL: 110- 129 mg/dLBorderline High LDL: 130-159 mg/dLHigh LDL: 160-189 mg/dLVery High LDL: greater than or equal to 190 mg/dL HDL Cholesterol 50 mg/dL [facility] Comment:Desirable HDL: great er than 40 mg/dL Note: This HDL assay may give artificially low results in patients with liver disease. 09/07/2022 9:54 AM EST 09/07/2022 9:54 AM EST [facility] External Provider LAB BLO OD ORDERABLES Final Result Performing Organization Address City/[facility]/ZIP Co de Phone Number [facility] [address] [place] [phone] * HEPATITIS B SURFACE ANTIGEN* (07/01/2022 [...] detection of this assay. ?? [employer] HIV Ag/Ab Combo assay result and supplemental assay results should be interpreted in conjunction with the patient's clinical presentation, history and other laboratory results. ??If the results are inconsistent with clinical evidence, additional testing is suggested to confirm the result. 07/01/2022 1:44 PM EDT Result [facility] Judy Meredith HISTORICAL/NON ORDERABLE LABS Final Result Performing Organization Address City/[facility]/ZIP Co de Phone Number CONVERTED LEGACY LABS * Hm Colonoscopy (09/04/2021) Colonoscopy Normal Normal Narrative Ange Berman - 09/04/2021 Repeat in 1 year due to stool Historical Provider MD HEALTH MAINTENANCE Final Result from Last 3 Months or Most Recently Relevant to Health Maintenance Insurance [facility] C[facility] DENT[facility] MEDICAID STAND ADULT Care Teams Top And Trim Worker Relationship Specialty Start Date End Date Maria Esther De Leon ANP [address] [place] [address] PCP - General Family Medicine 05/16/22
[2025-01-30 11:35] LABS: Basophils Absolute Auto 0.1 X10*3/uL (0.0-0.2); Basophils Percent Auto 0.5 % (0-2); Eosinophils Absolute Auto 0.2 X10*3/uL (0.0-0.4); Eosinophils Percent Auto 1.6 % (0-4); Hematocrit 38.6 % (42.0-52.0); Hemoglobin 12.1 g/dl (14.0-18.0); Imm Gran Abs Auto 0.08 X10*3/uL (0.00-0.03); Imm Gran Pct Auto 0.5 % (0.0-0.4); Lymphocytes Percent Auto 12.9 % (20-40); MANUAL DIFF FLAG SCAN; Mean Corpuscular HGB Conc 31.3 g/dl (31.0-36.0); Mean Corpuscular Hemoglobin 27.1 pg (27.0-33.0); Mean Corpuscular Volume 86.4 fL (80.0-98.0); Mean Platelet Volume 10.3 fL (9.4-12.4); Monocytes Absolute Auto 1.6 X10*3/uL (0.1-1.2); Monocytes Percent Auto 10.4 % (2-11); Neutrophils Absolute Auto 11.3 x10*3/uL (2.0-8.3); Neutrophils Percent Auto 74.1 % (45-73); Platelet Count 245 X10*3/uL (160-400); Red Blood Count 4.47 X10*6/uL (4.60-5.80); Red Cell Distribution Width 13.9 % (11.0-16.0); SCAN SMEAR FLAG 1; White Blood Count 15.3 X10*3/uL (4.8-10.8)
[2025-01-30 11:43] LABS: Estimated Average Glucose 137 mg/dL; Hemoglobin A1C 147.4574 umol/L; Hemoglobin A1c % 6.4 % (<6.0); Total Hemoglobin (HGBA1C) 3211.8022 umol/L
[2025-01-30 12:01] LABS: SLIDE REVIEW VERIFIED
[2025-01-30 13:02] LABS: Cholesterol 119 mg/dL (<200); HDL Cholesterol 52 mg/dL (>40); Iron 24 mcg/dL (45-160); LDL Cholesterol Calculated 56 mg/dL (<100); Percent Iron Saturation 10 % (15-50); Total Iron Binding Capacity 230 mcg/dL (228-428); Triglycerides 55 mg/dL (<150); Unsaturated Iron Binding 206 ug/dL
[2025-01-30 13:12] LABS: Ferritin 131 ng/mL (20-250)
[2025-01-30 14:51] LABS: Lactate Dehydrogenase 205 U/L (118-273)
== END 2025-01-30 08:55 | disposition home or self-care (01) ==
LOC: HO.HHCL 08:54
PROVIDERS: Visit Provider Nurse Practitioner Primary Care
DX: D64.9 Anemia, unspecified (principal); I26.99 Other pulmonary embolism without acute cor pulmonale; R73.03 Prediabetes
CPT/HCPCS: 36415; 80061; 82728; 83036; 83540; 83615; 85025

== ENCOUNTER 2025-03-09 06:01 | Outpatient (REF) | payer MEDICAID, SELFPAY ==
[2025-03-09 06:15] LABS: MANUAL DIFF FLAG NO
[2025-03-09 07:19] LABS: Basophils Percent Auto 0.4 % (0-2); Eosinophils Absolute Auto 0.2 X10*3/uL (0.0-0.4); Eosinophils Percent Auto 2.2 % (0-4); Hematocrit 41.4 % (42.0-52.0); Hemoglobin 13.2 g/dl (14.0-18.0); Imm Gran Abs Auto 0.04 X10*3/uL (0.00-0.03); Imm Gran Pct Auto 0.4 % (0.0-0.4); Lymphocytes Absolute Auto 3.9 X10*3/uL (1.2-4.9); Lymphocytes Percent Auto 42.5 % (20-40); Mean Corpuscular HGB Conc 31.9 g/dl (31.0-36.0); Mean Corpuscular Hemoglobin 26.8 pg (27.0-33.0); Mean Corpuscular Volume 84.1 fL (80.0-98.0); Mean Platelet Volume 9.7 fL (9.4-12.4); Monocytes Absolute Auto 0.7 X10*3/uL (0.1-1.2); Monocytes Percent Auto 7.3 % (2-11); Neutrophils Absolute Auto 4.3 x10*3/uL (2.0-8.3); Neutrophils Percent Auto 47.2 % (45-73); Platelet Count 248 X10*3/uL (160-400); Red Blood Count 4.92 X10*6/uL (4.60-5.80); Red Cell Distribution Width 14.7 % (11.0-16.0); White Blood Count 9.2 X10*3/uL (4.8-10.8)
[2025-03-09 07:33] LABS: Estimated Average Glucose 143 mg/dL; Hemoglobin A1c % 6.6 % (<6.0)
[2025-03-09 07:52] LABS: Alanine Aminotransferase 11 U/L (0-40); Albumin Level 4.2 g/dL (3.5-5.0); Alkaline Phosphatase 59 U/L (39-117); Anion Gap 13 (12-20); Aspartate Amino Transferase 15 U/L (5-37); Bilirubin Total 0.3 mg/dL (0.0-1.0); Blood Urea Nitrogen 14 mg/dL (9-16); Calcium 9.4 mg/dL (8.4-10.2); Carbon Dioxide 29 mmol/L (22-29); Chloride 102 mmol/L (96-108); Cholesterol 150 mg/dL (<200); Estimated Glomerular Filt Rate > 60; Glucose Random 90 mg/dL (60-115); HDL Cholesterol 56 mg/dL (>40); LDL Cholesterol Calculated 74 mg/dL (<100); Potassium 3.8 mmol/L (3.3-5.1); Sodium 140 mmol/L (135-145); Total Protein 7.5 g/dL (6.5-8.0); Triglycerides 101 mg/dL (<150)
[2025-03-09 08:04] LABS: Syphilis Screen Nonreactive (Nonreactive)
[2025-03-09 08:08] LABS: Thyroid Stimulating Hormone 2.53 uIU/mL (0.32-4.0); Vitamin D 25-OH Total 36.1 ng/mL (>30)
[2025-03-11 01:52] LABS: Prolactin 13.1 ng/mL (2.0-18.0)
== END 2025-03-09 06:02 | disposition home or self-care (01) ==
LOC: HO.LAB 06:01
PROVIDERS: PCP Nurse Practitioner Primary Care; Visit Provider Psychiatry & Neurology Child & Adolescent Psychiatry
DX: F25.1 Schizoaffective disorder, depressive type (principal)
CPT/HCPCS: 36415; 80053; 80061; 82306; 83036; 84146; 84439; 84443; 85025; 86780

== ENCOUNTER → 2025-03-12 08:38 | Outpatient (REF) | payer MEDICAID, SELFPAY ==
--- NOTE | 2025-03-12 08:48 | ECG_ITS ---
Test Reason : QTC CHECK Blood Pressure : */* mmHG Vent. Rate : 78 BPM Atrial Rate : 78 BPM P-R Int : 122 ms QRS Dur : 88 ms QT Int : 396 ms P-R-T Axes : 53 46 22 degrees QTcB Int : 451 ms Normal sinus rhythm Normal ECG When compared with ECG of 07-May-2024 15:05, No significant change was found Referred By: Alex Hsu Electronically Signed By: CARLOS ROCA
--- OUTSIDE RECORDS SUMMARY | 2025-03-12 08:57 | XMS_ITS | Clinical Summary ---
Author Organization [employer] Address [address] [place] [address] [address] [place] [address] Care Team Providers Care Modeling Manager Name Role Phone Katia Hill Primary Care Provider [phone] Allergies Active Allergy Reactions Criticality Noted Date Comments Barium Sulfate 10/30/2020 Other reaction(s): Hives / Skin Rash Ibuprofen 03/08/2018 Medications Symbicort 160-4.5 MCG/ACT inhaler INHALE 2 PUFFS BY MOUTH TWICE DAILY RINSE MOUTH AFTER USING. 3 Active cetirizine (ZyrTEC) 10 MG tablet TAKE 1 TABLET BY MOUTH EVERY MORNING 2 Active methadone (Dolophine) 10 MG/ML solution 75 mg daily Act solomon montelukast (Singulair) 10 MG tablet TAKE 1 TABLET BY MOUTH AT BEDTIME 2 Active predniSONE (Deltasone) 10 MG tablet TAKE 1 TABLET BY MOUTH EVERY DAY 3 Active QUEtiapine (SEROquel) 400 MG tablet TAKE 1 TABLET BY MOUTH AT BEDTIME 3 Active risperiDONE (RisperDAL) 2 MG tablet Take 1 tablet by mouth Once daily. At bedtime 3 Active sertraline (Zoloft) 100 MG tablet TAKE 1 TABLET BY MOUTH EVERY MORNING 3 Active sodium chloride 3 % nebulizer solution INHALE 4 ML VIA NEBULIZER TWICE DAILY 2 Active traZODone (Desyrel) 100 MG tablet TAKE 1 TABLET BY MOUTH AT BEDTIME 3 Active albuterol (2.5 MG/3ML) 0.083% nebulizer solution Take by nebulization. INHALE 1 AMPULE EVERY 4 HOURS as NEEDED FOR SHORTNESS OF BREATH OR WHEEZING Active fluticasone (Flonase) 50 MCG/ACT nasal spray Use 1 spray each nostril daily. Shake gently. Before first use, prime pump. After use, clean tip and replace cap. 48 g 4 Active Multiple Vitamin (Multivitamin) tablet TAKE 1 TABLET BY MOUTH EVERY MORNING WITH FOOD 90 tablet 3 4 Active Misc. Devices (Pulse Oximeter) miscIndications:Ac summer pulmonary embolism without acute cor pulmonale, unspecified pulmonary embolism type (CMS/HCC) 1 each if needed in the morning and at bedtime (SOB). Go to ED if SpO2 remains < 90% 1 each 4 Active apixaban (Eliquis) 5 MG tabletIndications: Pulmonary Embolism,05/07/24 unprovoked PE at [facility] Take 5 mg by mouth 2 times daily. Active gabapentin (Neurontin) 300 MG capsule Take 300 mg by mouth at bedtime. 4 Active modafinil (Provigil) 100 MG tablet Take 100 mg by mouth in the morning. 4 Active metFORMIN (Glucophage) 500 MG tabletIndications: Prediabetes TAKE 1 TABLET BY MOUTH EVERY MORNING WITH FOOD 90 tablet 3 4 Active omeprazole (PriLOSEC) [address] capsuleIndications :Gastroesophageal reflux disease without esophagitis TAKE 1 CAPSULE BY MOUTH EVERY MORNING BEFORE BREAKFAST 90 capsule 3 5 Active pravastatin (Pravachol) 10 MG tabletIndications: Mixed hyperlipidemia TAKE 1 TABLET BY MOUTH EVERY EVENING 90 tablet 3 5 Active aspirin (Aspirin Low Dose) 81 MG chewable tabletIndications: Mixed hyperlipidemia TAKE 1 TABLET BY MOUTH EVERY EVENING (CHEW) 90 tablet 3 5 Active amLODIPine (Norvasc) 5 MG tabletIndications: Benign essential HTN TAKE 1 TABLET BY MOUTH EVERY MORNING 90 tablet 3 5 Active docusate sodium (Colace) 100 MG capsule TAKE 1 CAPSULE BY MOUTH AT BEDTIME NEEDED 90 capsule 1 5 Active ferrous sulfate (Fe Tabs) 325 (65 Fe) MG EC tabletIndications: Iron deficiency anemia, unspecified iron deficiency anemia type Take 1 tab every other day with vitamin C. Do not crush, chew, or split. 45 tablet 1 5 Active Ascorbic Acid (vitamin C) 250 MG tabletIndications: Iron deficiency anemia, unspecified iron deficiency anemia type Take 1 tab every other day with ferrous sulfate tablets. 45 tablet 1 5 Active Active Problems Problem Noted Date Diagnosed Date [...] call his pulmonology office to make sure kitchen hand is aware pt is still taking steroids. [...] Encounters Date Type Department Care Team Description 03/05/2025 10:30 AM EDT Office Visit [facility] [address] [place] [phone] Piña-Topete , Yazmin, DDS 03/02/2025 9:00 AM EDT Office Visit [facility] [address] [place] [address] Piña-Topete , Yazmin, DDS Fracture of denture (Primary Dx) 02/01/[address] [address] Katia Hill ANP Appointment Request 01/31/2025 Results Follow-Up [address] [address] Katia Hill ANP CBC auto differential, Iron And Total Iron Binding Capacity, Ferritin, Additional followed-up results: 2 01/30/2025 Orders Only [address] [place] [address] Katia Hill ANP Prediabetes (Primary Dx) from Last 3 Months Immunizations Immunization Administration Dates Next Due Moderna Covid-19 Vaccine 12+ 08/23/2021,01/21/20 21,12/23/2020 Pneumococcal Conjugate PCV 20 05/20/2023 Pneumococcal Polysaccharide PPSV23 08/19/2016 RSV Bivalent 01/30/2025 TD (adult), 2 Lf tetanus tox oid, [...] 80 06/30/2024 2:26 PM EDT Temperature 36.3 C (97.4 F) 06/30/2024 2:26 PM EDT Respiratory Rate 16 06/30/2024 2:26 PM EDT Oxygen Saturation 89% 06/30/2024 2:26 PM EDT Inhaled Oxygen Concentration - - Weight 101 kg (222 lb 12.8 oz) 06/30/2024 2:26 P M EDT Height 170.2 cm (5' 7 ) 06/30/2024 2:26 PM EDT Body Mass Index 34.9 06/30/2024 2:26 PM EDT Plan of Treatment Upcoming Encounters Date Type Department Care Team (Late st Contact Info) Description 05/02/2025 8:00 AM EDT Office Visit [facility] [address] [place], [place] [phone] Rebekah Brown [address] [place] [address] [phone] Health Maintenance Due Date Last Done Comments CT Colonography 1962 FIT DNA/Cologuard 1962 FIT 1962 FOBT 1962 Sigmoidoscopy 1962 Disability Screening 1962 Alcohol/Substance Use Screening 1974 Hepatitis A Vaccines (1 of 2 - Risk 2-dose series) 1981 Colonoscopy 09/04/2022 09/04/2021 Colorectal Cancer Screening 09/04/2022 Dental Oral Exam 10/31/2022 04/29/2022, , 08/25/2019, Additional history exists Dental Prophylaxis 10/31/2022 04/29/2022, 0 10/16/2020, 12/26/2015, Additional history exists Hepatitis B Vaccines (1 of 3 - Risk 3-dose series) 2022 Dental X-Ray: Bitewings 04/30/2023 04/29/20 22, 10/08/2020, 08/25/2019, Additional history exists Dental X-Ray: Full Mouth 10/09/2023 021, 03/02/2018, 12/25/2015 COVID-19 Vaccine ( season) 2024 08/23/2021, 01/20/2021, 12/23/2020 Depression Monitoring 11/16/2024 05/16/2024, 024 SDOH Screening 05/16/2025 05/16/2024 Influenza Vaccine (Season Ended) 2025 Diabetes: Hemoglobin A1C 01/30/2026 025, 09/07/2022, 06/02/2021, Additional history exists Tobacco Screening 03/02/2026 03/02/2025 DTaP/Tdap/Td Vaccines (3 - Td or Tdap) 03/01/2028 03/01/2018, 08/19/2016 Lipid Panel 01/30/2030 01/30/2025, 08/20, 06/02/2021, Additional history exists Zoster Vaccines Completed 11/27/2021, 07/16/2021 HIV Screening Completed 07/01/2022, 02/19, 06/02/2021, Additional history exists Pneumococcal Vaccine: 50+ Years Completed 05/20/2023, 08/19/2016 RSV Patients and Patients Aged 60 years or older Completed 01/30/2025 HIB Vaccines Aged Out No longer eligi ble based on patient's age to complete this topic HPV Vaccines Aged Out No longer eligi ble based on patient's age to complete this topic IPV Vaccines Aged Out No longer eligi ble based on patient's age to complete this topic Meningococcal B Vaccine Aged Out No l onger eligible based on patient's age to complete [...] Author Hemoglobin A1c < 7 Result Component 6.4(01/30/2025 8:56 AM EDT) No Keerthi Garcia, Ivelisse Procedures Procedure Name Priority Date/Time Associated Diagnosis Comments CASE PRESENTATION, DETAILED AND EXTENSIVE TREATMENT PLANNING Routine 03/05/2025 10:30 AM EDT REPAIR RESIN PARTIAL DENTURE BASE, MAX Routine 03/05/2025 10:30 AM EDT NO CHARGE PROCEDURE Routine 03/02/2025 9 :00 AM EDT 9 EXTRACTION Routine 03/02/2025 12:00 AM EDT SLIDE REVIEW Routine 01/30/2025 8:56 AM EDT LIPID PANEL, STANDARD Routine 01/30/2025 8:56 AM EDT Prediabetes HEMOGLOBIN A1C Routine 01/30/2025 8:56 AM EDT Prediabetes LD Routine 01/30/2025 8:56 AM EDT Acute pulmonary embolism without acute cor pulmonale, unspecified pulmonary embolism type (CMS/HCC) FERRITIN Routine 01/30/2025 8:56 AM EDT Anemia, unspecified type IRON AND TOTAL IRON BINDING CAPACITY Routine 01/30/2025 8:56 AM EDT Anemia, unspecified type CBC WITH AUTO DIFFERENTIAL Routine 01/30/2025 8:56 AM EDT Anemia, unspecified type ZZZ HISTORICAL HEPATITIS B SURFACE ANTIGEN* Routine [...] Recently Relevant to Health Maintenance Results * Slide Review (01/30/2025 8:56 AM EDT) Slide Review VERIFIED [facility] 01/30/2025 8:56 AM EDT 01/30/2025 11:23 AM EDT [facility] LAB BLOOD ORDERABLES Final Resul t [facility] [address] [place] [phone] * (ABNORMAL) CBC auto differential (01/30/2025 8:56 AM EDT) White Blood Count 15.3(H) 4.8 - 10.8 X10*3/uL [facility] Red Blood Count 4.47(L) 4.60 - 5.80 X10*6/uL [facility] Hemoglobin 12.1(L) 14.0 - 18.0 g/dl [facility] Hematocrit 38.6(L) 42.0 - 52.0 % [facility] Mean Corpuscular Volume 86.4 80.0 - 98.0 fL [facility] Mean Corpuscular Hemoglobin 27.1 27.0 - 33.0 pg [facility] Mean Corpuscular HGB Conc 31.3 31.0 - 36.0 g/dl [facility] Red Cell Distribution Width 13.9 11.0 - 16.0 % [facility] Platelet Count 245 160 - 400 X10*3/uL [facility] Mean Platelet Volume 10.3 9.4 - 12.4 fL [facility] Neutrophils Percent Auto 74.1(H) 45 - 73 % [facility] Imm Gran Pct Auto 0.5(H) 0.0 - 0.4 % [facility] Lymphocytes Percent Auto 12.9(L) 20 - 40 % [facility] Monocytes Percent Auto 10.4 2 - 11 % [facility] Eosinophils Percent Auto 1.6 0 - 4 % [facility] Basophils Percent Auto 0.5 0 - 2 % [facility] NRBC Pct Auto 0.0 0.0 - 0.2 /100WBC [facility] Neutrophils Absolute Auto 11.3(H) 2.0 - 8.3 x10*3/uL [facility] Imm Gran Abs Auto 0.08(H) 0.00 - 0.03 X10*3/uL [facility] Lymphocytes Absolute Auto 2.0 1.2 - 4.9 X10*3/uL [facility] Monocytes Absolute Auto 1.6(H) 0.1 - 1.2 X10*3/uL [facility] Eosinophils Absolute Auto 0.2 0.0 - 0.4 X10*3/uL [facility] Basophils Absolute Auto 0.1 0.0 - 0.2 X10*3/uL [facility] NRBC Abs Auto 0.000 0.0 - 0.012 X10*3/uL [facility] Blood Venous blood specimen / Unknown 01/30/2025 8:56 AM EDT 01/30/2025 11:23 AM EDT Katia Hill ANP LAB BLOOD ORDERABLES Edited Resu lt - Final Performing Organization Address City/[facility]/ZIP Co de Phone Number [facility] [address] [place] [phone] * (ABNORMAL) Iron And Total Iron Binding Capacity (01/30/2025 8:56 AM EDT) Iron 24(L) 45 - 160 mcg/dL [facility] Total Iron Binding Capacity 230 228 - 428 mcg/dL [facility] Percent Iron Saturation 10(L) 15 - 50 % [facility] Unsaturated Iron Binding 206 ug/dL [facility] Blood Venous blood specimen / Unknown 01/30/2025 8:56 AM EDT 01/30/2025 11:23 AM EDT us Katia Hill ANP LAB BLOOD ORDERABLES Final Resul t [facility] [address] [place] [phone] * Lactate Dehydrogenase (LD) (01/30/2025 8:56 AM EDT) Lactate Dehydrogenase 205 118 - 273 U/L [facility] Blood Venous blood specimen / Unknown 01/30/2025 8:56 AM EDT 01/30/2025 11:23 AM EDT Katia Hill ANP LAB BLOOD ORDERABLES Final Resul t Performing Organization Address [facility] de Phone Number [facility] [address] [place] [phone] * (ABNORMAL) Hemoglobin A1c (01/30/2025 8:56 AM EDT) Pathologist [facility] Hemoglobin A1c 6.4(H) <6.0 % [facility] Comment:Hemoglobin A1C Refer ence Range Adults: 4.8 - 6.0 % Non diabetic: < 6.0 % Goal: < 7.0 %Additional Action Suggested: > 8.0 %Note: Hemoglobin A1c results are invalid for patients with abnormal amounts of HbF. Blood transfusions may impact the HbA1c concentration in the patient sample. Estimated Average Glucose 137 mg/dL [facility] Comment:eAG = Estimated ave rage glucose which is %A1C expressed asaverage glucose, using the formula of the [id number] Glucose study (ADAG), Diabetes Care, Vol.31,#8,Apr. 2007 Blood Venous blood specimen / Unknown 01/30/2025 8:56 AM EDT 01/30/2025 11:23 AM EDT Katia Hill ANP LAB BLOOD ORDERABLES Final Resul t Performing Organization Address [facility] Co de Phone Number [facility] [address] [place] [phone] * Ferritin (01/30/2025 8:56 AM EDT) Pathologist [facility] Ferritin 131 20 - 250 ng/mL [facility] Blood Venous blood specimen / Unknown 01/30/2025 8:56 AM EDT 01/30/2025 11:23 AM EDT Katia Hill ANP LAB BLOOD ORDERABLES Final Resul t Performing Organization Address [facility] de Phone Number [facility] [address] [place] [phone] * Lipid Panel, Standard (01/30/2025 8:56 AM EDT) Triglycerides 55 <150 mg/dL [facility] Comment:Desirable Triglyceri de: less than 150 mg/dLBorderline High Triglyceride 150-199 mg/dLHigh Triglyceride: 200-499 mg/dLVery High Triglyceride: greater than or equal to 5OO mg/dL Cholesterol 119 <200 mg/dL [facility] Comment:Desirable Cholestero l: less than 200 mg/dLBorderline High Cholesterol: 200-239 mg/dLHigh Cholesterol: greater than 239 mg/dL LDL Cholesterol Calculated 56 <100 mg/dL [facility] Comment:Desirable LDL: less than 100 mg/dLNear Optimal/Above Optimal LDL: 110- 129 mg/dLBorderline High LDL: 130-159 mg/dLHigh LDL: 160-189 mg/dLVery High LDL: greater than or equal to 190 mg/dL HDL Cholesterol 52 >40 mg/dL [facility] Comment:Desirable HDL: great er than 40 mg/dL Note: This HDL assay may give artificially low results in patients with liver disease. Blood Venous blood specimen / Unknown 01/30/2025 8:56 AM EDT 01/30/2025 11:23 AM EDT us Katia Hill ANP LAB BLOOD ORDERABLES Final Resul t Performing Organization Address [facility] Co de Phone Number [facility] [address] [place] [phone] * HEPATITIS B SURFACE ANTIGEN* (07/01/2022 1:44 PM EDT) Hepatitis B Surface Antigen Negative Negative [facility] HIV AB/AG Nonreactive Nonreactive [facility] Comment: HIV-1 p24 Ag and/or HIV-1/HIV-2 Ab not detected. A test result that is nonreactive does not exclude the possibility of exposure to or infection with HIV-1 and/or HIV-2. Nonreactive results in this assay for individuals with prior exposure to HIV-1 and/or HIV-2 may be due to antigen and antibody levels that are below the limit of detection of this assay. The [facility] HIV Ag/Ab Combo assay result and supplemental assay results should be interpreted in conjunction with the patient's clinical presentation, history and other laboratory results. If the results are inconsistent with clinical evidence, additional testing is suggested to confirm the result. 07/01/2022 1:44 PM EDT Judy Meredith HISTORICAL/NON ORDERABLE LABS Final Result [facility] * Colonoscopy (09/04/2021) Pathologist [facility] Colonoscopy Normal Normal Narrative Ange Berman - 09/04/2021 Repeat in 1 year due to stool Historical Provider HEALTH MAINTENANCE Final Result from Last 3 Months or Most Recently Relevant to Health Maintenance Insurance [facility] STAND AD[place] Care Teams Modeling Manager Relationship Specialty Start Date End Date Katia Hill ANP [address] [place] [phone] PCP - General Family Medicine 05/16/22
== END ==
LOC: HO.CARD 08:38
PROVIDERS: PCP Nurse Practitioner Primary Care; Visit Provider Psychiatry & Neurology Child & Adolescent Psychiatry
DX: F25.1 Schizoaffective disorder, depressive type (principal)
CPT/HCPCS: 93005

== ENCOUNTER → 2025-03-12 08:48 | Outpatient (BNV) | payer MEDICAID, SELFPAY | PROVIDERS: PCP Nurse Practitioner Primary Care; Visit Provider Internal Medicine | DX: Z13.6 Encounter for screening for cardiovascular disorders (principal) | CPT/HCPCS: 93010 ==

== ENCOUNTER 2025-03-13 10:46 | Outpatient (AMB) | payer MEDICAID, SELFPAY ==
[2025-03-13 10:54] VITALS: BP 118/66; PULSE 84; O2SAT 90; BMI 34.9
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
--- OUTSIDE RECORDS SUMMARY | 2025-03-13 12:08 | XMS_ITS | Clinical Summary ---
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 [...] Description 03/05/2025 10:30 AM EDT Office Visit [facility] ADULT DENTAL [address] [place] [phone] Piña-Topete , Yazmin, DDS 03/02/2025 9:00 AM EDT Office Visit [facility] ADULT DENTAL [address] [place] [address] Piña-Topete , Yazmin, DDS Fracture of denture (Primary Dx) 02/01/[address] [address] Katia Hill ANP Appointment Request 01/31/2025 Results Follow-Up [address] [address] Katia Hill ANP CBC auto differential, Iron And Total Iron Binding Capacity, Ferritin, Additional followed-up results: 2 01/30/2025 Orders Only [address] [place] [address] Katia Hill ANP Prediabetes (Primary Dx) from [...] Description 05/02/2025 8:00 AM EDT Office Visit [facility] ADULT DENT[facility] [address] [place], [place] [phone] Rebekah Brown [address] [place] [address] [phone] Health Maintenance Due Date Last Done Comments [...] (01/30/2025 8:56 AM EDT) Slide Review VERIFIED [facility] 01/30/2025 8:56 AM EDT 01/30/2025 11:23 AM EDT Pending sale to [facility] LAB BLOOD ORDERABLES Final Resul t [facility] [address] [place] [phone] * (ABNORMAL) CBC auto differential (01/30/2025 8:56 AM EDT) White Blood Count 15.3(H) 4.8 - 10.8 X10*3/uL [facility] Red Blood Count 4.47(L) 4.60 - 5.80 X10*6/uL [facility] Hemoglobin 12.1(L) 14.0 - 18.0 g/dl [facility] Hematocrit 38.6(L) 42.0 - 52.0 % [facility] Mean Corpuscular Volume 86.4 80.0 - 98.0 fL [facility] Mean Corpuscular Hemoglobin 27.1 27.0 - 33.0 pg [facility] Mean Corpuscular HGB Conc 31.3 31.0 - 36.0 g/dl [facility] Red Cell Distribution Width 13.9 11.0 - 16.0 % [facility] Platelet Count 245 160 - 400 X10*3/uL [facility] Mean Platelet Volume 10.3 9.4 - 12.4 fL [facility] Neutrophils Percent Auto 74.1(H) 45 - 73 % [facility] Imm Gran Pct Auto 0.5(H) 0.0 - 0.4 % [facility] Lymphocytes Percent Auto 12.9(L) 20 - 40 % [facility] Monocytes Percent Auto 10.4 2 - 11 % [facility] Eosinophils Percent Auto 1.6 0 - 4 % [facility] Basophils Percent Auto 0.5 0 - 2 % [facility] NRBC Pct Auto 0.0 0.0 - 0.2 /100WBC [facility] Neutrophils Absolute Auto 11.3(H) 2.0 - 8.3 x10*3/uL [facility] Imm Gran Abs Auto 0.08(H) 0.00 - 0.03 X10*3/uL [facility] Lymphocytes Absolute Auto 2.0 1.2 - 4.9 X10*3/uL [facility] Monocytes Absolute Auto 1.6(H) 0.1 - 1.2 X10*3/uL [facility] Eosinophils Absolute Auto 0.2 0.0 - 0.4 X10*3/uL [facility] Basophils Absolute Auto 0.1 0.0 - 0.2 X10*3/uL [facility] NRBC Abs Auto 0.000 0.0 - 0.012 X10*3/uL [facility] Blood Venous blood specimen / Unknown 01/30/2025 8:56 AM EDT 01/30/2025 11:23 AM EDT Katia Hill ANP LAB BLOOD ORDERABLES Edited Resu lt - Final Performing Organization Address City/[facility]/ZIP Co de Phone Number [facility] [address] [place] [phone] * (ABNORMAL) Iron And Total Iron Binding Capacity (01/30/2025 8:56 AM EDT) Iron 24(L) 45 - 160 mcg/dL [facility] Total Iron Binding Capacity 230 228 - 428 mcg/dL [facility] Percent Iron Saturation 10(L) 15 - 50 % [facility] Unsaturated Iron Binding 206 ug/dL [facility] Blood Venous blood specimen / Unknown 01/30/2025 8:56 AM EDT 01/30/2025 11:23 AM EDT us Katia Hill ANP LAB BLOOD ORDERABLES Final Resul t [facility] [address] [place] [phone] * Lactate Dehydrogenase (LD) (01/30/2025 8:56 AM EDT) Lactate Dehydrogenase 205 118 - 273 U/L [facility] Blood Venous blood specimen / Unknown 01/30/2025 8:56 AM EDT 01/30/2025 11:23 AM EDT Katia Hill ANP LAB BLOOD ORDERABLES Final Resul t Performing Organization Address [facility] de Phone Number [facility] [address] [place] [phone] * (ABNORMAL) Hemoglobin A1c (01/30/2025 8:56 AM EDT) Pathologist [facility] Hemoglobin A1c 6.4(H) <6.0 % [facility] Comment:Hemoglobin A1C Refer ence Range Adults: 4.8 - 6.0 % Non diabetic: < 6.0 % Goal: < 7.0 %Additional Action Suggested: > 8.0 %Note: Hemoglobin A1c results are invalid for patients with abnormal amounts of HbF. Blood transfusions may impact the HbA1c concentration in the patient sample. Estimated Average Glucose 137 mg/dL [facility] Comment:eAG = Estimated ave rage glucose which is %A1C expressed asaverage glucose, using the formula of the D1P-KnuctiqFloizwy Glucose study (ADAG), Diabetes Care, Vol.31,#8,Apr. 2007 Blood Venous blood specimen / Unknown 01/30/2025 8:56 AM EDT 01/30/2025 11:23 AM EDT Katia Hill ANP LAB BLOOD ORDERABLES Final Resul t Performing Organization Address [facility] Co de Phone Number [facility] [address] [place] [phone] * Ferritin (01/30/2025 8:56 AM EDT) Pathologist [facility] Ferritin 131 20 - 250 ng/mL [facility] Blood Venous blood specimen / Unknown 01/30/2025 8:56 AM EDT 01/30/2025 11:23 AM EDT Katia Hill ANP LAB BLOOD ORDERABLES Final Resul t Performing Organization Address [facility] de Phone Number [facility] [address] [place] [phone] * Lipid Panel, Standard (01/30/2025 8:56 AM EDT) Triglycerides 55 <150 mg/dL [facility] Comment:Desirable Triglyceri de: less than 150 mg/dLBorderline High Triglyceride 150-199 mg/dLHigh Triglyceride: 200-499 mg/dLVery High Triglyceride: greater than or equal to 5OO mg/dL Cholesterol 119 <200 mg/dL [facility] Comment:Desirable Cholestero l: less than 200 mg/dLBorderline High Cholesterol: 200-239 mg/dLHigh Cholesterol: greater than 239 mg/dL LDL Cholesterol Calculated 56 <100 mg/dL [facility] Comment:Desirable LDL: less than 100 mg/dLNear Optimal/Above Optimal LDL: 110- 129 mg/dLBorderline High LDL: 130-159 mg/dLHigh LDL: 160-189 mg/dLVery High LDL: greater than or equal to 190 mg/dL HDL Cholesterol 52 >40 mg/dL [facility] Comment:Desirable HDL: great er than 40 mg/dL Note: This HDL assay may give artificially low results in patients with liver disease. Blood Venous blood specimen / Unknown 01/30/2025 8:56 AM EDT 01/30/2025 11:23 AM EDT us Katia Hill ANP LAB BLOOD ORDERABLES Final Resul t Performing Organization Address [facility] Co de Phone Number [facility] [address] [place] [phone] * HEPATITIS B SURFACE ANTIGEN* (07/01/2022 [...] of detection of this assay. The [employer] HIV Ag/Ab Combo assay result and supplemental assay results should be interpreted in conjunction with the patient's clinical presentation, history and other laboratory results. If the results are inconsistent with clinical evidence, additional testing is suggested to confirm the result. 07/01/2022 1:44 PM EDT Judy Meredith HISTORICAL/NON ORDERABLE LABS Final Result CONVERTED LEGACY LABS * Colonoscopy (09/04/2021) Pathologist [facility] Colonoscopy Normal Normal Narrative Ange Berman - 09/04/2021 Repeat in 1 year due to stool Historical Provider HEALTH MAINTENANCE Final Result from Last 3 Months or Most Recently Relevant to Health Maintenance Insurance [facility] C3 [place] AD[place] Care Teams Toddler Nanny Relationship Specialty Start Date End Date Katia Hill ANP [address] [place] [phone] PCP - General Family Medicine 05/16/22
== END 2025-03-13 11:15 | disposition home or self-care (01) ==
LOC: HO.HPS 10:47
PROVIDERS: PCP Nurse Practitioner Primary Care; Visit Provider Hospitalist
DX: J45.51 Severe persistent asthma with (acute) exacerbation (principal); J40 Bronchitis, not specified as acute or chronic; G47.33 Obstructive sleep apnea (adult) (pediatric); F19.20 Other psychoactive substance dependence, uncomplicated; I26.99 Other pulmonary embolism without acute cor pulmonale; J44.9 Chronic obstructive pulmonary disease, unspecified; A49.01 Methicillin susceptible Staphylococcus aureus infection, unspecified site; G47.34 Idiopathic sleep related nonobstructive alveolar hypoventilation
CPT/HCPCS: 99214

== ENCOUNTER → 2025-03-13 10:46 | Outpatient (BNVA) | payer MEDICAID, SELFPAY | PROVIDERS: PCP Nurse Practitioner Primary Care; Visit Provider Hospitalist | DX: J45.51 Severe persistent asthma with (acute) exacerbation (principal); J40 Bronchitis, not specified as acute or chronic; G47.33 Obstructive sleep apnea (adult) (pediatric); I26.99 Other pulmonary embolism without acute cor pulmonale; J44.9 Chronic obstructive pulmonary disease, unspecified; A49.01 Methicillin susceptible Staphylococcus aureus infection, unspecified site; G47.34 Idiopathic sleep related nonobstructive alveolar hypoventilation | CPT/HCPCS: 99212 ==

== ENCOUNTER 2025-05-08 09:45 | Outpatient (REF) | payer MEDICAID, SELFPAY ==
--- NOTE | ~2025-05-08 | CT_ITS ---
CLINICAL HISTORY: Z87.891 - Personal history of nicotine dependence CT lung cancer screening. Technique: Axial CT images of the chest using low-dose technique. Effective radiation dose: DLP 61.9 mGy. Cm, CTDIvol 1.8 mGy Referring provider counseled the patient on shared decision-making for LDCT screening. Additional counseling was provided on smoking cessation. Comparison: 05/07/2024 and 10/16/2022 Findings: There are mild changes of emphysema. There is multifocal pulmonary scarring bilaterally more pronounced in the lower lobes and right middle lobe. No consolidation is seen. No suspicious pulmonary lesions are seen. There is no significant bronchiectasis. There is prominent pancreatic atrophy. Impression: Mild changes of emphysema. No suspicious pulmonary lesions are seen. Recommend continued annual screening. Multifocal pulmonary scarring bilaterally. LungRADS 2 - Benign Appearance: Continue annual screening with low dose Chest CT in 12 months. ACR LungRADS Categories Category 1: Normal; continue annual screening Category 2: Benign appearance or behavior, continue annual screening Category 3: Probably Benign, [address] recommended Category 4A: Suspicious, [address] recommended; may consider PET/CT Category 4B: Suspicious, Additional diagnostics and/or tissue sampling recommended Category 4X: Suspicious, Additional diagnostics and/or tissue sampling Category 0: Recalls (incomplete screen due to Incomplete coverage, Noise, Respiratory motion, Expiration, Obscured by acute abnormality) This document has been electronically signed by: Horace Goel MD on 05/09/2025 20:24:42
--- OUTSIDE RECORDS SUMMARY | 2025-05-08 10:51 | XMS_ITS | Clinical Summary ---
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 48 g 01/05/20 24 Active Misc. Devices (Pulse Oximeter) miscIndications:A cute pulmonary embolism without acute cor pulmonale, unspecified pulmonary embolism type (CMS/HCC) 1 each if needed in the morning and at bedtime (SOB). Go to ED if SpO2 remains < 90% 1 each 05/16/20 24 Active apixaban (Eliquis) 5 MG tabletIndications :Pulmonary Embolism,05/07/24 unprovoked PE at [facility] Take 5 mg by mouth 2 times [...] NEEDED 90 capsule 1 12/08/19 25 Active ferrous sulfate (Fe Tabs) 325 (65 Fe) MG EC tabletIndications :Iron deficiency anemia, unspecified iron deficiency anemia type Take 1 tab every other day with vitamin C. Do not crush, chew, or split. 45 tablet 1 02/02/20 25 Active Ascorbic Acid (vitamin C) 250 MG tabletIndications :Iron deficiency anemia, unspecified iron deficiency anemia type Take 1 tab every other day with ferrous sulfate tablets. 45 tablet 1 02/02/20 25 Active Multiple Vitamin (Multivitamin) tablet TAKE 1 TABLET BY MOUTH EVERY MORNING WITH FOOD 90 tablet 3 04/17/20 25 Active Multiple Vitamin (Multivitamin) tablet TAKE 1 TABLET BY MOUTH EVERY MORNING WITH FOOD 90 tablet 3 05/17/20 24 025 Discontinued predniSONE (Deltasone) 20 MG tablet Take 2 tablets (40 mg) by mouth Once per day for 5 days. 10 tablet 04/23/20 25 025 azithromycin (Zithromax) 250 MG tablet Take 1 tablet (250 mg) by mouth Once per day for 5 days. Take 2 tablet on day #1 then 1 tablet daily 6 tablet 04/23/20 25 025 Hospital, Clinic, or Other Facility Administered Medication Ordered Dose Route Frequency Start Date End Date Status ipratropium-albutero l (Duo-Neb) 0.5-2.5 mg/3 mL nebulizer solution 3 mLIndications:COPD exacerbation (CMS/HCC) 3 mL NEBULIZATION Once 04/24/2025 04/24/2025 Ended Active Problems Problem Noted Date Diagnosed Date [...] call his pulmonology office to make sure relationship advisor is aware pt is still taking steroids. [...] Encounters Date Type Department Care Team Description 05/02/2025 8:00 AM EDT Office Visit [facility] ADULT DENTAL [address] [place] [address] Rebekah Brown Encounter for dental examination (Primary Dx); Dental caries; Retained tooth root; Teeth missing 04/24/2025 9:15 AM EDT Office Visit [facility] MEDICINE [address] [place] [address] Katia Hill ANP COPD exacerbation ([facility]) (Primary Dx) 04/24/2025 Travel 04/23/2025 5:20 PM EDT Office Visit [facility] WALK-IN CENTER [address] [place] [address] Enzo Eldridge MD Subacute cough (Primary Dx) 04/23/2025 Telephone [facility] MEDICINE [address] [place] [phone] Makayla Lerma, greenhouse manager 04/20/2025 Telephone [facility] MED[facility] [address] [place] [phone] Katia Hill ANP June recall 04/16/2025 Refill [facility] [address] [place] [phone] Katia Hill ANP 03/05/2025 10:30 AM EDT Office Visit [facility] ADULT DENTAL [address] [place] [address] Piña-Topete, Yazmin, DDS 03/02/2025 9:00 AM EDT Office Visit [facility] ADULT DENTAL [address] [place] [address] Piña-Topete, Yazmin, DDS Fracture of denture (Primary Dx) from Last 3 Months Immunizations [...] Answer Date Recorded Patient Health Questionnaire-9 Score 8 04/24/2025 Patient Health Questionnaire-9 Score 8 04/24/2025 Last PHQ-9: Questionnaire Data Not on file 0 04/24/2025 Housing Stability Answer Date Recorded What is your housing situation today? I have russ pride 04/24/[address] you li ve. Do you have problems with any of the following? None of the above 04/24/2025 Food Insecurity Answer Date Recorded Within the past 12 months, y ou worried that your food would run out before you got money to buy more: Never True 04/24/2025 Within the past 12 months,th e food you bought just didn't last and you didn't have enough money to get more: Never True 01/2025 Transportation Answer Date Recorded In the past 12 months, has l ack of transportation kept you from medical appts, meetings, work or from getting things needed for daily living? No 04/24/2025 Utilities Answer Date Recorded In the past 12 months, has t he electric, gas, oil or water company threatened to shut off services in your home? No 04/24/2025 Depression Answer Date Recorded Patient Health Questionnaire-2 Score 2 04/24/2025 Internet Access Answer Date Recorded Internet Access [...] Sign Reading Time Taken Comments Blood Pressure 122/68 05/02/2025 8:05 AM EDT Pulse 72 05/02/2025 8:05 AM EDT Temperature 35.8 C (96.5 F) 04/23/2025 5:03 PM EDT Respiratory Rate 16 04/24/2025 9:22 AM EDT Oxygen Saturation 92% 04/23/2025 5:03 PM EDT Inhaled Oxygen Concentration - - Weight 99.8 kg (220 lb) 04/24/2025 9:22 AM EDT Height 170.2 cm (5' 7 ) 04/24/2025 9:22 AM EDT Body Mass Index 34.46 04/24/2025 9:22 AM EDT Plan of Treatment Upcoming Encounters Date Type Department Care Team (Late st Contact Info) Description 05/10/2025 11:15 AM EDT Office Visit [facility] MEDICINE [address] [place] [address] Katia Hill, ANP [address] [place] [address] 06/11/2025 2:30 PM EDT Office Visit [facility] ADULT DENTAL [address] [place] [address] Josue Giordano, DDS [address] [place] [address] 07/03/2025 1:30 PM EDT Office Visit [facility] MEDICINE [address] [place] [address] Katia Hill, ANP [address] [place] [address] Health Maintenance Due Date Last Done Comments CT Colonography 1962 FIT DNA/Cologuard 1962 FIT 1962 FOBT 1962 Sigmoidoscopy 1962 Hepatitis A Vaccines (1 of 2 - Risk 2-dose series) 1981 Colonoscopy 09/04/2022 09/04/2021 Colorectal Cancer Screening 09/04/2022 Hepatitis B Vaccines (1 of 3 - Risk 3-dose series) 2022 Dental X-Ray: Full Mouth 10/09/2023 021, 03/02/2018, 12/25/2015 COVID-19 Vaccine ( season) 2024 08/23/2021, 01/20/2021, 12/23/2020 Influenza Vaccine (#1) 2025 Dental Oral Exam 11/03/2025 05/02/2025, 06/2022, 10/08/2020, Additional history exists Dental Prophylaxis 11/03/2025 05/02/2025, 0 04/29/2022, 10/16/2020, Additional history exists Diabetes: Hemoglobin A1C 01/30/2026 025, 09/07/2022, 06/02/2021, Additional history exists Alcohol/Substance Use Screening 04/24/2026 04/24/2025 Depression Screening 04/24/2026 04/24/2025, 04/24/20 25 Disability Screening 04/24/2026 04/24/2025 SDOH Screening 04/24/2026 04/24/2025 Tobacco Screening 05/02/2026 05/02/2025 Dental X-Ray: Bitewings 05/03/2026 05/02/20 25, 04/29/2022, 10/08/2020, Additional history exists DTaP/Tdap/Td Vaccines (3 - [...] Component 6.4(01/30/2025 8:56 AM EDT) No Keerthi Garica, Ivelisse Procedures Procedure Name Priority Date/Time Associated Diagnosis Comments COMPREHENSIVE PERIODONTAL EVALUATION - NEW OR ESTABLISHED PATIENT Routine 05/02/2025 8:00 AM EDT Encounter for dental examination Dental caries Retained tooth root Teeth missing PERIODIC ORAL EVALUATION - ESTABLISHED PATIENT Routine 05/02/2025 8:00 AM EDT Encounter for dental examination Dental caries Retained tooth root Teeth missing CASE PRESENTATION, DETAILED AND EXTENSIVE TREATMENT PLANNING Routine 05/02/2025 8:00 AM EDT INTRAORAL - PERIAPICAL EACH ADDITIONAL RADIOGRAPHIC IMAGE Routine 05/02/2025 8:00 AM EDT INTRAORAL - PERIAPICAL FIRST RADIOGRAPHIC IMAGE Routine 05/02/2025 8:00 AM EDT BITEWINGS - 4 RADIOGRAPHIC IMAGES Routine 05/02/2025 8:00 AM EDT PROPHYLAXIS - ADULT Routine 05/02/2025 8 :00 AM EDT CASE PRESENTATION, DETAILED AND EXTENSIVE TREATMENT PLANNING Routine 03/05/2025 10:30 AM EDT REPAIR RESIN PARTIAL DENTURE BASE, MAX Routine 03/05/2025 10:30 AM EDT NO CHARGE PROCEDURE Routine 03/02/2025 9 :00 AM EDT 9 EXTRACTION Routine 03/02/2025 12:00 AM EDT HEMOGLOBIN A1C Routine 01/30/2025 8:56 AM EDT Prediabetes LIPID PANEL, STANDARD Routine 01/30/2025 8:56 AM EDT Prediabetes ZZZ HISTORICAL HEPATITIS B SURFACE ANTIGEN* Routine 07/01/2022 1:44 PM EDT HM COLONOSCOPY Routine 09/04/2021 INTRAORAL - COMPLETE SERIES OF RADIOGRAPHIC IMAGES Routine 10/08/2020 12:00 AM EST from Last 3 Months or Most Recently Relevant to Health Maintenance Results * (ABNORMAL) Hemoglobin A1c (01/30/2025 8:56 AM EDT) Hemoglobin A1c 6.4(H) <6.0 % [facility] Comment:Hemoglobin A1C Refer ence Range Adults: 4.8 - 6.0 % Non diabetic: < 6.0 % Goal: < 7.0 %Additional Action Suggested: > 8.0 %Note: Hemoglobin A1c results are invalid for patients with abnormal amounts of HbF. Blood transfusions may impact the HbA1c concentration in the patient sample. Estimated Average Glucose 137 mg/dL [facility] Comment:eAG = Estimated ave rage glucose which is %A1C expressed asaverage glucose, using the formula of the R2K-RetcttlUirlphl Glucose study (ADAG), Diabetes Care, Vol.31,#8,Apr. 2007 Blood Venous blood specimen / Unknown 01/30/2025 8:56 AM EDT 01/30/2025 11:23 AM EDT us [facility] LAB BLOOD ORDERABLES Final Resul t [facility] [address] [place] [phone] * Lipid Panel, Standard (01/30/2025 8:56 AM EDT) Triglycerides 55 <150 mg/dL [facility] Comment:Desirable Triglyceri de: less than 150 mg/dLBorderline High Triglyceride 150-199 mg/dLHigh Triglyceride: 200-499 mg/dLVery High Triglyceride: greater than or equal to 5OO mg/dL Cholesterol 119 <200 mg/dL [facility] Comment:Desirable Cholestero l: less than 200 mg/dLBorderline High Cholesterol: 200-239 mg/dLHigh Cholesterol: greater than 239 mg/dL LDL Cholesterol Calculated 56 <100 mg/dL [facility] Comment:Desirable LDL: less than 100 mg/dLNear Optimal/Above Optimal LDL: 110- 129 mg/dLBorderline High LDL: 130-159 mg/dLHigh LDL: 160-189 mg/dLVery High LDL: greater than or equal to 190 mg/dL HDL Cholesterol 52 >40 mg/dL [facility] Comment:Desirable HDL: great er than 40 mg/dL Note: This HDL assay may give artificially low results in patients with liver disease. Blood Venous blood specimen / Unknown 01/30/2025 8:56 AM EDT 01/30/2025 11:23 AM EDT Katia Hill [facility] BLOOD ORDERABLES Final Resul t [facility] [address] [place] [phone] * HEPATITIS B SURFACE ANTIGEN* (07/01/2022 1:44 PM EDT) Hepatitis B Surface Antigen Negative Negative [facility] HIV AB/AG Nonreactive Nonreactive CONVER ABIODUN [...] of detection of this assay. The [employer] HIV Ag/Ab Combo assay result and supplemental [...] Most Recently Relevant to Health Maintenance [facility] [place] AD[place] Care Teams Shell Press Operator Relationship Specialty Start Date End Date Katia Hill ANP [address] [place] [address] PCP - General Family Medicine 05/16/22
== END 2025-05-08 09:46 | disposition home or self-care (01) ==
LOC: HO.CT 09:45
PROVIDERS: PCP Nurse Practitioner Primary Care; Visit Provider Nurse Practitioner Family
DX: Z12.2 Encounter for screening for malignant neoplasm of respiratory organs (principal); Z87.891 Personal history of nicotine dependence
CPT/HCPCS: 71271

== ENCOUNTER → 2025-05-08 09:46 | Outpatient (BNV) | payer MEDICAID, SELFPAY | PROVIDERS: PCP Nurse Practitioner Primary Care; Visit Provider Radiology Diagnostic Radiology | DX: Z87.891 Personal history of nicotine dependence (principal) | CPT/HCPCS: 71271 ==

== ENCOUNTER 2025-05-24 13:09 | Outpatient (AMB) | payer MEDICAID, SELFPAY ==
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
[2025-05-24 13:13] VITALS: BP 150/82; PULSE 75; O2SAT 91; BMI 35.0
--- OUTSIDE RECORDS SUMMARY | 2025-05-24 14:26 | XMS_ITS | Clinical Summary ---
Author Organization [employer] Address [address] [place] [address] 7[address] [place] [address] Care Team Providers Care Local Company Refrigerated Truck Driver Name Role Phone Maria Esther De Leon Primary Care Provider [phone] Allergies Active Allergy Reactions Criticality Noted Date Comments Barium Sulfate 10/30/2020 Other reaction(s): Hives / Skin Rash Ibuprofen 03/08/2018 Medications Symbicort 160-4.5 MCG/ACT inhaler INHALE 2 PUFFS BY MOUTH TWICE DAILY RINSE MOUTH AFTER USING. 023 Active cetirizine (ZyrTEC) 10 MG tablet TAKE 1 TABLET BY MOUTH EVERY MORNING 022 Active methadone (Dolophine) 10 MG/ML solution 75 mg daily Act solomon montelukast (Singulair) 10 MG tablet TAKE 1 TABLET BY MOUTH AT BEDTIME 022 Active predniSONE (Deltasone) 10 MG tablet TAKE 1 TABLET BY MOUTH EVERY DAY 023 Active QUEtiapine (SEROquel) 400 MG tablet TAKE 1 TABLET BY MOUTH AT BEDTIME 023 Active risperiDONE (RisperDAL) 2 MG tablet Take 1 tablet by mouth Once daily. At bedtime 023 Active sertraline (Zoloft) 100 MG tablet TAKE 1 TABLET BY MOUTH EVERY MORNING 023 Active sodium chloride 3 % nebulizer solution INHALE 4 ML VIA NEBULIZER TWICE DAILY 022 Active traZODone (Desyrel) 100 MG tablet TAKE 1 TABLET BY MOUTH AT BEDTIME 023 Active albuterol (2.5 MG/3ML) 0.083% nebulizer solution Take by nebulization. INHALE 1 AMPULE EVERY 4 HOURS as NEEDED FOR SHORTNESS OF BREATH OR WHEEZING Active Misc. Devices (Pulse Oximeter) miscIndications:A cute pulmonary embolism without acute cor pulmonale, unspecified pulmonary embolism type (CMS/HCC) 1 each if needed in the morning and at bedtime (SOB). Go to ED if SpO2 remains < 90% 1 each 024 Active apixaban (Eliquis) 5 MG tabletIndications :Pulmonary Embolism,05/07/24 unprovoked PE at [facility] Take 5 mg by mouth 2 times daily. Active gabapentin (Neurontin) 300 MG capsule Take 300 mg by mouth at bedtime. 024 Active modafinil (Provigil) 100 MG tablet Take 100 mg by mouth in the morning. 024 Active omeprazole (PriLOSEC) [address] capsuleIndication s:Gastroesophagea l reflux disease without esophagitis TAKE 1 CAPSULE BY MOUTH EVERY MORNING BEFORE BREAKFAST 90 capsule 3 025 Active pravastatin (Pravachol) 10 MG tabletIndications :Mixed hyperlipidemia TAKE 1 TABLET BY MOUTH EVERY EVENING 90 tablet 3 025 Active aspirin (Aspirin Low Dose) 81 MG chewable tabletIndications :Mixed hyperlipidemia TAKE 1 TABLET BY MOUTH EVERY EVENING (CHEW) 90 tablet 3 025 Active amLODIPine (Norvasc) 5 MG tabletIndications :Benign essential HTN TAKE 1 TABLET BY MOUTH EVERY MORNING 90 tablet 3 025 Active docusate sodium (Colace) 100 MG capsule TAKE 1 CAPSULE BY MOUTH AT BEDTIME NEEDED 90 capsule 1 025 Active ferrous sulfate (Fe Tabs) 325 (65 Fe) MG EC tabletIndications :Iron deficiency anemia, unspecified iron deficiency anemia type Take 1 tab every other day with vitamin C. Do not crush, chew, or split. 45 tablet 1 025 Active Ascorbic Acid (vitamin C) 250 MG tabletIndications :Iron deficiency anemia, unspecified iron deficiency anemia type Take 1 tab every other day with ferrous sulfate tablets. 45 tablet 1 025 Active Multiple Vitamin (Multivitamin) tablet TAKE 1 TABLET BY MOUTH EVERY MORNING WITH FOOD 90 tablet 3 025 Active azelastine (Astelin) 0.1 % nasal sprayIndications: Nasal congestion Administer 1 spray into each nostril 2 times daily. Use in each nostril as directed 30 mL 1 025 2025 Active metFORMIN (Glucophage) 500 MG tabletIndications :Prediabetes 1 tablet BID with food 180 tablet 3 Active FREESTYLE LITE test stripIndications: New onset type 2 diabetes mellitus (CMS/HCC) Use to test blood sugar 2 times daily 100 each 12 025 2025 Active Lancets miscIndications:N ew onset type 2 diabetes mellitus (CMS/HCC) Use to test blood sugar 2 times daily 100 each 3 Active Alcohol Swabs 70 % padsIndications:N ew onset type 2 diabetes mellitus (CMS/HCC) Use to clean skin for BG check 100 each 11 Active Blood Glucose Monitoring Suppl (FreeStyle Jarbidge Lite) w/Device kitIndications:Ne w onset type 2 diabetes mellitus (CMS/HCC) Use to test blood sugar 2 times daily 1 kit Active fluticasone (Flonase) 50 MCG/ACT nasal spray Use 1 spray each nostril daily. Shake gently. Before first use, prime pump. After use, clean tip and replace cap. 48 g 024 2024 Discontinued(I neffective) metFORMIN (Glucophage) 500 MG tabletIndications :Prediabetes TAKE 1 TABLET BY MOUTH EVERY MORNING WITH FOOD 90 tablet 3 024 2024 Discontinued(R eorder (will not trigger notification to Pharmacy)) predniSONE (Deltasone) 20 MG tablet Take 2 tablets (40 mg) by mouth Once per day for 5 days. 10 tablet 025 2024 azithromycin (Zithromax) 250 MG tablet Take 1 tablet (250 mg) by mouth Once per day for 5 days. 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 [...] Encounters Date Type Department Care Team Description 05/11/[address] [address] Makayla Lerma RN Results 05/10/2025 11:15 AM EDT Office Visit [address] [address] Maria Esther De Leon ANP COPD on long-term oral steroid therapy (CMS/HCC) (Primary Dx); New onset type 2 diabetes mellitus (CMS/HCC); Nasal congestion; Severe recurrent major depression without psychotic features (CMS/HCC); Prediabetes; Screening for osteoporosis 05/10/2025 Travel 05/09/2025 Telephone [facility] [address] [place] [address] Martine Mcclelland [place] 05/08/2025 Orders Only [facility] External Provider, [facility] 05/02/2025 8:00 AM EDT Office Visit [facility] [address] [place] [address] Rebekah Brown Encounter for dental examination (Primary Dx); Dental caries; Retained tooth root; Teeth missing 04/24/2025 9:15 AM EDT Office Visit [facility] [address] [place] [address] Maria Esther De Leon ANP COPD exacerbation (CMS/HCC) (Primary Dx) 04/24/2025 Travel 04/23/2025 5:20 PM EDT Office Visit [facility] [address] [place] [address] Enzo Eldridge MD Subacute cough (Primary Dx) 04/23/2025 Telephone [facility] [address] [facility] [address] Makayla Lerma, graphic specialist 04/20/2025 Telephone [facility] [address] [facility] [address] Maria Esther De Leon ANP October recall 04/16/2025 Refill [facility] [address] [place] [address] Maria Esther De Leon ANP 03/05/2025 10:30 AM EDT Office Visit [facility] [address] [place] [address] Piña-Topete, Yazmin, DDS 03/02/2025 9:00 AM EDT Office Visit [facility] [address] [place] [address] Piña-Topete, Yazmin, DDS Fracture of denture (Primary [...] Sign Reading Time Taken Comments Blood Pressure 106/70 05/10/2025 11:26 AM EDT Pulse 74 05/10/2025 11:26 AM EDT Temperature 36.3 C (97.3 F) 05/10/2025 11:26 AM EDT Respiratory Rate 20 05/10/2025 11:26 AM EDT Oxygen Saturation 96% 05/10/2025 11:26 AM EDT Inhaled Oxygen Concentration - - Weight 100 kg (221 lb) 05/10/2025 11:26 AM EDT Height 170.2 cm (5' 7 ) 05/10/2025 11:26 AM EDT Body Mass Index 34.61 05/10/2025 11:26 AM EDT Plan of Treatment Upcoming Encounters Date Type Department Care Team (Late st Contact Info) Description 06/11/2025 2:30 PM EDT Office Visit [facility] [address] [place], [place] [phone] Josue Giordano DDS [address] [place] [address] 07/03/2025 1:30 PM EDT Office Visit [facility] [address] [place], [place] [phone] Maria Esther De Leon ANP [address] [place], [place] [phone] Health Maintenance Due Date Last Done Comments CT Colonography 1962 FIT DNA/Cologuard 1962 FIT 1962 FOBT 1962 Sigmoidoscopy 1962 Diabetes: Foot Exam 1972 Hepatitis A Vaccines (1 of 2 - Risk 2-dose series) 1981 Diabetes: Urine Protein Screening 10/30/2021 10/30/2020 Colonoscopy 09/04/2022 09/04/2021 Colorectal Cancer Screening 09/04/2022 Hepatitis B Vaccines (1 of 3 - Risk 3-dose series) 2022 Dental X-Ray: Full Mouth 10/09/2023 021, 03/02/2018, 12/25/2015 COVID-19 Vaccine ( season) 2025 08/23/2021, 01/20/2021, 12/23/2020 Influenza Vaccine (#1) 2025 Diabetes: Hemoglobin A1C 08/10/2025 025, 01/30/2025, 09/07/2022, Additional history exists Dental Oral Exam 11/03/2025 05/02/2025, 06/2022, 10/08/2020, Additional history exists Dental Prophylaxis 11/03/2025 05/02/2025, 0 04/29/2022, 10/16/2020, Additional history exists Lipid Panel 01/30/2026 01/30/2025, 08/20, 06/02/2021, Additional history exists Alcohol/Substance Use Screening 04/24/2026 04/24/2025 Depression Screening 04/24/2026 04/24/2025, 04/24/20 25 Disability Screening 04/24/2026 04/24/2025 SDOH Screening 04/24/2026 04/24/2025 Dental X-Ray: Bitewings 05/03/2026 05/02/20, 04/29/2022, 10/08/2020, Additional history exists Tobacco Screening 05/10/2026 05/10/2025 Eye Exam 07/12/2026 07/12/2024, 06/21, 07/12/2024, Additional history exists DTaP/Tdap/Td Vaccines (3 - [...] Author Hemoglobin A1c < 7 Result Component 7(05/10/2025 12:02 PM EDT) No Keerthi Garcia PharmD Procedures Procedure Name Priority Date/Time Associated Diagnosis Comments POCT GLUCOSE Routine 05/10/2025 12:02 PM EDT Prediabetes POCT GLYCATED HEMOGLOBIN, TOTAL Routine 05/10/2025 12:02 PM EDT Prediabetes LDCT LUNG SCREENING Routine 05/09/2025 8 :24 PM EDT COMPREHENSIVE PERIODONTAL EVALUATION - NEW OR ESTABLISHED [...] 9 EXTRACTION Routine 03/02/2025 12:00 AM EDT LIPID PANEL, STANDARD Routine 01/30/2025 8:56 AM EDT Prediabetes ZZZ HISTORICAL HEPATITIS B SURFACE ANTIGEN* Routine 07/01/2022 1:44 PM EDT HM COLONOSCOPY Routine 09/04/2021 ALBUMIN, RANDOM URINE W/CREATININE Routine 10/30/2020 11:23 AM EST INTRAORAL - COMPLETE SERIES OF RADIOGRAPHIC IMAGES Routine 10/08/2020 12:00 AM EST from Last 3 Months or Most Recently Relevant to Health Maintenance Results * (ABNORMAL) POCT HGB A1C (05/10/2025 12:02 PM EDT) Hemoglobin A1C 7.0(A) 4.0 - 5.7 % QC Media Lot # [id number] Lot# Expiration Date [id number] Blood 05/10/2025 12:0 2 PM EDT [facility] POINT OF CARE TEST ENTER/EDIT OR DERABLES Final Result * (ABNORMAL) POCT Glucose (05/10/2025 12:02 PM EDT) Glucose Blood, POC 215(A) 60 - 200 mg/dL QC Media Lot # [id number] Lot# Expiration Date Blood Capillary blood specimen / Unknown 05/10/2025 12:02 PM EDT us Maria Esther SANDOVAL POINT OF CARE TEST ENTER/EDIT OR DERABLES Final Result * CT Lung Screening Low dose (05/09/2025 8:24 PM EDT) Anatomical Region Laterality Modality Lung Computed Tomogra phy 05/09/2025 8:24 PM EDT Narrative 05/09/2025 8:26 PM EDT [place] [address] CT Scan Report Signed Patient: Josue Pritchard MR#: [id number] : 1960 Acct:[id number] Age/Sex: 64 / M ADM Date: 05/08/25 Loc: HO.CT Attending Dr: Giulia Jackson ELECTROTYPE MOLDER Ordering Physician: Ela Irizarry PA-C Date of Service: 05/08/25 Procedure(s): CT lung screening Accession Number(s): [id number] cc: Ela Irizarry PA-C; MARIA ESTHER DE LEON NP Report Number: [id number]: Total DLP = 73.00 mGy-cm CLINICAL HISTORY: Z87.891 - Personal history of nicotine dependence CT lung cancer screening. Technique: Axial CT images of the chest using low-dose technique. Effective radiation dose: DLP 61.9 mGy. Cm, CTDIvol 1.8 mGy Referring provider counseled the patient on shared decision-making for LDCT screening. Additional counseling was provided on smoking cessation. Comparison: 05/07/2024 and 10/16/2022 Findings: There are mild changes of emphysema. There is multifocal pulmonary scarring bilaterally more pronounced in the lower lobes and right middle lobe. No consolidation is seen. No suspicious pulmonary lesions are seen. There is no significant bronchiectasis. There is prominent pancreatic atrophy. Impression: Mild changes of emphysema. No suspicious pulmonary lesions are seen. Recommend continued annual screening. Multifocal pulmonary scarring bilaterally. LungRADS 2 - Benign Appearance: Continue annual screening with low dose Chest CT in 12 months. ACR LungRADS Categories Category 1: Normal; continue annual screening Category 2: Benign appearance or behavior, continue annual screening Category 3: Probably Benign, [address] recommended Category 4A: Suspicious, [address] recommended; may consider PET/CT Category 4B: Suspicious, Additional diagnostics and/or tissue sampling recommended Category 4X: Suspicious, Additional diagnostics and/or tissue sampling Category 0: Recalls (incomplete screen due to Incomplete coverage, Noise, Respiratory motion, Expiration, Obscured by acute abnormality) This document has been electronically signed by: Horace Goel MD on 05/09/2025 20:24:42 Dictated By: Rakesh Champion MD Signed By: <Electronically signed by Rakesh Champion MD in OV> 05/09/252025 DD/ 23 TD/TT: 05/09/252023 Dredge Master: Procedure Note Donotuseinterpreter, Image - 05/09/[address] [place] [address] [address] Scan Report Signed Patient: Josue Pritchard LMR#: [id number] : 1960Acct:[id number] Age/Sex: 64 / MADM Date: 05/08/25 Loc: HO.CT Attending Dr: Giulia Jackson ELECTROTYPE MOLDER Ordering Physician: Ela Irizarry PA-C Date of Service: 05/08/25 Procedure(s): CT lung screening Accession Number(s): [id number] cc: Ela Irizarry PA-C; MARIA ESTHER DE LEON NP Report Number: [id number]: Total DLP = 73.00 mGy-cm CLINICAL HISTORY: Z87.891 - Personal history of nicotine dependence CT lung cancer screening. Technique: Axial CT images of the chest using low-dose technique. Effective radiation dose: DLP 61.9 mGy. Cm, CTDIvol 1.8 mGy Referring provider counseled the patient on shared decision-making for LDCT screening. Additional counseling was provided on smoking cessation. Comparison: 05/07/2024 and 10/16/2022 Findings: There are mild changes of emphysema. There is multifocal pulmonary scarring bilaterally more pronounced in the lower lobes and right middle lobe. No consolidation is seen. No suspicious pulmonary lesions are seen. There is no significant bronchiectasis. There is prominent pancreatic atrophy. Impression: Mild changes of emphysema. No suspicious pulmonary lesions are seen. Recommend continued annual screening. Multifocal pulmonary scarring bilaterally. LungRADS 2 - Benign Appearance: Continue annual screening with low dose Chest CT in 12 months. ACR LungRADS Categories Category 1: Normal; continue annual screening Category 2: Benign appearance or behavior, continue annual screening Category 3: Probably Benign, [address] recommended Category 4A: Suspicious, [address] recommended; may consider PET/CT Category 4B: Suspicious, Additional diagnostics and/or tissue sampling recommended Category 4X: Suspicious, Additional diagnostics and/or tissue sampling Category 0: Recalls (incomplete screen due to Incomplete coverage, Noise, Respiratory motion, Expiration, Obscured by acute abnormality) This document has been electronically signed by: Horace Goel MD on 05/09/2025 20:24:42 Dictated By: Rakesh Champion MD Signed By: <Electronically signed by Rakesh Champion MD in OV> 05/09/252025 DD/ 23 TD/TT: 05/09/252023 Dredge Master: us [facility] External Provider IMG CT PROCEDURES Edited Result - Final * Lipid Panel, Standard (01/30/2025 8:56 AM EDT) Triglycerides 55 <150 mg/dL [facility] Comment:Desirable Triglyceri de: less than 150 mg/dLBorderline High Triglyceride 150-199 mg/dLHigh Triglyceride: 200-499 mg/dLVery High Triglyceride: greater than or equal to 5OO mg/dL Cholesterol 119 <200 mg/dL [facility] Comment:Desirable Cholestero l: less than 200 mg/dLBorderline High Cholesterol: 200-239 mg/dLHigh Cholesterol: greater than 239 mg/dL LDL Cholesterol Calculated 56 <100 mg/dL [facility] Comment:Desirable LDL: less than 100 mg/dLNear Optimal/Above Optimal LDL: 110- 129 mg/dLBorderline High LDL: 130-159 mg/dLHigh LDL: 160-189 mg/dLVery High LDL: greater than or equal to 190 mg/dL HDL Cholesterol 52 >40 mg/dL [facility] Comment:Desirable HDL: great er than 40 mg/dL Note: This HDL assay may give artificially low results in patients with liver disease. Blood Venous blood specimen / Unknown 01/30/2025 8:56 AM EDT 01/30/2025 11:23 AM EDT Maria Esther De Leon [facility] BLOOD ORDERABLES Final Resul t [facility] [address] [place] [phone] * HEPATITIS B SURFACE ANTIGEN* (07/01/2022 1:44 PM EDT) Hepatitis B Surface Antigen Negative Negative [facility] HIV AB/AG Nonreactive Nonreactive [facility] Comment: HIV-1 p24 Ag and/or HIV-1/HIV-2 [...] of detection of this assay. The [employer] Associate HIV Ag/Ab Combo assay result and supplemental assay results should be interpreted in conjunction with the patient's clinical presentation, history and other laboratory results. If the results are inconsistent with clinical evidence, additional testing is suggested to confirm the result. 07/01/2022 1:44 PM EDT Judy Ranier HISTORICAL/NON ORDERABLE LABS Final Result CONVERTED [facility]GACY LABS * Hm Colonoscopy (09/04/2021) Colonoscopy Normal Normal Narrative Ange Berman - 09/04/2021 Repeat in 1 year due to stool Historical Provider MD HEALTH MAINTENANCE Final Result * (ABNORMAL) ALBUMIN, RANDOM URINE W/CREATININE (10/30/2020 11:23 AM EST) Microalbumin Urine 2.1 See Note: mg/dL [facility] Comment: Reference Range: Reference Range Not established Microalb/Creat Ratio 6 <30 mcg/mg creat [facility] Comment: The ADA defines abnormalities in albumin excretion as follows: Category Result (mcg/mg creatinine) Normal <30 Microalbuminuria 30-299 Clinical albuminuria > OR = 300 The ADA recommends that at least two of three specimens collected within a 3-6 month period be abnormal before considering a patient to be within a diagnostic category. Creatinine, Urine 369(H) 20 - 320 mg/dL [facility] Comment: Verified by repeat analysis. 10/30/2020 11:2 3 AM EST Lina Andersen CARRY OUT CLERK AND SHELF STOCKER LAB URINE ORDERABLES Final Res ult [facility] [address] from Last 3 Months or Most Recently Relevant to Health Maintenance [facility] STAND ADULT Care Teams Local Company Refrigerated Truck Driver Relationship Specialty Start Date End Date Maria Esther De Leon ANP [address] [place] [phone] PCP - General Family Medicine 05/16/22
--- OUTSIDE RECORDS SUMMARY | 2025-05-24 14:26 | XMS_ITS | Encounter Summary ---
Author Organization [employer] Address [address] [place] [address] [address] [place] [address] Care Team Providers Care Submarine Operator Name Role Phone Katia Hill Primary Care Provider [phone] Encounter Details Date Type Department Care Team (Latest Contact Info) Description 04/29/[address] [facility] CON[facility] Dental, Provider, DDS Social History Tobacco Use Types Packs/Day Years Used Date Smoking Tobacco: Never Assessed Sex and Gender Information Value Date Recorded Sex Assigned at Male 07/20/2022 10:14 AM EDT Legal Sex Male 10:14 AM EDT Gender Identity Male 07/20/2022 10:14 AM EDT Sexual Orientation Straight 07/20/2022 10 :14 AM EDT documented as of this encounter Plan of Treatment Upcoming Encounters Date Type Department Care Team ( st Contact Info) Description 06/11/2025 2:30 PM EDT Office Visit [facility] [address] [place] [address] Josue Giordano DDS [address] [place] [address] 07/03/2025 1:30 PM EDT Office Visit [facility] [address] [place] [address] Katia Hill ANP [address] [place] [address] documented as of this encounter Visit Diagnoses Not on filedocumented in this encounter Care Teams Submarine Operator Relationship Specialty Start Date End Date Katia Hill ANP [address] [place] [address] PCP - General Family Medicine 05/16/22 documented as of this encounter
--- OUTSIDE RECORDS SUMMARY | 2025-05-24 14:26 | XMS_ITS | Encounter Summary ---
Author Organization [employer] Address [address] [facility] [address] [place] [address] Care Team Providers Care Peoplesoft Fscm Developer Name Role Phone Katia Hill Primary Care Provider [phone] Reason for Visit * Reason Comments Med Refill Encounter Details Date Type Department Care Team ([facility] st Contact Info) Description 03/28/2024 Refill [facility] [address] [place] [address] Maria Teresa Wright MD [address] [place] [address] Pain and swelling of right lower leg [...] Description 06/11/2025 2:30 PM EDT Office Visit [facility] [address] [place] [address] Josue Giordano DDS [address] [place] [address] 07/03/2025 1:30 PM EDT Office Visit [facility] [address] [place] [address] Katia Hill ANP [address] [place] [address] documented as of this encounter Goals Goal Patient Goal Type Associated Problems Recent Progress Patient-Stated? Author Hemoglobin A1c < 7 Result Component 7(05/10/2025 12:02 PM EDT) No Keerthi Garcia, PharmD documented as of this encounter Visit Diagnoses Diagnosis Pain and swelling of right lower leg documented in this encounter Care Teams Peoplesoft Fscm Developer Relationship Specialty Start Date End Date Katia Hill ANP [address] [place] [address] PCP - General Family Medicine 05/16/22 documented as of this encounter
--- OUTSIDE RECORDS SUMMARY | 2025-05-24 14:26 | XMS_ITS | Encounter Summary ---
Author Organization [employer] Address [address] [place] [address] [address] [place] [address] Care Team Providers Care Rug Repairer Name Role Phone Katia Hill Primary Care Provider [phone] Encounter Details Date Type Department Care Team (Latest Contact Info) Description 10/16/2020 Abstract [facility] CONVERSIONS Dental, Provider, DDS Social History Tobacco [...] Description 06/11/2025 2:30 PM EDT Office Visit [facility] [address] [place] [address] Josue Giordano DDS [address] [place] [address] 07/03/2025 1:30 PM EDT Office Visit [facility] [address] [place] [address] Katia Hill ANP [address] [place] [address] documented as of this encounter Visit Diagnoses Not on filedocumented in this encounter Care Teams Rug Repairer Relationship Specialty Start Date End Date Katia Hill ANP [address] [place] [address] PCP - General Family Medicine 05/16/22 documented as of this encounter
--- OUTSIDE RECORDS SUMMARY | 2025-05-24 14:26 | XMS_ITS | Encounter Summary ---
Author Organization [employer] Address [address] [place] [address] 7t [place] [address] Care Team Providers Care Tax Associate Name Role Phone Maria Esther De Leon Primary Care Provider [phone] Encounter Details Date Type Department Care Team (Late st Contact Info) Description 09/30/2022 Orders Only [address] [address] eBcca Clemente LPN Social History Tobacco Use Types [...] Description 06/11/2025 2:30 PM EDT Office Visit [facility] ADULT DENTAL [address] [place] [phone] Josue Giordano DDS [address] [place] [phone] 07/03/2025 1:30 PM EDT Office Visit [facility] MEDICINE [address] [place] [address] Maria Esther De Leon ANP [address] [place] [phone] (work) documented as of this encounter Procedures Procedure Name Priority Date/Time Associated Diagnosis Comments CT ABDOMEN PELVIS WO CONTRAST Routine 10/22/2022 10:10 AM EST documented in this encounter Results * CT Abdomen Pelvis w/o Contrast (10/22/2022 10:10 AM EST) Anatomical Region Laterality Modality Body, Pelvis, Abdomen Computed T omography 10/22/2022 10:1 0 AM EST Narrative 10/26/2022 1:01 PM EST [address] [address] [address] Scan Report Signed Patient: Josue Rosenthal MR#: [id number] 80 : 1960 Acct:[id number] Age/Sex: 61 / M ADM Date: 10/22/22 Loc: HO.CT Attending Dr: Vincent Ocasio MD Ordering Physician: Vincent Ocasio MD Date of Service: 10/22/22 Procedure(s): CT abdomen pelvis wo IV con Accession Number(s): [id number] cc: Vincent Ocasio MD; MARIA ESTHER DE [...] in OV> 10/26/22 1258 DD/ 1010 TD/TT: Sorting Machine Operator: CLEMENT Procedure Note Donotuseinterpreter, Image - 10/26/[address] [address] [address] Scan Report Signed Patient: Josue Rosenthal LMR#: [id number] 80 : 1960Acct:[id number] Age/Sex: 61 / MADM Date: 10/22/22 Loc: HO.CT Attending Dr: Vincent Ocasio MD Ordering Physician: Vincent Ocasio MD Date of Service: 10/22/22 Procedure(s): CT abdomen pelvis wo IV con Accession Number(s): [id number] cc: Vincent Ocasio MD; MARIA ESTHER DE [...] in OV> 10/26/22 1258 DD/ 1010 TD/TT: Sorting Machine Operator: CLEMENT [facility] External Provider IMG CT PROCEDURES Edited Result - Final documented in this encounter Visit Diagnoses Not on filedocumented in this encounter Care Teams Tax Associate Relationship Specialty Start Date End Date Maria Esther De Leon ANP [address] [place] [address] PCP - General Family Medicine 05/16/22 documented as of this encounter
--- OUTSIDE RECORDS SUMMARY | 2025-05-24 14:26 | XMS_ITS | Encounter Summary ---
Author Organization [employer] Address [address] [facility] 7t [place] [address] Care Team Providers Care Well Flow Operator Name Role Phone Katia Hill Primary Care Provider [phone] Encounter Details Date Type Department Care Team (Late st Contact Info) Description 12/24/2023 Telephone [facility] MEDICINE [address] [place] [address] Katia Hill ANP [address] [place] [address] Social History Tobacco Use Types Packs/Day Years [...] Description 06/11/2025 2:30 PM EDT Office Visit [facility] ADULT DENTAL [address] [place] [address] Josue Giordano DDS [address] [place] [address] 07/03/2025 1:30 PM EDT Office Visit [facility] MEDICINE [address] [place] [phone] Katia Hill ANP [address] [place] [address] documented as of this encounter Goals Goal Patient Goal Type Associated Problems Recent Progress Patient-Stated? Author Hemoglobin A1c < 7 Result Component 7(05/10/2025 12:02 PM EDT) No Keerthi Garcia, PharmD documented as of this encounter Visit Diagnoses Not on filedocumented in this encounter Care Teams Well Flow Operator Relationship Specialty Start Date End Date Katia Hill ANP [address] [place] [address] PCP - General Family Medicine 05/16/22 documented as of this encounter
== END 2025-05-24 13:39 | disposition home or self-care (01) ==
LOC: HO.HPS 13:10
PROVIDERS: PCP Nurse Practitioner Primary Care; Visit Provider Hospitalist
DX: J45.50 Severe persistent asthma, uncomplicated (principal); J40 Bronchitis, not specified as acute or chronic; G47.33 Obstructive sleep apnea (adult) (pediatric); F19.20 Other psychoactive substance dependence, uncomplicated; I26.99 Other pulmonary embolism without acute cor pulmonale; J44.9 Chronic obstructive pulmonary disease, unspecified; A49.01 Methicillin susceptible Staphylococcus aureus infection, unspecified site; G47.34 Idiopathic sleep related nonobstructive alveolar hypoventilation
CPT/HCPCS: 99214

== ENCOUNTER → 2025-05-24 13:09 | Outpatient (BNVA) | payer MEDICAID, SELFPAY | PROVIDERS: PCP Nurse Practitioner Primary Care; Visit Provider Hospitalist | DX: J45.50 Severe persistent asthma, uncomplicated (principal); J40 Bronchitis, not specified as acute or chronic; G47.33 Obstructive sleep apnea (adult) (pediatric); F19.20 Other psychoactive substance dependence, uncomplicated; I26.99 Other pulmonary embolism without acute cor pulmonale; J44.9 Chronic obstructive pulmonary disease, unspecified; A49.01 Methicillin susceptible Staphylococcus aureus infection, unspecified site; G47.34 Idiopathic sleep related nonobstructive alveolar hypoventilation | CPT/HCPCS: 99212 ==

== ENCOUNTER 2025-07-03 14:05 | Outpatient (REF) | payer MEDICAID, SELFPAY ==
--- OUTSIDE RECORDS SUMMARY | 2025-07-03 13:30 | XMS_ITS | Encounter Summary ---
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); Asthma-chronic obstructive pulmonary disease overlap syndrome (CMS/HCC) (HCC); Pulmonary hypertension (CMS/HCC) (HCC); New onset type 2 diabetes mellitus (HCC); Dietary counseling; Exercise counseling; COPD exacerbation (CMS/HCC) (HCC); Vasculogenic erectile dysfunction, unspecified vasculogenic erectile dysfunction type; Screening PSA (prostate specific antigen); Mixed hyperlipidemia; Former heavy tobacco smoker Social History Tobacco Use Types Packs/Day Years [...] AM EDT documented as of this encounter Last Filed Vital Signs Vital Sign Reading Time Taken Comments Blood Pressure 120/80 07/03/2025 1:20 PM EDT Pulse 63 07/03/2025 1:20 PM EDT Temperature 36.8 C (98.2 F) 07/03/2025 1:20 PM EDT Respiratory Rate 10 07/03/2025 1:20 PM EDT Oxygen Saturation 93% 07/03/2025 1:36 PM EDT Inhaled Oxygen Concentration - - Weight 97.7 kg (215 lb 6 oz) 07/03/2025 1:20 PM EDT Height 170.2 cm (5' 7 ) 07/03/2025 1:20 PM EDT Body Mass Index 33.73 07/03/2025 1:20 PM EDT documented in this encounter Patient Instructions * Patient Instructions* JAIME Cheung - 07/03/2025 1:30 PM EDT You have a bone density test scheduled 07/17/25 at 9:15 am at [facility]. Call [facility] Centralized Scheduling with questions: [phone] documented in this encounter Plan of Treatment Upcoming Encounters Date Type Department Care Team (Late st Contact Info) Description 07/23/2025 2:15 PM EST Office Visit [facility] MEDICINE [address] [place] [address] Katia Hill ANP [address] [place] [address] Scheduled Orders Name Type Priority Associated Diagnoses Orde r Schedule PSA,Total Lab Routine Screening PSA (prostate specific antigen) Expected: 07/03/2025 (Approximate), Expires: 07/03/2026 documented as of this encounter Goals Goal Patient Goal Type Associated Problems Recent Progress Patient-Stated? 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) Major depressive disorder, recurrent episode, severe, without mention of psychotic behavior Asthma-chronic obstructive pulmonary disease overlap syndrome (CMS/HCC) (HCC) Pulmonary hypertension (CMS/HCC) (HCC) Other chronic pulmonary heart diseases New onset type 2 diabetes mellitus (HCC) Dietary counseling Dietary surveillance and counseling Exercise counseling COPD exacerbation (CMS/HCC) (HCC) Obstructive chronic bronchitis with exacerbation Vasculogenic erectile dysfunction, unspecified vasculogenic erectile dysfunction type Screening PSA (prostate specific antigen) Special screening for malignant neoplasm of prostate Mixed hyperlipidemia Former heavy tobacco smoker documented in this encounter Additional Health Concerns Assessment Noted Time PHQ-9 Depression Total Score: 8 04/24/20 25 9:26 AM EDT documented as of this encounter Care Teams Medical Insurance Coding Specialist Relationship Specialty Start Date End Date Katia Hill ANP [address] [place] [phone] PCP - General Family Medicine 05/16/22 documented as of this encounter
[2025-07-03 16:13] LABS: MANUAL DIFF FLAG NO
[2025-07-03 16:35] LABS: Hematocrit 43.2 % (42.0-52.0); Hemoglobin 13.8 g/dl (14.0-18.0); Imm Gran Abs Auto 0.06 X10*3/uL (0.00-0.03); Imm Gran Pct Auto 0.6 % (0.0-0.4); Lymphocytes Absolute Auto 1.7 X10*3/uL (1.2-4.9); Mean Corpuscular HGB Conc 31.9 g/dl (31.0-36.0); Mean Corpuscular Hemoglobin 27.3 pg (27.0-33.0); Mean Corpuscular Volume 85.5 fL (80.0-98.0); NRBC Abs Auto 0.000 X10*3/uL (0.0-0.012); NRBC Pct Auto 0.0 /100WBC (0.0-0.2); Platelet Count 249 X10*3/uL (160-400); Red Blood Count 5.05 X10*6/uL (4.60-5.80); White Blood Count 10.3 X10*3/uL (4.8-10.8)
--- OUTSIDE RECORDS SUMMARY | 2025-07-03 17:03 | XMS_ITS | Encounter Summary ---
Author Organization [employer] Address [address] [facility] 7t [place] [address] Care Team Providers Care Senior Service Aide Name Role Phone Liz Katia SANDOVAL Primary Care Provider [phone] Encounter Details Date Type Department Care Team (Latest Contact Info) Description 07/03/2025 Travel Social History Tobacco Use Types Packs/Day Years [...] Description 07/23/2025 2:15 PM EST Office Visit [facility] MEDICINE [address] [place] [address] Katia Hill ANP [address] [place] [address] documented as of this encounter Goals Goal Patient Goal Type Associated Problems Recent Progress Patient-Stated? Author Hemoglobin A1c < 7 Result Component 6.7(07/03/2025 2:10 PM EDT) No Keerthi Garcia, PharmD documented as of this encounter Visit Diagnoses Not on filedocumented in this encounter Additional Health Concerns Assessment Noted Time PHQ-9 Depression Total Score: 8 04/24/20 25 9:26 AM EDT documented as of this encounter Care Teams Senior Service Aide Relationship Specialty Start Date End Date Katia Hill ANP [address] [place] [address] PCP - General Family Medicine 05/16/22 documented as of this encounter
--- OUTSIDE RECORDS SUMMARY | 2025-07-03 17:03 | XMS_ITS | Encounter Summary ---
Author Organization [employer] Address [address] [place] [address] 7t [place] [address] Care Team Providers Care Utility Person Name Role Phone Katia Hill Primary Care Provider [phone] Encounter Details Date Type Department Care Team (Latest Contact Info) Description 10/16/2020 Abstract [facility] CONVERSIONS Dental, Provider, DDS Social History [...] Description 07/23/2025 2:15 PM EST Office Visit [facility] MEDICINE [address] [place] [address] Katia Hill ANP [address] [place] [address] documented as of this encounter Visit Diagnoses Not on filedocumented in this encounter Care Teams Utility Person Relationship Specialty Start Date End Date Katia Hill ANP [address] [place] [address] PCP - General Family Medicine 05/16/22 documented as of this encounter
--- OUTSIDE RECORDS SUMMARY | 2025-07-03 17:03 | XMS_ITS | Encounter Summary ---
Author Organization [employer] Address [address] [place] [address] 7t [place] [address] Care Team Providers Care Physical Geographer Name Role Phone Maria Esther De Leon Primary Care Provider [phone] Encounter Details Date Type Department Care Team (Late st Contact Info) Description 09/30/2022 Orders Only [facility] MEDICINE [address] [place] [address] Becca Clemente LPN Social History Tobacco Use [...] Description 07/23/2025 2:15 PM EST Office Visit [facility] MEDICINE [address] [place] [address] Maria Esther De Leon ANP [address] [place], [place] [phone] documented as of this encounter Procedures Procedure Name Priority Date/Time Associated Diagnosis Comments CT ABDOMEN PELVIS WO CONTRAST Routine 10/22/2022 10:10 AM EST documented in this encounter Results * CT Abdomen Pelvis w/o Contrast (10/22/2022 10:10 AM EST) Anatomical Region Laterality Modality Body, Pelvis, Abdomen Computed T omography 10/22/2022 10:1 0 AM EST Narrative 10/26/2022 1:01 PM EST [address] [address] [address] Scan Report Signed Patient: Josue Rosenthal MR#: [id number] 80 : 1960 Acct:[id number] Age/Sex: 61 / M ADM Date: 10/22/22 Loc: HO.CT Attending Dr: Vincent Ocasio MD Ordering Physician: Vincent Ocasio MD Date of Service: 10/22/22 Procedure(s): CT abdomen pelvis wo IV con Accession Number(s): [id number] cc: Vincent Ocasio MD; MARIA ESTHER DE [...] in OV> 10/26/22 1258 DD/ 1010 TD/TT: Field Test Engineer: CLEMENT Procedure Note Donotuseinterpreter, Image - 10/26/[address] [address] [address] Scan Report Signed Patient: Josue Rosenthal LMR#: [id number] [birth year] : 1960Acct:[id number] Age/Sex: 61 / MADM Date: 10/22/22 Loc: HO.CT Attending Dr: Vincent Ocasio MD Ordering Physician: Vincent Ocasio MD Date of Service: 10/22/22 Procedure(s): CT abdomen pelvis wo IV con Accession Number(s): [id number] cc: Vincent Ocasio MD; MARIA ESTHER DE [...] in OV> 10/26/22 1258 DD/ 1010 TD/TT: Field Test Engineer: CLEMENT [facility] External Provider IMG CT PROCEDURES Edited Result - Final documented in this encounter Visit Diagnoses Not on filedocumented in this encounter Care Teams Physical Geographer Relationship Specialty Start Date End Date Maria Esther De Leon ANP [address] [place] [phone] PCP - General Family Medicine 05/16/22 documented as of this encounter
--- OUTSIDE RECORDS SUMMARY | 2025-07-03 17:03 | XMS_ITS | Clinical Summary ---
Author Organization [employer] Address [address] [place] [address] 7[address] [place] [address] Care Team Providers Care Commercial Review Appraiser Name Role Phone Maria Esther De Leon Primary Care Provider [phone] Allergies Active Allergy Reactions Criticality Noted Date [...] cor pulmonale, unspecified pulmonary embolism type (CMS/HCC) (HCC) 1 each if needed in the morning and at bedtime (SOB). Go to ED if SpO2 remains < 90% 1 each 05/16/20 24 Active apixaban (Eliquis) 5 MG tabletIndications :Pulmonary Embolism,05/07/24 unprovoked PE at [facility] Take 5 mg by mouth 2 times daily. Active gabapentin (Neurontin) 300 MG capsule Take 300 mg by mouth at bedtime. 06/23/20 24 Active modafinil (Provigil) 100 MG tablet Take 100 mg by mouth in the morning. 04/19/20 24 Active omeprazole (PriLOSEC) [address] [...] MORNING 90 tablet 3 11/02/19 25 Active ferrous sulfate (Fe Tabs) 325 [...] FOOD 90 tablet 3 04/17/20 25 Active azelastine (Astelin) 0.1 % nasal sprayIndications: Nasal congestion Administer 1 spray into each nostril 2 times daily. Use in each nostril as directed 30 mL 1 05/10/20 25 2025 Active metFORMIN (Glucophage) 500 MG tabletIndications :Prediabetes 1 tablet BID with food 180 tablet 3 05/10/20 25 Active FREESTYLE LITE test stripIndications: New onset type 2 diabetes mellitus (HCC) Use to test blood sugar 2 times daily 100 each 12 05/10/20 25 2025 Active Lancets miscIndications:N ew onset type 2 diabetes mellitus (HCC) Use to test blood sugar 2 times daily 100 each 3 05/10/20 25 Active Alcohol Swabs 70 % padsIndications:N ew onset type 2 diabetes mellitus (HCC) Use to clean skin for BG check 100 each 11 05/10/20 25 Active Blood Glucose Monitoring Suppl (FreeStyle [place] Lite) w/Device kitIndications:Ne w onset type 2 diabetes mellitus (HCC) Use to test blood sugar 2 times daily 1 kit 05/10/20 25 Active docusate sodium (Colace) 100 MG capsule TAKE 1 CAPSULE BY MOUTH AT BEDTIME NEEDED 90 capsule 1 06/19/20 25 Active predniSONE (Deltasone) 20 MG tabletIndications :COPD exacerbation (CMS/HCC) (HCC) Take 1 tablet (20 mg) by mouth Once per day for 5 days. 5 tablet 07/03/20 25 2024 Active sildenafil (Viagra) 25 MG tabletIndications :Vasculogenic erectile dysfunction, unspecified vasculogenic erectile dysfunction type Take 1 tablet (25 mg) by mouth if needed each day for erectile dysfunction. 30-60 minutes before sexual activity 20 tablet 07/03/20 25 2024 Active docusate sodium (Colace) 100 MG capsule TAKE 1 CAPSULE BY MOUTH AT BEDTIME NEEDED 90 capsule 1 12/08/19 25 2024 Discontinued Active Problems Problem Noted Date Diagnosed Date SOPHIA (obstructive sleep apnea) 07/03/2025 Nocturnal hypoxia 07/03/2025 New onset type 2 diabetes mellitus 05/10/2025 [...] Asthma-chronic obstructive p ulmonary disease overlap syndrome (CMS/HCC) 08/28/2022 Assessment & Plan (09/30/2023 2:36 PM EST): Acute exacerbation, no evidence of pneumonia will treat with tapered steroids. Pt repots he is taking prednisone 10mg at baseline. I will ask nurses to call his pulmonology office to make sure blast furnace helper is aware pt is still taking steroids. Reviewed risks of stopping steroids abruptly. Discussed ER precautions. He agrees with the plan. Gastroesophageal reflux disease without esophagi tis 08/28/2022 Former heavy tobacco smoker 08/28/2022 Hepatitis B immune 08/28/2022 Dilated cardiomyopathy (CMS/HCC) 12/21/2021 Pulmonary hypertension (CMS/HCC) 12/21/2021 Prolonged QT interval 11/10/2021 Overview (07/26/2023): On methadone, Risperdal and seroquel Evaluated by [facility] Dr. Michel 11/06/2021 QT interval 457ms at that time Repeat EKG routinely to monitor Ventricular premature beats 11/10/2021 Overview (07/26/2023): Holter via [facility], no complex ectopy, premature beats were minimal Hyperlipidemia 05/02/2021 Hepatic fibrosis 11/22/2019 Prediabetes 02/14/2019 Cirrhosis of liver (CMS/HCC) 02/14/2019 Bipolar disorder 05/30/2018 Neoplasm of liver [...] lesion as described above. Stable peripancreatic adenopathy. 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 psychotic features (CMS/HCC) (HCC); Asthma-chronic obstructive pulmonary disease overlap syndrome (CMS/HCC) (HCC); Pulmonary hypertension (CMS/HCC) (HCC); New onset type 2 diabetes mellitus (HCC); Dietary counseling; Exercise counseling; COPD exacerbation (CMS/HCC) (HCC); Vasculogenic erectile dysfunction, unspecified vasculogenic erectile dysfunction type; Screening PSA (prostate specific antigen); Mixed hyperlipidemia; Former heavy tobacco smoker 07/03/2025 Travel 07/02/[address] [address] Maria Esther De Leon ANP chart prep 06/26/2025 Patient Outreach [address] [address] Maria Esther De Leon ANP Pre-visit Planning (SDOH screening was completed on 04/24/2025) 06/18/2025 Refill [facility] [address] [place] [address] Maria Esther De Leon ANP 05/11/[address] [address] Makayla Lerma RN Results 05/10/2025 11:15 AM EDT Office Visit [address] [address] Maria Esther De Leon ANP COPD on long-term oral steroid therapy (CMS/HCC) (Primary Dx); New onset type 2 diabetes mellitus (CMS/HCC); Nasal congestion; Severe recurrent major depression without psychotic features (CMS/HCC); Prediabetes; Screening for osteoporosis 05/10/2025 Travel 05/09/2025 Telephone [facility] [address] [place] [phone] Martine Mcclelland [place] 05/08/2025 Orders Only [facility] External Provider, [facility] 05/02/2025 8:00 AM EDT Office Visit [facility] [address] [place] [address] Rebekah Brown Encounter for dental examination (Primary Dx); Dental caries; Retained tooth root; Teeth missing 04/24/2025 9:15 AM EDT Office Visit [facility] [address] [place] [phone] Maria Esther De Leon ANP COPD exacerbation (CMS/HCC) (Primary Dx) 04/24/2025 Travel 04/23/2025 5:20 PM EDT Office Visit [facility] [address] [address] Enzo Eldridge MD Subacute cough (Primary Dx) 04/23/2025 Telephone [facility] [address] [place] [phone] Makayla Lerma, ticket machine operator 04/20/2025 Telephone [facility] [address] [place] [phone] Maria Esther De Leon ANP June recall 04/16/2025 Refill [facility] [address] [place] [phone] Maria Esther De Leon ANP from Last 3 Months Immunizations Immunization Administration [...] Mass Index 33.73 07/03/2025 1:20 PM EDT Plan of Treatment Upcoming Encounters Date Type Department Care Team (Late st Contact Info) Description 07/23/2025 2:15 PM EST Office Visit [facility] [address] [place], [place] [phone] Maria Esther De Leon, ANP [address] [place], [place] [phone] Health Maintenance Due Date Last Done Comments [...] (#1) 2025 Diabetes: Hemoglobin A1C 08/10/2025 025, 05/10/2025, 01/30/2025, Additional history exists Dental Oral Exam 11/03/2025 05/02/2025, 06/2022, 10/08/2020, Additional history exists Dental Prophylaxis 11/03/2025 05/02/2025, 0 04/29/2022, 10/16/2020, Additional history exists Lipid Panel 01/30/2026 01/30/2025, 08/20, 06/02/2021, Additional history exists Alcohol/Substance Use Screening 04/24/2026 04/24/2025 Depression Screening 04/24/2026 04/24/2025, 04/24/20 Disability Screening 04/24/2026 04/24/2025 SDOH Screening 04/24/2026 04/24/2025 Dental X-Ray: Bitewings 05/03/2026 05/02/20, 04/29/2022, 10/08/2020, Additional history exists Tobacco Screening 07/03/2026 07/03/2025 Eye Exam 07/12/2026 07/12/2024, 06/21, 07/12/2024, Additional [...] 6.7(07/03/2025 2:10 PM EDT) No Keerthi Garcia, Ivelisse Procedures Procedure Name Priority Date/Time Associated Diagnosis Comments HEMOGLOBIN A1C Routine 07/03/2025 2:10 PM EDT Prediabetes CBC WITH AUTO DIFFERENTIAL Routine 07/03/2025 2:10 PM EDT Iron deficiency anemia, unspecified iron deficiency anemia type POCT GLUCOSE Routine 05/10/2025 12:02 PM EDT [...] ADULT Routine 05/02/2025 8 :00 AM EDT LIPID PANEL, STANDARD Routine 01/30/2025 8:56 AM EDT Prediabetes ZZZ HISTORICAL HEPATITIS B SURFACE ANTIGEN* Routine 07/01/2022 1:44 PM EDT HM COLONOSCOPY Routine 09/04/2021 ALBUMIN, RANDOM URINE W/CREATININE Routine 10/30/2020 11:23 AM EST INTRAORAL - COMPLETE SERIES OF RADIOGRAPHIC IMAGES Routine 10/08/2020 12:00 AM EST from Last 3 Months or Most Recently Relevant to Health Maintenance Results * (ABNORMAL) CBC auto differential (07/03/2025 2:10 PM EDT) White Blood Count 10.3 4.8 - 10.8 X10*3/uL [facility] Red Blood Count 5.05 4.60 - 5.80 X10*6/uL [facility] Hemoglobin 13.8(L) 14.0 - 18.0 g/dl [facility] Hematocrit 43.2 42.0 - 52.0 % [facility] Mean Corpuscular Volume 85.5 80.0 - 98.0 fL [facility] Mean Corpuscular Hemoglobin 27.3 27.0 - 33.0 pg [facility] Mean Corpuscular HGB Conc 31.9 31.0 - 36.0 g/dl [facility] Red Cell Distribution Width 14.0 11.0 - 16.0 % [facility] Platelet Count 249 160 - 400 X10*3/uL [facility] Mean Platelet Volume 10.0 9.4 - 12.4 fL [facility] Neutrophils Percent Auto 75.1(H) 45 - 73 % [facility] Imm Gran Pct Auto 0.6(H) 0.0 - 0.4 % [facility] Lymphocytes Percent Auto 16.9(L) 20 - 40 % [facility] Monocytes Percent Auto 5.9 2 - 11 % [facility] Eosinophils Percent Auto 1.1 0 - 4 % [facility] Basophils Percent Auto 0.4 0 - 2 % [facility] NRBC Pct Auto 0.0 0.0 - 0.2 /100WBC [facility] Neutrophils Absolute Auto 7.7 2.0 - 8.3 x10*3/uL [facility] Imm Gran Abs Auto 0.06(H) 0.00 - 0.03 X10*3/uL [facility] Lymphocytes Absolute Auto 1.7 1.2 - 4.9 X10*3/uL [facility] Monocytes Absolute Auto 0.6 0.1 - 1.2 X10*3/uL [facility] Eosinophils Absolute Auto 0.1 0.0 - 0.4 X10*3/uL [facility] Basophils Absolute Auto 0.0 0.0 - 0.2 X10*3/uL [facility] NRBC Abs Auto 0.000 0.0 - 0.012 X10*3/uL [facility] Blood Venous blood specimen / Unknown 07/03/2025 2:10 PM EDT 07/03/2025 4:09 PM EDT Maria Esther De Leon [facility] BLOOD ORDERABLES Final Resul t Performing Organization Address [facility] Co de Phone Number [facility] [address] [place] [phone] * (ABNORMAL) Hemoglobin A1c (07/03/2025 2:10 PM EDT) Hemoglobin A1c 6.7(H) <6.0 % [facility] Comment:Hemoglobin A1C Refer ence Range Adults: 4.8 - 6.0 % Non diabetic: < 6.0 % Goal: < 7.0 %Additional Action Suggested: > 8.0 %Note: Hemoglobin A1c results are invalid for patients with abnormal amounts of HbF. Blood transfusions may impact the HbA1c concentration in the patient sample. Estimated Average Glucose 146 mg/dL [facility] Comment:eAG = Estimated ave rage glucose which is %A1C expressed asaverage glucose, using the formula of the G3T-StzbvrwSpdaprw Glucose study (ADAG), Diabetes Care, Vol.31,#8,Apr. 2007 Blood Venous blood specimen / Unknown 07/03/2025 2:10 PM EDT 07/03/2025 4:09 PM EDT Maria Esther De Leon [facility] BLOOD ORDERABLES Final Resul t Performing Organization Address [facility]/ZIP Co de Phone Number [facility] [address] [place] [phone] * (ABNORMAL) POCT HGB A1C (05/10/2025 12:02 PM EDT) Hemoglobin A1C 7.0(A) 4.0 - 5.7 % QC Media Lot # [id number] Lot# Expiration Date [id number] Blood 05/10/2025 12:0 2 PM EDT us Maria Esther De Leon ANP POINT OF CARE TEST ENTER/EDIT OR DERABLES Final Result * (ABNORMAL) POCT Glucose (05/10/2025 12:02 PM EDT) Glucose Blood, POC 215(A) 60 - 200 mg/dL QC Media Lot # [id number] Lot# Expiration Date Blood Capillary blood specimen / Unknown 05/10/2025 12:02 PM EDT us Maria Esther De Leon ANP POINT OF CARE TEST ENTER/EDIT OR DERABLES Final Result * CT Lung Screening Low dose (05/09/2025 8:24 PM EDT) Anatomical Region Laterality Modality Lung Computed Tomogra phy 05/09/2025 8:24 PM EDT Narrative 05/09/2025 8:26 PM EDT [place] [address] [address] Scan Report Signed Patient: Josue Pritchard MR#: [id number] : 1960 Acct:[id number] Age/Sex: 64 / M ADM Date: 05/08/25 Loc: HO.CT Attending Dr: Giulia Jackson JUVENILE CORRECTIONAL OFFICER Ordering Physician: Ela Irizarry PA-C Date of Service: 05/08/25 Procedure(s): CT lung screening Accession Number(s): [id number] cc: Ela Irizarry PA-C; MARIA ESTHER DE LEON JUVENILE CORRECTIONAL OFFICER Report Number: [id number]: Total DLP = 73.00 mGy-cm CLINICAL HISTORY: [...] in OV> 05/09/252025 DD/ 23 TD/TT: 05/09/252023 Building Service Worker: Procedure Note Donotuseinterpreter, Image - 05/09/[address] [place] [address] [address] Scan Report Signed Patient: Josue Pritchard LMR#: [id number] : 1960Acct:[id number] Age/Sex: 64 / MADM Date: 05/08/25 Loc: HO.CT Attending Dr: Giulia Jackson JUVENILE CORRECTIONAL OFFICER Ordering Physician: Ela Irizarry PA-C Date of Service: 05/08/25 Procedure(s): CT lung screening Accession Number(s): [id number] cc: Ela Irizarry PA-C; MARIA ESTHER DE LEON NP Report Number: [id number]: Total DLP = 73.00 mGy-cm CLINICAL HISTORY: [...] in OV> 05/09/252025 DD/ 23 TD/TT: 05/09/252023 Building Service Worker: [facility] External Provider IMG CT PROCEDURES Edited Result - Final * Lipid Panel, Standard (01/30/2025 8:56 AM EDT) Triglycerides 55 <150 mg/dL [facility] Comment:Desirable Triglyceri de: less than 150 mg/dLBorderline High Triglyceride 150-199 mg/dLHigh Triglyceride: 200-499 mg/dLVery High Triglyceride: greater than or equal to 5OO mg/dL Cholesterol 119 <200 mg/dL [facility] Comment:Desirable Cholestero l: less than 200 mg/dLBorderline High Cholesterol: 200-239 mg/dLHigh Cholesterol: greater than 239 mg/dL LDL Cholesterol Calculated 56 <100 mg/dL [facility] Comment:Desirable LDL: less than 100 mg/dLNear Optimal/Above Optimal LDL: 110- 129 mg/dLBorderline High LDL: 130-159 mg/dLHigh LDL: 160-189 mg/dLVery High LDL: greater than or equal to 190 mg/dL HDL Cholesterol 52 >40 mg/dL [facility] Comment:Desirable HDL: great er than 40 mg/dL Note: This HDL assay may give artificially low results in patients with liver disease. Blood Venous blood specimen / Unknown 01/30/2025 8:56 AM EDT 01/30/2025 11:23 AM EDT [facility] LAB BLOOD ORDERABLES Final Resul t [facility] [address] [place] [phone] * HEPATITIS B SURFACE ANTIGEN* (07/01/2022 1:44 PM EDT) Hepatitis B Surface Antigen Negative Negative [facility] AB/AG Nonreactive Nonreactive [facility] Comment: HIV-1 p24 Ag and/or HIV-1/HIV-2 Ab not detected. A test result that is nonreactive does not exclude the possibility of exposure to or infection with HIV-1 and/or HIV-2. Nonreactive results in this assay for individuals with prior exposure to HIV-1 and/or HIV-2 may be due to antigen and antibody levels that are below the limit of detection of this assay. [employer] HIV Ag/Ab Combo assay result and supplemental [...] EST) Microalbumin Urine 2.1 See Note: mg/dL [facility] Comment: Reference Range: Reference Range [...] 10/30/2020 11:2 3 AM EST Lina Andersen SAFETY OFFICER LAB URINE ORDERABLES Final Res ult Performing Organization Address City/[facility]/ZIP Co de Phone Number [facility] [address] [place] [address], from Last 3 Months or Most Recently Relevant to Health Maintenance Insurance [facility] STAND ADULT Care Teams Commercial Review Appraiser Relationship Specialty Start Date End Date Maria Esther De Leon ANP [address] [place] [address] PCP - General Family Medicine 05/16/22
--- OUTSIDE RECORDS SUMMARY | 2025-07-03 17:03 | XMS_ITS | Encounter Summary ---
Author Organization [employer] Address [address] [facility] [address] [place] [address] Care Team Providers Care Carton Stamper Name Role Phone Katia Hill Primary Care Provider [phone] Encounter Details Date Type Department Care Team (Late st Contact Info) Description 12/24/[address] [facility] [address] [place] [address] Katia Hill ANP [address] [place] [address] Social History Tobacco Use Types Packs/Day Years [...] 2:15 PM EST Office Visit [facility] [address] [place] [address] Katia Hill ANP [address] [place] [address] documented as of this encounter Goals Goal Patient Goal Type Associated Problems Recent Progress Patient-Stated? Author Hemoglobin A1c < 7 Result Component 6.7(07/03/2025 2:10 PM EDT) No Keerthi Garcia, PharmD documented as of this encounter Visit Diagnoses Not on filedocumented in this encounter Care Teams Carton Stamper Relationship Specialty Start Date End Date Katia Hill ANP [address] [place] [address] PCP - General Family Medicine 05/16/22 documented as of this encounter
--- OUTSIDE RECORDS SUMMARY | 2025-07-03 17:03 | XMS_ITS | Encounter Summary ---
Author Organization [employer] Address [address] [place] [address] [address]t [place] [address] Care Team Providers Care Lpn Instructor Name Role Phone Katia Hill Primary Care Provider [phone] Encounter Details Date Type Department Care Team (Latest Contact Info) Description 04/29/2022 Abstract [facility] CONVERSIONS Dental, Provider, DDS Social History [...] Description 07/23/2025 2:15 PM EST Office Visit [facility] [address] [place] [address] Katia Hill ANP [address] [place] [address] documented as of this encounter Visit Diagnoses Not on filedocumented in this encounter Care Teams Lpn Instructor Relationship Specialty Start Date End Date Katia Hill ANP [address] [place] [address] PCP - General Family Medicine 05/16/22 documented as of this encounter
--- OUTSIDE RECORDS SUMMARY | 2025-07-03 17:03 | XMS_ITS | Encounter Summary ---
Author Organization [employer] Address [address] [facility] [address] [place] [address] Care Team Providers Care Ict Analyst Name Role Phone Katia Hill Primary Care Provider [phone] Reason for Visit * Reason Comments Med Refill Encounter Details Date Type Department Care Team ([facility] st Contact Info) Description 03/28/2024 Refill [facility] [address] [place] [address] Maria Teresa Wright MD [address] [place] [address] Pain and swelling of right lower leg [...] Description 07/23/2025 2:15 PM EST Office Visit [facility] [address] [place] [phone] Katia Hill ANP [address] [place] [phone] documented as of this encounter Goals Goal Patient Goal Type Associated Problems Recent Progress Patient-Stated? Author Hemoglobin A1c < 7 Result Component 6.7(07/03/2025 2:10 PM EDT) No Keerthi Garcia, PharmD documented as of this encounter Visit Diagnoses Diagnosis Pain and swelling of right lower leg documented in this encounter Care Teams Ict Analyst Relationship Specialty Start Date End Date Katia Hill ANP [address] [place] [phone] PCP - General Family Medicine 05/16/22 documented as of this encounter
--- OUTSIDE RECORDS SUMMARY | 2025-07-03 17:03 | XMS_ITS | Encounter Summary ---
Author Organization [employer] Address [address] [facility] 7t [place] [address] Care Team Providers Care Tankroom Tender Name Role Phone Katia Hill Primary Care Provider [phone] Reason for Visit * Reason Onset Date Comments chart prep 07/02/2025 Encounter Details Date Type Department Care Team ([facility] st Contact Info) Description 07/02/2025 Telephone [facility] [address] [place] [address] Katia Hill ANP [address] [place] [address] chart prep Social History Tobacco Use Types Packs/Day Years [...] encounter Miscellaneous Notes * Telephone Encounter - Leatha Rodríguez MA - 07/02/2025 9:11 AM EDT Chart Prep Labs: done Images: done Referrals: appointment pending Dexa appointment on 07/17/25 @9:15am Vaccines due: Covid, Flu, Hep B, and Hep A Screenings: colonoscopy and eye exam Overdue care gaps: A1c and Glucose documented in this encounter Plan of Treatment Upcoming Encounters Date Type Department Care Team (Late st Contact Info) Description 07/23/2025 2:15 PM EST Office Visit [facility] [address] [place] [address] Katia Hill, ANP [address] [place] [address] documented as of this encounter Goals Goal Patient Goal Type Associated Problems Recent Progress Patient-Stated? Author Hemoglobin A1c < 7 Result Component 6.7(07/03/2025 2:10 PM EDT) No Keerthi Garcia, PharmD documented as of this encounter Visit Diagnoses Not on filedocumented in this encounter Additional Health Concerns Assessment Noted Time PHQ-9 Depression Total Score: 8 04/24/20 9:26 AM EDT documented as of this encounter Care Teams Tankroom Tender Relationship Specialty Start Date End Date Katia Hill ANP [address] [place] [address] PCP - General Family Medicine 05/16/22 documented as of this encounter
[2025-07-03 17:18] LABS: Prostate Specific Antigen 0.15 ng/mL (<0.05-4.0); Vitamin B12 813 pg/mL (200-900)
== END 2025-07-03 14:06 | disposition home or self-care (01) ==
LOC: HO.HHCL 14:05
PROVIDERS: PCP Nurse Practitioner Primary Care; Visit Provider Nurse Practitioner Primary Care
DX: Z12.5 Encounter for screening for malignant neoplasm of prostate (principal); D50.9 Iron deficiency anemia, unspecified; R73.03 Prediabetes
CPT/HCPCS: 36415; 82607; 83036; 84153; 85025

== ENCOUNTER 2025-09-04 09:45 | Outpatient (AMB) | payer MEDICAID, SELFPAY ==
[2025-09-04 09:51] VITALS: BP 110/68; PULSE 63; O2SAT 96; BMI 34.0
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
--- OUTSIDE RECORDS SUMMARY | 2025-09-04 11:38 | XMS_ITS | Encounter Summary ---
Author Organization [employer] Address [address] [place] [address] [address] [place] [address] Care Team Providers Care Local Sales Manager Name Role Phone Katia Hill Primary Care Provider [phone] Encounter Details Date Type Department Care Team (Latest Contact Info) Description 04/29/2022 Abstract [facility] CONVERSIONS Dental, Provider, DDS Social History Tobacco [...] Care Team (Late st Contact Info) Description 10/09/2025 2:00 PM EST Office Visit [facility] MEDICINE [address] [place] [address] Katia Hill ANP [address] [place] [address] documented as of this encounter Visit Diagnoses Not on filedocumented in this encounter Care Teams Local Sales Manager Relationship Specialty Start Date End Date Katia Hill ANP [address] [place] [address] PCP - General Family Medicine 05/16/22 documented as of this encounter
--- OUTSIDE RECORDS SUMMARY | 2025-09-04 11:38 | XMS_ITS | Encounter Summary ---
Author Organization [employer] Address [address] [place] [address] [address] [place] [address] Care Team Providers Care Network Control Supervisor Name Role Phone Katia Hill Primary Care Provider [phone] Encounter Details Date Type Department Care Team (Latest Contact Info) Description 10/16/2020 Abstract [facility] CONVERSIONS Dental, Provider, DDS Social History [...] Description 10/09/2025 2:00 PM EST Office Visit [facility]ICINE [address] [place] [address] Katia Hill ANP [address] [place] [address] documented as of this encounter Visit Diagnoses Not on filedocumented in this encounter Care Teams Network Control Supervisor Relationship Specialty Start Date End Date Katia Hill ANP [address] [place] [address] PCP - General Family Medicine 05/16/22 documented as of this encounter
--- OUTSIDE RECORDS SUMMARY | 2025-09-04 11:38 | XMS_ITS | Encounter Summary ---
Author Organization [employer] Address [address] [place] [address] [address] [place] [address] Care Team Providers Care Senior Information Security Consultant Name Role Phone Maria Esther De Leon Primary Care Provider [phone] Encounter Details Date Type Department Care Team (Late st Contact Info) Description 09/30/2022 Orders Only [facility] MEDICINE [address] [place] [phone] Becca Clemente LPN Social History Tobacco Use [...] Description 10/09/2025 2:00 PM EST Office Visit [facility] [address] [place] [address] [phone] Maria Esther De Leon ANP [address] [place], [place] [phone] documented as of this encounter Procedures Procedure Name Priority Date/Time Associated Diagnosis Comments CT ABDOMEN PELVIS WO CONTRAST Routine 10/22/2022 10:10 AM EST documented in this encounter Results * CT Abdomen Pelvis w/o Contrast (10/22/2022 10:10 AM EST) Anatomical Region Laterality Modality Body, Pelvis, Abdomen Computed T omography 10/22/2022 10:1 0 AM EST Narrative 10/26/2022 1:01 PM EST [address] [address] [address] Scan Report Signed Patient: Josue Rosenthal MR#: [id number] [birth year] : 1960 Acct:[id number] Age/Sex: 61 / M ADM Date: 10/22/22 Loc: HO.CT Attending Dr: Vincent Ocasio MD Ordering Physician: Vincent Ocasio MD Date of Service: 10/22/22 Procedure(s): CT abdomen pelvis wo IV con Accession Number(s): [id number] cc: Vincent Ocasio MD; MARIA ESTHER DE [...] in OV> 10/26/22 1258 DD/ 1010 TD/TT: Vice President Of Academic Affairs: CLEMENT Procedure Note Donotuseinterpreter, Image - 10/26/[address] [address] [address] Scan Report Signed Patient: Josue Rosenthal LMR#: [id number] 80 : 1960Acct:[id number] Age/Sex: 61 / MADM Date: 10/22/22 Loc: HO.CT Attending Dr: Vincent Ocasio MD Ordering Physician: Vincent Ocasio MD Date of Service: 10/22/22 Procedure(s): CT abdomen pelvis wo IV con Accession Number(s): [id number] cc: Vincent Ocasio MD; MARIA ESTHER DE [...] in OV> 10/26/22 1258 DD/ 1010 TD/TT: Vice President Of Academic Affairs: CLEMENT [facility] External Provider IMG CT PROCEDURES Edited Result - Final documented in this encounter Visit Diagnoses Not on filedocumented in this encounter Care Teams Senior Information Security Consultant Relationship Specialty Start Date End Date Maria Esther De Leon ANP [address] [place] [phone] PCP - General Family Medicine 05/16/22 documented as of this encounter
--- OUTSIDE RECORDS SUMMARY | 2025-09-04 11:38 | XMS_ITS | Clinical Summary ---
Author Organization [employer] Address [address] [place] [address] 7[address] [place] [address] Care Team Providers Care Telephone Directory Deliverer Name Role Phone Katia Hill Primary Care Provider Allergies Active Allergy Reactions [...] MG tabletIndications :Pulmonary Embolism,05/07/24 unprovoked PE at [facility] Take 5 mg by mouth 2 times [...] MORNING 90 tablet 3 11/02/19 25 Active Multiple Vitamin (Multivitamin) tablet TAKE [...] skin for BG check 100 each 11 5 1:22 PM EST 05/10/20 25 Active Blood Glucose Monitoring Suppl (FreeStyle Dyer Lite) w/Device kitIndications:Ne w onset type 2 diabetes mellitus (HCC) Use to test blood sugar 2 times daily 1 kit 05/10/20 25 Active docusate sodium (Colace) 100 MG capsule TAKE 1 CAPSULE BY MOUTH AT BEDTIME NEEDED 90 capsule 1 06/19/20 25 Active sildenafil (Viagra) 25 MG tabletIndications :Vasculogenic erectile dysfunction, unspecified vasculogenic erectile dysfunction type Take 1 tablet (25 mg) by mouth if needed each day for erectile dysfunction. 30-60 minutes before sexual activity 20 tablet 07/03/20 25 Active ferrous sulfate 325 (65 Fe) MG EC tabletIndications :Iron deficiency anemia, unspecified iron deficiency anemia type TAKE 1 TABLET BY MOUTH EVERY OTHER DAY IN THE MORNING w/Vit CAPSULE 45 tablet 1 08/23/20 25 Active Ascorbic Acid (vitamin C) 250 MG tabletIndications :Iron deficiency anemia, unspecified iron deficiency anemia type TAKE 1 TABLET BY MOUTH EVERY OTHER DAY IN THE MORNING w/iron 45 tablet 1 08/23/20 25 Active ferrous sulfate (Fe Tabs) 325 (65 Fe) MG EC tabletIndications :Iron deficiency anemia, unspecified iron deficiency anemia type Take 1 tab every other day with vitamin C. Do not crush, chew, or split. 45 tablet 1 02/02/20 25 2024 Discontinued Ascorbic Acid (vitamin C) 250 MG tabletIndications :Iron deficiency anemia, unspecified iron deficiency anemia type Take 1 tab every other day with ferrous sulfate tablets. 45 tablet 1 02/02/20 25 2024 Discontinued doxycycline (Vibra-Tabs) 100 MG tabletIndications :Chronic recurrent sinusitis Take 1 tablet (100 mg) by mouth 2 times daily for 7 days. Take with a full glass of water and do not lie down for at least 30 minutes after. 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 [...] Encounters Date Type Department Care Team Description 08/23/[address] [address] Katia Hill ANP Iron deficiency anemia, unspecified iron deficiency anemia type 07/23/2025 2:15 PM EST Office Visit [address] [address] Katia Hill ANP Chronic recurrent sinusitis (Primary Dx); New onset type 2 diabetes mellitus (HCC); Asthma-chronic obstructive pulmonary disease overlap syndrome (CMS/HCC) (HCC); Type 2 diabetes mellitus with hyperlipidemia (HCC) 07/23/[address] [address] Katia Hill ANP Med Refill 07/23/2025 Travel 07/20/2025 Telephone [facility] [address] [place] [phone] Katia Hill ANP chart prep 07/05/[address] [address] Katia Hill ANP Appointment Request; Referral 07/04/[address] [address] Katia Hill ANP Durable Medical Equipment 07/03/2025 1:30 PM EDT Office Visit [address] [address] Katia Hill ANP Hypoxia (Primary Dx); Severe recurrent major depression without psychotic features (CMS/HCC) (HCC); Asthma-chronic obstructive pulmonary disease overlap syndrome (CMS/HCC) (HCC); Pulmonary hypertension (CMS/HCC) (HCC); New onset type 2 diabetes mellitus (HCC); Dietary counseling; Exercise counseling; COPD exacerbation (CMS/HCC) (HCC); Vasculogenic erectile dysfunction, unspecified vasculogenic erectile dysfunction type; Screening PSA (prostate specific antigen); Mixed hyperlipidemia; Former heavy tobacco smoker; Colon cancer screening; Cirrhosis of liver without ascites, unspecified hepatic cirrhosis type (HCC); Methadone maintenance therapy patient; SOPHIA (obstructive sleep apnea) 07/03/2025 Travel 07/02/[address] [address] Katia Hill ANP chart prep 06/26/2025 Patient Outreach [address] [address] Katia Hill ANP Pre-visit Planning (SDOH screening was completed on 04/24/2025) 06/18/2025 Refill [facility] [address] [place] [address] Katia Hill ANP from Last 3 Months Immunizations Immunization [...] Sign Reading Time Taken Comments Blood Pressure 100/62 07/23/2025 2:15 PM EST Pulse 65 07/23/2025 2:15 PM EST Temperature 36.4 C (97.5 F) 07/23/2025 2:15 PM EST Respiratory Rate 14 07/23/2025 2:15 PM EST Oxygen Saturation 98% 07/23/2025 2:15 PM EST Inhaled Oxygen Concentration - - Weight 98.9 kg (218 lb) 07/23/2025 2:15 PM EST Height 170.2 cm (5' 7 ) 07/23/2025 2:15 PM EST Body Mass Index 34.14 07/23/2025 2:15 PM EST Plan of Treatment Upcoming Encounters Date Type Department Care Team (Late st Contact Info) Description 10/09/2025 2:00 PM EST Office Visit [facility] [address] [place] [address] Katia Hill ANP [address] [place] [address] Health Maintenance Due Date Last Done Comments CT Colonography 1962 FIT DNA/Cologuard 1962 FOBT 1962 Sigmoidoscopy 1962 Diabetes: Foot Exam 1972 Hepatitis A Vaccines (1 of 2 - Risk 2-dose series) 1981 Diabetes: Urine Protein Screening 10/30/2021 10/30/2020 FIT 06/04/2022 06/04/2021 Colonoscopy 09/04/2022 09/04/2021, 09/04/2021 Colorectal Cancer Screening 09/04/2022 Dental X-Ray: Full Mouth 10/09/2023 021, 03/02/2018, 12/25/2015 COVID-19 Vaccine ( season) 2025 08/23/2021, 01/20/2021, 12/23/2020 Influenza Vaccine (#1) 2025 Dental Oral Exam 11/03/2025 05/02/2025, 06/2022, 10/08/2020, Additional history exists Dental Prophylaxis 11/03/2025 05/02/2025, 0 04/29/2022, 10/16/2020, Additional history exists Diabetes: Hemoglobin A1C 01/01/2026 025, 05/10/2025, 01/30/2025, Additional history exists Lipid Panel 01/30/2026 01/30/2025, 08/20, 06/02/2021, Additional history exists Alcohol/Substance Use Screening 04/24/2026 04/24/2025 Depression Screening 04/24/2026 04/24/2025, 04/24/20 25 Disability Screening 04/24/2026 04/24/2025 SDOH Screening 04/24/2026 04/24/2025 Dental X-Ray: Bitewings 05/03/2026 05/02/20 25, 04/29/2022, 10/08/2020, Additional history exists Eye Exam 07/12/2026 07/12/2024, 06/21, 07/12/2024, Additional history exists Tobacco Screening 07/23/2026 07/23/2025 DTaP/Tdap/Td Vaccines (3 - Td or Tdap) [...] on patient's age to complete this topic Hepatitis B Vaccines Discontinued IPV Vaccines Aged Out No longer eligi [...] Author Hemoglobin A1c < 7 Result Component 6.7( 2:10 PM EDT) No Keerthi Garcia, PharmD Help patients manage their type 2 diabetes Care Plan Help patients manage their type 2 diabetes No Katia Hill ANP Weekly blood pressure task Care Plan Weekly blood pressure task No Katia Hill ANP Help patients manage their type 2 diabetes Care Plan Help patients manage their type 2 diabetes No Katia Hill ANP Patient has chronic kidney disease Care Plan Patient has chronic kidney disease No Katia Hill ANP Weekly blood pressure task Care Plan Weekly blood pressure task No Katia Hill ANP Patient has chronic kidney disease Care Plan Patient has chronic kidney disease No Katia Hill ANP Weekly blood pressure task Care Plan Weekly blood pressure task No Kristine Moreira Weekly blood pressure task Care Plan Weekly blood pressure task No Kristine Moreira Patient has chronic kidney disease Care Plan Patient has chronic kidney disease No Kristine Moreira Patient has chronic kidney disease Care Plan Patient has chronic kidney disease No Kristine Moreira Procedures Procedure Name Priority Date/Time Associated Diagnosis Comments PSA, TOTAL Routine 07/03/2025 2:10 PM EDT Screening PSA (prostate specific antigen) HEMOGLOBIN A1C Routine 07/03/2025 2:10 PM EDT Prediabetes CBC WITH AUTO DIFFERENTIAL Routine 07/03/2025 2:10 PM EDT Iron deficiency anemia, unspecified iron deficiency anemia type VITAMIN B12 Routine 07/03/2025 2:10 PM EDT Prediabetes PROPHYLAXIS - ADULT Routine 05/02/2025 8 :00 AM EDT BITEWINGS - 4 RADIOGRAPHIC IMAGES Routine 05/02/2025 8:00 AM EDT PERIODIC ORAL EVALUATION - ESTABLISHED PATIENT Routine 05/02/2025 8:00 AM EDT Encounter for dental examination Dental caries Retained tooth root Teeth missing LIPID PANEL, STANDARD Routine 01/30/2025 8:56 AM [...] Blood Count 10.3 4.8 - 10.8 X10*3/uL [facility] Red Blood Count 5.05 4.60 - 5.80 X10*6/uL [facility] Hemoglobin 13.8(L) 14.0 - 18.0 g/dl [facility] Hematocrit 43.2 42.0 - 52.0 % [facility] Mean Corpuscular Volume 85.5 80.0 - 98.0 fL [facility] Mean Corpuscular Hemoglobin 27.3 27.0 - 33.0 pg [facility] Mean Corpuscular HGB Conc 31.9 31.0 - 36.0 g/dl [facility] Red Cell Distribution Width 14.0 11.0 - 16.0 % [facility] Platelet Count 249 160 - 400 X10*3/uL [facility] Mean Platelet Volume 10.0 9.4 - 12.4 fL [facility] Neutrophils Percent Auto 75.1(H) 45 - 73 % [facility] Imm Gran Pct Auto 0.6(H) 0.0 - 0.4 % [facility] Lymphocytes Percent Auto 16.9(L) 20 - 40 % [facility] Monocytes Percent Auto 5.9 2 - 11 % [facility] Eosinophils Percent Auto 1.1 0 - 4 % [facility] Basophils Percent Auto 0.4 0 - 2 % [facility] NRBC Pct Auto 0.0 0.0 - 0.2 /100WBC [facility] Neutrophils Absolute Auto 7.7 2.0 - 8.3 x10*3/uL [facility] Imm Gran Abs Auto 0.06(H) 0.00 - 0.03 X10*3/uL [facility] Lymphocytes Absolute Auto 1.7 1.2 - 4.9 X10*3/uL [facility] Monocytes Absolute Auto 0.6 0.1 - 1.2 X10*3/uL [facility] Eosinophils Absolute Auto 0.1 0.0 - 0.4 X10*3/uL [facility] Basophils Absolute Auto 0.0 0.0 - 0.2 X10*3/uL [facility] NRBC Abs Auto 0.000 0.0 - 0.012 X10*3/uL [facility] Blood Venous blood specimen / Unknown 07/03/2025 2:10 PM EDT 07/03/2025 4:09 PM EDT Katia Hill ANP LAB BLOOD ORDERABLES Final Resul t Performing Organization Address [facility]/ZIP Co de Phone Number [facility] [address] [place] [phone] * PSA,Total (07/03/2025 2:10 PM EDT) Prostate Specific Antigen 0.15 <0.05 - 4.0 ng/mL [facility] Comment:PSA methodology: Regla larson Alijaclyn i ChemiluminescentMicroparticle Immunoassay (CMIA) Blood Venous blood specimen / Unknown 07/03/2025 2:10 PM EDT 07/03/2025 4:04 PM EDT Katia [facility] LAB BLOOD ORDERABLES Final Resul t Performing Organization Address [facility] Co de Phone Number [facility] [address] [place] [phone] * (ABNORMAL) Hemoglobin A1c (07/03/2025 2:10 PM EDT) Hemoglobin A1c 6.7(H) <6.0 % [facility] Comment:Hemoglobin A1C Refer ence Range Adults: 4.8 - 6.0 % Non diabetic: < 6.0 % Goal: < 7.0 %Additional Action Suggested: > 8.0 %Note: Hemoglobin A1c results are invalid for patients with abnormal amounts of HbF. Blood transfusions may impact the HbA1c concentration in the patient sample. Estimated Average Glucose 146 mg/dL [facility] Comment:eAG = Estimated ave rage glucose which is %A1C expressed asaverage glucose, using the formula of the [id number] Glucose study (ADAG), Diabetes Care, Vol.31,#8,2007 Blood Venous blood specimen / Unknown 07/03/2025 2:10 PM EDT 07/03/2025 4:09 PM EDT Katia Hill ANP LAB BLOOD ORDERABLES Final Resul t Performing Organization Address [facility] Co de Phone Number [facility] [address] [place] [phone] * Vitamin B12 (07/03/2025 2:10 PM EDT) Vitamin B12 813 200 - 900 pg/mL [facility] Comment:NORMAL 200-900 PG/ML INDETERMINATE 160-199 PG/ML DEFICIENT < 160 PG/ML Blood Venous blood specimen / Unknown 07/03/2025 2:10 PM EDT 07/03/2025 4:04 PM EDT Katia Hill ANP LAB BLOOD ORDERABLES Final Resul t Performing Organization Address [facility] Co de Phone Number [facility] [address] [place] [phone] * Lipid Panel, Standard (01/30/2025 8:56 AM EDT) Triglycerides 55 <150 mg/dL [facility] Comment:Desirable Triglyceri de: less than 150 mg/dLBorderline High Triglyceride 150-199 mg/dLHigh Triglyceride: 200-499 mg/dLVery High Triglyceride: greater than or equal to 5OO mg/dL Cholesterol 119 <200 mg/dL [facility] Comment:Desirable Cholestero l: less than 200 mg/dLBorderline High Cholesterol: 200-239 mg/dLHigh Cholesterol: greater than 239 mg/dL LDL Cholesterol Calculated 56 <100 mg/dL [facility] Comment:Desirable LDL: less than 100 mg/dLNear Optimal/Above Optimal LDL: 110- 129 mg/dLBorderline High LDL: 130-159 mg/dLHigh LDL: 160-189 mg/dLVery High LDL: greater than or equal to 190 mg/dL HDL Cholesterol 52 >40 mg/dL [facility] Comment:Desirable HDL: great er than 40 mg/dL Note: This HDL assay may give artificially low results in patients with liver disease. Blood Venous blood specimen / Unknown 01/30/2025 8:56 AM EDT 01/30/2025 11:23 AM EDT Katia Hill [facility] LAB BLOOD ORDERABLES Final Resul t Performing Organization Address City/[facility]/ZIP Co de Phone Number [facility] [address] [place] [phone] * HEPATITIS B SURFACE ANTIGEN* (07/01/2022 1:44 PM EDT) Pathologist [facility] Hepatitis B Surface Antigen Negative Negative [facility] HIV AB/AG Nonreactive Nonreactive CONVER ABIODUN [...] of detection of this assay. [employer] HIV Ag/Ab Combo assay result and supplemental assay results should be interpreted in conjunction with the patient's clinical presentation, history and other laboratory results. If the results are inconsistent with clinical evidence, additional testing is suggested to confirm the result. 07/01/2022 1:44 PM EDT Judy Meredith HISTORICAL/NON ORDERABLE LABS Final Result Performing Organization Address City/[facility] Co de Phone Number [facility] * Hm Colonoscopy (09/04/2021) Colonoscopy Normal Normal Narrative Ange Berman - 09/04/2021 Repeat in 1 year due to stool Historical Provider HEALTH MAINTENANCE Final Result * (ABNORMAL) ALBUMIN, RANDOM URINE W/CREATININE (10/30/2020 11:23 AM EST) Microalbumin Urine 2.1 See Note: mg/dL [facility] Comment: Reference Range: Reference Range [...] repeat analysis. 10/30/2020 11:2 3 AM EST us Lina Andersen COMPLIANCE REVIEW SPECIALIST LAB URINE ORDERABLES Final Res ult [facility] [address] from Last 3 Months or Most Recently Relevant to Health Maintenance Additional Health Concerns Active Problems Noted Date Diagnosed Date Help patients manage their type 2 diabetes 08/19 Weekly blood pressure task 08/19/2025 Help patients manage their type 2 diabetes 08/19 Patient has chronic kidney disease 08/19/2025 Weekly blood pressure task 08/19/2025 Patient has chronic kidney disease 08/19/2025 Weekly blood pressure task 08/20/2025 Weekly blood pressure task 08/20/2025 Patient has chronic kidney disease 08/20/2025 Patient has chronic kidney disease 08/20/2025 [facility] [place] AD[place] Care Teams Telephone Directory Deliverer Relationship Specialty Start Date End Date Katia Hill ANP [address] [place] [phone] PCP - General Family Medicine 05/16/22
--- OUTSIDE RECORDS SUMMARY | 2025-09-04 11:38 | XMS_ITS | Encounter Summary ---
Author Organization [employer] Address [address] [facility] [address] [place] [address] Care Team Providers Care Rigging Up Man Name Role Phone Katia Hill Primary Care Provider [phone] Encounter Details Date Type Department Care Team (Late st Contact Info) Description 12/24/2023 Telephone [facility] [address] [place] [address] Katia Hill ANP [address] [place] [address] Social History Tobacco Use Types Packs/Day Years [...] Description 10/09/2025 2:00 PM EST Office Visit [facility] [address] [place] [address] Katia Hill ANP [address] [place] [address] documented as of this encounter Goals Goal Patient Goal Type Associated Problems Recent Progress Patient-Stated? Author Hemoglobin A1c < 7 Result Component 6.7(07/03/2025 2:10 PM EDT) No Keerthi Garcia, PharmD documented as of this encounter Visit Diagnoses Not on filedocumented in this encounter Care Teams Rigging Up Man Relationship Specialty Start Date End Date Katia Hill ANP [address] [place] [address] PCP - General Family Medicine 05/16/22 documented as of this encounter
--- OUTSIDE RECORDS SUMMARY | 2025-09-04 11:38 | XMS_ITS | Encounter Summary ---
Author Organization [employer] Address [address] [facility] [address] [place] [address] Care Team Providers Care Deckhand Engineer Name Role Phone Katia Hill Primary Care Provider [phone] Reason for Visit * Reason Comments Med Refill Encounter Details Date Type Department Care Team ([facility] st Contact Info) Description 03/28/2024 Refill [facility] [address] [place] [address] Maria Teresa Wright MD [address] [place] [address] Pain and swelling of right lower leg [...] Description 10/09/2025 2:00 PM EST Office Visit [facility] [address] [place] [phone] Katia Hill ANP [address] [place] [phone] documented as of this encounter Goals Goal Patient Goal Type Associated Problems Recent Progress Patient-Stated? Author Hemoglobin A1c < 7 Result Component 6.7(07/03/2025 2:10 PM EDT) No Keerthi Garcia, PharmD documented as of this encounter Visit Diagnoses Diagnosis Pain and swelling of right lower leg documented in this encounter Care Teams Deckhand Engineer Relationship Specialty Start Date End Date Katia Hill ANP [address] [place] [phone] PCP - General Family Medicine 05/16/22 documented as of this encounter
== END 2025-09-04 10:31 | disposition home or self-care (01) ==
LOC: HO.HPS 09:46
PROVIDERS: PCP Nurse Practitioner Primary Care; Visit Provider Hospitalist
DX: J45.51 Severe persistent asthma with (acute) exacerbation (principal); J40 Bronchitis, not specified as acute or chronic; G47.33 Obstructive sleep apnea (adult) (pediatric); F19.20 Other psychoactive substance dependence, uncomplicated; I26.99 Other pulmonary embolism without acute cor pulmonale; J44.9 Chronic obstructive pulmonary disease, unspecified; A49.01 Methicillin susceptible Staphylococcus aureus infection, unspecified site; G47.34 Idiopathic sleep related nonobstructive alveolar hypoventilation
CPT/HCPCS: 99214

== ENCOUNTER → 2025-09-04 09:45 | Outpatient (BNVA) | payer MEDICAID, SELFPAY | PROVIDERS: PCP Nurse Practitioner Primary Care; Visit Provider Hospitalist | DX: J45.51 Severe persistent asthma with (acute) exacerbation (principal); J44.89 Other specified chronic obstructive pulmonary disease; G47.33 Obstructive sleep apnea (adult) (pediatric); G47.34 Idiopathic sleep related nonobstructive alveolar hypoventilation; F19.20 Other psychoactive substance dependence, uncomplicated; I26.99 Other pulmonary embolism without acute cor pulmonale; A49.01 Methicillin susceptible Staphylococcus aureus infection, unspecified site; Z87.891 Personal history of nicotine dependence; Z79.899 Other long term (current) drug therapy; Z79.01 Long term (current) use of anticoagulants; Z79.52 Long term (current) use of systemic steroids | CPT/HCPCS: 99212 ==